=== PATIENT | female | born 1955 | race Caucasian/White ===

== ENCOUNTER → 2016-07-16 | Outpatient (CLI) | payer OTHER ==
[~2016-07-16] MED LIST: ACET50TA PO; ADV250INH INH; ALBU17IN INH; ALLO10TA PO; AMBI10TA PO; AMBI5TAB PO; ATEN100T PO; ATEN25TA PO; AUGM500T34 PO; BEN1.4DI TOP; CALC500T51 PO; CALCTAB43 PO; CALCTAB75 PO; CATA0.1T PO; CEPH2CAP PO; CLON1TAB PO; CLON2TAB PO; DOCU10CA PO; DYAZCA OR; ENBR50IN2 SC; FOLI1TAB2 PO; FOLI1TAB86 PO; HCTZ25TA PO; IBUP600T26 PO; IMDU60TA PO; IPRASOL4 NEB; KLON2TAB PO; LAMO10TA PO; LASI20TA PO; LIDO5DIS36 TD; LYRI150C PO; METH2.5T PO; METH2.5TA PO; MORP30TA10 PO; MYCOSTATIN TOP; NEUR100C PO; NEUR300C PO; NEUR600T PO; NICO14DI3 TD; NORCOTAB PO; NYST10CR EXT; OMEP40CA2 PO; OSCA200T PO; OXYC-208 PO; OXYC30TA4 PO; PERC7.5T12 PO; PRED1TABL PO; PRED5TA PO; PRIL40CA PO; RANI15TA PO; RHEU2.5T PO; RISP2TAB30 PO; RISP3TAB18 PO; RISP4TAB33 PO; ROBA750T4 PO; SENO8.6T2 PO; SENO8.6T9 PO; SOMA350T PO; SPIR1CAP IN; SYMB16INH INH; TRAM50TA2 PO; TRAZ100T2 PO; TRAZ100T4 PO; TRAZ150T PO; TRAZ300T2 PO; TUDO1AER2 INH; TYLE325T5 PO; TYLE650T25 PO; VENTAER IN; VITA200015 PO; VITA500046 PO; VITAD1000T OR; VITAD1000T PO; ZANA4CAP PO; ZOLO20CO PO; ZOLO50TA PO; [UNRECOGNIZED DRUG - REMARK]
--- NOTE | 2016-07-19 02:07 | ECWPNPC ---
PATIENT NAME: DA THAO : 1955 GENDER: FEMALE VISIT DATE: 07/16/2016 DISCHARGE DATE: 07/16/16 1459 VISIT LOCKED DATE TIME: PHYSICIAN: LIUDMILA HART RESOURCE: LIUDMILA HART REASON FOR APPOINTMENT 1. ARTHRITIS HISTORY OF PRESENT ILLNESS HISTORY OF PRESENT ILLNESS: PAIN THE PATIENT DESCRIBES THE PAIN... THE PATIENT DESCRIBES THE PAIN... THE PATIENT DESCRIBES THE PAIN... THE PATIENT DESCRIBES THE PAIN... HERE FOR F/U AND MANAGEMENT OF PERSISTENT LOW BACK PAIN.INCREASED TRAMADOL 50MG TO MAX 6 PER DAYAT LAST VISIT.RATING PAIN VAS 3/10. ALSO USING TIZANIDINE 4MG BID PRN PAIN W MDD3.HISTORY OF GENERALIZED JOINT PAIN WITH HX OF RHEUMATOID ARTHRITIS.HAD TO STOP LYRICA 1 MOS AGO DUE TO SWELLING WITH IMPROVEMENT IN SWELLING AFTER STOPPING LYRICA.HAS BEEN ON SOLUMEDROL DOSE PACK PAST 3 WEEKS PER PRIMARY CARE WITH IMPROVEMENT IN PAIN.PAIN IS LOCATED IN ALL JOINTS WITH WORSE AREA OF PAIN LOW BACK.DESCRIBES PAIN CONSTANT SHARP AND STABBING PAIN. FALL RISK SCREENING: SCREENING :NO FALLS IN THE PAST YEAR CURRENT MEDICATIONS TAKING ATENOLOL 25MG TABLET 1 TABLET ORALLY TWICE DAILY TAKING FOLIC ACID 1 MG TABLET 1 TAB(S) P.O. ONCE A DAY TAKING RISPERDAL 2 MG TABLET 1 TAB(S) P.O. ONCE A DAY TAKING OMEPRAZOLE 40 MG CAPSULE DELAYED RELEASE 1 CAPSULE ORALLY ONCE A DAY TAKING RANITIDINE HCL 150 MG CAPSULE 1 CAP(S) P.O. TWICE DAILY NEEDED TAKING TRAZODONE 100 100MG TABLET 3 ORAL DAILY TAKING KLONOPIN 1 MG TABLET ORALLY THREE TIMES DAILY TAKING VITAMIN D-3 2000 UNIT CAPSULE 1 CAPSULE P.O. ONCE A DAY TAKING CALCIUM 600 600 MG TABLET 1 TAB(S) P.O. TWICE A DAY TAKING METHOTREXATE 2.5 MG TABLET 8 TABS P.O. ONCE A WK. TAKING ACETAMINOPHEN 325 MG TABLET 1 TABLET NEEDED ORALLY EVERY 6 HRS TAKING ALBUTEROL SULFATE 1.25 MG/3ML NEBULIZATION SOLUTION 3 ML NEEDED INHALATION EVERY 8 HRS TAKING ALLOPURINOL 100 MG TABLET 1 TABLET ORALLY ONCE A DAY TAKING ENBREL 50 MG/ML SOLUTION PREFILLED SYRINGE 1 ML SUBCUTANEOUS WEEKLY TAKING IBUPROFEN 600 MG TABLET 1 TABLET ORALLY THREE TIMES DAILY NEEDED TAKING LAMICTAL 150 MG TABLET 1 TABLET ORALLY ONCE DAILY TAKING NYSTATIN POWDER DIRECTED TAKING SENNA LAXATIVE 8.6 MG TABLET 1 TABLETS AT BEDTIME NEEDED ORALLY ONCE DAILY NEEDED TAKING TUDORZA PRESSAIR 400 MCG/ACT AEROSOL POWDER BREATH ACTIVATED 1 PUFF INHALATION TWICE A DAY TAKING VENTOLIN HFA 108 (90 BASE) MCG/ACT AEROSOL SOLUTION 2 PUFFS NEEDED INHALATION EVERY 4 HRS TAKING FOSAMAX 70 MG/75ML SOLUTION 75 ML ORALLY WEEKLY TAKING AMBIEN 10 MG TABLET 1 TABLET AT BEDTIME NEEDED ORALLY ONCE A DAY TAKING BREO ELLIPTA 100-25 MCG/INH AEROSOL POWDER BREATH ACTIVATED 1 PUFF INHALATION ONCE A DAY TAKING PREDNISONE 5 MG TABLET 1 TABLET ORALLY ONCE A DAY TAKING ZANAFLEX 4 MG TABLET 1 TABLET NEEDED ORALLY Q12H BID TAKING TRAMADOL HCL 50 MG TABLET 1-2 ORALLY Q4-6H MDD6 TAKING LASIX 40 MG TABLET 1 TABLET ORALLY ONCE A DAY DISCONTINUED LASIX 20 MG TABLET 1 TABLET ORALLY ONCE A DAY MEDICATION LIST REVIEWED AND RECONCILED WITH THE PATIENT PAST MEDICAL HISTORY RA COPD BIPOLAR DISORDER/DEPRESSION/SUICIDAL IDEATION HTN GERD CHRONIC PAIN TOBACCO USE ANXIETY ALLERGIES IVP DYE: ANAPHYLAXIS SHELLFISH: ANAPHYLAXIS LYRICA: SWELLING SOCIAL HISTORY GENERAL: TOBACCO USE ARE YOU A:NONSMOKER LEARNING BARRIERS / SPECIAL NEEDS ORIENTED TO PLAN OF CARE: PATIENT, PAIN MANAGEMENT PATIENT, ORIENTED TO PLAN OF CARE: PATIENT, PAIN MANAGEMENT PATIENT. NEW PATIENT PAIN DIARY TODAY'S VISITNOTES FROM 0-10, WHAT LEVEL IS YOUR PAIN TODAY?0 PAIN CLINIC PFS, CLERGY, PUBLIC HEALTH REFERRALS PFS REFERRAL NEEDED?NO CLERGY REFERRAL NEEDED?NO PUBLIC HEALTH REFERRAL NEEDED?NO WAS THE PROVIDER NOTIFIED OF ANY PERTINENT INFO?NO PFS REFERRAL NEEDED?NO CLERGY REFERRAL NEEDED?NO PUBLIC HEALTH REFERRAL NEEDED?NO WAS THE PROVIDER NOTIFIED OF ANY PERTINENT INFO?NO REVIEW OF SYSTEMS CONSTITUTIONAL: ANY CHANGE IN YOUR MEDICAL CONDITION? NO . CHILLS NO . FEVER NO . INFECTION: DO YOU HAVE NEW INFECTIONS? NO . DO YOU HAVE HISTORY OF MRSA? NO . MUSCULOSKELETAL: ANY NEW PATTERNS OF PAIN OR NUMBNESS? NO . GASTROENTEROLOGY: ANY NEW CHANGE IN BOWEL CONTROL? NO . GENITOURINARY: ANY NEW CHANGE IN BLADDER CONTROL? NO . IS THERE A CHANCE YOU COULD BE ? NO . HEMATOLOGY/LYMPH: DO YOU TAKE ANY BLOOD THINNERS? (FOR EXAMPLE- COUMADIN, PLAVIX, AGGRENOX, PLATEL, PRADAXA, OR XARELTO) NO . WHEN WAS YOUR LAST DOSE? DATE: TIME: . NEUROLOGY: HAVE YOU FALLEN IN THE PAST 6 MONTHS? NO . ANY NEW EXTREMITY NUMBNESS OR WEAKNESS? NO . CARDIOLOGY: DO YOU HAVE A PACEMAKER OR DEFIBRILLATOR? NO . RESPIRATORY: HAVE YOU BEEN SICK IN THE PAST WEEK? YES . FEVER NO . FLU LIKE SYMPTOMS? NO . COUGH NO . INTEGUMENTARY: DO YOU HAVE ANY RASHES OR OPEN SORES? NO . ALLERGIC/IMMUNO: ARE YOU ALLERGIC TO SHELLFISH OR IV DYE? YES . ANY NEW ALLERGIES? NO . PSYCHIATRIC: DO YOU HAVE THOUGHTS OF HURTING YOURSELF OR SOMEONE ELSE? NO . ARE YOU ABUSED, NEGLECTED, OR IN AN UNSAFE ENVIRONMENT? NO . ENDOCRINOLOGY: ARE YOU DIABETIC? NO . OTHER: DO YOU NEED ANY PRESCRIPTIONS? YES . IF YES, PLEASE LIST: ____ZANAFLEX,TRAMADOL . ANY NEW PROBLEMS WITH YOUR MEDICATIONS? NO . WHEN DID YOU LAST EAT? ____ . WHEN DID YOU LAST DRINK? ____ . WHAT DID YOU LAST DRINK? ____ . NAME OF PERSON DRIVING YOU HOME? ____ . DO YOU HAVE ANY OTHER QUESTIONS OR CONCERNS NO . REVIEWED BY: PROVIDER: LIUDMILA WHITESIDE . VITAL SIGNS WT 248.8 LBS, HT 62 IN, BMI 45.50 INDEX, BP 124/56 MM HG, HR 74 /MIN, RR 16 /MIN, TEMP 96.0 F, OXYGEN SAT % 92, NA INITIALS TL 1423, REVIEWED BY: VDPT WEIGHED ON PMC SCALE- TL. EXAMINATION GENERAL EXAMINATION: LUNGS:LUNG SOUNDS ARE CLEAR. HEART:HEART RATE REGULAR. MUSCULOSKELETAL:*, MUSCLE STRENGTH TESTING 3/5PALPATION: POSITIVE FOR PAIN OVER L/S SPINE. POSITIVE FOR PAIN OVER L/S PARSPINALS.. ASSESSMENTS RHEUMATOID ARTHRITIS INVOLVING MULTIPLE SITES, UNSPECIFIED RHEUMATOID FACTOR PRESENCE - M06.9 (PRIMARY) TREATMENT RHEUMATOID ARTHRITIS INVOLVING MULTIPLE SITES, UNSPECIFIED RHEUMATOID FACTOR PRESENCE CONTINUE ZANAFLEX TABLET, 4 MG, 1 TABLET NEEDED, ORALLY, Q12H BID CONTINUE TRAMADOL HCL TABLET, 50 MG, 1-2, ORALLY, Q4-6H MDD6 PROCEDURE CODES FA211 ESTABILISHED PATIENT [facility] FACILITY CHARGE DISPOSITION & COMMUNICATION FOLLOW UP 3 MONTHS ELECTRONICALLY SIGNED BY STEVO KWON ON 07/17/2016 AT 09:14 AM EST DISCLAIMER : THIS IS A VISIT SUMMARY EXTRACTED FROM THE [employer] CHART. IT IS NOT A COPY OF THE [employer] PROGRESS NOTE. MAMI
== END ==
LOC: M PAIN 14:00
PROVIDERS: ATTEND Nurse Practitioner Family
DX: Z09 Encounter for follow-up examination after completed treatment for conditions other than malignant neoplasm (principal); G89.29 Other chronic pain; M06.9 Rheumatoid arthritis, unspecified; J44.9 Chronic obstructive pulmonary disease, unspecified; I10 Essential (primary) hypertension; K21.9 Gastro-esophageal reflux disease without esophagitis; F31.9 Bipolar disorder, unspecified; F41.9 Anxiety disorder, unspecified; Z91.041 Radiographic dye allergy status; Z91.013 Allergy to seafood; Z88.8 Allergy status to other drugs, medicaments and biological substances; Z79.1 Long term (current) use of non-steroidal anti-inflammatories (NSAID); Z79.52 Long term (current) use of systemic steroids; Z79.891 Long term (current) use of opiate analgesic; Z79.899 Other long term (current) drug therapy; Z87.891 Personal history of nicotine dependence; Z91.5 Personal history of self-harm

== ENCOUNTER → 2016-10-22 | Outpatient (CLI) | payer MEDICARE, MEDICAID ==
--- NOTE | 2016-10-24 02:13 | ECWPNPC ---
PATIENT NAME: DA THAO : 1955 GENDER: FEMALE VISIT DATE: 10/22/2016 DISCHARGE DATE: 10/22/16 1522 VISIT LOCKED DATE TIME: PHYSICIAN: LIUDMILA HART RESOURCE: LIUDMILA HART REASON FOR APPOINTMENT 1. ARTHRITIS HISTORY OF PRESENT ILLNESS HISTORY OF PRESENT ILLNESS: HERE FOR F/U OF CHRONIC LOW BACK AMD GENERALIZED JOINT PAIN WITH HISTORY OF RHEUMATOID ARTHRITIS.CURRENTLY USING TRAMADOL 1-2 TAB Q8H PRN PAIN WITH MDD6 AND TIZANIDINE 4MG BID FOR CHRONIC PAIN.FINDS MEDICATION SOMEWHAT HELPFUL AT REDUCING PAIN AND KEEPING HER COMFORTABLE.DENIES SIDE EFFECTS.RATING PAIN VAS 5/10. PAIN THE PATIENT DESCRIBES THE PAIN... FALL RISK SCREENING: SCREENING :NO FALLS IN THE PAST YEAR CURRENT MEDICATIONS TAKING ATENOLOL 25MG TABLET 1 TABLET ORALLY TWICE DAILY TAKING FOLIC ACID 1 MG TABLET 1 TAB(S) P.O. ONCE A DAY TAKING RISPERDAL 2 MG TABLET 1 TAB(S) P.O. ONCE A DAY TAKING OMEPRAZOLE 40 MG CAPSULE DELAYED RELEASE 1 CAPSULE ORALLY ONCE A DAY TAKING RANITIDINE HCL 150 MG CAPSULE 1 CAP(S) P.O. TWICE DAILY NEEDED TAKING TRAZODONE 100 100MG TABLET 3 ORAL DAILY TAKING KLONOPIN 1 MG TABLET ORALLY THREE TIMES DAILY TAKING VITAMIN D-3 2000 UNIT CAPSULE 1 CAPSULE P.O. ONCE A DAY TAKING CALCIUM 600 600 MG TABLET 1 TAB(S) P.O. TWICE A DAY TAKING METHOTREXATE 2.5 MG TABLET 8 TABS P.O. ONCE A WK. TAKING ACETAMINOPHEN 325 MG TABLET 1 TABLET NEEDED ORALLY EVERY 6 HRS TAKING ALBUTEROL SULFATE 1.25 MG/3ML NEBULIZATION SOLUTION 3 ML NEEDED INHALATION EVERY 8 HRS TAKING ALLOPURINOL 100 MG TABLET 1 TABLET ORALLY ONCE A DAY TAKING ENBREL 50 MG/ML SOLUTION PREFILLED SYRINGE 1 ML SUBCUTANEOUS WEEKLY TAKING IBUPROFEN 600 MG TABLET 1 TABLET ORALLY THREE TIMES DAILY NEEDED TAKING LAMICTAL 150 MG TABLET 1 TABLET ORALLY ONCE DAILY TAKING NYSTATIN POWDER DIRECTED TAKING SENNA LAXATIVE 8.6 MG TABLET 1 TABLETS AT BEDTIME NEEDED ORALLY ONCE DAILY NEEDED TAKING TUDORZA PRESSAIR 400 MCG/ACT AEROSOL POWDER BREATH ACTIVATED 1 PUFF INHALATION TWICE A DAY TAKING VENTOLIN HFA 108 (90 BASE) MCG/ACT AEROSOL SOLUTION 2 PUFFS NEEDED INHALATION EVERY 4 HRS TAKING FOSAMAX 70 MG/75ML SOLUTION 75 ML ORALLY WEEKLY TAKING AMBIEN 10 MG TABLET 1 TABLET AT BEDTIME NEEDED ORALLY ONCE A DAY TAKING BREO ELLIPTA 100-25 MCG/INH AEROSOL POWDER BREATH ACTIVATED 1 PUFF INHALATION ONCE A DAY TAKING PREDNISONE 5 MG TABLET 1 TABLET ORALLY ONCE A DAY TAKING LASIX 40 MG TABLET 1 TABLET ORALLY ONCE A DAY TAKING ZANAFLEX 4 MG TABLET 1 TABLET NEEDED ORALLY Q12H BID TAKING TRAMADOL HCL 50 MG TABLET 1-2 ORALLY Q4-6H MDD6 TAKING OXYGEN MEDICATION LIST REVIEWED AND RECONCILED WITH THE PATIENT PAST MEDICAL HISTORY RA COPD BIPOLAR DISORDER/DEPRESSION/SUICIDAL IDEATION HTN GERD CHRONIC PAIN TOBACCO USE ANXIETY SLEEP APNEA ALLERGIES IVP DYE: ANAPHYLAXIS SHELLFISH: ANAPHYLAXIS LYRICA: SWELLING SURGICAL HISTORY 07/1981 APPENDECTOMY CHOLECYSTECTOMY TONSILLECTOMY BTL -2007 FAMILY HISTORY FATHER: , DIAGNOSED WITH HEART DISEASE MOTHER: , DIAGNOSED WITH OTHER 1 BROTHER(S) , 3 SISTER(S) - HEALTHY. 2 SON(S) , 1 DAUGHTER(S) - HEALTHY. SOCIAL HISTORY GENERAL: TOBACCO USE ARE YOU A:CURRENT SMOKER HOW MANY CIGARETTES A DAY DO YOU SMOKE?5 OR LESS PATIENT COUNSELED ON THE DANGERS OF TOBACCO USE AND URGED TO QUIT:10/22/2016 ARE YOU INTERESTED IN QUITTING?NOT READY TO QUIT COUNSELED THE PATIENT ON SMOKING EFFECTS, EDUCATION [id number]/13/2017 CAFFEINE CAFFEINE USE?YES HOW OFTEN AND HOW MUCH? 1-2 CUPS PER DAY LEARNING BARRIERS / SPECIAL NEEDS ORIENTED TO PLAN OF CARE: PATIENT, PAIN MANAGEMENT PATIENT, ORIENTED TO PLAN OF CARE: PATIENT, PAIN MANAGEMENT PATIENT. NEW PATIENT PAIN DIARY TODAY'S VISITNOTES FROM 0-10, WHAT LEVEL IS YOUR PAIN TODAY?0 PAIN CLINIC PFS, CLERGY, PUBLIC HEALTH REFERRALS PFS REFERRAL NEEDED?NO CLERGY REFERRAL NEEDED?NO PUBLIC HEALTH REFERRAL NEEDED?NO WAS THE PROVIDER NOTIFIED OF ANY PERTINENT INFO?YES HAS THE PATIENT BEEN EDUCATED REGARDING HIS/HER PLAN OF CARE?YES HAS THE PATIENT BEEN EDUCATED REGARDING PAIN, THE RISK FOR PAIN, THE IMPORTANCE OF EFFECTIVE PAIN MANAGEMENT, AND THE PAIN ASSESSMENT PROCESS?YES REVIEWED BY: ANA. ADVANCE DIRECTIVES HEALTH CARE PROXY?NO HOSPITALIZATION/MAJOR DIAGNOSTIC PROCEDURE FEVER 10/09/12 UTI 09/29/12 [facility] SUICIDAL IDEATION/DEPRESSION 10/12/12 [facility] SUICIDAL IDEATION 10/17/12 ACUTE CHOLECYSTITIS-[facility] 11/21 [facility]-DEPRESSION/SUICIDAL IDEATION 12/22 REVIEW OF SYSTEMS CONSTITUTIONAL: ANY CHANGE IN YOUR MEDICAL CONDITION? NO . CHILLS NO . FEVER NO . INFECTION: DO YOU HAVE NEW INFECTIONS? NO . DO YOU HAVE HISTORY OF MRSA? NO . MUSCULOSKELETAL: ANY NEW PATTERNS OF PAIN OR NUMBNESS? NO . GASTROENTEROLOGY: ANY NEW CHANGE IN BOWEL CONTROL? NO . GENITOURINARY: ANY NEW CHANGE IN BLADDER CONTROL? NO . IS THERE A CHANCE YOU COULD BE ? NO . HEMATOLOGY/LYMPH: DO YOU TAKE ANY BLOOD THINNERS? (FOR EXAMPLE- COUMADIN, PLAVIX, AGGRENOX, PLATEL, PRADAXA, OR XARELTO) NO . WHEN WAS YOUR LAST DOSE? DATE: TIME: . NEUROLOGY: HAVE YOU FALLEN IN THE PAST 6 MONTHS? YES, PT STATES THAT SHE LOST HER BALANCE AT HOME, WENT TO PULL DOOR OPEN, NO INJURY, NO REPORT TO ED . ANY NEW EXTREMITY NUMBNESS OR WEAKNESS? NO . CARDIOLOGY: DO YOU HAVE A PACEMAKER OR DEFIBRILLATOR? NO . RESPIRATORY: HAVE YOU BEEN SICK IN THE PAST WEEK? NO . FEVER NO . FLU LIKE SYMPTOMS? NO . COUGH NO . INTEGUMENTARY: DO YOU HAVE ANY RASHES OR OPEN SORES? NO . ALLERGIC/IMMUNO: ARE YOU ALLERGIC TO SHELLFISH OR IV DYE? YES . ANY NEW ALLERGIES? NO . PSYCHIATRIC: DO YOU HAVE THOUGHTS OF HURTING YOURSELF OR SOMEONE ELSE? NO . ARE YOU ABUSED, NEGLECTED, OR IN AN UNSAFE ENVIRONMENT? NO . ENDOCRINOLOGY: ARE YOU DIABETIC? NO . OTHER: DO YOU NEED ANY PRESCRIPTIONS? TRAMADOL, ZANAFLEX . IF YES, PLEASE LIST: ____ . ANY NEW PROBLEMS WITH YOUR MEDICATIONS? NO . WHEN DID YOU LAST EAT? ____ . WHEN DID YOU LAST DRINK? ____ . WHAT DID YOU LAST DRINK? ____ . NAME OF PERSON DRIVING YOU HOME? ____ . DO YOU HAVE ANY OTHER QUESTIONS OR CONCERNS NO . REVIEWED BY: PROVIDER: LIUDMILA WHITESIDE . VITAL SIGNS WT 245.4 LBS, HT 62 IN, BMI 44.88 INDEX, BP 125/76 MM HG, HR 71 /MIN, RR 16 /MIN, TEMP 96.4 F, OXYGEN SAT % 93%, SAFE IN ENV? (Y/N) Y, NA INITIALS TL 1455, REVIEWED BY: [id number]. EXAMINATION GENERAL EXAMINATION: LUNGS:LUNG SOUNDS ARE CLEAR. HEART:HEART RATE REGULAR. MUSCULOSKELETAL:*, MUSCLE STRENGTH TESTING 3/5PALPATION: POSITIVE FOR PAIN OVER L/S SPINE. POSITIVE FOR PAIN OVER L/S PARASPINALS.. ASSESSMENTS RHEUMATOID ARTHRITIS INVOLVING MULTIPLE SITES, UNSPECIFIED RHEUMATOID FACTOR PRESENCE - M06.9 (PRIMARY) TREATMENT RHEUMATOID ARTHRITIS INVOLVING MULTIPLE SITES, UNSPECIFIED RHEUMATOID FACTOR PRESENCE REFILL ZANAFLEX TABLET, 4 MG, 1 TABLET NEEDED, ORALLY, Q12H BID, 30 DAY(S), 60, REFILLS 2 REFILL TRAMADOL HCL TABLET, 50 MG, 1-2, ORALLY, Q4-6H MDD6, 30 DAY(S), 180, REFILLS 2 PROCEDURE CODES FA211 ESTABILISHED PATIENT [facility] FACILITY CHARGE DISPOSITION & COMMUNICATION FOLLOW UP 3 MONTHS ELECTRONICALLY SIGNED BY STEVO KWON ON 10/23/2016 AT 03:55 PM EDT DISCLAIMER : THIS IS A VISIT SUMMARY EXTRACTED FROM THE [employer] CHART. IT IS NOT A COPY OF THE [employer] PROGRESS NOTE. MAMI
== END ==
LOC: M PAIN 14:40
PROVIDERS: ATTEND Nurse Practitioner Family
DX: G89.29 Other chronic pain (principal); M06.9 Rheumatoid arthritis, unspecified; J44.9 Chronic obstructive pulmonary disease, unspecified; F31.9 Bipolar disorder, unspecified; I10 Essential (primary) hypertension; K21.9 Gastro-esophageal reflux disease without esophagitis; F17.210 Nicotine dependence, cigarettes, uncomplicated; F41.9 Anxiety disorder, unspecified; G47.30 Sleep apnea, unspecified; Z79.51 Long term (current) use of inhaled steroids; Z79.52 Long term (current) use of systemic steroids; Z79.899 Other long term (current) drug therapy; Z99.81 Dependence on supplemental oxygen; Z91.013 Allergy to seafood; Z88.8 Allergy status to other drugs, medicaments and biological substances

== ENCOUNTER → 2016-12-22 | Outpatient (CLI) | payer MEDICARE, OTHER, MEDICAID ==
[~2016-12-22] MED LIST changes: -CALCTAB43 PO; +CALCTAB74 PO; -FOLI1TAB2 PO; +FOLI1TAB4 PO; +IBUP-1022 PO; -IBUP600T26 PO; -LIDO5DIS36 TD; +LIDO5DIS41 TD; -RISP2TAB30 PO; +RISP2TAB32 PO; -RISP3TAB18 PO; +RISP3TAB20 PO; -SENO8.6T2 PO; +SENO8.6T5 PO; +TRAZ-136 PO; -TRAZ100T4 PO
--- NOTE | 2016-12-28 10:15 | SLEEPCENT ---
DATE OF STUDY: 12/22/2016 ORDERING PROVIDER: Pepper Perry NP Nocturnal polysomnography was performed due to concern for the obstructive sleep apnea syndrome in this patient with a history of excessive somnolence and nonrestorative sleep. Testing was started on room air. 8 hours and 1 minute of data were reviewed. There were 465 minutes of sleep identified. Sleep latency was normal at 8.5 minutes. Rapid eye movement (REM) sleep was delayed at 317 minutes. Sleep architecture showed poor progression and REM delay. There was only one REM period appreciated. Overall sleep efficiency was good at 97%. The patient's electrocardiogram (EKG) showed a sinus rhythm with an average heart rate of 70 beats per minute. Electroencephalogram (EEG) showed fairly normal waveforms for awake and sleep. There were 35 respiratory events identified of 10 seconds in duration or greater for an apnea-hypopnea index of 5.1. The events were near exclusive to the supine posture. The patient spent the entire night in the supine position. Arousals from respiratory events occurred 0.8 times per hour. Oxygen desaturation seen early in the study prompted the addition of supplemental oxygen after 2 liters of oxygen was administered. Saturations normalized. Snoring was noted throughout the study. There was little limb activity, and remaining measures of sleep physiology were normal. IMPRESSION: 1. Mild positional obstructive sleep apnea syndrome (G47.33). 2. Snoring. 3. Hypoventilatory oxygen desaturations. RECOMMENDATION: Supplemental oxygen at 2 liters per minute was sufficient to maintain the patient's oxygen saturation. Sleep position retraining for avoidance of supine posture is recommended given the obstructive events seen. If symptoms persist, the patient may benefit from a return to the sleep disorder center for pressure therapy.
== END ==
LOC: M SLEEP 20:00
PROVIDERS: ATTEND Nurse Practitioner Adult Health
DX: G47.33 Obstructive sleep apnea (adult) (pediatric) (principal); R06.83 Snoring

== ENCOUNTER → 2017-02-06 | Outpatient (CLI) | payer MEDICARE, MEDICAID ==
--- NOTE | 2017-02-06 23:48 | ECWPNPC ---
PATIENT NAME: DA THAO : 1955 GENDER: FEMALE VISIT DATE: 02/06/2017 DISCHARGE DATE: 02/06/17 1129 VISIT LOCKED DATE TIME: PHYSICIAN: LIUDMILA HART RESOURCE: LIUDMILA HART REASON FOR APPOINTMENT 1. ARTHRITIS HISTORY OF PRESENT ILLNESS HISTORY OF PRESENT ILLNESS: HERE FOR 3 MONTH F/U OF CHRONIC LOW BACK AND GENERALIZED JOINT PAIN WITH HISTORY OF RHEUMATOID ARTHRITIS.CURRENTLY USING TRAMADOL 1-2 TAB Q8H PRN PAIN WITH MDD6 AND TIZANIDINE 4MG BID FOR CHRONIC PAIN.FINDS MEDICATION SOMEWHAT HELPFUL AT REDUCING PAIN AND KEEPING HER COMFORTABLE.DENIES SIDE EFFECTS.RATING PAIN VAS 6/10.PAIN IS WORSE IN NECK AND LOW BACK.PAIN IS AGGREVATED BY INCREASED ACTIVITY AND RELIEVED SOMEWHAT WITH REST AND HEAT. PAIN THE PATIENT DESCRIBES THE PAIN... THE PATIENT DESCRIBES THE PAIN... FALL RISK SCREENING: SCREENING :NO FALLS IN THE PAST YEAR CURRENT MEDICATIONS TAKING ATENOLOL 25MG TABLET 1 TABLET ORALLY TWICE DAILY TAKING FOLIC ACID 1 MG TABLET 1 TAB(S) P.O. ONCE A DAY TAKING RISPERDAL 2 MG TABLET 1 TAB(S) P.O. ONCE A DAY TAKING OMEPRAZOLE 40 MG CAPSULE DELAYED RELEASE 1 CAPSULE ORALLY ONCE A DAY TAKING RANITIDINE HCL 150 MG CAPSULE 1 CAP(S) P.O. TWICE DAILY NEEDED TAKING TRAZODONE 100 100MG TABLET 3 ORAL DAILY TAKING KLONOPIN 1 MG TABLET ORALLY THREE TIMES DAILY TAKING VITAMIN D-3 2000 UNIT CAPSULE 1 CAPSULE P.O. ONCE A DAY TAKING CALCIUM 600 600 MG TABLET 1 TAB(S) P.O. TWICE A DAY TAKING METHOTREXATE 2.5 MG TABLET 8 TABS P.O. ONCE A WK. TAKING ACETAMINOPHEN 325 MG TABLET 1 TABLET NEEDED ORALLY EVERY 6 HRS TAKING ALBUTEROL SULFATE 1.25 MG/3ML NEBULIZATION SOLUTION 3 ML NEEDED INHALATION EVERY 8 HRS TAKING ALLOPURINOL 100 MG TABLET 1 TABLET ORALLY ONCE A DAY TAKING ENBREL 50 MG/ML SOLUTION PREFILLED SYRINGE 1 ML SUBCUTANEOUS WEEKLY TAKING IBUPROFEN 600 MG TABLET 1 TABLET ORALLY THREE TIMES DAILY NEEDED TAKING LAMICTAL 200 MG TABLET 1 TABLET ORALLY ONCE DAILY TAKING NYSTATIN POWDER DIRECTED TAKING SENNA LAXATIVE 8.6 MG TABLET 1 TABLETS AT BEDTIME NEEDED ORALLY ONCE DAILY NEEDED TAKING TUDORZA PRESSAIR 400 MCG/ACT AEROSOL POWDER BREATH ACTIVATED 1 PUFF INHALATION TWICE A DAY TAKING VENTOLIN HFA 108 (90 BASE) MCG/ACT AEROSOL SOLUTION 2 PUFFS NEEDED INHALATION EVERY 4 HRS TAKING FOSAMAX 70 MG/75ML SOLUTION 75 ML ORALLY WEEKLY TAKING AMBIEN 10 MG TABLET 1 TABLET AT BEDTIME NEEDED ORALLY ONCE A DAY TAKING BREO ELLIPTA 100-25 MCG/INH AEROSOL POWDER BREATH ACTIVATED 1 PUFF INHALATION ONCE A DAY TAKING PREDNISONE 5 MG TABLET 1 TABLET ORALLY ONCE A DAY TAKING LASIX 40 MG TABLET 1 TABLET ORALLY ONCE A DAY TAKING OXYGEN TAKING TRAMADOL HCL 50 MG TABLET 1-2 ORALLY Q4-6H MDD6 TAKING ZANAFLEX 4 MG TABLET 1 TABLET NEEDED ORALLY Q12H BID MEDICATION LIST REVIEWED AND RECONCILED WITH THE PATIENT PAST MEDICAL HISTORY RA COPD BIPOLAR DISORDER/DEPRESSION/SUICIDAL IDEATION HTN GERD CHRONIC PAIN TOBACCO USE ANXIETY SLEEP APNEA ALLERGIES IVP DYE: ANAPHYLAXIS SHELLFISH: ANAPHYLAXIS LYRICA: SWELLING REVIEW OF SYSTEMS REVIEWED BY: PROVIDER: LIUDMILA WHITESIDE . CONSTITUTIONAL: ANY CHANGE IN YOUR MEDICAL CONDITION? NO . CHILLS NO . FEVER NO . INFECTION: DO YOU HAVE NEW INFECTIONS? NO . DO YOU HAVE HISTORY OF MRSA? NO . MUSCULOSKELETAL: ANY NEW PATTERNS OF PAIN OR NUMBNESS? NO . GASTROENTEROLOGY: ANY NEW CHANGE IN BOWEL CONTROL? NO . GENITOURINARY: ANY NEW CHANGE IN BLADDER CONTROL? NO . IS THERE A CHANCE YOU COULD BE ? NO . HEMATOLOGY/LYMPH: DO YOU TAKE ANY BLOOD THINNERS? (FOR EXAMPLE- COUMADIN, PLAVIX, AGGRENOX, PLATEL, PRADAXA, OR XARELTO) NO . WHEN WAS YOUR LAST DOSE? DATE: TIME: . NEUROLOGY: HAVE YOU FALLEN IN THE PAST 6 MONTHS? YES . ANY NEW EXTREMITY NUMBNESS OR WEAKNESS? NO . CARDIOLOGY: DO YOU HAVE A PACEMAKER OR DEFIBRILLATOR? NO . RESPIRATORY: HAVE YOU BEEN SICK IN THE PAST WEEK? NO . FEVER NO . FLU LIKE SYMPTOMS? NO . COUGH NO . INTEGUMENTARY: DO YOU HAVE ANY RASHES OR OPEN SORES? NO . ALLERGIC/IMMUNO: ARE YOU ALLERGIC TO SHELLFISH OR IV DYE? YES, SHELLFISH . ANY NEW ALLERGIES? NO . PSYCHIATRIC: DO YOU HAVE THOUGHTS OF HURTING YOURSELF OR SOMEONE ELSE? NO . ARE YOU ABUSED, NEGLECTED, OR IN AN UNSAFE ENVIRONMENT? NO . ENDOCRINOLOGY: ARE YOU DIABETIC? NO . OTHER: DO YOU NEED ANY PRESCRIPTIONS? NO . IF YES, PLEASE LIST: ____ . ANY NEW PROBLEMS WITH YOUR MEDICATIONS? NO . WHEN DID YOU LAST EAT? ____ . WHEN DID YOU LAST DRINK? ____ . WHAT DID YOU LAST DRINK? ____ . NAME OF PERSON DRIVING YOU HOME? ____ . DO YOU HAVE ANY OTHER QUESTIONS OR CONCERNS NO . VITAL SIGNS WT 238.8 LBS, HT 62 IN, BMI 43.67 INDEX, BP 135/62 MM HG, HR 85 /MIN, RR 16 /MIN, TEMP 97.5 F, OXYGEN SAT % 92%, NA INITIALS CM 1110. EXAMINATION GENERAL EXAMINATION: LUNGS:LUNG SOUNDS ARE CLEAR. HEART:HEART RATE REGULAR. MUSCULOSKELETAL:*, MUSCLE STRENGTH TESTING 3/5PALPATION: POSITIVE FOR PAIN OVER L/S SPINE. POSITIVE FOR PAIN OVER L/S PARASPINALS.. ASSESSMENTS RHEUMATOID ARTHRITIS INVOLVING MULTIPLE SITES, UNSPECIFIED RHEUMATOID FACTOR PRESENCE - M06.9 (PRIMARY) TREATMENT RHEUMATOID ARTHRITIS INVOLVING MULTIPLE SITES, UNSPECIFIED RHEUMATOID FACTOR PRESENCE CONTINUE ZANAFLEX TABLET, 4 MG, 1 TABLET NEEDED, ORALLY, Q12H BID CONTINUE TRAMADOL HCL TABLET, 50 MG, 1-2, ORALLY, Q4-6H MDD6 NOTES: FALLS CARE PLAN: 1. RECOMMEND REMOVING ALL THROW RUGS. 2. RECOMMEND NIGHT LIGHTS 3. RECOMMEND WEARING RUBBER SOLED SHOES AND TO NOT GO BAREFOOT. 4.. ADVISED TO CHANGE POSITION SLOWLY FROM SUPINE TO STANDING TO AVOID DIZZINESS. 5. ADVISED TO USE ASSISTIVE DEVICE SUCH CANE OR WALKER 6. USE [employer] SERVICES OR KEEP PORTABLE PHONE READILY AVAILABLE, # 226 TOBACCO USE SCREENING/INTERVENTION: PATIENT CURRENTLY USED TOBACCO. WAS OFFERED SMOKING CESSATION FOR GUIDANCE IN QUITTING THROUGH THE [facility] QUITS PROGRAM AND THE [facility] CESSATION PROGRAM. , #128 - SCREENING BMI AND F/U PLAN IN : BMI ABOVE NORMAL TODAY. DISCUSSED WITH PATIENT NUTRITIONAL FOOD CHOICES TO ASSIST WITH WEIGHT LOSS. RECCOMMENDED REDUCING SALT, SUGAR, SODA INTAKE. RECOMMEND INCREASE ACTIVITY TO INCLUDE WALKING ON A REGULAR BASIS. PROFESSIONAL NUTRITIONAL NUTRITIONAL GUIDANCE WAS OFFERED AND WAS DECLINED. , PATIENT WAS ADVISED TO START A WALKING PROGRAM TO STRENGTHEN LUMBAR PARASPINAL MUSCLES AND IMPROVE MOBILITY. THEY WERE ADVISED THAT THIS WILL IMPROVE WEIGHT LOSS AND ALSO DEPRESSION/FIBROMYALGIA SYMPTOMS. ADVISED TO WALK 10 MINUTES EVERY OTHER DAY ON A FLAT SURFACE. EMPHASIZED THE IMPORTANCE OF DOING THIS CONSISTANTLY AND NOT SPORATICALLY TO AVOID INJURY. STRONG ADVISED NOT TO DO MORE THAN 10 MINUTES EVERY OTHER DSY FOR THE FIRST 4 WEEKS. PROCEDURE CODES FA211 ESTABILISHED PATIENT [facility] FACILITY CHARGE G8783 BP SCR PRFRM RCMDD DEFIND SCR INTVL G8730 PAIN ASSESS POS TOOL F/U PLAN DOC 3016F PT SCRND [place] USE 1124F ACP DISCUSS-NO DSCNMKR DOCD 0518F FALL PLAN OF CARE DOCD G8427 DOC MEDS VERIFIED W/PT OR RE G8417 BMI >=30 CALCUATE W/FOLLOWUP 3288F FALL RISK ASSESSMENT DOCD 4004F PT TOBACCO SCREEN RCVD TLK DISPOSITION & COMMUNICATION FOLLOW UP 3 MONTHS ELECTRONICALLY SIGNED BY STEVO KWON ON 02/06/2017 AT 03:57 PM EDT DISCLAIMER : THIS IS A VISIT SUMMARY EXTRACTED FROM THE [employer] CHART. IT IS NOT A COPY OF THE [facility] [employer] PROGRESS NOTE. MAMI
== END ==
LOC: M PAIN 10:45
PROVIDERS: ATTEND Nurse Practitioner Family
DX: G89.29 Other chronic pain (principal); M06.9 Rheumatoid arthritis, unspecified; J44.9 Chronic obstructive pulmonary disease, unspecified; F31.9 Bipolar disorder, unspecified; I10 Essential (primary) hypertension; K21.9 Gastro-esophageal reflux disease without esophagitis; F17.200 Nicotine dependence, unspecified, uncomplicated; G47.30 Sleep apnea, unspecified; Z91.041 Radiographic dye allergy status; Z91.013 Allergy to seafood; Z88.8 Allergy status to other drugs, medicaments and biological substances; Z79.51 Long term (current) use of inhaled steroids; Z79.52 Long term (current) use of systemic steroids; Z79.891 Long term (current) use of opiate analgesic; Z79.899 Other long term (current) drug therapy

== ENCOUNTER → 2017-02-19 | Outpatient (CLI) | payer MEDICARE, MEDICAID ==
--- NOTE | 2017-02-25 21:44 | SLEEPCENT ---
DATE OF PROCEDURE: 02/19/2017 ORDERED BY: Pepper Perry Nocturnal polysomnography was performed for titration of pressure therapy in this patient with obstructive sleep apnea syndrome, apnea-hypopnea index of 5.1. For testing, the patient was fit with a ResMed Mirage FX full face mask of medium size. 4 cm of water pressure were applied to the circuit and the lights were extinguished. 6 hours and 41 minutes of data were reviewed. There were 374 minutes of sleep identified. Sleep latency was prolonged at 19 minutes. Rapid eye movement (REM) latency was prolonged at 119 minutes. Sleep architecture improved over the course of the study with 2 REM periods appreciated. Overall sleep efficiency was 94.8%. The electrocardiogram showed a sinus rhythm with an average heart rate of 60 beats per minute. EEG showed reasonably normal waveforms for awake and sleep. Hypoventilatory oxygen desaturations prompted the addition of supplemental oxygen to the continuous positive airway pressure (CPAP) circuit. Best sleep was seen on a CPAP pressure of 6. With the addition of 2 liters of oxygen, saturations remained 90% plus. There was minimal limb activity, minimal snoring was noted and remaining measures of sleep physiology were normal. IMPRESSION: Obstructive sleep apnea syndrome (G47.33). RECOMMENDATION: Nightly use of pressure therapy 6 cm of water with 2 liters of oxygen bled through the CPAP circuit. Copy To: Dr. Sun
== END ==
LOC: M SLEEP 22:13
PROVIDERS: ATTEND Nurse Practitioner Adult Health
DX: G47.33 Obstructive sleep apnea (adult) (pediatric) (principal)

== ENCOUNTER → 2017-05-01 | Outpatient (CLI) | payer MEDICARE, MEDICAID ==
[2017-05-01 12:47] LABS: BASO # 0.1 10^3/uL (0.0-0.2); BASO % 0.7 % (0.0-1.0); EOS # 0.3 10^3/uL (0.0-0.50); EOS % 2.5 % (0.0-3.0); IMMATURE GRANULOCYTE % 0.7 % (0-0); LYMPH # 2.2 10^3/uL (1.5-4.5); MEAN CORPUSCULAR HEMOGLOBIN 32.1 pg (27.0-33.0); MEAN CORPUSCULAR HGB CONC 33.6 g/dl (32.0-36.5); MEAN CORPUSCULAR VOLUME 95.7 fl (80.0-96.0); MONO # 0.9 10^3/uL (0.0-0.8); MONO % 6.8 % (0.0-5.0); NEUTROPHILS # 9.4 10^3/uL (1.8-7.7); NEUTROPHILS % 72.3 % (36.0-66.0); PLATELET COUNT, AUTOMATED 195 10^3/uL (150-450); RED CELL DISTRIBUTION WIDTH 13.5 % (11.5-14.5); WHITE BLOOD COUNT 13.1 10^3/uL (4.0-10.0)
[2017-05-01 13:16] LABS: ALBUMIN 3.1 GM/DL (3.2-5.2); ALKALINE PHOSPHATASE 75 U/L (45-117); ALT/SGPT 22 U/L (12-78); ANION GAP 6 MEQ/L (8-16); AST/SGOT 19 U/L (7-37); BILIRUBIN,TOTAL 0.4 MG/DL (0.2-1.0); BLOOD UREA NITROGEN 10 MG/DL (7-18); CALCIUM LEVEL 8.1 MG/DL (8.8-10.2); CARBON DIOXIDE LEVEL 40 MEQ/L (21-32); CHLORIDE LEVEL 99 MEQ/L (98-107); CHOLESTEROL LEVEL 155 MG/DL (<200); CREATININE FOR GFR 0.93 MG/DL (0.55-1.02); FREE T4 1.75 NG/DL (0.76-1.46); GLOMERULAR FILTRATION RATE > 60.0 (>45); GLUCOSE, FASTING 113 MG/DL (80-110); SODIUM LEVEL 145 MEQ/L (136-145); TOTAL PROTEIN 6.2 GM/DL (6.4-8.2); TRIGLYCERIDES LEVEL 141 MG/DL (<150)
== END ==
LOC: M LAB 11:49
PROVIDERS: ATTEND Physician Assistant
DX: Z00.00 Encounter for general adult medical examination without abnormal findings (principal); E66.9 Obesity, unspecified; Z79.899 Other long term (current) drug therapy

== ENCOUNTER → 2017-06-11 | Outpatient (CLI) | payer MEDICARE, MEDICAID | LOC: M PAIN 14:45 | DX: G89.29 Other chronic pain (principal); M06.9 Rheumatoid arthritis, unspecified; M54.5 Low back pain; I10 Essential (primary) hypertension; J44.9 Chronic obstructive pulmonary disease, unspecified; K21.9 Gastro-esophageal reflux disease without esophagitis; F31.9 Bipolar disorder, unspecified; F41.9 Anxiety disorder, unspecified; G47.30 Sleep apnea, unspecified; F17.210 Nicotine dependence, cigarettes, uncomplicated; Z79.51 Long term (current) use of inhaled steroids; Z79.52 Long term (current) use of systemic steroids; Z79.891 Long term (current) use of opiate analgesic; Z79.899 Other long term (current) drug therapy; Z88.8 Allergy status to other drugs, medicaments and biological substances; Z91.041 Radiographic dye allergy status; Z91.013 Allergy to seafood; Z86.59 Personal history of other mental and behavioral disorders | CPT/HCPCS: G0463 ==

== ENCOUNTER → 2017-08-04 | Outpatient (CLI) | payer MEDICARE, MEDICAID ==
[2017-08-04 19:54] LABS: THYROID PEROXIDASE ANTIBODY < 28.0 U/ML (<60.0)
[2017-08-04 19:55] LABS: THYROGLOBULIN ANTIBODY 16.1 U/ML (<60.0)
[2017-08-04 19:57] LABS: ALBUMIN 3.2 GM/DL (3.2-5.2); ALBUMIN/GLOBULIN RATIO 1.03 (1.00-1.93); ALKALINE PHOSPHATASE 72 U/L (45-117); ALT/SGPT 22 U/L (12-78); ANION GAP 6 MEQ/L (8-16); AST/SGOT 30 U/L (7-37); BILIRUBIN,TOTAL 0.5 MG/DL (0.2-1.0); BLOOD UREA NITROGEN 10 MG/DL (7-18); CALCIUM LEVEL 8.4 MG/DL (8.8-10.2); CARBON DIOXIDE LEVEL 36 MEQ/L (21-32); CHLORIDE LEVEL 100 MEQ/L (98-107); CREATININE FOR GFR 0.95 MG/DL (0.55-1.30); GLOMERULAR FILTRATION RATE > 60.0 (>45); GLUCOSE, FASTING 96 MG/DL (70-100); POTASSIUM SERUM 3.2 MEQ/L (3.5-5.1); SODIUM LEVEL 142 MEQ/L (136-145); THYROID STIMULATING HORMONE 0.662 uIU/ML (0.358-3.740); TOTAL PROTEIN 6.3 GM/DL (6.4-8.2)
[2017-08-04 20:42] LABS: ESTIMATED AVERAGE GLUCOSE 108 MG/DL (60-110); HEMOGLOBIN A1c 5.4 %
== END ==
LOC: M WUC 16:08
DX: R73.01 Impaired fasting glucose (principal); E55.9 Vitamin D deficiency, unspecified; R94.6 Abnormal results of thyroid function studies
CPT/HCPCS: 84443

== ENCOUNTER → 2017-11-25 | Outpatient (CLI) | payer MEDICARE, MEDICAID | LOC: M PAIN 14:30 | DX: M06.9 Rheumatoid arthritis, unspecified (principal); M54.5 Low back pain; G89.29 Other chronic pain; J44.9 Chronic obstructive pulmonary disease, unspecified; F31.9 Bipolar disorder, unspecified; R45.851 Suicidal ideations; I10 Essential (primary) hypertension; K21.9 Gastro-esophageal reflux disease without esophagitis; F41.9 Anxiety disorder, unspecified; G47.30 Sleep apnea, unspecified; F17.210 Nicotine dependence, cigarettes, uncomplicated; Z79.51 Long term (current) use of inhaled steroids; Z79.899 Other long term (current) drug therapy; Z88.8 Allergy status to other drugs, medicaments and biological substances; Z91.041 Radiographic dye allergy status; Z91.013 Allergy to seafood | CPT/HCPCS: G0463 ==

== ENCOUNTER → 2017-12-03 | Outpatient (CLI) | payer MEDICARE ==
[2017-12-03 15:09] LABS: HEMATOCRIT 40.8 % (36.0-47.0); HEMOGLOBIN 13.5 g/dl (12.0-15.5); MEAN CORPUSCULAR HEMOGLOBIN 33.2 pg (27.0-33.0); MEAN CORPUSCULAR HGB CONC 33.1 g/dl (32.0-36.5); MEAN CORPUSCULAR VOLUME 100.2 fl (80.0-96.0); PLATELET COUNT, AUTOMATED 195 10^3/uL (150-450); RED BLOOD COUNT 4.07 10^6/uL (4.00-5.40); RED CELL DISTRIBUTION WIDTH 14.9 % (11.5-14.5); WHITE BLOOD COUNT 14.2 10^3/uL (4.0-10.0)
[2017-12-03 15:18] LABS: TOTAL 25(OH) VITAMIN D 73.8 NG/ML (30.0-100.0)
[2017-12-03 15:20] LABS: ALBUMIN 3.1 GM/DL (3.2-5.2); ALBUMIN/GLOBULIN RATIO 0.94 (1.00-1.93); ALKALINE PHOSPHATASE 83 U/L (45-117); ALT/SGPT 19 U/L (12-78); ANION GAP 6 MEQ/L (8-16); APPEARANCE, URINE CLOUDY (CLEAR); AST/SGOT 17 U/L (7-37); BACTERIA, URINE AUTO 2+ (NEGATIVE); BILIRUBIN, URINE AUTO NEGATIVE (NEGATIVE); BILIRUBIN,TOTAL 0.6 MG/DL (0.2-1.0); BLOOD UREA NITROGEN 12 MG/DL (7-18); BLOOD, URINE BLOOD NEGATIVE (NEGATIVE); CALCIUM LEVEL 7.8 MG/DL (8.8-10.2); CARBON DIOXIDE LEVEL 42 MEQ/L (21-32); CHLORIDE LEVEL 95 MEQ/L (98-107); CHOLESTEROL LEVEL 188 MG/DL (<200); CHOLESTEROL RISK RATIO 5.529 (<5); COLOR, URINE AMBER (YELLOW); CREATININE FOR GFR 1.21 MG/DL (0.55-1.30); FREE T4 1.77 NG/DL (0.76-1.46); GLOMERULAR FILTRATION RATE 48.2 (>45); GLUCOSE, FASTING 116 MG/DL (70-100); GLUCOSE, URINE (UA) AUTO NEGATIVE (NEGATIVE); HDL CHOLESTEROL 34 MG/DL (>40); KETONE, URINE AUTO NEGATIVE (NEGATIVE); LEUKOCYTE ESTERASE, URINE AUTO 3+ (NEGATIVE); MUCUS, URINE SMALL (NEGATIVE); NITRITE, URINE AUTO NEGATIVE (NEGATIVE); NON-HDL-C 154 MG/DL; PROTEIN, URINE AUTO 1+ mg/dL (NEGATIVE); RBC, URINE AUTO 5 /HPF (0-3); SODIUM LEVEL 143 MEQ/L (136-145); SPECIFIC GRAVITY URINE AUTO 1.015 (1.002-1.035); SQUAMOUS EPITHELIAL CELL UR AU 7 /HPF (0-6); TOTAL PROTEIN 6.4 GM/DL (6.4-8.2); TRIGLYCERIDES LEVEL 175 MG/DL (<150); WBC, URINE AUTO TNTC /HPF (0-3)
[2017-12-03 15:34] LABS: MALB URINE SIEMENS 57.3 MG/L; MAU/CREAT RATIO 28.6 MCG/MG (0.0-30.0)
== END ==
LOC: M WUC 10:17
DX: I10 Essential (primary) hypertension (principal); E55.9 Vitamin D deficiency, unspecified; M06.9 Rheumatoid arthritis, unspecified; R94.6 Abnormal results of thyroid function studies; R32 Unspecified urinary incontinence
CPT/HCPCS: 84443

== ENCOUNTER → 2017-12-29 | Outpatient (CLI) | payer MEDICARE ==
[2017-12-29 17:24] LABS: ALBUMIN 3.2 GM/DL (3.2-5.2); ALBUMIN/GLOBULIN RATIO 1.07 (1.00-1.93); ALKALINE PHOSPHATASE 81 U/L (45-117); ALT/SGPT 24 U/L (12-78); ANION GAP 8 MEQ/L (8-16); AST/SGOT 16 U/L (7-37); BILIRUBIN,TOTAL 0.5 MG/DL (0.2-1.0); BLOOD UREA NITROGEN 7 MG/DL (7-18); CALCIUM LEVEL 8.9 MG/DL (8.8-10.2); CARBON DIOXIDE LEVEL 34 MEQ/L (21-32); CHLORIDE LEVEL 100 MEQ/L (98-107); CREATININE FOR GFR 0.97 MG/DL (0.55-1.30); GLOMERULAR FILTRATION RATE > 60.0 (>45); GLUCOSE, FASTING 199 MG/DL (70-100); SODIUM LEVEL 142 MEQ/L (136-145); TOTAL PROTEIN 6.2 GM/DL (6.4-8.2)
[2017-12-29 17:25] LABS: ESTIMATED AVERAGE GLUCOSE 100 MG/DL (60-110); HEMOGLOBIN A1c 5.1 %
[2017-12-29 18:09] LABS: APPEARANCE, URINE HAZY (CLEAR); BACTERIA, URINE AUTO 1+ (NEGATIVE); BILIRUBIN, URINE AUTO NEGATIVE (NEGATIVE); BLOOD, URINE BLOOD NEGATIVE (NEGATIVE); COLOR, URINE YELLOW (YELLOW); GLUCOSE, URINE (UA) AUTO NEGATIVE (NEGATIVE); KETONE, URINE AUTO NEGATIVE (NEGATIVE); LEUKOCYTE ESTERASE, URINE AUTO NEGATIVE (NEGATIVE); MUCUS, URINE SMALL (NEGATIVE); NITRITE, URINE AUTO NEGATIVE (NEGATIVE); PROTEIN, URINE AUTO NEGATIVE (NEGATIVE); RBC, URINE AUTO 1 /HPF (0-3); SPECIFIC GRAVITY URINE AUTO 1.011 (1.002-1.035); SQUAMOUS EPITHELIAL CELL UR AU 5 /HPF (0-6); WBC, URINE AUTO 2 /HPF (0-3)
== END ==
LOC: M WUC 13:51
DX: N30.00 Acute cystitis without hematuria (principal); R73.01 Impaired fasting glucose
CPT/HCPCS: 80053

== ENCOUNTER 2018-02-06 18:20 | Emergency (ER) | payer MEDICARE ==
[2018-02-06] MEDS: METOCLOPRAMIDE INJ 10MG/2ML VIAL (J2765) IV (19:00)
[2018-02-06] MEDS: NS 1,000 ML IV (19:00)
[2018-02-06 19:44] LABS: BASO # 0.1 10^3/uL (0.0-0.2); BASO % 0.3 % (0.0-1.0); EOS # 0.1 10^3/uL (0.0-0.50); EOS % 0.8 % (0.0-3.0); HEMATOCRIT 39.7 % (36.0-47.0); HEMOGLOBIN 13.2 g/dl (12.0-15.5); LYMPH # 2.4 10^3/uL (1.5-4.5); LYMPH % 13.2 % (24.0-44.0); MEAN CORPUSCULAR HEMOGLOBIN 33.1 pg (27.0-33.0); MEAN CORPUSCULAR HGB CONC 33.2 g/dl (32.0-36.5); MEAN CORPUSCULAR VOLUME 99.5 fl (80.0-96.0); MONO # 1.1 10^3/uL (0.0-0.8); MONO % 6.1 % (0.0-5.0); NEUTROPHILS # 14.3 10^3/uL (1.8-7.7); NEUTROPHILS % 78.6 % (36.0-66.0); PLATELET COUNT, AUTOMATED 189 10^3/uL (150-450); RED BLOOD COUNT 3.99 10^6/uL (4.00-5.40); RED CELL DISTRIBUTION WIDTH 15.5 % (11.5-14.5); WHITE BLOOD COUNT 18.2 10^3/uL (4.0-10.0)
[2018-02-06 20:01] LABS: INR 1.08; PROTHROMBIN TIME 14.1 SECONDS (12.1-14.4)
[2018-02-06 20:02] LABS: PARTIAL THROMBOPLASTIN TIME 23.6 SECONDS (25.4-37.6)
[2018-02-06 20:11] LABS: ALBUMIN 3.2 GM/DL (3.2-5.2); ALKALINE PHOSPHATASE 82 U/L (45-117); ALT/SGPT 18 U/L (12-78); ANION GAP 11 MEQ/L (8-16); AST/SGOT 18 U/L (7-37); BILIRUBIN,DIRECT 0.4 MG/DL (0.0-0.2); BILIRUBIN,TOTAL 0.7 MG/DL (0.2-1.0); BLOOD UREA NITROGEN 12 MG/DL (7-18); CALCIUM LEVEL 8.5 MG/DL (8.8-10.2); CARBON DIOXIDE LEVEL 30 MEQ/L (21-32); CHLORIDE LEVEL 102 MEQ/L (98-107); CREATININE FOR GFR 0.78 MG/DL (0.55-1.30); GLOMERULAR FILTRATION RATE > 60.0 (>45); GLUCOSE, FASTING 117 MG/DL (70-100); LIPASE 136 U/L (73-393); POTASSIUM SERUM 3.4 MEQ/L (3.5-5.1); SODIUM LEVEL 143 MEQ/L (136-145); TOTAL PROTEIN 6.1 GM/DL (6.4-8.2)
[2018-02-06] MEDS: ONDANSETRON 4MG/2ML VIAL (J2405) IV (21:45)
[2018-02-06] MEDS: GI COCKTAIL 50ML BTL(HYOSCYAMINE/MAALOX/LIDOCAINE VISCOUS)(1:3:1) PO (22:30)
== END 2018-02-07 00:05 | disposition home or self-care (01) ==
LOC: M ED 02-07 00:05
DX: K52.9 Noninfective gastroenteritis and colitis, unspecified (principal); K21.9 Gastro-esophageal reflux disease without esophagitis; I10 Essential (primary) hypertension; J44.9 Chronic obstructive pulmonary disease, unspecified; F31.9 Bipolar disorder, unspecified; Z91.041 Radiographic dye allergy status; Z91.013 Allergy to seafood; Z88.8 Allergy status to other drugs, medicaments and biological substances; Z79.899 Other long term (current) drug therapy; Z79.52 Long term (current) use of systemic steroids

== ENCOUNTER 2018-02-07 18:05 | Inpatient (IN) | payer MEDICARE ==
[2018-02-07] MEDS: NS 1,000 ML IV ×2 (00:15→18:34)
[2018-02-07 18:38] LABS: BASO # 0.1 10^3/uL (0.0-0.2); BASO % 0.4 % (0.0-1.0); EOS # 0.1 10^3/uL (0.0-0.50); EOS % 0.7 % (0.0-3.0); HEMATOCRIT 40.6 % (36.0-47.0); HEMOGLOBIN 13.5 g/dl (12.0-15.5); LYMPH # 1.8 10^3/uL (1.5-4.5); LYMPH % 9.1 % (24.0-44.0); MEAN CORPUSCULAR HEMOGLOBIN 33.7 pg (27.0-33.0); MEAN CORPUSCULAR HGB CONC 33.3 g/dl (32.0-36.5); MEAN CORPUSCULAR VOLUME 101.2 fl (80.0-96.0); MONO # 1.1 10^3/uL (0.0-0.8); MONO % 5.4 % (0.0-5.0); NEUTROPHILS # 16.9 10^3/uL (1.8-7.7); NEUTROPHILS % 83.4 % (36.0-66.0); PLATELET COUNT, AUTOMATED 201 10^3/uL (150-450); RED BLOOD COUNT 4.01 10^6/uL (4.00-5.40); RED CELL DISTRIBUTION WIDTH 15.2 % (11.5-14.5); WHITE BLOOD COUNT 20.3 10^3/uL (4.0-10.0)
[2018-02-07 18:48] LABS: INR 1.06; PROTHROMBIN TIME 13.9 SECONDS (12.1-14.4)
[2018-02-07] MEDS: PANTOPRAZOLE 40MG INJ (PROTONIX) (C9113) IV (18:57)
[2018-02-07] MEDS: METOCLOPRAMIDE INJ 10MG/2ML VIAL (J2765) IV (18:57)
[2018-02-07 19:26] LABS: ALBUMIN 3.2 GM/DL (3.2-5.2); ALBUMIN/GLOBULIN RATIO 1.03 (1.00-1.93); ALKALINE PHOSPHATASE 79 U/L (45-117); ALT/SGPT 23 U/L (12-78); ANION GAP 12 MEQ/L (8-16); AST/SGOT 28 U/L (7-37); BILIRUBIN,DIRECT 0.5 MG/DL (0.0-0.2); BLOOD UREA NITROGEN 16 MG/DL (7-18); CALCIUM LEVEL 8.1 MG/DL (8.8-10.2); CARBON DIOXIDE LEVEL 26 MEQ/L (21-32); CHLORIDE LEVEL 100 MEQ/L (98-107); CREATININE FOR GFR 0.99 MG/DL (0.55-1.30); GLOMERULAR FILTRATION RATE > 60.0 (>45); GLUCOSE, FASTING 114 MG/DL (70-100); LIPASE 69 U/L (73-393); POTASSIUM SERUM 3.5 MEQ/L (3.5-5.1); SODIUM LEVEL 138 MEQ/L (136-145); TOTAL PROTEIN 6.3 GM/DL (6.4-8.2)
[2018-02-07] MEDS: GASTROGRAFIN SOLUTION 30ML PO ×2 (20:50→21:19)
[2018-02-08 01:54] LABS: KETONE, URINE AUTO RFX NEGATIVE (NEGATIVE); LEUKOCYTE ESTERASE UR AUTO RFX NEGATIVE (NEGATIVE); NITRITE, URINE AUTO RFX NEGATIVE (NEGATIVE); RBC, URINE AUTO RFX 0 /HPF (0-3); SPECIFIC GRAVITY UR AUTO RFX 1.011 (1.002-1.035); SQUAM EPITHELIAL CELL UR AURFX 0 /HPF (0-6); WBC, URINE AUTO RFX 0 /HPF (0-3)
[2018-02-08] MEDS: metroNIDAZOLE 500 MG in APPROPRIATE DILUENT 1 EA IV (03:30)
[2018-02-08] MEDS: VANCOMYCIN ORAL SOL 250MG/5ML ORAL SYRINGE PO ×3 (03:45→18:08)
[2018-02-08] MEDS: NS 1,000 ML IV ×3 (04:50→21:01)
[2018-02-08] MEDS ORDERED: NICOTINE 21MG/24HR 1 EA TRANSDERMAL TD (05:00)
[2018-02-08] MEDS: CIPROFLOXACIN 400 MG in APPROPRIATE DILUENT 1 EA IV (05:05)
[2018-02-08] MEDS: traZODone 100 MG TAB PO ×2 (05:06→20:45)
[2018-02-08] MEDS: zolPIDEM TARTRATE 5 MG TAB PO ×2 (05:07→20:44)
[2018-02-08 06:13] LABS: MAGNESIUM LEVEL 1.6 MG/DL (1.8-2.4)
[2018-02-08 06:21] LABS: THYROID STIMULATING HORMONE 0.431 uIU/ML (0.358-3.740)
[2018-02-08] MEDS: TIOTROPIUM INHALER/CAPSULE (SPIRIVA) INH (08:00)
[2018-02-08] MEDS: ONDANSETRON 4 MG TAB (S0181) PO (08:09)
[2018-02-08] MEDS: NYSTATIN 100,000 UNITS/GM TOPICAL PWD 15 GM TOP ×2 (09:00→20:46)
[2018-02-08] MEDS: ATENOLOL 25 MG TAB PO (09:00)
[2018-02-08] MEDS: MAG SULF 1GM/100ML (MAG RUN) 1 GM in APPROPRIATE DILUENT 1 EA IV (09:22)
[2018-02-08] MEDS: clonazePAM 1 MG TAB PO ×3 (09:23→20:44)
[2018-02-08] MEDS: ENOXAPARIN 40 MG/0.4 ML SYRINGE (J1650) SC (09:23)
[2018-02-08] MEDS: predniSONE 5 MG TAB PO (09:23)
[2018-02-08] MEDS: OMEPRAZOLE 20 MG CAP PO (09:23)
[2018-02-08] MEDS: lamoTRIgine 100MG TAB PO (10:15)
[2018-02-08] MEDS: LIDOCAINE 5% (LIDODERM) PATCH TD (10:15)
[2018-02-08] MEDS: lamoTRIgine 25 MG TAB PO (10:15)
[2018-02-08] MEDS: FOLIC ACID 1 MG TAB PO (10:16)
[2018-02-08] MEDS: risperiDONE 2 MG TAB PO ×2 (10:16→20:44)
[2018-02-08] MEDS: ALLOPURINOL 100 MG TAB PO (10:16)
[2018-02-08] MEDS: traMADol 50 MG TAB PO ×3 (10:30→22:45)
[2018-02-08] MEDS: IBUPROFEN 600 MG TAB PO (13:52)
[2018-02-08] MEDS: tiZANidine 4 MG TAB PO ×2 (14:46→20:45)
[2018-02-08] MEDS: FAMOTIDINE 20 MG TAB PO (14:46)
[2018-02-08] MEDS: DICLOFENAC EPOLAMINE 1.3 % PATCH TOP ×2 (14:47→20:46)
[2018-02-08] MEDS: **NOTE PATIENT COMMENT** MISC XX (21:00)
[2018-02-09] MEDS: ONDANSETRON 4 MG TAB (S0181) PO ×4 (00:22→20:23)
[2018-02-09] MEDS: VANCOMYCIN ORAL SOL 250MG/5ML ORAL SYRINGE PO ×4 (00:22→17:33)
[2018-02-09] MEDS: FAMOTIDINE 20 MG TAB PO ×2 (06:28→16:12)
[2018-02-09] MEDS: IBUPROFEN 600 MG TAB PO (07:46)
[2018-02-09] MEDS: traMADol 50 MG TAB PO ×2 (07:46→20:45)
[2018-02-09] MEDS: TIOTROPIUM INHALER/CAPSULE (SPIRIVA) INH (08:00)
[2018-02-09] MEDS: OMEPRAZOLE 20 MG CAP PO (08:13)
[2018-02-09 08:18] LABS: ANION GAP 8 MEQ/L (8-16); BLOOD UREA NITROGEN 7 MG/DL (7-18); CARBON DIOXIDE LEVEL 27 MEQ/L (21-32); CHLORIDE LEVEL 112 MEQ/L (98-107); CREATININE FOR GFR 0.63 MG/DL (0.55-1.30); GLOMERULAR FILTRATION RATE > 60.0 (>45); GLUCOSE, FASTING 84 MG/DL (70-100); SODIUM LEVEL 147 MEQ/L (136-145)
[2018-02-09 08:23] LABS: BASO # 0.1 10^3/uL (0.0-0.2); BASO % 0.3 % (0.0-1.0); EOS # 0.4 10^3/uL (0.0-0.50); HEMATOCRIT 33.6 % (36.0-47.0); IMMATURE GRANULOCYTE % 0.9 % (0-3.0); LYMPH # 2.3 10^3/uL (1.5-4.5); LYMPH % 12.3 % (24.0-44.0); MEAN CORPUSCULAR HEMOGLOBIN 34.3 pg (27.0-33.0); MEAN CORPUSCULAR HGB CONC 33.6 g/dl (32.0-36.5); MEAN CORPUSCULAR VOLUME 102.1 fl (80.0-96.0); MONO # 1.2 10^3/uL (0.0-0.8); MONO % 6.6 % (0.0-5.0); NEUTROPHILS # 14.6 10^3/uL (1.8-7.7); NEUTROPHILS % 77.9 % (36.0-66.0); PLATELET COUNT, AUTOMATED 181 10^3/uL (150-450); RED BLOOD COUNT 3.29 10^6/uL (4.00-5.40); RED CELL DISTRIBUTION WIDTH 15.3 % (11.5-14.5); WHITE BLOOD COUNT 18.7 10^3/uL (4.0-10.0)
[2018-02-09 08:25] LABS: HEMOGLOBIN 11.3 g/dl (12.0-15.5)
[2018-02-09] MEDS: NYSTATIN 100,000 UNITS/GM TOPICAL PWD 15 GM TOP ×2 (09:00→20:22)
[2018-02-09] MEDS: LIDOCAINE 5% (LIDODERM) PATCH TD (09:00)
[2018-02-09] MEDS: DICLOFENAC EPOLAMINE 1.3 % PATCH TOP ×2 (09:00→21:00)
[2018-02-09] MEDS: ENOXAPARIN 40 MG/0.4 ML SYRINGE (J1650) SC (09:17)
[2018-02-09] MEDS: lamoTRIgine 100MG TAB PO (09:18)
[2018-02-09] MEDS: risperiDONE 2 MG TAB PO ×2 (09:18→20:22)
[2018-02-09] MEDS: POTASSIUM CHLORIDE 10 MEQ SR TABLET PO ×2 (09:18→10:29)
[2018-02-09] MEDS: clonazePAM 1 MG TAB PO ×3 (09:19→20:22)
[2018-02-09] MEDS: ATENOLOL 25 MG TAB PO (09:19)
[2018-02-09] MEDS: predniSONE 5 MG TAB PO (09:19)
[2018-02-09] MEDS: lamoTRIgine 25 MG TAB PO (09:20)
[2018-02-09 09:44] LABS: FOLATE 9.1 NG/ML (>5.4)
[2018-02-09] MEDS: ALLOPURINOL 100 MG TAB PO (10:28)
[2018-02-09] MEDS: FOLIC ACID 1 MG TAB PO (10:29)
[2018-02-09] MEDS: CALCIUM CARBONATE 500 MG CHEW U/D PO (18:40)
[2018-02-09] MEDS: zolPIDEM TARTRATE 5 MG TAB PO (20:22)
[2018-02-09] MEDS: traZODone 100 MG TAB PO (20:23)
[2018-02-09] MEDS: **NOTE PATIENT COMMENT** MISC XX (21:00)
[2018-02-10] MEDS: VANCOMYCIN ORAL SOL 250MG/5ML ORAL SYRINGE PO ×4 (00:18→18:02)
[2018-02-10] MEDS: ONDANSETRON 4 MG TAB (S0181) PO ×3 (06:20→18:02)
[2018-02-10 07:11] LABS: HEMATOCRIT 33.3 % (36.0-47.0); HEMOGLOBIN 10.8 g/dl (12.0-15.5); MEAN CORPUSCULAR HEMOGLOBIN 33.3 pg (27.0-33.0); MEAN CORPUSCULAR HGB CONC 32.4 g/dl (32.0-36.5); MEAN CORPUSCULAR VOLUME 102.8 fl (80.0-96.0); PLATELET COUNT, AUTOMATED 173 10^3/uL (150-450); RED BLOOD COUNT 3.24 10^6/uL (4.00-5.40); RED CELL DISTRIBUTION WIDTH 15.2 % (11.5-14.5); WHITE BLOOD COUNT 14.3 10^3/uL (4.0-10.0)
[2018-02-10 07:57] LABS: ANION GAP 5 MEQ/L (8-16); BLOOD UREA NITROGEN 5 MG/DL (7-18); CALCIUM LEVEL 8.5 MG/DL (8.8-10.2); CARBON DIOXIDE LEVEL 29 MEQ/L (21-32); CHLORIDE LEVEL 114 MEQ/L (98-107); GLOMERULAR FILTRATION RATE > 60.0 (>45); GLUCOSE, FASTING 87 MG/DL (70-100); MAGNESIUM LEVEL 1.8 MG/DL (1.8-2.4); POTASSIUM SERUM 3.7 MEQ/L (3.5-5.1); SODIUM LEVEL 148 MEQ/L (136-145)
[2018-02-10] MEDS: CALCIUM CARBONATE 500 MG CHEW U/D PO ×2 (08:47→14:19)
[2018-02-10] MEDS: predniSONE 5 MG TAB PO (08:48)
[2018-02-10] MEDS: lamoTRIgine 25 MG TAB PO (08:48)
[2018-02-10] MEDS: lamoTRIgine 100MG TAB PO (08:48)
[2018-02-10] MEDS: ALLOPURINOL 100 MG TAB PO (08:48)
[2018-02-10] MEDS: FOLIC ACID 1 MG TAB PO (08:49)
[2018-02-10] MEDS: OMEPRAZOLE 20 MG CAP PO (08:49)
[2018-02-10] MEDS: clonazePAM 1 MG TAB PO ×2 (08:49→16:24)
[2018-02-10] MEDS: ATENOLOL 25 MG TAB PO (08:50)
[2018-02-10] MEDS: ENOXAPARIN 40 MG/0.4 ML SYRINGE (J1650) SC (08:51)
[2018-02-10] MEDS: DICLOFENAC EPOLAMINE 1.3 % PATCH TOP (08:51)
[2018-02-10] MEDS: LIDOCAINE 5% (LIDODERM) PATCH TD (08:51)
[2018-02-10] MEDS: NYSTATIN 100,000 UNITS/GM TOPICAL PWD 15 GM TOP (08:52)
[2018-02-10] MEDS: risperiDONE 2 MG TAB PO (09:23)
[2018-02-10] MEDS: D5W 1,000 ML IV (09:23)
[2018-02-10] MEDS: FAMOTIDINE 20 MG TAB PO (12:35)
[2018-02-10] MEDS: traMADol 50 MG TAB PO ×2 (13:09→19:43)
[2018-02-10 14:48] LABS: HEMATOCRIT 35.2 % (36.0-47.0); HEMOGLOBIN 11.7 g/dl (12.0-15.5); MEAN CORPUSCULAR HEMOGLOBIN 33.6 pg (27.0-33.0); MEAN CORPUSCULAR HGB CONC 33.2 g/dl (32.0-36.5); MEAN CORPUSCULAR VOLUME 101.1 fl (80.0-96.0); PLATELET COUNT, AUTOMATED 178 10^3/uL (150-450); RED BLOOD COUNT 3.48 10^6/uL (4.00-5.40); RED CELL DISTRIBUTION WIDTH 15.3 % (11.5-14.5); WHITE BLOOD COUNT 12.2 10^3/uL (4.0-10.0)
[2018-02-10 15:34] LABS: ANION GAP 6 MEQ/L (8-16); BLOOD UREA NITROGEN 5 MG/DL (7-18); CALCIUM LEVEL 8.4 MG/DL (8.8-10.2); CARBON DIOXIDE LEVEL 26 MEQ/L (21-32); CHLORIDE LEVEL 112 MEQ/L (98-107); CREATININE FOR GFR 0.72 MG/DL (0.55-1.30); GLOMERULAR FILTRATION RATE > 60.0 (>45); GLUCOSE, FASTING 117 MG/DL (70-100); POTASSIUM SERUM 3.6 MEQ/L (3.5-5.1); SODIUM LEVEL 144 MEQ/L (136-145)
== END 2018-02-10 20:20 | disposition home or self-care (01) | DRG 372 ==
LOC: M ED INP 02-08 04:56 → M ED 18:05 → M PED 02-08 07:50
DX: A04.72 Enterocolitis due to Clostridium difficile, not specified as recurrent (principal); E87.0 Hyperosmolality and hypernatremia; J44.9 Chronic obstructive pulmonary disease, unspecified; M06.9 Rheumatoid arthritis, unspecified; I10 Essential (primary) hypertension; F31.9 Bipolar disorder, unspecified; E66.01 Morbid (severe) obesity due to excess calories; D53.9 Nutritional anemia, unspecified; A04.0 Enteropathogenic Escherichia coli infection; G89.29 Other chronic pain; F41.9 Anxiety disorder, unspecified; F17.210 Nicotine dependence, cigarettes, uncomplicated; K21.9 Gastro-esophageal reflux disease without esophagitis; G47.00 Insomnia, unspecified; M10.9 Gout, unspecified; Z91.041 Radiographic dye allergy status; Z68.37 Body mass index [BMI] 37.0-37.9, adult; Z88.0 Allergy status to penicillin; Z88.8 Allergy status to other drugs, medicaments and biological substances; Z79.52 Long term (current) use of systemic steroids; Z91.013 Allergy to seafood; Z79.899 Other long term (current) drug therapy

== ENCOUNTER 2018-02-18 15:11 | Inpatient (IN) | payer MEDICARE, MEDICAID ==
[2018-02-18 16:34] LABS: BASO % 0.2 % (0.0-1.0); EOS # 0.2 10^3/uL (0.0-0.50); EOS % 1.5 % (0.0-3.0); HEMATOCRIT 35.2 % (36.0-47.0); HEMOGLOBIN 11.6 g/dl (12.0-15.5); IMMATURE GRANULOCYTE % 0.8 % (0-3.0); LYMPH # 1.5 10^3/uL (1.5-4.5); LYMPH % 12.1 % (24.0-44.0); MEAN CORPUSCULAR VOLUME 103.2 fl (80.0-96.0); MONO # 0.6 10^3/uL (0.0-0.8); MONO % 5.1 % (0.0-5.0); NEUTROPHILS % 80.3 % (36.0-66.0); PLATELET COUNT, AUTOMATED 195 10^3/uL (150-450); RED BLOOD COUNT 3.41 10^6/uL (4.00-5.40); RED CELL DISTRIBUTION WIDTH 15.6 % (11.5-14.5); WHITE BLOOD COUNT 12.4 10^3/uL (4.0-10.0)
[2018-02-18 17:10] LABS: ALBUMIN 2.5 GM/DL (3.2-5.2); ALBUMIN/GLOBULIN RATIO 0.86 (1.00-1.93); ALKALINE PHOSPHATASE 72 U/L (45-117); ALT/SGPT 20 U/L (12-78); ANION GAP 6 MEQ/L (8-16); AST/SGOT 14 U/L (7-37); BILIRUBIN,DIRECT 0.2 MG/DL (0.0-0.2); BILIRUBIN,TOTAL 0.3 MG/DL (0.2-1.0); BLOOD UREA NITROGEN 10 MG/DL (7-18); CALCIUM LEVEL 7.9 MG/DL (8.8-10.2); CARBON DIOXIDE LEVEL 34 MEQ/L (21-32); CHLORIDE LEVEL 102 MEQ/L (98-107); CREATININE FOR GFR 1.09 MG/DL (0.55-1.30); GLOMERULAR FILTRATION RATE 54.3 (>45); GLUCOSE, FASTING 108 MG/DL (70-100); SODIUM LEVEL 142 MEQ/L (136-145); TOTAL PROTEIN 5.4 GM/DL (6.4-8.2)
[2018-02-18 17:12] LABS: LACTIC ACID SEPSIS PROTOCOL 1.7 MMOL/L (0.4-2.0)
[2018-02-18] MEDS: NS 1,000 ML IV ×2 (17:23→18:24)
[2018-02-18] MEDS: VANCOMYCIN ORAL SOL 250MG/5ML ORAL SYRINGE PO (23:30)
[2018-02-18] MEDS ORDERED: ALBUTEROL 90 MCG/ACT 8GM HFA INHALER INH (23:45)
[2018-02-18] MEDS ORDERED: ONDANSETRON 4MG/2ML VIAL (J2405) IV (23:45)
[2018-02-19] MEDS: NYSTATIN 100,000 UNITS/GM TOPICAL PWD 15 GM TOP ×3 (00:22→21:41)
[2018-02-19] MEDS: NS 1,000 ML IV ×2 (02:00→08:12)
[2018-02-19] MEDS: zolPIDEM TARTRATE 5 MG TAB PO ×2 (02:00→21:41)
[2018-02-19] MEDS: CALCIUM/VITAMIN D 500 MG TAB PO ×3 (02:01→21:41)
[2018-02-19] MEDS: clonazePAM 1 MG TAB PO ×4 (02:01→21:41)
[2018-02-19] MEDS: CALCIUM CARBONATE 500 MG CHEW U/D PO (02:38)
[2018-02-19] MEDS: risperiDONE 2 MG TAB PO ×3 (03:11→21:41)
[2018-02-19] MEDS: VANCOMYCIN ORAL SOL 250MG/5ML ORAL SYRINGE PO ×3 (05:52→17:14)
[2018-02-19 05:56] LABS: HEMATOCRIT 33.4 % (36.0-47.0); HEMOGLOBIN 10.9 g/dl (12.0-15.5); MEAN CORPUSCULAR HEMOGLOBIN 33.6 pg (27.0-33.0); MEAN CORPUSCULAR HGB CONC 32.6 g/dl (32.0-36.5); MEAN CORPUSCULAR VOLUME 103.1 fl (80.0-96.0); PLATELET COUNT, AUTOMATED 123 10^3/uL (150-450); RED BLOOD COUNT 3.24 10^6/uL (4.00-5.40); RED CELL DISTRIBUTION WIDTH 15.7 % (11.5-14.5); WHITE BLOOD COUNT 16.2 10^3/uL (4.0-10.0)
[2018-02-19 06:14] LABS: ANION GAP 6 MEQ/L (8-16); BLOOD UREA NITROGEN 10 MG/DL (7-18); CALCIUM LEVEL 6.6 MG/DL (8.8-10.2); CARBON DIOXIDE LEVEL 29 MEQ/L (21-32); CHLORIDE LEVEL 105 MEQ/L (98-107); CREATININE FOR GFR 0.77 MG/DL (0.55-1.30); GLOMERULAR FILTRATION RATE > 60.0 (>45); GLUCOSE, FASTING 87 MG/DL (70-100); POTASSIUM SERUM 3.6 MEQ/L (3.5-5.1); SODIUM LEVEL 140 MEQ/L (136-145)
[2018-02-19] MEDS: LIDOCAINE 5% (LIDODERM) PATCH TD (08:12)
[2018-02-19] MEDS: ENOXAPARIN 40 MG/0.4 ML SYRINGE (J1650) SC (08:12)
[2018-02-19] MEDS: FOLIC ACID 1 MG TAB PO (08:13)
[2018-02-19] MEDS: OMEPRAZOLE 20 MG CAP PO (08:13)
[2018-02-19] MEDS: lamoTRIgine 25 MG TAB PO (08:14)
[2018-02-19] MEDS: predniSONE 5 MG TAB PO (08:14)
[2018-02-19] MEDS: ALLOPURINOL 100 MG TAB PO (08:14)
[2018-02-19] MEDS: METHOTREXATE 2.5 MG TAB (J8610 PER 2.5MG) PO (08:14)
[2018-02-19] MEDS: lamoTRIgine 100MG TAB PO (08:14)
[2018-02-19] MEDS: tiZANidine 4 MG TAB PO (10:49)
[2018-02-19 12:42] LABS: PTH INTACT 143.5 PG/ML (18.5-88.0)
[2018-02-19 15:24] LABS: KETONE, URINE AUTO RFX NEGATIVE (NEGATIVE); LEUKOCYTE ESTERASE UR AUTO RFX NEGATIVE (NEGATIVE); NITRITE, URINE AUTO RFX NEGATIVE (NEGATIVE); RBC, URINE AUTO RFX 1 /HPF (0-3); SPECIFIC GRAVITY UR AUTO RFX 1.015 (1.002-1.035); SQUAM EPITHELIAL CELL UR AURFX 2 /HPF (0-6); WBC, URINE AUTO RFX 1 /HPF (0-3)
[2018-02-19] MEDS: **NOTE PATIENT COMMENT** MISC XX (21:00)
[2018-02-20] MEDS: ACETAMINOPHEN TAB 650MG DOSE (2X325MG) PO ×2 (00:16→15:53)
[2018-02-20 06:12] LABS: HEMATOCRIT 32.7 % (36.0-47.0); HEMOGLOBIN 10.6 g/dl (12.0-15.5); MEAN CORPUSCULAR HEMOGLOBIN 33.4 pg (27.0-33.0); MEAN CORPUSCULAR HGB CONC 32.4 g/dl (32.0-36.5); MEAN CORPUSCULAR VOLUME 103.2 fl (80.0-96.0); PLATELET COUNT, AUTOMATED 147 10^3/uL (150-450); RED BLOOD COUNT 3.17 10^6/uL (4.00-5.40); RED CELL DISTRIBUTION WIDTH 15.8 % (11.5-14.5); WHITE BLOOD COUNT 11.6 10^3/uL (4.0-10.0)
[2018-02-20 06:36] LABS: ANION GAP 7 MEQ/L (8-16); BLOOD UREA NITROGEN 7 MG/DL (7-18); CALCIUM LEVEL 6.9 MG/DL (8.8-10.2); CARBON DIOXIDE LEVEL 30 MEQ/L (21-32); CHLORIDE LEVEL 107 MEQ/L (98-107); CREATININE FOR GFR 0.85 MG/DL (0.55-1.30); GLOMERULAR FILTRATION RATE > 60.0 (>45); GLUCOSE, FASTING 116 MG/DL (70-100); POTASSIUM SERUM 3.4 MEQ/L (3.5-5.1); SODIUM LEVEL 144 MEQ/L (136-145)
[2018-02-20] MEDS ORDERED: ETANERCEPT 50 MG PO (09:00)
[2018-02-20] MEDS: lamoTRIgine 25 MG TAB PO (09:15)
[2018-02-20] MEDS: CALCIUM/VITAMIN D 500 MG TAB PO ×2 (09:15→21:53)
[2018-02-20] MEDS: ALLOPURINOL 100 MG TAB PO (09:15)
[2018-02-20] MEDS: FOLIC ACID 1 MG TAB PO (09:15)
[2018-02-20] MEDS: risperiDONE 2 MG TAB PO ×2 (09:15→21:53)
[2018-02-20] MEDS: predniSONE 5 MG TAB PO (09:15)
[2018-02-20] MEDS: lamoTRIgine 100MG TAB PO (09:15)
[2018-02-20] MEDS: ENOXAPARIN 40 MG/0.4 ML SYRINGE (J1650) SC (09:16)
[2018-02-20] MEDS: clonazePAM 1 MG TAB PO ×3 (09:16→21:53)
[2018-02-20] MEDS: POTASSIUM CHLORIDE 10 MEQ SR TABLET PO (09:16)
[2018-02-20] MEDS: OMEPRAZOLE 20 MG CAP PO (09:16)
[2018-02-20] MEDS: LIDOCAINE 5% (LIDODERM) PATCH TD (09:17)
[2018-02-20] MEDS: NYSTATIN 100,000 UNITS/GM TOPICAL PWD 15 GM TOP ×2 (09:17→21:53)
[2018-02-20] MEDS: IBUPROFEN 600 MG TAB PO ×2 (09:25→21:53)
[2018-02-20] MEDS ORDERED: PILL CRUSHER/CUTTER 1 EACH XX (12:30)
[2018-02-20] MEDS: **NOTE PATIENT COMMENT** MISC XX (21:00)
[2018-02-20] MEDS: zolPIDEM TARTRATE 5 MG TAB PO (21:53)
[2018-02-21] MEDS: ACETAMINOPHEN TAB 650MG DOSE (2X325MG) PO (00:12)
[2018-02-21 06:15] LABS: HEMATOCRIT 32.4 % (36.0-47.0); HEMOGLOBIN 10.7 g/dl (12.0-15.5); MEAN CORPUSCULAR HEMOGLOBIN 33.2 pg (27.0-33.0); MEAN CORPUSCULAR VOLUME 100.6 fl (80.0-96.0); PLATELET COUNT, AUTOMATED 157 10^3/uL (150-450); RED BLOOD COUNT 3.22 10^6/uL (4.00-5.40); RED CELL DISTRIBUTION WIDTH 15.6 % (11.5-14.5); WHITE BLOOD COUNT 10.8 10^3/uL (4.0-10.0)
[2018-02-21] MEDS: OMEPRAZOLE 20 MG CAP PO (08:02)
[2018-02-21] MEDS: NYSTATIN 100,000 UNITS/GM TOPICAL PWD 15 GM TOP (08:02)
[2018-02-21] MEDS: lamoTRIgine 100MG TAB PO (08:02)
[2018-02-21] MEDS: CALCIUM/VITAMIN D 500 MG TAB PO (08:02)
[2018-02-21] MEDS: predniSONE 5 MG TAB PO (08:03)
[2018-02-21] MEDS: ALLOPURINOL 100 MG TAB PO (08:03)
[2018-02-21] MEDS: clonazePAM 1 MG TAB PO (08:03)
[2018-02-21] MEDS: ENOXAPARIN 40 MG/0.4 ML SYRINGE (J1650) SC (08:03)
[2018-02-21] MEDS: FOLIC ACID 1 MG TAB PO (08:03)
[2018-02-21] MEDS: risperiDONE 2 MG TAB PO (08:05)
[2018-02-21] MEDS: LIDOCAINE 5% (LIDODERM) PATCH TD (08:06)
[2018-02-21] MEDS: lamoTRIgine 25 MG TAB PO (08:06)
[2018-02-21 08:24] LABS: ANION GAP 6 MEQ/L (8-16); CARBON DIOXIDE LEVEL 28 MEQ/L (21-32); CHLORIDE LEVEL 112 MEQ/L (98-107); CREATININE FOR GFR 0.71 MG/DL (0.55-1.30); GLOMERULAR FILTRATION RATE > 60.0 (>45); GLUCOSE, FASTING 112 MG/DL (70-100); POTASSIUM SERUM 3.8 MEQ/L (3.5-5.1); SODIUM LEVEL 146 MEQ/L (136-145)
[2018-02-21 08:30] LABS: BLOOD UREA NITROGEN 13 MG/DL (7-18)
[2018-02-23 09:09] LABS: TOTAL 25(OH) VITAMIN D 57.3 NG/ML (30.0-100.0)
== END 2018-02-21 13:14 | disposition home or self-care (01) | DRG 315 ==
LOC: M MSPAV 02-19 01:12 → M ED 15:11 → M ED INP 22:20
DX: I95.9 Hypotension, unspecified (principal); A04.72 Enterocolitis due to Clostridium difficile, not specified as recurrent; J44.9 Chronic obstructive pulmonary disease, unspecified; M06.9 Rheumatoid arthritis, unspecified; I10 Essential (primary) hypertension; F31.9 Bipolar disorder, unspecified; E66.01 Morbid (severe) obesity due to excess calories; G89.29 Other chronic pain; F41.9 Anxiety disorder, unspecified; K21.9 Gastro-esophageal reflux disease without esophagitis; R11.2 Nausea with vomiting, unspecified; E86.0 Dehydration; M10.9 Gout, unspecified; Z91.041 Radiographic dye allergy status; Z91.013 Allergy to seafood; Z88.0 Allergy status to penicillin; Z88.8 Allergy status to other drugs, medicaments and biological substances; G47.00 Insomnia, unspecified; Z79.52 Long term (current) use of systemic steroids; Z79.899 Other long term (current) drug therapy; Z68.38 Body mass index [BMI] 38.0-38.9, adult

== ENCOUNTER → 2018-02-18 | Outpatient (CLI) | payer MEDICARE, MEDICAID | LOC: M PAIN 14:00 | DX: M06.9 Rheumatoid arthritis, unspecified (principal); J44.9 Chronic obstructive pulmonary disease, unspecified; F31.9 Bipolar disorder, unspecified; I10 Essential (primary) hypertension; K21.9 Gastro-esophageal reflux disease without esophagitis; F41.9 Anxiety disorder, unspecified; G47.30 Sleep apnea, unspecified; F17.210 Nicotine dependence, cigarettes, uncomplicated; Z79.51 Long term (current) use of inhaled steroids; Z79.891 Long term (current) use of opiate analgesic; Z79.899 Other long term (current) drug therapy; Z88.8 Allergy status to other drugs, medicaments and biological substances; Z91.013 Allergy to seafood; Z91.041 Radiographic dye allergy status; Z91.5 Personal history of self-harm ==

== ENCOUNTER → 2018-03-18 | Outpatient (CLI) | payer MEDICARE, MEDICAID | LOC: M PAIN 14:45 | DX: M06.9 Rheumatoid arthritis, unspecified (principal); J44.9 Chronic obstructive pulmonary disease, unspecified; I10 Essential (primary) hypertension; K21.9 Gastro-esophageal reflux disease without esophagitis; F41.9 Anxiety disorder, unspecified; G47.30 Sleep apnea, unspecified; F17.210 Nicotine dependence, cigarettes, uncomplicated; F31.9 Bipolar disorder, unspecified; Z79.51 Long term (current) use of inhaled steroids; Z79.891 Long term (current) use of opiate analgesic; Z79.899 Other long term (current) drug therapy; Z88.8 Allergy status to other drugs, medicaments and biological substances; Z91.041 Radiographic dye allergy status; Z91.013 Allergy to seafood; Z91.5 Personal history of self-harm | CPT/HCPCS: G0463 ==

== ENCOUNTER 2018-04-26 19:12 | Emergency (ER) | payer MEDICARE, MEDICAID ==
[2018-04-26] MEDS: diazePAM 2 MG TAB PO (20:30)
== END 2018-04-26 20:31 | disposition home or self-care (01) ==
LOC: M ED 19:12
DX: S39.002A Unspecified injury of muscle, fascia and tendon of lower back, initial encounter (principal); X50.9XXA Other and unspecified overexertion or strenuous movements or postures, initial encounter; Y92.89 Other specified places as the place of occurrence of the external cause; I10 Essential (primary) hypertension; J44.9 Chronic obstructive pulmonary disease, unspecified; K21.9 Gastro-esophageal reflux disease without esophagitis; Z79.899 Other long term (current) drug therapy; Z88.8 Allergy status to other drugs, medicaments and biological substances; Z91.013 Allergy to seafood; Z91.041 Radiographic dye allergy status; F17.210 Nicotine dependence, cigarettes, uncomplicated
CPT/HCPCS: 99283

== ENCOUNTER 2018-05-20 16:21 | Inpatient (IN) | payer MEDICARE ==
[~2018-05-20] VITALS: Ht 160 cm; Wt 93.4 kg
[~2018-05-20 16:21] MED LIST changes: +ALEN70TA57 PO; +BREO1INH INH; +CAPS0.022 TOP; -CLON1TAB PO; +CLON1TAB8 PO; +FOLI1TAB11 PO; -FOLI1TAB4 PO; +IPRA0.00 NEB; -IPRASOL4 NEB; +LAMO200T54 PO; +LAMO25TA57 PO; -LASI20TA PO; +LASI20TA3 PO; +LASI40TA9 PO; +METH2.5T48 PO; -METH2.5TA PO; +NYST1POW9 TOP; -TRAZ-136 PO; +TRAZ-163 PO; +TRAZ10TA PO; +VALI2TAB PO; +VANC125C2 PO; +VENTAER INH; +ZOFR4TAB14 PO
[2018-05-20] MEDS ORDERED: NS 500 ML IV ONE ×2 (16:45→18:00)
[2018-05-20] MEDS ORDERED: ACETAMINOPHEN TAB 650MG DOSE (2X325MG) PO ONE (16:45)
[2018-05-20 17:34] LABS: HEMATOCRIT 41.1 % (36.0-47.0); HEMOGLOBIN 13.7 g/dl (12.0-15.5); MEAN CORPUSCULAR HEMOGLOBIN 31.9 pg (27.0-33.0); MEAN CORPUSCULAR HGB CONC 33.3 g/dl (32.0-36.5); MEAN CORPUSCULAR VOLUME 95.8 fl (80.0-96.0); PLATELET COUNT, AUTOMATED 194 10^3/uL (150-450); RED BLOOD COUNT 4.29 10^6/uL (4.00-5.40)
[2018-05-20 17:43] LABS: INR 1.03; PROTHROMBIN TIME 13.6 SECONDS (12.1-14.4)
[2018-05-20 17:44] LABS: PARTIAL THROMBOPLASTIN TIME 27.8 SECONDS (25.4-37.6)
--- NOTE | 2018-05-20 17:47 | REP ---
Partial lumbar spine series: Two views. History: Injury in a fall. Comparison study: February 10, 2014. Findings: A transsacral neurostimulator device is noted in place on the left. Vascular calcification is observed. There is degenerative spondylosis change in the lumbar spine. There is a compression deformity at L1 which is new when compared to the CT images from February 18, 2018 and a more remote prior lumbar spine series. There is some wedging at L5 and at T11 which are unchanged from February 18, 2018. No bony destructive lesion is seen. Impression: Recent wedge compression fracture L1. Old wedging L5 and T11. Electronically Signed by Victor M Hdez MD 05/20/2018 05:58 P
--- NOTE | 2018-05-20 17:48 | REP ---
Left knee series: Three views. History: Injury in a fall. Findings: Three views of the left knee are presented. There is some diffuse osteopenia. No fracture or subluxation is seen. Impression: No fracture noted. Limited three view knee series. Electronically Signed by Victor M Hdez MD 05/20/2018 05:58 P
--- NOTE | 2018-05-20 17:48 | REP ---
Portable chest x-ray: Single view. History: Cough. Comparison study: February 18, 2018. Findings: The thoracic aorta somewhat tortuous and calcific as before. Heart is not enlarged. The lungs are well inflated and clear. Pleural angles are sharp. There are old healed rib fractures on the right unchanged. There are clips in right upper quadrant of the abdomen. Impression: No active disease. Electronically Signed by Victor M Hdez MD 05/20/2018 05:40 P
--- NOTE | 2018-05-20 17:48 | REP ---
Left hip: Two views. History: Injury in a fall. Findings: Two views of the left hip demonstrate a left femoral neck fracture with impaction and varus deformity. The left hemipelvis appears intact. Impression: Acute fracture left femoral neck with impaction and varus deformity. Electronically Signed by Victor M Hdez MD 05/20/2018 05:58 P
[2018-05-20 18:00] LABS: ALBUMIN 3.2 GM/DL (3.2-5.2); ALT/SGPT 23 U/L (12-78); BILIRUBIN,TOTAL 0.5 MG/DL (0.2-1.0); BLOOD UREA NITROGEN 11 MG/DL (7-18); CALCIUM LEVEL 8.4 MG/DL (8.8-10.2); CARBON DIOXIDE LEVEL 28 MEQ/L (21-32); CHLORIDE LEVEL 106 MEQ/L (98-107); CK-MB VALUE MASS < 1.0 NG/ML (<3.6); CPK CREATINE PHOSPHOKINASE 76 U/L (26-192); CREATININE FOR GFR 0.97 MG/DL (0.55-1.30); GLOMERULAR FILTRATION RATE > 60.0 (>45); GLUCOSE, FASTING 118 MG/DL (70-100); MB/CK RELATIVE INDEX 1.32 (< OR =4); POTASSIUM SERUM 3.5 MEQ/L (3.5-5.1); SODIUM LEVEL 140 MEQ/L (136-145); THYROID STIMULATING HORMONE 0.325 uIU/ML (0.358-3.740); TOTAL PROTEIN 5.9 GM/DL (6.4-8.2); TROPONIN I < 0.02 NG/ML (< 0.10)
--- NOTE | 2018-05-20 18:45 | REPVR ---
EXAM: CT Head Without Contrast EXAM DATE/TIME: 05/20/2018 6:32 PM CLINICAL HISTORY: 63 years old, female; Signs and symptoms; Altered mental status/memory loss; Age related cognitive decline; Additional info: AMS TECHNIQUE: Axial computed tomography images of the head/brain without contrast. All CT scans at this facility use at least one of these dose optimization techniques: automated exposure control; mA and/or kV adjustment per patient size (includes targeted exams where dose is matched to clinical indication); or iterative reconstruction. COMPARISON: CT Head without contrast 01/03/2015 4:07 PM FINDINGS: Brain: There is mild parenchymal volume loss slightly more pronounced in the temporal lobes, findings which can be associated with Alzheimer's disease. White matter changes are demonstrated in the subcortical, centrum semiovale and periventricular white matter consistent with small vessel white matter angiopathic gliosis. Ventricles: Normal. No ventriculomegaly. Bones/joints: Normal. No acute fracture. Sinuses: Normal as visualized. No acute sinusitis. Mastoid air cells: Normal as visualized. No mastoid effusion. Soft tissues: Normal. IMPRESSION: There is mild parenchymal volume loss slightly more pronounced in the temporal lobes, findings which can be associated with Alzheimer's disease. Clinical correlation needed. White matter changes are demonstrated in the subcortical, centrum semiovale and periventricular white matter consistent with small vessel white matter angiopathic gliosis. Electronically signed by: Willi Mast On 05/20/2018 18:45:00 PM
--- NOTE | 2018-05-20 18:46 | REP ---
PELVIS: AP view of the pelvis is performed. Fracture of the left femoral neck is again seen with overriding fracture fragments. There is possible cortical irregularity and subtle fracture of the lateral aspect of the right femoral neck. Recommend dedicated right hip x-rays or CT to further evaluate. Electronically Signed by Rigo Hobbs MD 05/20/2018 07:59 P
[2018-05-20] MEDS ORDERED: ZYLO300T6 PO (19:30)
[2018-05-20] MEDS ORDERED: BREO1INH3 INH (19:30)
[2018-05-20] MEDS ORDERED: NS 1,000 ML IV ONE (19:30)
[2018-05-20] MEDS ORDERED: ZOLP10TA2 PO (19:30)
[2018-05-20] MEDS ORDERED: ACETAMINOPHEN TAB 650MG DOSE (2X325MG) PO PRN (20:00)
--- NOTE | 2018-05-20 20:30 | HPEPDOC ---
[facility] Medical History & Physical Date of Admission May 20, 2018 Other Provider DICTATING: WINDY FRAZIER MD. Attending Physician: ANUPAM ALMANZA MD History and Physical CHIEF COMPLAINT: Fall 1 day HISTORY OF PRESENT ILLNESS: Patient is a 61-year-old female. She has history of COPD, not O2 dependent severe rheumatoid arthritis on chronic prednisone and weekly methotrexate as well as the onset and folic acid. Her history is also significant for prior C. difficile colitis, hypertension, bipolar disorders, chronic prednisone use, chronic back pain, morbid obesity, degenerative disc disease, anxiety, GERD, insomnia, and gout. Patient lives at home with her daughter. According to her, she was in her usual state of health until sometime today when she tried getting up and off from her bed, she however, missed her steps and fell abutting her left hip to the ground. She denies any loss of consciousness prior to fall and after fall. She denies any headaches, dizziness, blurry vision, chest pain, palpitations, shortness of breath, cough, fever or chills. She denies any change in bowel or urinary habits. She reports no Normal body movements. Patient is however unclear how much of her blood pressure managed medications she had taken today. Her daughter was not in the room at the time I interviewed the patient already gave history that patient overdosed on her BP medications, hence her marginal to low systolic BP. She received treatment as bolus in the emergency room, blood pressure stabilizing between 90s to 100. Imaging done revealed left hip fracture and patient is being planned for surgery by Ortho, hence hospitalization evaluation admission and with possible risk assessment for corrective surgery. PAST MEDICAL HISTORY: Per HPI PAST SURGICAL HISTORY: 1. section. 2. Tonsillectomy. 3. Cholecystectomy. SOCIAL HISTORY: Patient lives at home with her daughter and her dog. She denies any use of alcohol, smoking nor recreational drugs. FAMILY HISTORY: Mother diagnosed with MS, ALLERGIES: Please see below. REVIEW OF SYSTEMS: 12 point review of systems negative other than that described in the body of HPI. HOME MEDICATIONS: Please see below. PHYSICAL EXAMINATION: VITAL SIGNS: Temperature 97, pulse 72, respiratory rate 18, blood pressure 97/54, pulse oximetry 100% on room air. GENERAL APPEARANCE: Elderly obese woman, lying calmly in bed, not in any appa rent distress. She is not pale, anicteric and afebrile HEENT: Atraumatic. Neck: Supple. LUNGS: Clear to auscultation bilaterally. CARDIOVASCULAR: S1 and 2 heard, no murmurs, rubs or gallops. ABDOMEN: Obese, soft, not tender, not distended. Bowel sounds normoactive. MUSCULOSKELETAL: Reduced range of motion of left LE 2/2 pain from fracture of left hip EXTREMITIES: No pedal edema, 2+ bilateral pedal pulses noted. NEUROLOGICAL: Awake, alert, oriented 3. PSYCHIATRIC: Normal affect LABORATORY DATA: See below. IMAGING: CT head w/o contrast: There is mild parenchymal volume loss slightly more pronounced in the temporal lobes, findings which can be associated with Alzheimer's disease. Clinical correlation needed. White matter changes are demonstrated in the subcortical, centrum semiovale and periventricular white matter consistent with small vessel white matter angiopathic gliosis. AP left hip: Fracture of the left femoral neck is again seen with overriding fracture fragments. There is possible cortical irregularity and subtle fracture of the lateral aspect of the right femoral neck. Recommend dedicated right hip x-rays or CT to further evaluate. CXR: No active disease Xray left hip 2 views Acute fracture left femoral neck with impaction and varus deformity. Left knee XR: No fracture noted. Limited three view knee series. Lumbar: Recent wedge compression fracture L1. Old wedging L5 and T11. MICROBIOLOGY: Please see below. ASSESSMENT: 63-year-old female with above-mentioned comorbid morbid history comes in status post mechanical fall with resultant left hip fracture confirmed on imaging. DIAGNOSIS: 1. Left hip fracture status post mechanical fall. 2. Mild hypotension. 3. Leukocytosis. SECONDARY DIAGNOSES: 1. Hypertension. 2. COPD, stable. 3. History of rheumatoid arthritis. 4. Chronic pain. 5. Anxiety disorder. . PLAN: 1. We will admit patient to PCU under care of Dr Almanza 2. Reevaluate patient's blood pressure post IV fluids, unclear reason for marginal systolic blood pressure other than possible medication overdose. Of note, patient reports that have blood pressure is usually on the low side and is not new to her. We will order echocardiogram to determine patient's ejection fraction. Please follow echo report tomorrow. 3. Orthopedic consult placed. 4. Leukocytosis: With review of patient's medical record. I do appreciate the fact that her WBC had been chronically elevated. This could be leukemoid reaction secondary to the use of prednisone. At interview, I do not appreciate any signs or symptomatology of infection. We will repeat CBC with differential tomorrow. I will order blood cultures to be taking no antibiotics necessary at this time. Please follow blood cultures and CBC tomorrow. 5. Hypertension: Hold all BP medications for now. 6. COPD, stable. 7. Chronic pain. We will ensure adequate pain control. 8. We will resume outpatient medications As Reconciled. 9. GI Prophylaxis, by Mouth Pantoprazole. 10. DVT Prophylaxis, TEDs and Sequentials. 11. Please Ensure Patient's Blood Pressure Is Optimal and Review Patient's Echocardiogram Report As Well As CBC Tomorrow Prior to Surgery. Patient Is Moderate Risk Going for Moderate Risk Procedure. Vital Signs Vital Signs Date Time Temp Pulse Resp B/P (MAP) Pulse Ox O2 Delivery O2 Flow Rate FiO2 05/20/18 19:27 96.8 71 16 105/50 (68) 99 Room Air 05/20/18 16:27 2.0 Laboratory Data Labs 24H Laboratory Tests 2 05/20/18 17:25: Nucleated Red Blood Cells % (auto) 0.0, Anion Gap 6L, Glomerular Filtration Rate > 60.0, Blood Urea Nitrogen 11, Creatinine 0.97, Sodium Level 140, Potassium Level 3.5, Chloride Level 106, Carbon Dioxide Level 28, Calcium Level 8.4L, Aspartate Amino Transf (AST/SGOT) 22, Alanine Aminotransferase (ALT/SGPT) 23, Total Creatine Kinase 76, Alkaline Phosphatase 139H, Total Bilirubin 0.5, Total Protein 5.9L, Albumin 3.2, Creatine Kinase MB < 1.0, Creatine Kinase MB Relative Index 1.32, Troponin I < 0.02, Albumin/Globulin Ratio 1.19, Thyroid Stimulating Hormone (TSH) 0.325L 05/20/18 17:26: Prothrombin Time 13.6, Prothromb Time International Ratio 1.03, Activated Partial Thromboplast Time 27.8 05/20/18 18:53: Urine Color GREY, Urine Appearance HAZY, Urine pH 5.0, Urine Specific [place] 1.023, Urine Protein 1+H, Urine Glucose (UA) NEGATIVE, Urine Ketones NEGATIVE, Urine Blood NEGATIVE, Urine Nitrite NEGATIVE, Urine Bilirubin NEGATIVE, Urine Urobilinogen 4.0H, Urine Leukocyte Esterase NEGATIVE, Urine WBC (Auto) 2, Urine RBC (Auto) 1, Urine Hyaline Casts (Auto) 35, Urine Bacteria (Auto) 1+H, Urine Squamous Epithelial Cells 7, Urine Mucus (Auto) SMALL, Urine Sperm (Auto) CBC/BMP Laboratory Tests 05/20/18 17:25 Red Blood Count 4.29, Mean Corpuscular Volume 95.8, Mean Corpuscular Hemoglobin 31.9, Mean Corpuscular Hemoglobin Concent 33.3, Red Cell Distribution Width 13.6, Calcium Level 8.4 L, Aspartate Amino Transf (AST/SGOT) 22, Alanine Aminotransferase (ALT/SGPT) 23, Total Creatine Kinase 76, Alkaline Phosphatase 139 H, Total Bilirubin 0.5, Total Protein 5.9 L, Albumin 3.2 Home Medications Scheduled (Tudorza Pressair) 400 Mcg/Act Aer, 1 DOSE INH BID (Lamotrigine ER) 200 Mg Tab, 200 MG PO DAILY TAKES WITH 25MG TAB TO TOTAL 225MG Alendronate Sodium (Alendronate Sodium) 70 Mg Tab, 70 MG PO QWEEK FRIDAY Allopurinol (Zyloprim) 300 Mg Tab, 300 MG PO DAILY Calcium/Vitamin D (Calcium 600+D 600-400 mg-Unit) 1 Tab Tab, 1 TAB PO BID Capsaicin (Capsaicin) 0.025 % Cre, 1 APLCT TOP BID Clonazepam (Clonazepam) 1 Mg Tab, 1 MG PO TID Etanercept (Enbrel) 50 Mg/Ml Inj, 50 MG SC QWEEK FRIDAY Fluticasone/Vilanterol (Breo Ellipta 200-25 Mcg/INH) 1 Inh Inh, 1 PUFF INH DAILY Folic Acid (Folic Acid) 1 Mg Tab, 1 MG PO DAILY Furosemide (Lasix) 40 Mg Tab, 40 MG PO DAILY Lamotrigine (Lamotrigine ER) 25 Mg Tab, 25 MG PO DAILY TAKES WITH 200MG TAB TO TOTAL 225MG Lidocaine (Lidoderm) 5 % Dis, 2 PATCH TD DAILY APPLY TO RIGHT CHEST AND RIB AREA OF PAIN APPLY FOR 12 HOURS AND REMOVE FOR 12 HOURS BEFORE APPLYING NEW ONE TO SITE Methotrexate (Methotrexate) 2.5 Mg Tab, 20 MG PO QWEEK THURSDAYS Nystatin (Nystatin Powder) 100,000 Unit/Gm Pow, 1 DOSE TOP BID APPLY TO LOWER ABDOMEN AND GROIN Omeprazole (Omeprazole) 40 Mg Cap, 40 MG PO DAILY Prednisone (Prednisone) 5 Mg Tab, 5 MG PO DAILY Trazodone HCl (Trazodone HCl) 100 Mg Tab, 200 MG PO QHS Zolpidem Tartrate (Zolpidem Tartrate) 10 Mg Tab, 10 MG PO QHS Scheduled PRN Acetaminophen (Tylenol) 325 Mg Tab, 650 MG PO Q6H PRN for PAIN / FEVER Albuterol Sulfate (Ventolin Hfa) 108 Mcg/Act Aer, 2 PUFF INH Q4H PRN for SHORTNESS OF BREATH Ibuprofen (Ibuprofen) 600 Mg Tab, 600 MG PO Q6H PRN for PAIN Ranitidine Hcl (Zantac) 150 Mg Tab, 1 TAB PO BID PRN for HEARTBURN/INDIGESTION Tizanidine Hydrochloride (Zanaflex) 4 Mg Cap, 4 MG PO Q6H PRN for MUSCLE SPASMS Allergies Coded Allergies: Contrast Media (Verified Allergy, Severe, 1VP DYE - ANAPHYLAXIS, TONGUE SWELLS, 04/26/18) Shellfish Allergy (Verified Allergy, Severe, ANAPHYLAXIS, TONGUE SWELLS, 04/26/18) Pregabalin (Verified Allergy, Intermediate, rash/swelling, 05/20/18) WINDY FRAZIER MD May 20, 2018 19:35
--- NOTE | 2018-05-20 20:50 | HPE ---
DATE OF ADMISSION: 05/20/2018 CHIEF COMPLAINT: Left hip pain status post fall. HISTORY OF PRESENT ILLNESS The patient took her entire daily dose of medication at one time this morning and after that suffered a fall. She was brought in promptly to the emergency department complaining of vague left lower extremity pain. Ultimately x-rays were obtained and she was diagnosed with a left femoral neck fracture and I was consulted for evaluation and did come see the patient promptly. On my examination she is complaining of pain really isolated to her left hip and her lower back.She is an ambulator at home but states that she never walks more than about 25 feet. She has no other active complaints. No bowel or bladder symptoms, no saddle anesthesia. No new neurovascular symptoms. PAST MEDICAL HISTORY: Significant for multiple medical comorbidities: 1. Chronic obstructive pulmonary disease. 2. Severe rheumatoid arthritis. 3. History of C-difficile colitis. 4. History of recent admission for hypotension, 5. Bipolar. 6. Obesity. 6. Anxiety. 7. Acid reflux. 8. Insomnia. 9. Gout. PAST SURGICAL HISTORY: 1. C-sections. 2. Tonsillectomy. 3. Cholecystectomy. SOCIAL HISTORY: Positive for tobacco use. No illicit drug or alcohol use. She currently lives in town with her daughter who is at this moment out of the area. ALLERGIES: IV CONTRAST. PREGABALIN, SHELLFISH allergy and possible PENICILLIN and AUGMENTIN allergy. REVIEW OF SYSTEMS: She denies recent fevers, chills, nausea, vomiting, diarrhea, constipation, chest pain or shortness of breath. LABORATORY FINDINGS Her white blood cell count is significantly elevated at 21.0, hemoglobin 13.7, hematocrit 41.1, platelets 194. Complete results available in EMR. VITAL SIGNS: Her maximum temperature is 96.8, pulse is 71, respiratory rate is 16, blood pressure is systolic of 97/50, diastolic of 54. EXAMINATION GEN: AAOx3, NAD HEENT: NC/AT, EOMI CV: RRR ABD: Soft NT ND LLE: Held in slightly shortened external rotated position, + Log roll/Heel Tap, skin intact. TTP in 2+ DP Pulse EHL/FHL/TA/TP intact SILT with nl reflexes L2- S1, negative babinski, no clonus. Knee/Foot/Ankle NTTP skin intact grossly atraumatic RLE: Negative Log roll/Heel Tap, rotates hip comfortably, skin intact. 2+ DP Pulse EHL/FHL/TA/TP intact SILT with nl reflexes L2-S1, negative babinski, no clonus. Knee/Foot/Ankle NTTP skin intact grossly atraumatic BUE: Moving shoulder elbow hand freely without pain, grossly atraumatic CSpine: Moving freely without pain, grossly atraumatic IMAGING STUDIES: X-rays of the pelvis and the left hip show displaced femoral neck fracture in significant varus. CT Abdomen and Pelvis shows abnormality in the right femoral neck not present on previous ct which has the appearance of nondisplaced partial superior lateral fracture. Also noted acute L1 compression fracture with minimal canal involvement. Radiology report is pending. X-rays of the left knee: No acute fracture. ASSESSMENT: Left complete femoral neck fracture, right partial femoral neck fracture, L1 compression fracture. PLAN: Hospitalist has provisionally evaluated the patient and I did discuss the case with him. He recommends monitoring her overnight given her hypotension and recent polypharmacy as above. I did discuss with the patient the surgical options; the risks and benefits of operative and nonoperative management and she is electing to go forward with left hip hemiarthroplasty. She denies any significant antecedent hip pain. No need in my view for surgical fixation of the right femoral neck fracture but will continue to monitor and discuss with oncoming orthopedic team. Lumbar compression fracture with no noted neurologic deficit. Will continue to monitor, likely repeat Xrays once ambulatory. We will plan for left hip surgery tomorrow. MAMI
[2018-05-20] MEDS: MORPHINE 4 MG/ML 1ML VIAL/SYRINGE (J2270) IV PRN (22:21)
[2018-05-21] MEDS ORDERED: MORPHINE 4 MG/ML 1ML VIAL/SYRINGE (J2270) IV ONE (02:00)
--- NOTE | 2018-05-21 02:58 | ECGEPIP ---
Stationary ECG Study [facility] - ED Test Date: 2018-05-20 Pat Name: DA THAO Department: Room: - Gender: F [employer] Eng[employer]ver: ct : 1955 Requested By: STONE Joel Order Number: [id number] Reading MD: Henrry Song Measurements Intervals [place] Rate: 68 P: 50 [place]: 167 QRS: 29 QRSD: 86 T: 44 QT: 397 QTc: 423 Interpretive Statements SINUS RHYTHM NSTTW ABNORMALITIES SIMILAR TO 02/18/18 Electronically Signed On 05-21-2018 2:57:48 EST by Henrry Song
[2018-05-21] MEDS: MORPHINE 4 MG/ML 1ML VIAL/SYRINGE (J2270) IV PRN ×3 (03:32→15:10)
[2018-05-21] MEDS ORDERED: CLINDAMYCIN 600 MG in APPROPRIATE DILUENT 1 EA IV ONE (06:15)
[2018-05-21 07:06] LABS: BASO # 0.1 10^3/uL (0.0-0.2); BASO % 0.5 % (0.0-1.0); EOS # 0.3 10^3/uL (0.0-0.50); EOS % 1.7 % (0.0-3.0); HEMATOCRIT 38.5 % (36.0-47.0); HEMOGLOBIN 13.1 g/dl (12.0-15.5); LYMPH # 1.9 10^3/uL (1.5-4.5); LYMPH % 10.8 % (24.0-44.0); MEAN CORPUSCULAR HEMOGLOBIN 32.3 pg (27.0-33.0); MEAN CORPUSCULAR VOLUME 94.8 fl (80.0-96.0); MONO # 0.9 10^3/uL (0.0-0.8); MONO % 5.1 % (0.0-5.0); NEUTROPHILS # 14.1 10^3/uL (1.8-7.7); PLATELET COUNT, AUTOMATED 165 10^3/uL (150-450); RED BLOOD COUNT 4.06 10^6/uL (4.00-5.40); WHITE BLOOD COUNT 17.3 10^3/uL (4.0-10.0)
[2018-05-21 07:16] LABS: BLOOD UREA NITROGEN 9 MG/DL (7-18); CALCIUM LEVEL 7.9 MG/DL (8.8-10.2); CARBON DIOXIDE LEVEL 23 MEQ/L (21-32); CHLORIDE LEVEL 110 MEQ/L (98-107); CREATININE FOR GFR 0.78 MG/DL (0.55-1.30); GLOMERULAR FILTRATION RATE > 60.0 (>45); GLUCOSE, FASTING 106 MG/DL (70-100); POTASSIUM SERUM 3.1 MEQ/L (3.5-5.1); SODIUM LEVEL 142 MEQ/L (136-145)
--- NOTE | 2018-05-21 08:19 | REP ---
CT abdomen and pelvis without contrast: History: Evaluate L1 fracture and question right hip fracture. Known left hip fracture. CT findings: There is discoid atelectasis in the right lower lobe. Lung bases are otherwise clear. There is a granulomatous calcification in the spleen. The spleen is enlarged and elongate in configuration measuring up to 15.5 cm in greatest diameter. Inferiorly there are coarse benign calcifications in the spleen. No hepatic mass lesion is observed. There are clips in the gallbladder fossa post cholecystectomy. No pancreatic abnormality is observed. No adrenal lesion is seen. The kidneys appear morphologically intact. No hydronephrosis seen. A normal appendix is noted retrocecal. Small and large intestinal bowel loops are unremarkable in the abdomen and pelvis except for the presence of left colonic diverticulosis without CT evidence of diverticulitis. Prominent vascular calcifications noted. A Whitten catheter is seen in the urinary bladder. There is a cystic lesion in the right ovary which measures 5.0 x 4.2 x 3.4 cm. I cannot exclude a cystic neoplasm. A femoral neck fracture is seen on the left with some impaction and varus deformity. There is cortical irregularity along the superior cortex of the greater trochanter of the right hip and I cannot exclude a chip fracture here. No other right hip fracture is appreciated. No pelvic fracture is appreciated. No sacral fracture is seen. There are old wedge compression fracture deformities at L5, T11, and T10 with secondary osteophyte formation. There is an acute or subacute compression fracture deformity at L1. There is approximately 30% loss of vertebral body height. There is retropulsion of the posterosuperior cortex of the L1 vertebral body producing central canal stenosis. AP dimension of the central canal at this level is 9 mm. There is approximately 4 mm of retropulsion. There is collapse of the inferior and the superior endplate. There is only barely discernible adjacent edema. The fracture is new when compared with CT study from February 18, 2018. The changes at the L5, T11, and T10 are chronic compared to that prior study. Impression: 1. Recent compression fracture deformity at the L1 vertebral body with 4 mm of retropulsion and central canal stenosis, new from February 18, 2018 prior study. 2. Acute femoral neck fracture on the left. 3. Possible chip fracture greater trochanter on the right. 4. Transsacral nerve stimulator noted on the left. 5. 5 cm cystic lesion right ovary may be neoplastic. 6. Left colonic diverticulosis. 7. Splenomegaly. 8. Old wedge compression fractures at the T11, T10, and L5. Electronically Signed by Victor M Hdez MD 05/21/2018 09:30 A
[2018-05-21] MEDS: PANTOPRAZOLE 40MG TAB (PROTONIX) PO SCH (09:00)
[2018-05-21] MEDS ORDERED: POTASSIUM CHLORIDE 10 MEQ SR TABLET PO ONE ×2 (09:15→11:30)
--- NOTE | 2018-05-21 13:21 | IPNPDOC ---
Text Note Date of Service The patient was seen on 05/21/18. NOTE Subjective: States pain is well controlled. Notes that she was walking when her slipper fell off she fell to the ground. Denies any syncopal episode. No chest pain or palpitations prior to this episode. This typically able to walk about 25 feet at baseline given her chronic lower extremity pain. Objective: Vitals: (see below) General: No acute distress, laying comfortably in bed. HEENT: Moist mucous membranes. Neck: No JVD or lymphadenopathy Cardiac: RRR, No murmurs Pulm: Clear to auscultation b/l. No wheezing, rhonchi Abd: NT/ND + BS Ext: Trace edema BLE. No cyanosis. Pain with movement of left hip. Distal pulses intact. Whitten in place. Labs (see below) Images: CT Abd/pelvis 05/20/18 Impression: 1. Recent compression fracture deformity at the L1 vertebral body with 4 mm of retropulsion and central canal stenosis, new from February 18, 2018 prior study. 2. Acute femoral neck fracture on the left. 3. Possible chip fracture greater trochanter on the right. 4. Transsacral nerve stimulator noted on the left. 5. 5 cm cystic lesion right ovary may be neoplastic. 6. Left colonic diverticulosis. 7. Splenomegaly. 8. Old wedge compression fractures at the T11, T10, and L5. Assessment/Plan 1. Acute femoral neck fracture. Management per orthopedics. Pain control per orthopedics 2. Compression fracture deformity of L1 with retropulsion. We'll obtain MRI of the lumbar spine. Appreciate orthopedics input. Notes that she has left lower extremity radiculopathy down to the knee, however denies any acute bladder or bowel changes. 3. Episode of hypotension on presentation. Status post normal saline, and improved. Given the patient's on chronic prednisone, and may go to the OR patient has been started on hydrocortisone for now., 4. History of rheumatoid arthritis on methotrexate at home as well as chronic prednisone. We'll hold this for now. 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 5. Chronic pain 6. Hypokalemia replaced 7. Ovarian cyst - discussed with patient, as she will likely need further workup once her acute fracture has been adjusted, and she is more stable, as this may represent malignancy. Patient is agreeable. 8. History of C. difficile 9. History of morbid obesity, getting care 10. History of anxiety continue home meds DVT prophy: Per orthopedics Overall prognosis guarded. RCRI score 0, however given her comorbidities , patient is intermediate risk for an intermediate risk procedure. Patient is awar e, and would like to be full code for now. Addendum: Spoke with Dr. Jane regarding echo. EF 75-80%, Mild LVH, Grade 1 diastolic dysfunction, PAWP 50. Pt is hemodynamically stable. BP stable. Pt is medically optimized for orthopedic intervention of hip fx. VS,Fishbone, I+O VS, Fishbone, I+O Laboratory Tests 05/20/18 17:25 Red Blood Count 4.29, Mean Corpuscular Volume 95.8, Mean Corpuscular Hemoglobin 31.9, Mean Corpuscular Hemoglobin Concent 33.3, Red Cell Distribution Width 13.6, Calcium Level 8.4 L, Aspartate Amino Transf (AST/SGOT) 22, Alanine Aminotransferase (ALT/SGPT) 23, Total Creatine Kinase 76, Alkaline Phosphatase 139 H, Total Bilirubin 0.5, Total Protein 5.9 L, Albumin 3.2 05/21/18 06:48 Red Blood Count 4.06, Mean Corpuscular Volume 94.8, Mean Corpuscular Hemoglobin 32.3, Mean Corpuscular Hemoglobin Concent 34.0, Red Cell Distribution Width 13.6, Calcium Level 7.9 L, Neutrophils (%) (Auto) 81.0 H, Lymphocytes (%) (Auto) 10.8 L, Monocytes (%) (Auto) 5.1 H, Eosinophils (%) (Auto) 1.7, Basophils (%) (Auto) 0.5, Neutrophils # (Auto) 14.1 H, Lymphocytes # (Auto) 1.9, Monocytes # (Auto) 0.9 H, Eosinophils # (Auto) 0.3, Basophils # (Auto) 0.1 Vital Signs Date Time Temp Pulse Resp B/P (MAP) Pulse Ox O2 Delivery O2 Flow Rate FiO2 05/21/18 11:00 98.2 100 16 122/60 (80) 98 05/21/18 04:06 Nasal Cannula 2.0 I&O- Last 24 Hours up to 6 AM 05/21/18 06:00 Intake Total 500 ml Balance 500 ml ANUPAM ALMANZA MD May 21, 2018 13:21
[2018-05-21] MEDS ORDERED: ceFAZolin 1GM INJ (J0690 PER 500MG) As Ordered ONE (16:16)
[2018-05-21] MEDS ORDERED: ceFAZolin 2 GM/D5W 50 ML IV BAG (J0690 PER 500MG) As Ordered ONE ×2 (16:21→18:40)
--- NOTE | 2018-05-21 16:24 | ECHO ---
DATE OF PROCEDURE: 05/21/2018 REFERRING PHYSICIAN: Dr. Maurice Beth INDICATION: Hypotension. HEIGHT: 160 cm WEIGHT: 90 kg 2D MEASUREMENTS: Aortic annulus: 2.1 cm Aortic root: 3.3 cm Left atrium: 2.9 cm Ventricular septum: 1.22 cm Posterior wall: 1.30 cm Left ventricle diastole: 4.0 cm Inferior vena cava: 2.2 cm DOPPLER MEASUREMENTS: Aortic valve velocity: 134 cm/s LVOT velocity: 121 cm/s LVOT VTI: 20.1 cm Mitral E velocity: 62.2 cm/s Mitral A velocity: 85.9 cm/s Mild tricuspid regurgitation. Estimated right ventricle systolic pressure: 50-55 mmHg assuming a right atrial pressure of 5-10 mmHg. Pulmonary artery systolic pressure: 44 mmHg. MITRAL ANNULAR TISSUE DOPPLER: E prime septal: 5.1 cm/s E prime lateral: 7.4 cm/s DESCRIPTION: Rhythm was sinus tachycardia. Image quality was fair. No pericardial effusion. This was a 2D, M-mode, color flow Doppler and pulse wave Doppler examination and included mitral annular tissue Doppler. CONCLUSIONS: 1. Hyperdynamic left ventricular (LV) systolic function. Left ventricular ejection fraction (LVEF) 75-80% by visual estimate. Mild concentric left ventricle hypertrophy. No regional wall motion abnormalities of the left ventricle. Grade 1 LV diastolic dysfunction (impaired relaxation filling pattern). Normal left atrial size. 2. Hyperdynamic right ventricle systolic function. Right ventricle appeared normal in size. Suggestive of moderate elevation of estimated right ventricle systolic pressure (50-55mmHg). Moderate elevation of pulmonary artery systolic pressure. 3. Very mild mitral annular calcification. No mitral regurgitation. 4. Mildly dilated inferior vena cava. 5. Otherwise normal appearing echocardiogram Doppler findings.
[2018-05-21] MEDS ORDERED: HYDROmorphone HCL 2 MG/ML 1ML VIAL (J1170) As Ordered ONE (17:37)
[2018-05-21] MEDS ORDERED: ONDANSETRON 4MG/2ML VIAL (J2405) As Ordered ONE ×2 (17:37→20:59)
[2018-05-21] MEDS ORDERED: MIDAZOLAM INJ 2 MG/2 ML VIAL (J2250) As Ordered ONE (17:37)
[2018-05-21] MEDS ORDERED: fentaNYL 100 MCG/2 ML INJECTION (J3010) As Ordered ONE (17:37)
[2018-05-21] MEDS ORDERED: LIDOCAINE 2% INJ 100 MG/5 ML SDV (FOR ANES.) As Ordered ONE (17:37)
[2018-05-21] MEDS ORDERED: PROPOFOL 200 MG/20 ML VIAL As Ordered ONE (17:37)
[2018-05-21] MEDS ORDERED: ROCURONIUM BROMIDE 50 MG/5 ML VIAL As Ordered ONE ×2 (17:37→18:59)
[2018-05-21] MEDS ORDERED: PHENYLephrine HCL 500 MCG/5 ML (100MCG/ML) SYRINGE (J2370) As Ordered ONE (17:38)
[2018-05-21] MEDS ORDERED: dexameTHASONE 4 MG/ML 1ML VIAL (J1100) As Ordered ONE (17:39)
[2018-05-21] MEDS ORDERED: SUGAMMADEX SODIUM 500 MG/5 ML VIAL (BRIDION) As Ordered ONE (18:25)
--- NOTE | 2018-05-21 19:31 | REP ---
C-ARM VIEWS RIGHT HIP: Multiple C-ARM views of the right hip are performed during placement of three metallic screws in the proximal right femur. 1 minute and 20 seconds of fluoroscopy time was utilized. Electronically Signed by Rigo Hobbs MD 05/21/2018 08:28 P
--- NOTE | 2018-05-21 22:42 | RO ---
DATE OF PROCEDURE: 05/21/2018 PREOPERATIVE DIAGNOSES: 1. Minimally displaced right femoral neck fracture. 2. Displaced left femoral neck fracture. POSTOPERATIVE DIAGNOSIS: 1. Minimally displaced right femoral neck fracture. 2. Displaced left femoral neck fracture. PROCEDURE: 1. Closed reduction and percutaneous pinning of a minimally displaced right femoral neck fracture. 2. Left hip cemented hemiarthroplasty. SURGEON: Dr. Gregory Chung TAX MANAGER PUBLIC: Dr. Willi Kim ANESTHESIA: General. IV FLUIDS: Lactated Ringer's. ESTIMATED BLOOD LOSS: 150 mL. IMPLANTS: Synthes 6.5 mm cannulated screws times three and DePuy [place] size 6 cemented femur, +5 neck length and a size 45 monopolar head with antibiotic cement. CLOSURE: [place] and Monocryl with Dermabond. INDICATIONS: Patient is a 63-year-old female who sustained a mechanical fall on 05/20/2018 and was found to have a displaced left femoral neck fracture. Preoperative workup also revealed a minimally displaced valgus impacted femoral neck fracture on the right side. She had pain in both sides. Imaging also revealed an L1 burst fracture. I discussed the case with two of my partners, and they agreed that it would be best to perform a closed reduction and pinning of the minimally displaced side and then proceed immediately with a hemiarthroplasty. She was admitted to the medical service and optimized. The burst fracture was also discussed with the spine surgeon who felt that no surgery was indicated at that time. DESCRIPTION OF PROCEDURE: The patient was identified in preoperative holding area, both hips were initial by myself. She was brought to the operating room and general anesthesia was induced on her hospital bed. She was then placed supine on a fracture table. She received appropriate IV antibiotics within 1 hour of incision. The right leg was secured to the traction boot, and the left leg was secured to the central beam of the fracture table in a scissored position. No reduction per se was performed. The large C-arm was used to obtain AP, lateral and oblique views. The hip was gently rotated to restore the normal contour of the lesser trochanter and again this fracture was a very slightly valgus impacted femoral neck fracture. The right hip was then prepped and draped in the normal sterile fashion. Prior to incision, a time-out was performed per hospital protocol. Threaded guidewire was placed percutaneously against the proximal lateral femoral cortex and advanced up the femoral neck into the femoral head under large C-arm. The inferior guidewire was placed first and made sure that this was not extending distal to the lesser trochanter at the lateral cortex to help decrease the chance of a subtrochanteric femur fracture. Position was excellent on AP and lateral views. I then placed two additional guidewires both superior, one was anterior and one was posterior along the femoral neck. There was excellent spread on the AP and excellent spread on the lateral. Depth gauge was then used to determine the appropriate length for screws. I then placed 6.5 partially threaded cannulated Synthes screw, length 90 mm inferiorly, and then it was partially placed on power. The screw was final tightened by hand with excellent fixation. Similar steps for the two proximal screws. These were both 85 mm in length. They both had fantastic bite. The guidewire was removed, AP, lateral and oblique x-rays taken showing well positioned cannulated screws with excellent spread. The incision was then irrigated, closed with #2-0 Vicryl and anish. Sterile dressing was applied. General anesthesia was maintained. She was then switched a standard operating room (OR) table and placed into the right side down lateral decubitus position. She was placed into the right side down lateral decubitus position with an axillary roll on a beanbag and all bony prominences were well padded. The hip was pre-scrubbed with chlorhexidine. The left hip was then prepped and draped in a normal sterile fashion with Chloraprep. Given that this was an arthroplasty, and she was already beyond an hour from the initial dose of antibiotics, I felt it was most appropriate to re-dose her with 1 gram of cefazolin IV I felt decreased the risk of infection. A second time-out was performed for the hemiarthroplasty on the left side. The patient had significant adipose tissue, which added significant time to the case. This required at the very least a skilled physician; luckily a second attending physician was available as a director of first impressions. This was necessary for both the pinning and the arthroplasty. A curvilinear incision was made with a #10 blade for a standard posterior approach. Bleeding points controlled with electrocautery, with monopolar cautery distally and proximally I used bipolar cautery as she did have some implantable stimulator. The dissection was carried down to the fascia at the greater trochanter. That was carefully opened with the curved Marshall scissors. The leg was gently internally rotated, the gluteus garcía muscle fibers were split in line by blunt traction electrocautery to control any bleeding points. The bursa was then exposed. This was released off the posterior proximal femur with cautery. Deep retractors were required. I was able to identify the piriformis tendon that was released off of the posterior femur with electrocautery, tagged with #1 Vicryl for later repair. There was buttonholing of the capsule from the fracture. I then performed a T-capsulotomy with cautery, tagged the limb of the capsules with a #1 Vicryl suture. Two threaded Steinmann pins were then placed at a 30 degree angle to each other through the femoral head. Those were used to lever the femoral head fracture fragment out of the joint. This was sized to a 45 on the back table, and it was ultimately sent for pathology. The cutting template was then used, and I marked out the proposed femoral neck cut. Then, using a saw and retractors used to protect the soft tissues made a fresh femoral neck cut with the oscillating saw one fingerbreadth proximal to the lesser trochanter. A box chisel was then used and the canal finder. The proximal femur was then reamed by hand up to a size 6. The femur was sequentially broached up to a size 6, maintaining about 10-15 degrees of anteversion. A size 6 with a +0 neck length and a 45 head were found to create excellent stability. I should mention I trialed a size 45 head and that was found to give good stability. Trial implants were then removed, all tissues were irrigated with pulse lavage, and then a cement restrictor was placed distally. I then used pulse lavage with a brush to remove any remaining metaphyseal bone and to prepare for cement. Cement was then mixed on the back table under vacuum seal. Proximal femur was filled with cement, pressurized and a size 6 [place] cemented stem with centralizer was then placed by hand into the proximal femur. I was able to maintain about 10-15 degrees of anteversion as the stem was fully seated. Excess cement was removed with curettes. The cement was allowed to harden for 15 minutes. I confirmed with a fresh blade that it was fully set. Ray-Anthony was removed from the acetabulum. All excess cement was removed and all aspects of the incision and wound were then extensively irrigated with pulse lavage. I then re-trialed a size 45 head with both 0 and +5 neck length and the +5 neck length with a 45 head was found to give fantastic stability, hip was still stable at 80 degrees of internal rotation. It was stable in the position of sleep, the rectus was not under any significant tension, and there was minimal shuck. The hip trials were then removed, the hip was re-irrigated and a size 45 monopolar head with a +5 neck length were then malleted onto the Maher taper. I confirmed by hand that the fit was secure. The hip was reduced. Final trialing again confirmed fantastic stability. The limbs of the T-capsulotomy were then tied together and [id number] #1 Vicryl suture to further close the capsulotomy. A drill bit was used to make a drill hole in the greater trochanter. Hewson suture passer used to shuttle those capsular sutures through that drill hole. The piriformis sutures were brought up through the abductors. The hip was then abducted, and the sutures were tied together by hand. There was a nice posterior capsular repair considering that there had been buttonholing of the capsule inferiorly. The incision was then re-irrigated and then the tensor fascia was closed with a running #1 Vicryl suture proximally and [id number] Vicryl sutures distally. Tight closure was obtained. I re-irrigated with pulse lavage. Fat approximation suture layer with #1 Vicryl sutures, then #2-0 Vicryl and a running #3-0 Monocryl with Dermabond on the skin. All counts were correct times two. Grossly, the patient had fairly symmetric leg lengths and palpable dorsalis pedis (DP) pulses bilaterally. Abduction pillow was placed. She was carefully placed into the supine position. The patient was carefully log rolled onto her hospital bed and sent to the post-anesthesia care unit (PACU) in stable condition. DISPOSITION: Patient will have 72 hours of subcu heparin for deep vein thrombosis (DVT) prophylaxis to minimize the risk of epidural hematoma and then she will start Xarelto. She will be log roll transfers. She will need a [place] brace whenever she gets out of bed. She will remain under the care of the hospitalist service. This patient's obesity/body habitus, combined with the rare situation of bilateral femoral neck fractures both requiring surgical intervention added significant complexity and time to the total duration of the procedure, especially the hemiarthroplasty. MAMI
[2018-05-21] MEDS ORDERED: LABETALOL HCL 100 MG/20 ML VIAL IV SCH (22:45)
[2018-05-21] MEDS ORDERED: fentaNYL 100 MCG/2 ML INJECTION (J3010) IV PRN (22:45)
[2018-05-21] MEDS ORDERED: LR 1,000 ML IV SCH (22:45)
[2018-05-21] MEDS ORDERED: ONDANSETRON 4MG/2ML VIAL (J2405) IV PRN (22:45)
[2018-05-21] MEDS: MORPHINE 10 MG/ML 1ML VIAL (J2270) IV PRN ×4 (22:45→23:17)
[2018-05-21] MEDS ORDERED: MORPHINE 10 MG/ML 1ML VIAL (J2270) As Ordered ONE (22:47)
[2018-05-21 23:50] VITALS: BP 133/64
[2018-05-22 00:20] VITALS: BP 114/92
[2018-05-22 00:50] VITALS: BP 122/67
[2018-05-22] MEDS ORDERED: LR 1,000 ML IV SCH (01:00)
[2018-05-22] MEDS: HYDROCORTISONE 100 MG/2 ML VIAL (J1720) IV SCH ×5 (01:02→23:02)
[2018-05-22] MEDS ORDERED: FLEET ENEMA PR PRN (01:30)
[2018-05-22] MEDS ORDERED: ACETAMINOPHEN TAB 650MG DOSE (2X325MG) PO PRN (01:30)
[2018-05-22] MEDS ORDERED: ONDANSETRON 4MG/2ML VIAL (J2405) IV PRN (01:30)
[2018-05-22 04:00] VITALS: BP 126/81
[2018-05-22 06:58] LABS: HEMATOCRIT 30.4 % (36.0-47.0); HEMOGLOBIN 10.2 g/dl (12.0-15.5); MEAN CORPUSCULAR HGB CONC 33.6 g/dl (32.0-36.5); MEAN CORPUSCULAR VOLUME 95.3 fl (80.0-96.0); PLATELET COUNT, AUTOMATED 148 10^3/uL (150-450); RED BLOOD COUNT 3.19 10^6/uL (4.00-5.40); WHITE BLOOD COUNT 19.5 10^3/uL (4.0-10.0)
[2018-05-22 07:18] LABS: BLOOD UREA NITROGEN 9 MG/DL (7-18); CALCIUM LEVEL 7.4 MG/DL (8.8-10.2); CARBON DIOXIDE LEVEL 24 MEQ/L (21-32); CHLORIDE LEVEL 110 MEQ/L (98-107); CREATININE FOR GFR 0.79 MG/DL (0.55-1.30); GLOMERULAR FILTRATION RATE > 60.0 (>45); GLUCOSE, FASTING 163 MG/DL (70-100); POTASSIUM SERUM 3.5 MEQ/L (3.5-5.1); SODIUM LEVEL 144 MEQ/L (136-145)
[2018-05-22] MEDS ORDERED: HYDR-3713 PO (08:05)
[2018-05-22] MEDS ORDERED: [UNRECOGNIZED DRUG - CODE] IJ (08:05)
--- NOTE | 2018-05-22 08:12 | REP ---
Right hip: Single portable AP view. History: Postop. Findings: AP view obtained portably of the right hip shows three metallic pins in good position across a femoral neck. Electronically Signed by Victor M Hdez MD 05/22/2018 10:14 A
--- NOTE | 2018-05-22 08:12 | REP ---
Left hip portable view. History: Postop. Findings: A single AP portably obtained radiograph of the left hip demonstrates a left femoral head replacement in good position. Postoperative changes are seen in the adjacent soft tissues. Electronically Signed by Victor M Hdez MD 05/22/2018 10:15 A
[2018-05-22] MEDS: PANTOPRAZOLE 40MG TAB (PROTONIX) PO SCH (09:22)
[2018-05-22] MEDS: VITAMIN D 1,000 INTERNATIONAL UNITS TABLET PO SCH (09:22)
[2018-05-22] MEDS: MIRALAX *UNIT DOSE* 17GM PACKET PO SCH (09:22)
[2018-05-22] MEDS: MOM 30ML SUSPENSION UDC PO SCH (09:22)
[2018-05-22] MEDS: SENOKOT S TAB PO SCH ×2 (09:22→20:43)
[2018-05-22] MEDS: NORCO, ANEXSIA 5/325MG TABLET (HYDROcodone/ACETAMINOPHEN) PO PRN ×2 (09:23→14:39)
[2018-05-22] MEDS: HEPARIN SOD (PORCINE) 5000 UNITS/ML VIAL SQ SCH ×3 (09:29→23:03)
--- NOTE | 2018-05-22 09:31 | REP ---
AP PELVIS: Single view. HISTORY: Postop. Comparison study May 20, 2018. FINDINGS: There are three metallic pins in the right femoral neck. The left femoral head has been replaced. Hip joints are normally aligned. A trans-sacral nerve stimulator lead is again seen. There are air-filled loops of normal caliber small bowel scattered in the abdomen. Vascular calcification is noted. Electronically Signed by Victor M Hdez MD 05/22/2018 10:22 A
--- NOTE | 2018-05-22 09:32 | REP ---
LUMBAR SPINE, FOUR VIEWS: HISTORY: Postoperative. There are old fractures of the T11 and L5 vertebral bodies with minimal height loss. There is a more recent L1 compression fracture with mild height loss. There is no subluxation. The intervertebral discs are normal in height. There is narrowing of the right L4-5 and L5-S1 facet joints. A transsacral neurostimulator is present on the left. IMPRESSION: Degenerative changes as described above. Electronically Signed by Denys Taylor MD 05/22/2018 09:37 A
--- NOTE | 2018-05-22 11:29 | REP ---
CT abdomen and pelvis without IV or oral contrast: History: Lower quadrant pain. Comparison CT study May 20, 2018. CT findings: Digital preliminary salad chef radiograph demonstrates pins in the right hip and a left femoral head replacement. There is a transsacral neurostimulator lead visible. Bowel gas pattern is normal. The lung bases are essentially clear on axial images. There is a small left adrenal adenoma measuring 1.6 cm and containing macroscopic fat. Clips are noted in the gallbladder fossa. No focal hepatic lesion is seen. There are granulomatous calcifications again noted in the spleen. No pancreatic lesion is seen. There is no evidence of free intraperitoneal air. There is left colonic diverticulosis again noted without CT evidence of diverticulitis. A Whitten catheter is seen in the urinary bladder. There is a cystic area in the right ovary again noted measuring 4.2 x 3.9 cm. No abdominal wall defect is seen. A normal appendix is observed posterior to the cecum. A small peripheral cyst is seen in the lower pole of the right kidney. There is some postoperative air anterior to the left hip replacement. Impression: No acute intra-abdominal abnormality. Status post left femoral head replacement and right proximal femur pinning. Electronically Signed by Victor M Hdez MD 05/22/2018 12:11 P
[2018-05-22 11:30] VITALS: BP 106/54
[2018-05-22 14:00] VITALS: BP 133/58
--- NOTE | 2018-05-22 14:31 | IPNPDOC ---
Text Note Date of Service The patient was seen on 05/22/18. NOTE Subjective: Patient complaining of lower quadrant pain today. Also back pain in the lower region. Has radiculopathy. No numbness. Objective: Vitals: (see below) General: No acute distress, laying comfortably in bed. HEENT: Moist mucous membranes. Neck: No JVD or lymphadenopathy Cardiac: RRR, No murmurs Pulm: Clear to auscultation b/l. No wheezing, rhonchi Abd: NT/ND + BS Ext: Trace edema BLE. No cyanosis. Pain with movement of left hip. Distal pulses intact. Whitten in place. Labs (see below) Images: CT Abd/pelvis 05/20/18 Impression: 1. Recent compression fracture deformity at the L1 vertebral body with 4 mm of retropulsion and central canal stenosis, new from February 18, 2018 prior study. 2. Acute femoral neck fracture on the left. 3. Possible chip fracture greater trochanter on the right. 4. Transsacral nerve stimulator noted on the left. 5. 5 cm cystic lesion right ovary may be neoplastic. 6. Left colonic diverticulosis. 7. Splenomegaly. 8. Old wedge compression fractures at the T11, T10, and L5. Assessment/Plan 1. Acute femoral neck fracture/chip fracture on the right. Status post 1. Closed reduction and percutaneous pinning of a minimally displaced right femoral neck fracture. 2. Left hip cemented hemiarthroplasty. Management per orthopedics. Pain control per orthopedics 2. Compression fracture deformity of L1 with retropulsion. We'll to obtain MRI of the lumbar spine as patient has a mechanical device. Appreciate orthopedics input. Notes that she has lower extremity radiculopathy down to the knee, however denies any acute bladder or bowel changes. Have discussed case with Dr. Chung 3. Episode of hypotension on presentation. Status post normal saline, and improved. Given the patient's on chronic prednisone, and started on hydrocortisone temporarily. 4. History of rheumatoid arthritis on methotrexate at home as well as chronic prednisone. We'll hold this for now. 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 5. Chronic pain 6. Hypokalemia replaced 7. Ovarian cyst - discussed with patient, as she will likely need further workup once her acute fracture has been adjusted, and she is more stable, as this may represent malignancy. Patient is agreeable. 8. History of C. difficile 9. History of morbid obesity, getting care 10. History of anxiety continue home meds DVT prophy: Per orthopedics Overall prognosis guarded. Patient is aware, and would like to be full code for now. VS,Fishbone, I+O VS, Fishbone, I+O Laboratory Tests 05/22/18 06:47 Red Blood Count 3.19 L, Mean Corpuscular Volume 95.3, Mean Corpuscular Hemoglobin 32.0, Mean Corpuscular Hemoglobin Concent 33.6, Red Cell Distribution Width 13.8, Calcium Level 7.4 L Vital Signs Date Time Temp Pulse Resp B/P (MAP) Pulse Ox O2 Delivery O2 Flow Rate FiO2 05/22/18 11:30 98.2 95 16 106/54 (71) 99 Nasal Cannula 2.0 I&O- Last 24 Hours up to 6 AM0 05/22/18 05:59 Intake Total 3200 ml Output Total 575 ml Balance 2625 ml ANUPAM ALMANZA MD May 22, 2018 14:31
[2018-05-22] MEDS: MORPHINE 4 MG/ML 1ML VIAL/SYRINGE (J2270) IV PRN (16:32)
[2018-05-22] MEDS ORDERED: MORPHINE 4 MG/ML 1ML VIAL/SYRINGE (J2270) IV PRN (18:00)
[2018-05-22] MEDS: PERCOCET 5MG/325MG TAB PO PRN (18:16)
[2018-05-22 22:00] VITALS: BP 136/51
[2018-05-22] MEDS: zolPIDEM TARTRATE 10MG TAB PO SCH (23:47)
[2018-05-22] MEDS: traZODone 100 MG TAB PO SCH (23:47)
[2018-05-23] MEDS: HYDROCORTISONE 100 MG/2 ML VIAL (J1720) IV SCH ×2 (04:58→16:56)
[2018-05-23 06:00] VITALS: BP 111/64
[2018-05-23 06:49] LABS: HEMATOCRIT 25.9 % (36.0-47.0); HEMOGLOBIN 8.5 g/dl (12.0-15.5); MEAN CORPUSCULAR HEMOGLOBIN 31.8 pg (27.0-33.0); MEAN CORPUSCULAR HGB CONC 32.8 g/dl (32.0-36.5); PLATELET COUNT, AUTOMATED 143 10^3/uL (150-450); RED BLOOD COUNT 2.67 10^6/uL (4.00-5.40); WHITE BLOOD COUNT 16.7 10^3/uL (4.0-10.0)
[2018-05-23 06:51] LABS: BLOOD UREA NITROGEN 12 MG/DL (7-18); CALCIUM LEVEL 7.7 MG/DL (8.8-10.2); CARBON DIOXIDE LEVEL 26 MEQ/L (21-32); CHLORIDE LEVEL 110 MEQ/L (98-107); CREATININE FOR GFR 0.62 MG/DL (0.55-1.30); GLOMERULAR FILTRATION RATE > 60.0 (>45); GLUCOSE, FASTING 121 MG/DL (70-100); POTASSIUM SERUM 3.7 MEQ/L (3.5-5.1); SODIUM LEVEL 143 MEQ/L (136-145)
[2018-05-23] MEDS: MOM 30ML SUSPENSION UDC PO SCH (09:14)
[2018-05-23] MEDS: SENOKOT S TAB PO SCH ×2 (09:14→20:20)
[2018-05-23] MEDS: VITAMIN D 1,000 INTERNATIONAL UNITS TABLET PO SCH (09:14)
[2018-05-23] MEDS: PANTOPRAZOLE 40MG TAB (PROTONIX) PO SCH (09:14)
[2018-05-23] MEDS: MIRALAX *UNIT DOSE* 17GM PACKET PO SCH (09:14)
[2018-05-23] MEDS: PERCOCET 5MG/325MG TAB PO PRN ×4 (09:15→23:35)
[2018-05-23] MEDS: HEPARIN SOD (PORCINE) 5000 UNITS/ML VIAL SQ SCH ×3 (09:15→23:36)
[2018-05-23] MEDS: clonazePAM 1 MG TAB PO SCH ×3 (10:25→20:20)
[2018-05-23 14:00] VITALS: BP 112/60
--- NOTE | 2018-05-23 15:51 | IPNPDOC ---
Text Note Date of Service The patient was seen on 05/23/18. NOTE Subjective: Patient states her back and hip pain has improved since yesterday. She has occasional radiculopathy down both legs. No numbness. No alarming signs. No focal weakness. Objective: Vitals: (see below) General: No acute distress, laying comfortably in bed. HEENT: Moist mucous membranes. Neck: No JVD or lymphadenopathy Cardiac: RRR, No murmurs Pulm: Clear to auscultation b/l. No wheezing, rhonchi Abd: NT/ND + BS Ext: Trace edema BLE. No cyanosis. Distal pulses intact. Strength intact. Whitten in place. Labs (see below) Images: CT Abd/pelvis 05/20/18 Impression: 1. Recent compression fracture deformity at the L1 vertebral body with 4 mm of retropulsion and central canal stenosis, new from February 18, 2018 prior study. 2. Acute femoral neck fracture on the left. 3. Possible chip fracture greater trochanter on the right. 4. Transsacral nerve stimulator noted on the left. 5. 5 cm cystic lesion right ovary may be neoplastic. 6. Left colonic diverticulosis. 7. Splenomegaly. 8. Old wedge compression fractures at the T11, T10, and L5. Assessment/Plan 1. Acute femoral neck fracture/chip fracture on the right. Status post 1. Closed reduction and percutaneous pinning of a minimally displaced right femoral neck fracture. 2. Left hip cemented hemiarthroplasty. Management per orthopedics. Pain control per orthopedics 2. Compression fracture deformity of L1 with retropulsion. We'll to obtain MRI of the lumbar spine as patient has a mechanical device. Appreciate orthopedics input. Notes that she has lower extremity radiculopathy down to the knee, however denies any acute bladder or bowel changes. Have discussed case with Dr. Chung, with no recommendations for further studies at this point. 3. Episode of hypotension on presentation. Status post normal saline, and improved. Given the patient's on chronic prednisone, on hydrocortisone taper now. 4. History of rheumatoid arthritis on methotrexate at home as well as chronic prednisone. We'll hold this for now. Will need close outpatient follow-up with her senior cognos developer. 5. Chronic pain 6. Hypokalemia replaced 7. Ovarian cyst - discussed with patient, as she will likely need further workup once her acute fracture has been adjusted, and she is more stable, as this may represent malignancy. Patient is agreeable. 8. History of C. difficile 9. History of morbid obesity, getting care 10. History of anxiety continue home meds DVT prophy: Per orthopedics Overall prognosis guarded. Patient is aware, and would like to be full code for now. VS,Fishbone, I+O VS, Fishbone, I+O Laboratory Tests 05/23/18 05:38 Red Blood Count 2.67 L, Mean Corpuscular Volume 97.0 H, Mean Corpuscular Hemoglobin 31.8, Mean Corpuscular Hemoglobin Concent 32.8, Red Cell Distribution Width 14.1, Calcium Level 7.7 L Vital Signs Date Time Temp Pulse Resp B/P (MAP) Pulse Ox O2 Delivery O2 Flow Rate FiO2 05/23/18 15:10 20 05/23/18 14:12 97 Room Air 05/23/18 14:00 97.5 96 112/60 (77) 05/23/18 09:20 2.0 I&O- Last 24 Hours up to 6 AM 05/23/18 05:59 Intake Total 480 ml Output Total 250 ml Balance 230 ml ANUPAM ALMANZA MD May 23, 2018 15:51
[2018-05-23] MEDS ORDERED: SODIUM CHLORIDE NASAL 0.65% SPRAY BTL (OCEAN) PRN (17:45)
[2018-05-23] MEDS: zolPIDEM TARTRATE 10MG TAB PO SCH (20:20)
[2018-05-23] MEDS: NORCO, ANEXSIA 5/325MG TABLET (HYDROcodone/ACETAMINOPHEN) PO PRN (20:20)
[2018-05-23] MEDS: traZODone 100 MG TAB PO SCH (20:20)
[2018-05-23 22:00] VITALS: BP 118/64
[2018-05-24] MEDS: NORCO, ANEXSIA 5/325MG TABLET (HYDROcodone/ACETAMINOPHEN) PO PRN (01:23)
[2018-05-24] MEDS: HYDROCORTISONE 100 MG/2 ML VIAL (J1720) IV SCH (04:31)
[2018-05-24] MEDS: PERCOCET 5MG/325MG TAB PO PRN (04:33)
[2018-05-24 05:51] LABS: HEMOGLOBIN 8.7 g/dl (12.0-15.5); MEAN CORPUSCULAR HEMOGLOBIN 32.1 pg (27.0-33.0); MEAN CORPUSCULAR HGB CONC 33.5 g/dl (32.0-36.5); MEAN CORPUSCULAR VOLUME 95.9 fl (80.0-96.0); PLATELET COUNT, AUTOMATED 103 10^3/uL (150-450); RED BLOOD COUNT 2.71 10^6/uL (4.00-5.40); WHITE BLOOD COUNT 12.9 10^3/uL (4.0-10.0)
[2018-05-24 06:00] VITALS: BP 113/57
[2018-05-24 06:15] LABS: BLOOD UREA NITROGEN 14 MG/DL (7-18); CALCIUM LEVEL 7.8 MG/DL (8.8-10.2); CARBON DIOXIDE LEVEL 28 MEQ/L (21-32); CHLORIDE LEVEL 110 MEQ/L (98-107); CREATININE FOR GFR 0.66 MG/DL (0.55-1.30); GLOMERULAR FILTRATION RATE > 60.0 (>45); GLUCOSE, FASTING 103 MG/DL (70-100); POTASSIUM SERUM 3.8 MEQ/L (3.5-5.1); SODIUM LEVEL 145 MEQ/L (136-145)
[2018-05-24] MEDS ORDERED: traMADol 50 MG TAB PO PRN (06:30)
[2018-05-24] MEDS: ACETAMINOPHEN 500 MG TAB PO SCH ×3 (06:48→22:20)
[2018-05-24] MEDS: MIRALAX *UNIT DOSE* 17GM PACKET PO SCH (08:11)
[2018-05-24] MEDS: HEPARIN SOD (PORCINE) 5000 UNITS/ML VIAL SQ SCH ×3 (08:11→23:42)
[2018-05-24] MEDS: SENOKOT S TAB PO SCH ×2 (08:11→20:06)
[2018-05-24] MEDS: clonazePAM 1 MG TAB PO SCH ×3 (08:11→20:06)
[2018-05-24] MEDS: MOM 30ML SUSPENSION UDC PO SCH (08:11)
[2018-05-24] MEDS: PANTOPRAZOLE 40MG TAB (PROTONIX) PO SCH (08:11)
[2018-05-24] MEDS: VITAMIN D 1,000 INTERNATIONAL UNITS TABLET PO SCH (08:11)
[2018-05-24] MEDS: traMADol 50 MG TAB PO PRN ×2 (08:15→20:07)
--- NOTE | 2018-05-24 09:05 | IPN ---
DATE: 05/24/2018 CHIEF COMPLAINT: Postoperative day #3 bilateral hip fractures. HISTORY OF PRESENT ILLNESS: This 63-year-old female presented with bilateral hip fractures. She had them fixed by chief surgeon, Dr. Gregory Chung. She had hip screws on the right side and a left hip hemiarthroplasty cemented on the left side. I saw her followup this morning. She is doing well. She is alert and oriented to person, place and time. She is quite pleasant this morning. She had reasonable sleep with some sleep aid medications. On physical exam, the dressings are dry and free of complication. There is no strikethrough. The thighs and area around the incision are soft and free of hematoma. Distally, she is neurovascularly intact. She has normal sensation to the superficial and deep peroneal nerves as well as saphenous and tibial. Good pedal pulses. She is able to wiggle her toes, dorsiflex and plantarflex her feet. ASSESSMENT AND PLAN: This 63-year-old female with bilateral hip fractures we have encouraged to mobilize. We will get physical therapy (PT) to see them while in hospital to mobilize and weightbearing as tolerated on both sides. Ensure deep venous thrombosis (DVT) prophylaxis and at today's visit she did not have the sequential compressive devices (SCDs) in place so we will ensure that these get put on and I have communicated that to our nurse information manager, Seble. We also have loosened the hip abduction brace.
--- NOTE | 2018-05-24 11:37 | IPNPDOC ---
Text Note Date of Service The patient was seen on 05/24/18. NOTE Subjective: Pain controlled. No active complaints. Objective: Vitals: (see below) General: No acute distress, laying comfortably in bed. HEENT: Moist mucous membranes. Neck: No JVD or lymphadenopathy Cardiac: RRR, No murmurs Pulm: Clear to auscultation b/l. No wheezing, rhonchi Abd: NT/ND + BS Ext: Trace edema BLE. No cyanosis. Distal pulses intact. Strength intact. Whitten in place. Labs (see below) Images: CT Abd/pelvis 05/20/18 Impression: 1. Recent compression fracture deformity at the L1 vertebral body with 4 mm of retropulsion and central canal stenosis, new from February 18, 2018 prior study. 2. Acute femoral neck fracture on the left. 3. Possible chip fracture greater trochanter on the right. 4. Transsacral nerve stimulator noted on the left. 5. 5 cm cystic lesion right ovary may be neoplastic. 6. Left colonic diverticulosis. 7. Splenomegaly. 8. Old wedge compression fractures at the T11, T10, and L5. Assessment/Plan 1. Acute femoral neck fracture/chip fracture on the right. Status post 1. Closed reduction and percutaneous pinning of a minimally displaced right femoral neck fracture. 2. Left hip cemented hemiarthroplasty. Management per orthopedics. Pain control per orthopedics 2. Compression fracture deformity of L1 with retropulsion. We'll to obtain MRI of the lumbar spine as patient has a mechanical device. Appreciate orthopedics input. Notes that she has lower extremity radiculopathy down to the knee, however denies any acute bladder or bowel changes. Have discussed case with Dr. Chung, with no recommendations for further studies at this point. 3. Episode of hypotension on presentation. Status post normal saline, and improved. Given the patient's on chronic prednisone, on hydrocortisone taper now. 4. History of rheumatoid arthritis on methotrexate at home as well as chronic prednisone. We'll hold this for now. Will need close outpatient follow-up with her product examiner. 5. Chronic pain 6. Hypokalemia replaced 7. Ovarian cyst - discussed with patient, as she will likely need further workup once her acute fracture has been adjusted, and she is more stable, as this may represent malignancy. Patient is agreeable. 8. History of C. difficile 9. History of morbid obesity, getting care 10. History of anxiety continue home meds DVT prophy: Per orthopedics Overall prognosis guarded. Patient is aware, and would like to be full code for now. VS,Fishbone, I+O VS, Fishbone, I+O Laboratory Tests 05/24/18 05:22 Red Blood Count 2.71 L, Mean Corpuscular Volume 95.9, Mean Corpuscular Hemoglobin 32.1, Mean Corpuscular Hemoglobin Concent 33.5, Red Cell Distribution Width 14.4, Calcium Level 7.8 L Vital Signs Date Time Temp Pulse Resp B/P (MAP) Pulse Ox O2 Delivery O2 Flow Rate FiO2 05/24/18 09:06 18 05/24/18 06:00 97.8 74 113/57 (75) 97 Room Air 05/23/18 20:15 2.0 I&O- Last 24 Hours up to 6 AM 05/24/18 05:59 Intake Total 1200 ml Output Total 1500 ml Balance -300 ml ANUPAM ALMANZA MD May 24, 2018 11:37
[2018-05-24] MEDS ORDERED: FAMOTIDINE 20 MG TAB PO PRN (11:45)
[2018-05-24] MEDS: OMEPRAZOLE 20 MG CAP PO SCH (12:00)
[2018-05-24] MEDS: predniSONE 5 MG TAB PO SCH (12:00)
[2018-05-24] MEDS: FOLIC ACID 1 MG TAB PO SCH (12:00)
[2018-05-24] MEDS: tiZANidine 4 MG TAB PO PRN ×2 (12:00→20:07)
[2018-05-24] MEDS: LIDOCAINE 5% (LIDODERM) PATCH TD SCH (12:01)
[2018-05-24 14:00] VITALS: BP 113/64
[2018-05-24] MEDS: zolPIDEM TARTRATE 10MG TAB PO SCH (20:05)
[2018-05-24] MEDS: traZODone 100 MG TAB PO SCH (20:05)
[2018-05-24] MEDS: **NOTE PATIENT COMMENT** MISC XX SCH (20:10)
[2018-05-24] MEDS: NYSTATIN 100,000 UNITS/GM TOPICAL PWD 15 GM TOP SCH (20:12)
[2018-05-24 22:00] VITALS: BP 102/50
[2018-05-25] MEDS: traMADol 50 MG TAB PO PRN ×3 (05:43→20:11)
[2018-05-25] MEDS: ACETAMINOPHEN 500 MG TAB PO SCH ×3 (05:43→21:51)
[2018-05-25 06:00] VITALS: BP 94/66
[2018-05-25 06:20] LABS: HEMATOCRIT 25.3 % (36.0-47.0); HEMOGLOBIN 8.3 g/dl (12.0-15.5); MEAN CORPUSCULAR HEMOGLOBIN 31.9 pg (27.0-33.0); MEAN CORPUSCULAR HGB CONC 32.8 g/dl (32.0-36.5); MEAN CORPUSCULAR VOLUME 97.3 fl (80.0-96.0); PLATELET COUNT, AUTOMATED 150 10^3/uL (150-450); WHITE BLOOD COUNT 11.9 10^3/uL (4.0-10.0)
[2018-05-25 06:39] LABS: BLOOD UREA NITROGEN 13 MG/DL (7-18); CALCIUM LEVEL 7.8 MG/DL (8.8-10.2); CARBON DIOXIDE LEVEL 30 MEQ/L (21-32); CHLORIDE LEVEL 108 MEQ/L (98-107); CREATININE FOR GFR 0.58 MG/DL (0.55-1.30); GLOMERULAR FILTRATION RATE > 60.0 (>45); GLUCOSE, FASTING 93 MG/DL (70-100); POTASSIUM SERUM 3.6 MEQ/L (3.5-5.1); SODIUM LEVEL 145 MEQ/L (136-145)
[2018-05-25] MEDS: MIRALAX *UNIT DOSE* 17GM PACKET PO SCH (08:20)
[2018-05-25] MEDS: clonazePAM 1 MG TAB PO SCH ×3 (08:20→20:10)
[2018-05-25] MEDS: PANTOPRAZOLE 40MG TAB (PROTONIX) PO SCH (08:21)
[2018-05-25] MEDS: FOLIC ACID 1 MG TAB PO SCH (08:21)
[2018-05-25] MEDS: SENOKOT S TAB PO SCH ×2 (08:21→20:10)
[2018-05-25] MEDS: MOM 30ML SUSPENSION UDC PO SCH (08:21)
[2018-05-25] MEDS: tiZANidine 4 MG TAB PO PRN ×3 (08:21→21:51)
[2018-05-25] MEDS: OMEPRAZOLE 20 MG CAP PO SCH (08:21)
[2018-05-25] MEDS: predniSONE 5 MG TAB PO SCH (08:21)
[2018-05-25] MEDS: VITAMIN D 1,000 INTERNATIONAL UNITS TABLET PO SCH (08:21)
[2018-05-25] MEDS: NYSTATIN 100,000 UNITS/GM TOPICAL PWD 15 GM TOP SCH ×2 (08:22→21:51)
[2018-05-25] MEDS: LIDOCAINE 5% (LIDODERM) PATCH TD SCH (08:23)
--- NOTE | 2018-05-25 12:21 | IPNPDOC ---
Text Note Date of Service The patient was seen on 05/25/18. NOTE Subjective No active complaints. No acute changes overnight. No urinary issues. Strength intact. Objective: Vitals: (see below) General: No acute distress, laying comfortably in bed. HEENT: Moist mucous membranes. Neck: No JVD or lymphadenopathy Cardiac: RRR, No murmurs Pulm: Clear to auscultation b/l. No wheezing, rhonchi Abd: NT/ND + BS Ext: Trace edema BLE. No cyanosis. Distal pulses intact. Strength 5/5 BLE. Labs (see below) Images: CT Abd/pelvis 05/20/18 Impression: 1. Recent compression fracture deformity at the L1 vertebral body with 4 mm of retropulsion and central canal stenosis, new from February 18, 2018 prior study. 2. Acute femoral neck fracture on the left. 3. Possible chip fracture greater trochanter on the right. 4. Transsacral nerve stimulator noted on the left. 5. 5 cm cystic lesion right ovary may be neoplastic. 6. Left colonic diverticulosis. 7. Splenomegaly. 8. Old wedge compression fractures at the T11, T10, and L5. Assessment/Plan 1. Acute femoral neck fracture/chip fracture on the right. Status post 1. Closed reduction and percutaneous pinning of a minimally displaced right femoral neck fracture. 2. Left hip cemented hemiarthroplasty. Management per orthopedics. Pain control per orthopedics 2. Compression fracture deformity of L1 with retropulsion. We'll to obtain MRI of the lumbar spine as patient has a mechanical device. Appreciate orthopedics input. Notes that she has lower extremity radiculopathy down to the knee, however denies any acute bladder or bowel changes. Have discussed case with Dr. Chung, with no recommendations for further studies at this point. Discussed again today with ortho - no recommendations for further imaging. Strength 5/5 BLE. 3. Episode of hypotension on presentation. Status post normal saline, and improved. Given the patient's on chronic prednisone, on hydrocortisone taper now. 4. History of rheumatoid arthritis on methotrexate at home as well as chronic prednisone. We'll hold this for now. Will need close outpatient follow-up with her career services manager. 5. Chronic pain 6. Hypokalemia replaced 7. Ovarian cyst - discussed with patient, as she will likely need further workup once her acute fracture has been adjusted, and she is more stable, as this may represent malignancy. Patient is agreeable. 8. History of C. difficile 9. History of morbid obesity, getting care 10. History of anxiety continue home meds DVT prophy: Per orthopedics Overall prognosis guarded. Patient is aware, and would like to be full code for now. Pending PT and ortho eval. VS,Fishbone, I+O VS, Fishbone, I+O Laboratory Tests 05/25/18 05:40 Red Blood Count 2.60 L, Mean Corpuscular Volume 97.3 H, Mean Corpuscular Hemoglobin 31.9, Mean Corpuscular Hemoglobin Concent 32.8, Red Cell Distribution Width 14.0, Calcium Level 7.8 L Vital Signs Date Time Temp Pulse Resp B/P (MAP) Pulse Ox O2 Delivery O2 Flow Rate FiO2 05/25/18 12:12 18 Room Air 05/25/18 06:00 96.0 73 94/66 (75) 94 05/23/18 20:15 2.0 I&O- Last 24 Hours up to 6 AM 05/25/18 06:00 Intake Total 1800 ml Output Total 950 ml Balance 850 ml ANUPAM ALMANZA MD May 25, 2018 12:20
[2018-05-25] MEDS ORDERED: CelecoXIB (CeleBREX) 100 MG CAP PO ONE (13:30)
[2018-05-25 14:00] VITALS: BP 95/50
[2018-05-25] MEDS ORDERED: RIVAROXABAN 10 MG TAB (XARELTO) PO SCH (18:00)
[2018-05-25] MEDS: zolPIDEM TARTRATE 10MG TAB PO SCH (20:10)
[2018-05-25] MEDS: traZODone 100 MG TAB PO SCH (20:10)
--- NOTE | 2018-05-25 20:31 | CR ---
DATE OF CONSULTATION: 05/25/2018 I saw the patient today. She is a patient of [facility] on the hospital service. She had recent surgery with Dr. Chung for bilateral hip fractures. She also has a known L1 compression fracture and significant medical comorbidities. There is a question with respect to the patient's ongoing back discomfort. I saw the patient today. She reported back discomfort. She denied numbness and tingling today. On examination, she was alert and seemed to be very comfortable. She was able to wiggle her toes, moves her ankles and bend her knees. Her lower extremities were sensate with no sensory deficit. Again, the patient was denying numbness and tingling when I saw her. I had a discussion with the patient's nursing. She has not been incontinent of urine or stool. I did review her abdominal CT scan and her plain films pre and post hip surgery. It does appear that she has a compression fracture with burst components of the L1 level with moderate but not severe canal compromise. The postoperative CT and plain films appear be similar to preop. IMPRESSION: She has a compression fracture, senile, at L1 with burst components including some retropulsion and moderate but not severe canal compromise. RECOMMENDATIONS: Include continued use of the brace. In my opinion, this patient's progress and rehabilitation is going to be quite protracted because of her multiple injuries. If the patient develops progressive neurologic deficit, additional considerations would be a myelogram CT scan. However, she does not at this time seem to have progressive neurologic deficit..
[2018-05-25] MEDS: **NOTE PATIENT COMMENT** MISC XX SCH (21:00)
[2018-05-25 22:00] VITALS: BP 121/63
[2018-05-26] MEDS: traMADol 50 MG TAB PO PRN ×2 (05:19→13:40)
[2018-05-26] MEDS: ACETAMINOPHEN 500 MG TAB PO SCH ×2 (05:19→13:40)
[2018-05-26 06:00] VITALS: BP 132/63
[2018-05-26 06:36] LABS: HEMATOCRIT 27.1 % (36.0-47.0); HEMOGLOBIN 8.9 g/dl (12.0-15.5); MEAN CORPUSCULAR HEMOGLOBIN 32.1 pg (27.0-33.0); MEAN CORPUSCULAR HGB CONC 32.8 g/dl (32.0-36.5); MEAN CORPUSCULAR VOLUME 97.8 fl (80.0-96.0); PLATELET COUNT, AUTOMATED 148 10^3/uL (150-450); RED BLOOD COUNT 2.77 10^6/uL (4.00-5.40); WHITE BLOOD COUNT 11.7 10^3/uL (4.0-10.0)
[2018-05-26 07:07] LABS: BLOOD UREA NITROGEN 16 MG/DL (7-18); CALCIUM LEVEL 7.7 MG/DL (8.8-10.2); CARBON DIOXIDE LEVEL 31 MEQ/L (21-32); CHLORIDE LEVEL 108 MEQ/L (98-107); CREATININE FOR GFR 0.56 MG/DL (0.55-1.30); GLOMERULAR FILTRATION RATE > 60.0 (>45); GLUCOSE, FASTING 85 MG/DL (70-100); POTASSIUM SERUM 3.5 MEQ/L (3.5-5.1); SODIUM LEVEL 145 MEQ/L (136-145)
[2018-05-26] MEDS ORDERED: POTASSIUM CHLORIDE 10 MEQ SR TABLET PO ONE (08:00)
[2018-05-26] MEDS ORDERED: XARE10TA PO (08:39)
[2018-05-26] MEDS: PANTOPRAZOLE 40MG TAB (PROTONIX) PO SCH (08:43)
[2018-05-26] MEDS: OMEPRAZOLE 20 MG CAP PO SCH (08:43)
[2018-05-26] MEDS: predniSONE 5 MG TAB PO SCH (08:43)
[2018-05-26] MEDS: FOLIC ACID 1 MG TAB PO SCH (08:43)
[2018-05-26] MEDS: tiZANidine 4 MG TAB PO PRN ×2 (08:43→15:01)
[2018-05-26] MEDS: clonazePAM 1 MG TAB PO SCH ×2 (08:43→15:01)
[2018-05-26] MEDS: VITAMIN D 1,000 INTERNATIONAL UNITS TABLET PO SCH (08:43)
[2018-05-26] MEDS: SENOKOT S TAB PO SCH (08:45)
[2018-05-26] MEDS: NYSTATIN 100,000 UNITS/GM TOPICAL PWD 15 GM TOP SCH (08:45)
[2018-05-26] MEDS: MOM 30ML SUSPENSION UDC PO SCH (08:45)
[2018-05-26] MEDS: MIRALAX *UNIT DOSE* 17GM PACKET PO SCH (08:45)
[2018-05-26] MEDS: LIDOCAINE 5% (LIDODERM) PATCH TD SCH (08:45)
--- NOTE | 2018-05-26 20:08 | DSES ---
DATE OF ADMISSION: 05/20/2018 DATE OF DISCHARGE: 05/26/2018 PRIMARY CARE PROVIDER: Dr. Melvin ORTHOPEDIC SURGEON: Dr. Ray Cabrera and Dr. Andrew Zhong FINAL DIAGNOSES: 1. Recent L1 compression fracture of vertebral body with 4 mm retroprotrusion and central canal stenosis, new from 02/18/2018. 2. Acute femoral neck fracture of the left. 3. Right intertrochanteric fracture of great trochanter. 4. History of transsacral nerve stimulator. 5. A 5 cm cystic lesion, right ovary. 6. Left colonic diverticulosis. 7. Old wedge compression fracture of T11, T10, L5. 8. Rheumatoid arthritis, severe. 9. Chronic obstructive pulmonary disease. 10. History of Clostridium difficile. 11. Hypertension. 12. Bipolar disorder. 13. Chronic back pain. 14. Morbid obesity. 15. Degenerative disc disease. 16. Anxiety. 17. Gastroesophageal reflux disease. 18. Insomnia. 19. Gout. HISTORY OF PRESENT ILLNESS: This is a 63-year-old female patient with history of chronic obstructive pulmonary disease (COPD), not on oxygen, severe rheumatoid arthritis, on chronic steroid, prednisone, weekly methotrexate with folic acid, history of Clostridium (C) difficile, hypertension, bipolar, chronic back pain, morbid obesity, degenerative disc disease, anxiety, gastroesophageal reflux disease (GERD), insomnia, gout. Lives at home with daughter. Patient was in her usual state of health until on the day of admission patient tried to get up from her bed, missed her step, and fell, abutting her left hip on the ground. Denies any loss of consciousness prior to the fall or after the fall. Patient denies any headache, dizziness, blurry vision, chest pain, palpitations, shortness of breath, coughing, fevers, or chills. Denies any change in bowel or urinary habits. Patient does have a history of accidental overdose on blood pressure medication. Upon presentation, patient had marginally low systolic blood pressure. Was given fluids. Imaging shows left hip fracture. Orthopedics was on consult. HOSPITAL COURSE: Patient was admitted to the hospital. Orthopedics was on consult. Patient status post closed reduction and percutaneous pinning of the minimally displaced right femoral neck fracture, and left hip cemented hemiarthroplasty was also done. Orthopedics has recommended back bracing for patient's L1 compression fracture. Pain medication was prescribed. Physical therapy was done. Deep vein thrombosis (DVT) prophylaxis was provided as per orthopedic recommendation. Patient currently comfortable with improving pain in the hips. Acute rehabilitation evaluation screening was ordered, and patient is ready to be transferred to acute rehabilitation for further care by acute rehabilitation providers. VITAL SIGNS: Temperature 96.6, pulse 76, respirations 17, blood pressure 123/68, pulse oximetry 100% on room air. LABORATORY DATA: WBC 17.7, hemoglobin and hematocrit 8.9/27.1, platelets 148. Chemistry: Sodium 145, potassium 3.5, chloride 108, bicarbonate 31, BUN 16, creatinine 0.58. PHYSICAL EXAMINATION: GENERAL: Patient alert, comfortable in no acute distress. HEENT: Normocephalic, atraumatic. PULMONARY: Bilaterally clear. CARDIAC: Regular, S1, S2. ABDOMEN: Soft, nontender. EXTREMITIES: Trace edema, bilateral lower extremities. DISCHARGE MEDICATIONS: - hydrocodone/acetaminophen 5/325 one tablet by mouth every 4 hours as needed - Xarelto 10 mg by mouth daily - acetaminophen 650 mg by mouth every 6 hours as needed - Ventolin inhalers every 4 hours as needed - allopurinol 300 mg by mouth daily - calcium with vitamin D one tablet by mouth twice a day - capsaicin topical ;0.025% twice a day - clonazepam 1 mg by mouth three times a day - etanercept 50 mg subcutaneous weekly - Breo inhaler daily - folic acid 1 mg by mouth daily - Lasix 40 mg by mouth daily - lamotrigine 225 mg by mouth daily - lidocaine patch 5% daily - methotrexate 20 mg by mouth weekly - nystatin powder topical twice a day - omeprazole 40 mg by mouth daily - prednisone 5 mg by mouth daily - ranitidine 150 mg by mouth twice a day as needed - tizanidine 4 mg by mouth every 6 hours as needed - trazodone 200 mg by mouth at bedtime - Tudorza inhaler twice a day - Ambien 10 mg by mouth at bedtime DISCHARGE INSTRUCTIONS: Followup with primary care provider 7 days after discharge. Further workup for evaluating lesion as per primary care provider. Followup with orthopedics. Weightbearing status, activity status as per orthopedics. Further recommendations and management as per acute rehabilitation providers.
== END 2018-05-26 15:24 | DRG 469 ==
LOC: EDBD 16:21 → M ED 16:21 → M ED INP 19:46 → M PCU 05-21 23:44 → M MS5PR 05-22 11:05
PROVIDERS: ADMIT Hospitalist; ATTEND Hospitalist
PROC: 0QS634Z Reposition Right Upper Femur with Internal Fixation Device, Percutaneous Approach (ICD-10-PCS; 2018-05-21)
PROC: 0SRS0J9 Replacement of Left Hip Joint, Femoral Surface with Synthetic Substitute, Cemented, Open Approach (ICD-10-PCS; principal; 2018-05-21 16:00)
DX: S72.002A Fracture of unspecified part of neck of left femur, initial encounter for closed fracture (principal); S72.111A Displaced fracture of greater trochanter of right femur, initial encounter for closed fracture; M84.48XA Pathological fracture, other site, initial encounter for fracture; J44.9 Chronic obstructive pulmonary disease, unspecified; M06.9 Rheumatoid arthritis, unspecified; I10 Essential (primary) hypertension; F31.9 Bipolar disorder, unspecified; M54.9 Dorsalgia, unspecified; I95.9 Hypotension, unspecified; E66.01 Morbid (severe) obesity due to excess calories; K57.90 Diverticulosis of intestine, part unspecified, without perforation or abscess without bleeding; E87.6 Hypokalemia; G89.29 Other chronic pain; F41.9 Anxiety disorder, unspecified; K21.9 Gastro-esophageal reflux disease without esophagitis; G47.00 Insomnia, unspecified; M10.9 Gout, unspecified; W18.09XA Striking against other object with subsequent fall, initial encounter; Y92.003 Bedroom of unspecified non-institutional (private) residence as the place of occurrence of the external cause; Z90.49 Acquired absence of other specified parts of digestive tract; Z79.52 Long term (current) use of systemic steroids; Z91.041 Radiographic dye allergy status; Z91.030 Bee allergy status; Z88.8 Allergy status to other drugs, medicaments and biological substances

== ENCOUNTER 2018-05-26 15:15 | Inpatient (IN) | payer MEDICARE ==
[~2018-05-26] VITALS: Ht 157.5 cm; Wt 92.7 kg
[~2018-05-26 15:15] MED LIST changes: +BREO1INH3 INH; +HYDR-3713 PO; +XARE10TA PO; +ZOLP10TA2 PO; +ZYLO300T6 PO; +[UNRECOGNIZED DRUG - CODE] IJ
[2018-05-26 15:35] VITALS: BP 123/68
[2018-05-26] MEDS ORDERED: BISACODYL 10 MG SUPP PR PRN (16:15)
[2018-05-26] MEDS ORDERED: MOM 30ML SUSPENSION UDC PO PRN (16:15)
[2018-05-26] MEDS ORDERED: ONDANSETRON 4 MG TAB (S0181) PO PRN (16:15)
[2018-05-26] MEDS ORDERED: FAMOTIDINE 20 MG TAB PO PRN (16:30)
[2018-05-26] MEDS ORDERED: ALBUTEROL 90 MCG/ACT 8GM HFA INHALER INH PRN (16:30)
[2018-05-26] MEDS: RIVAROXABAN 10 MG TAB (XARELTO) PO SCH (17:21)
[2018-05-26] MEDS: NORCO, ANEXSIA 5/325MG TABLET (HYDROcodone/ACETAMINOPHEN) PO PRN ×2 (17:21→21:52)
[2018-05-26 20:00] VITALS: BP 134/62
[2018-05-26] MEDS: FERROUS GLUCONATE 324 MG TAB PO SCH (20:42)
[2018-05-26] MEDS: traZODone 100 MG TAB PO SCH (20:42)
[2018-05-26] MEDS: clonazePAM 1 MG TAB PO SCH (20:42)
[2018-05-26] MEDS: ACETAMINOPHEN 500 MG TAB PO SCH (20:44)
[2018-05-26] MEDS: NYSTATIN 100,000 UNITS/GM TOPICAL PWD 15 GM TOP SCH (20:44)
[2018-05-26] MEDS: DOCUSATE SODIUM 100 MG CAP PO SCH (20:45)
[2018-05-26] MEDS ORDERED: SENNA 8.6 MG TAB (SENOKOT) PO SCH (21:00)
[2018-05-26] MEDS: **NOTE PATIENT COMMENT** MISC XX SCH (21:00)
[2018-05-26] MEDS: FLUTICASONE HFA 220 MCG 12 GM INHALER (FLOVENT) INH SCH (21:00)
[2018-05-26] MEDS: zolPIDEM TARTRATE 10MG TAB PO PRN (21:51)
[2018-05-27] MEDS: tiZANidine 4 MG TAB PO PRN ×2 (03:19→12:44)
[2018-05-27] MEDS: NORCO, ANEXSIA 5/325MG TABLET (HYDROcodone/ACETAMINOPHEN) PO PRN ×2 (03:52→10:24)
[2018-05-27 06:00] VITALS: BP 118/58
[2018-05-27 06:36] LABS: BASO # 0.1 10^3/uL (0.0-0.2); BASO % 0.5 % (0.0-1.0); EOS # 0.4 10^3/uL (0.0-0.50); EOS % 2.9 % (0.0-3.0); HEMATOCRIT 26.1 % (36.0-47.0); HEMOGLOBIN 8.5 g/dl (12.0-15.5); LYMPH # 3.7 10^3/uL (1.5-4.5); LYMPH % 30.2 % (24.0-44.0); MEAN CORPUSCULAR HEMOGLOBIN 31.4 pg (27.0-33.0); MEAN CORPUSCULAR HGB CONC 32.6 g/dl (32.0-36.5); MEAN CORPUSCULAR VOLUME 96.3 fl (80.0-96.0); MONO # 0.6 10^3/uL (0.0-0.8); MONO % 4.7 % (0.0-5.0); NEUTROPHILS # 7.3 10^3/uL (1.8-7.7); NEUTROPHILS % 60.1 % (36.0-66.0); PLATELET COUNT, AUTOMATED 155 10^3/uL (150-450); RED BLOOD COUNT 2.71 10^6/uL (4.00-5.40); WHITE BLOOD COUNT 12.2 10^3/uL (4.0-10.0)
[2018-05-27 07:04] LABS: ALBUMIN 1.9 GM/DL (3.2-5.2); ALT/SGPT 11 U/L (12-78); BILIRUBIN,TOTAL 0.4 MG/DL (0.2-1.0); BLOOD UREA NITROGEN 12 MG/DL (7-18); CALCIUM LEVEL 7.2 MG/DL (8.8-10.2); CARBON DIOXIDE LEVEL 28 MEQ/L (21-32); CHLORIDE LEVEL 108 MEQ/L (98-107); CREATININE FOR GFR 0.61 MG/DL (0.55-1.30); GLOMERULAR FILTRATION RATE > 60.0 (>45); GLUCOSE, FASTING 96 MG/DL (70-100); POTASSIUM SERUM 4.1 MEQ/L (3.5-5.1); SODIUM LEVEL 143 MEQ/L (136-145); TOTAL PROTEIN 4.2 GM/DL (6.4-8.2)
[2018-05-27] MEDS: lamoTRIgine 25 MG TAB PO SCH (08:35)
[2018-05-27] MEDS: clonazePAM 1 MG TAB PO SCH ×3 (08:35→21:30)
[2018-05-27] MEDS: FERROUS GLUCONATE 324 MG TAB PO SCH ×2 (08:35→21:30)
[2018-05-27] MEDS: lamoTRIgine 100MG TAB PO SCH (08:35)
[2018-05-27] MEDS: FOLIC ACID 1 MG TAB PO SCH (08:35)
[2018-05-27] MEDS: ALLOPURINOL 300 MG TAB PO SCH (08:35)
[2018-05-27] MEDS: ACETAMINOPHEN 500 MG TAB PO SCH ×3 (08:35→21:31)
[2018-05-27] MEDS: predniSONE 5 MG TAB PO SCH (08:35)
[2018-05-27] MEDS: LIDOCAINE 5% (LIDODERM) PATCH TD SCH (08:36)
[2018-05-27] MEDS: METHOTREXATE 2.5 MG TAB (J8610 PER 2.5MG) PO SCH (08:36)
[2018-05-27] MEDS: NYSTATIN 100,000 UNITS/GM TOPICAL PWD 15 GM TOP SCH ×2 (08:36→21:33)
[2018-05-27] MEDS: DOCUSATE SODIUM 100 MG CAP PO SCH (08:36)
[2018-05-27] MEDS ORDERED: PANTOPRAZOLE 40MG TAB (PROTONIX) PO SCH (09:00)
[2018-05-27] MEDS: FLUTICASONE HFA 220 MCG 12 GM INHALER (FLOVENT) INH SCH ×2 (09:00→20:53)
[2018-05-27] MEDS ORDERED: oxyCODONE 5MG TAB PO PRN (12:45)
--- NOTE | 2018-05-27 13:37 | HPEPDOC ---
Core Stripper Note DATE OF ADMISSION: May 26, 2018 at 15:35 SOURCE OF ADMISSION INFORMATION: patient and [facility] records CHIEF COMPLAINT:bilateral hip fracture HISTORY OF PRESENT ILLNESS: 63F pmh bipolar, obesity, COPD, who fell at home and presented to [facility] ED on 05-20-18 complaining of left leg pain and inability to walk. Trauma imaging series was ordered with Lumbar spine X-ray showing, Recent wedge compression fracture L1. Old wedging L5 and T11. CT abdomen pelvis revealed, Recent compression fracture deformity at the L1 vertebral body with 4 mm of retropulsion and central canal stenosis, new from February 18, 2018 prior study Acute femoral neck fracture on the left Possible chip fracture greater trochanter on the rightTranssacral nerve stimulator noted on the left5 cm cystic lesion right ovary may be neoplastic Left colonic diverticulosis Old wedge compression fractures at the T11, T10, and L5. CTH showed volume loss possibly consistent with Alzheimers and White matter changes are demonstrated in the subcortical, centrum semiovale and periventricular white matter consistent with small vessel white matter angiopathic gliosis. She was evaluated by orthopedics and agreed to a left hip audrey-arthroplasty with right femoral pinning which was performed on after an ECHO which showed grade 1 diastolic dysfunction with preserved LVEF. Her pre and post-op diagnosis was Minimally displaced right femoral neck fractureDisplaced left femoral neck fracture which was performed without complication with post-op X-rays showing, left femoral head replacement in good position. Postoperative changes are seen in the adjacent soft tissues and the right hip shows three metallic pins in good position across a femoral neck. She complained on back pain and was evaluated by orthopedics for a new compression fracture at L1 with retropulsion and provided with a TLSO brace. She was placed on prophylactic Xarelto for DVT prevention, had leukocytosis that gradually improved, was evaluated by therapy and deemed to have significant gait and ADL impairments and was considered medically appropriate for discharge to ARU on 05-26-18. REVIEW OF SYSTEMS: The following is a completed review of systems and has been reviewed. Review of systems otherwise unremarkable. PAIN: Patient self reports bilateral hip pain and low back pain EYES: no recent vision loss EARS, NOSE, & THROAT: no dysphagia, rhinorrhea, or tinnitus CARDIOVASCULAR: denies chest pain, palpitations PULMONARY: Negative. Denies shortness of breath GASTROINTESTINAL: +loose stools GENITOURINARY: denies dysuria MUSCULOSKELETAL: bilateral hip fracture and lumbar compression fracture NEUROLOGICAL: no tremor, no paresthesias HEMATOLOGICAL:bilateral UE ecchymosis SKIN: bilateral hip incisions PSYCHIATRIC: Unremarkable All other review of systems found to be negative. PAST MEDICAL HISTORY: bipolar, obesity, COPD, RA, C diff PAST SURGICAL HISTORY: Cholecystectomy, ALLERGIES: Please see below. MEDICATIONS: Please see below. 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 GENERAL: Pleasant and cooperative. No acute distress HEENT: PERRL. Extraocular movements intact. Clear conjunctiva CARDIOVASCULAR: Regular rate and rhythm. No murmurs, rubs, or gallops LUNGS: Clear to auscultation bilaterally. No wheezes. No rhonchi ABDOMEN: Soft, nontender, nondistended. Positive bowel sounds. Normal active bow el sounds NEUROLOGICAL: Alert and oriented times three. Cranial nerves II through XII grossly intact. Sensation grossly intact including 1st web space of bilateral feet Babinski negative bilat EXTREMITIES: 5-\5 strength bilateral upper extremities. 5\5 strength bilateral ankle DF, EHL, plantar flexion, exam limited due to hip pain SKIN: bilat UE ecchymosis, bilat hip incisions c/d/i no induration IMAGING: Imaging documentation personally reviewed by record FUNCTIONAL STATUS: Premorbid: Independent with all activities of daily life as well as mobility household distances On Admission: Contact Guard to standby assist for functional transfers, Contact guard for ambulation with RW x5 feet, Max assist with lower body dressing. GOALS: Modified Independent with ambulation with RW, stairs, upper and lower body dressing, grooming, showering. Medical optimization, family training, asses for DME needs. ASSESSMENT:63-year-old F with past medical history of COPD, RA, obesity who presents status post PLAN: 1. Rehab: PT/OT, assess for DME 2. Ortho: bilat hip fractures s/p left hip audrey-arthroplasty and right hip pinning on 05-21-18, WBAT and hip precautions, ortho consulted -L1 compression fracture with retropulsion in the setting of canal stenosis- TLSO when out of bed, monitor for cord compression signs 3. Neuro: stable 4. Cardio: grade 1 diastolic CHF, will monitor- medicine consulted 5. Resp: COPD: continue breathing treatments, and incentive spirometry 6. Psych: pmh Bipolar, continue Lamictal 7. RHeum: pmh RA, continue weekly methotrexate and daily prednisone 8. Pain: Timber and Tylenol 9. DVT ppx: Xarelto 10. GI ppx: Protonix 11. : monitor PVRs and admission UA/Ucx 10. Dispo: TBD POST ADMISSION PHYSICIAN EVALUATION: Medical and functional status: Description of medical status, medical assessment: As above. Rehabilitation diagnosis and current and prior cold morbid medical conditions as above. Risk of complications and plans to mitigate them as above. Description of functional status current status is as above. Prior status as above. Status compared to preadmission: There are no clinically significant differences between the patient's current status and the information described on the preadmission screening document. Treatment plan anticipated: Treatment plan is as described above. Required disciplines including physical therapy, occupational therapy, others as noted above Intensity of services: 3 hours a day, 7 days a week. Special considerations: There are no specific special or safety considerations that would likely preclude immediate implementation of an intensive rehabilitation program or subsequently influence the plan of care ATTESTATION: Considering all the information above, it is my best judgment that this patient requires intensive rehabilitation therapy as described above and an inpatient hospital environment due to the complexity of nursing, medical, and rehabilitation needs required by the patient. Furthermore, this patient can reasonably be expected to participate in an benefit from an inpatient rehabilitation stay with an interdisciplinary team approach to the delivery of rehabilitation care under the direction and supervision of rehabilitation physician PROGNOSIS: Excellent ESTIMATED LENGTH OF STAY: 12- 14 days. PROJECTED DISCHARGE DESTINATION: Home with family support and any durable medical equipment required to increase functional safety and mobility. TIME SPENT COUNSELING AND COORDINATING INITIAL CARE: Greater than 70 minutes. Vital Signs Vital Sign - Last 24 Hours 05/26/18 05/26/18 05/26/18 05/26/18 15:35 16:11 17:21 20:00 Temp 96.6 98.9 Pulse 76 89 Resp 17 17 17 17 B/P (MAP) 123/68 (86) 134/62 (86) Pulse Ox 100 96 O2 Delivery Room Air Room Air 05/26/18 05/27/18 05/27/18 05/27/18 21:52 03:52 06:00 10:24 Temp 98.9 Pulse 73 Resp 18 18 17 16 B/P (MAP) 118/58 (78) Pulse Ox 96 O2 Delivery Room Air 05/27/18 10:54 Resp 18 Laboratory Data CBC/BMP Laboratory Tests 05/27/18 06:18 Red Blood Count 2.71 L, Mean Corpuscular Volume 96.3 H, Mean Corpuscular Hemoglobin 31.4, Mean Corpuscular Hemoglobin Concent 32.6, Red Cell Distribution Width 14.5, Neutrophils (%) (Auto) 60.1, Lymphocytes (%) (Auto) 30.2, Monocytes (%) (Auto) 4.7, Eosinophils (%) (Auto) 2.9, Basophils (%) (Auto) 0.5, Neutrophils # (Auto) 7.3, Lymphocytes # (Auto) 3.7, Monocytes # (Auto) 0.6, Eosinophils # (Auto) 0.4, Basophils # (Auto) 0.1, Calcium Level 7.2 L, Aspartate Amino Transf (AST/SGOT) 11, Alanine Aminotransferase (ALT/SGPT) 11 L, Alkaline Phosphatase 92, Total Bilirubin 0.4, Total Protein 4.2 L, Albumin 1.9 L Labs 24H Laboratory Tests 2 05/27/18 06:18: Immature Granulocyte % (Auto) 1.6, White Blood Count 12.2H, Red Blood Count 2.71L, Hemoglobin 8.5L, Hematocrit 26.1L, Mean Corpuscular Volume 96.3H, Mean Corpuscular Hemoglobin 31.4, Mean Corpuscular Hemoglobin Concent 32.6, Red Cell Distribution Width 14.5, Platelet Count 155, Neutrophils (%) (Auto) 60.1, Lymphocytes (%) (Auto) 30.2, Monocytes (%) (Auto) 4.7, Eosinophils (%) (Auto) 2.9, Basophils (%) (Auto) 0.5, Neutrophils # (Auto) 7.3, Lymphocytes # (Auto) 3.7, Monocytes # (Auto) 0.6, Eosinophils # (Auto) 0.4, Basophils # (Auto) 0.1, Nucleated Red Blood Cells % (auto) 0.0, Anion Gap 7L, Glomerular Filtration Rate > 60.0, Blood Urea Nitrogen 12, Creatinine 0.61, Sodium Level 143, Potassium Level 4.1, Chloride Level 108H, Carbon Dioxide Level 28, Calcium Level 7.2L, Aspartate Amino Transf (AST/SGOT) 11, Alanine Aminotransferase (ALT/SGPT) 11L, Alkaline Phosphatase 92, Total Bilirubin 0.4, Total Protein 4.2L, Albumin 1.9L, Albumin/Globulin Ratio 0.83L Microbiology Microbiology 05/27/18 Clostridium difficile (PCR), Received Pending Home Medications Scheduled (Tudorza Pressair) 400 Mcg/Act Aer, 1 DOSE INH BID, (Reported) (Lamotrigine ER) 200 Mg Tab, 200 MG PO DAILY, (Reported) TAKES WITH 25MG TAB TO TOTAL 225MG Allopurinol (Zyloprim) 300 Mg Tab, 300 MG PO DAILY, (Reported) Calcium/Vitamin D (Calcium 600+D 600-400 mg-Unit) 1 Tab Tab, 1 TAB PO BID, (Reported) Capsaicin (Capsaicin) 0.025 % Cre, 1 APLCT TOP BID Clonazepam (Clonazepam) 1 Mg Tab, 1 MG PO TID, (Reported) Etanercept (Enbrel) 50 Mg/Ml Inj, 50 MG SC QWEEK, (Reported) FRIDAY Fluticasone/Vilanterol (Breo Ellipta 200-25 Mcg/INH) 1 Inh Inh, 1 PUFF INH DAILY, (Reported) Folic Acid (Folic Acid) 1 Mg Tab, 1 MG PO DAILY, (Reported) Furosemide (Lasix) 40 Mg Tab, 40 MG PO DAILY, (Reported) Lamotrigine (Lamotrigine ER) 25 Mg Tab, 25 MG PO DAILY, (Reported) TAKES WITH 200MG TAB TO TOTAL 225MG Lidocaine (Lidoderm) 5 % Dis, 2 PATCH TD DAILY, (Reported) APPLY TO RIGHT CHEST AND RIB AREA OF PAIN APPLY FOR 12 HOURS AND REMOVE FOR 12 HOURS BEFORE APPLYING NEW ONE TO SITE Methotrexate (Methotrexate) 2.5 Mg Tab, 20 MG PO QWEEK, (Reported) THURSDAYS Nystatin (Nystatin Powder) 100,000 Unit/Gm Pow, 1 DOSE TOP BID, (Reported) APPLY TO LOWER ABDOMEN AND GROIN Omeprazole (Omeprazole) 40 Mg Cap, 40 MG PO DAILY, (Reported) Prednisone (Prednisone) 5 Mg Tab, 5 MG PO DAILY, (Reported) Rivaroxaban (Xarelto) 10 Mg Tab, 10 MG PO DAILY Trazodone HCl (Trazodone HCl) 100 Mg Tab, 200 MG PO QHS, (Reported) Zolpidem Tartrate (Zolpidem Tartrate) 10 Mg Tab, 10 MG PO QHS, (Reported) Scheduled PRN Acetaminophen (Tylenol) 325 Mg Tab, 650 MG PO Q6H PRN for PAIN / FEVER, (Rep orted) Acetaminophen/Hydrocodone (Hydrocodone/Acetaminophen 5-325 mg) 1 Tab Tab, 1-2 TAB PO Q4H PRN for PAIN Albuterol Sulfate (Ventolin Hfa) 108 Mcg/Act Aer, 2 PUFF INH Q4H PRN for SHORTNESS OF BREATH, (Reported) Ranitidine Hcl (Zantac) 150 Mg Tab, 1 TAB PO BID PRN for HEARTBURN/INDIGESTION, (Reported) Tizanidine Hydrochloride (Zanaflex) 4 Mg Cap, 4 MG PO Q6H PRN for MUSCLE SPASMS, (Reported) Allergies Coded Allergies: Contrast Media (Verified Allergy, Severe, 1VP DYE - ANAPHYLAXIS, TONGUE SWELLS, 04/26/18) Shellfish Allergy (Verified Allergy, Severe, ANAPHYLAXIS, TONGUE SWELLS, 04/26/18) Pregabalin (Verified Allergy, Intermediate, rash/swelling, 05/20/18) MONTRELL PAN MD May 27, 2018 13:37
--- NOTE | 2018-05-27 13:51 | IPNPDOC ---
Date Seen The patient was seen on 05/27/18. Progress Note HPI: The pt was admitted to [facility] 05/20/18-05/26/18. Patient was in her usual state of health until on the day of admission patient tried to get up from her bed, missed her step, and fell, abutting her left hip on the ground. Denies any loss of consciousness prior to the fall or after the fall. Patient does have a history of accidental overdose on blood pressure medication. Upon presentation, patient had marginally low systolic blood pressure, she was given fluids. Imaging showed left hip fracture. Orthopedics was consulted. As per Orthopedic surgery, S/P closed reduction and percutaneous pinning of the minimally displaced right femoral neck fracture, and left hip cemented hemiarthroplasty. Orthopedics has recommended back bracing for patient's L1 compression fracture. Pt transferred to the care of ARU, Dr Lynch, 05/26/18. The pt states she has had loose stools today and yesterday. Denies any fevers, chills, weakness, fatigue, Headache, Chest Pain, Shortness of breath, cough, palpitations, abdominal pain, N/V or changes in bladder habits. PMHx: COPD, not O2 dependent severe rheumatoid arthritis on chronic prednisone and weekly methotrexate. C. difficile colitis, hypertension, bipolar disorder, chronic back pain, morbid obesity, BMI 36.5 degenerative disc disease, anxiety, GERD, insomnia, gout. PSHX: section. Tonsillectomy. Cholecystectomy. PE: GEN: 63yoF, appears stated age. No acute distress, eating lunch. Alert and jennifer ented x 3. Affect is flat. HEENT: Normocephalic, atraumatic. Sclera are nonicteric. Conjunctiva without injection. No facial asymmetry. Moist mucous membranes. CHEST: Regular rate and rhythm, +S1, +S2 LUNGS: Clear to auscultation bilaterally. No wheezes, rales, or rhonchi. Breathing appears symmetric and easy. ABD: Round, soft, non-tender, non-distended. +Bowel sounds throughout. No rebound or guarding. EXT: Pulses 2+ bilaterally dorsalis pedis and radial. No lower extremity edema appreciated. SKIN: Tappen, dry, warm. No rashes. NEURO: No focal deficits appreciated. A&P: The pt was admitted to [facility] 05/20/18-05/26/18. Patient was in her usual state of health until on the day of admission patient tried to get up from her bed, missed her step, and fell, abutting her left hip on the ground. Denies any loss of consciousness prior to the fall or after the fall. Patient does have a history of accidental overdose on blood pressure medication. Upon presentation, patient had marginally low systolic blood pressure, she was given fluids. Imaging showed left hip fracture. Orthopedics was consulted. As per Orthopedic surgery, S/P closed reduction and percutaneous pinning of the minimally displaced right femoral neck fracture, and left hip cemented hemiarthroplasty. Orthopedics has recommended back bracing for patient's L1 compression fracture. Pt transferred to the care of ARU, Dr Lynch, 05/26/18. 1. S/P Rt femoral neck fracture/S/P Closed reduction and percutaneous pinning of a minimally displaced right femoral neck fracture. Management per orthopedics. DVT prophylaxis. Xarelto as per Orthopedics. Pain control as per ARU. Bowel care as per ARU. PT/OT/ST as per ARUDr Lynch. Disposition as per ARU. 2. L1 compression fracture with retropulsion in the setting of canal stenosis. Appreciate orthopedics input. TLSO when out of bed, monitor for cord compression signs. Notes that she has lower extremity radiculopathy down to the knee, however denies any acute bladder or bowel changes. Mgmt as per orthopedics/ ARU. 3. Episode of hypotension on presentation. Status post normal saline, and resolved. S/P hydrocortisone taper. BP 118/58. 4. History of rheumatoid arthritis on methotrexate at home as well as chronic prednisone. Chronic pain. Prednisone 5 mg po daily. Methotrexate restarted this AM. Tizanidine as needed. 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 5. Hypokalemia. S/P supplement. CMP in AM. Monitor. 6. Ovarian cyst. Has been relayed to the pt she will likely need further workup following d/c, as this may represent malignancy. Patient is agreeable. 7. Diarrhea/C Diff. positive. History of C. difficile 01/27. Afebrile. WBC 12.2 Pt is ating and drinking. [id number] po Q6 D1. Bacid 2 tab po BID. PPI D/Cd. HOLD Senna/Colace Monitor. 8. History of morbid obesity BMI 36.5. Complicates care. 9. Bipolar disorder/Anxiety/Insomnia. Pt remains on Lamictal/Klonopin/Trazodone/Ambien. 10. COPD. Flovent Albuterol as needed. 11. Acute blood loss anemia. Hgb stable. Continue Fe supplement. Monitor need for transfusion. 12. Gout. Allopurinol. 13. GERD. Pepcid. VS, I&O, 24H, Fishbone Vital Signs/I&O Vital Signs Date Time Temp Pulse Resp B/P (MAP) Pulse Ox O2 Delivery O2 Flow Rate FiO2 05/27/18 10:54 18 05/27/18 06:00 98.9 73 118/58 (78) 96 Room Air I&O- Last 24 Hours up to 6 AM 05/27/18 06:00 Intake Total 420 ml Output Total 0 ml Balance 420 ml Laboratory Data 24H LABS Laboratory Tests 2 05/27/18 06:18: Immature Granulocyte % (Auto) 1.6, White Blood Count 12.2H, Red Blood Count 2.71L, Hemoglobin 8.5L, Hematocrit 26.1L, Mean Corpuscular Volume 96.3H, Mean Corpuscular Hemoglobin 31.4, Mean Corpuscular Hemoglobin Concent 32.6, Red Cell Distribution Width 14.5, Platelet Count 155, Neutrophils (%) (Auto) 60.1, Lympho cytes (%) (Auto) 30.2, Monocytes (%) (Auto) 4.7, Eosinophils (%) (Auto) 2.9, Basophils (%) (Auto) 0.5, Neutrophils # (Auto) 7.3, Lymphocytes # (Auto) 3.7, Monocytes # (Auto) 0.6, Eosinophils # (Auto) 0.4, Basophils # (Auto) 0.1, Nucleated Red Blood Cells % (auto) 0.0, Anion Gap 7L, Glomerular Filtration Rate > 60.0, Blood Urea Nitrogen 12, Creatinine 0.61, Sodium Level 143, Potassium Level 4.1, Chloride Level 108H, Carbon Dioxide Level 28, Calcium Level 7.2L, Aspartate Amino Transf (AST/SGOT) 11, Alanine Aminotransferase (ALT/SGPT) 11L, Alkaline Phosphatase 92, Total Bilirubin 0.4, Total Protein 4.2L, Albumin 1.9L, Albumin/Globulin Ratio 0.83L CBC/BMP Laboratory Tests 05/27/18 06:18 Red Blood Count 2.71 L, Mean Corpuscular Volume 96.3 H, Mean Corpuscular Hemoglobin 31.4, Mean Corpuscular Hemoglobin Concent 32.6, Red Cell Distribution Width 14.5, Neutrophils (%) (Auto) 60.1, Lymphocytes (%) (Auto) 30.2, Monocytes (%) (Auto) 4.7, Eosinophils (%) (Auto) 2.9, Basophils (%) (Auto) 0.5, Neutrophils # (Auto) 7.3, Lymphocytes # (Auto) 3.7, Monocytes # (Auto) 0.6, Eosinophils # (Auto) 0.4, Basophils # (Auto) 0.1, Calcium Level 7.2 L, Aspartate Amino Transf (AST/SGOT) 11, Alanine Aminotransferase (ALT/SGPT) 11 L, Alkaline Phosphatase 92, Total Bilirubin 0.4, Total Protein 4.2 L, Albumin 1.9 L Microbiology Microbiology 05/27/18 Clostridium difficile (PCR) - Final, Complete Yen Davila May 27, 2018 13:51
[2018-05-27 14:00] VITALS: BP 118/78
[2018-05-27] MEDS: VANCOMYCIN ORAL SOL 250MG/5ML ORAL SYRINGE PO SCH ×2 (15:01→18:04)
[2018-05-27] MEDS: LACTOBACILLUS ACIDOPHILUS CAP (BACID) PO SCH ×2 (15:05→21:29)
[2018-05-27] MEDS: RIVAROXABAN 10 MG TAB (XARELTO) PO SCH (18:04)
[2018-05-27] MEDS: oxyCODONE 5MG TAB PO PRN ×2 (18:05→21:32)
--- NOTE | 2018-05-27 18:05 | IPNPDOC ---
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 diff, no fever or chills, antibiotics started. REVIEW OF SYSTEMS: The following is a completed review of systems and has been reviewed. Review of systems otherwise unremarkable. PAIN: Patient self reports bilateral hip pain and low back pain EYES: no recent vision loss EARS, NOSE, & THROAT: no dysphagia, rhinorrhea, or tinnitus CARDIOVASCULAR: denies chest pain, palpitations PULMONARY: Negative. Denies shortness of breath GASTROINTESTINAL: +loose stools GENITOURINARY: denies dysuria MUSCULOSKELETAL: bilateral hip fracture and lumbar compression fracture NEUROLOGICAL: no tremor, no paresthesias HEMATOLOGICAL:bilateral UE ecchymosis SKIN: bilateral hip incisions PSYCHIATRIC: Unremarkable All other review of systems found to be negative. PHYSICAL EXAMINATION: VITAL SIGNS: Please see below. GENERAL: Pleasant and cooperative. No acute distress HEENT: PERRL. Extraocular movements intact. Clear conjunctiva CARDIOVASCULAR: Regular rate and rhythm. No murmurs, rubs, or gallops LUNGS: Clear to auscultation bilaterally. No wheezes. No rhonchi ABDOMEN: Soft, mildly tender to palpation throughout all quadrants, hyperactive bowel sounds NEUROLOGICAL: Alert and oriented times three. Cranial nerves II through XII grossly intact. Sensation grossly intact including 1st web space of bilateral feet Babinski negative bilat EXTREMITIES: 5-\5 strength bilateral upper extremities. 5\5 strength bilateral ankle DF, EHL, plantar flexion, exam limited due to hip pain SKIN: bilat UE ecchymosis, bilat hip incisions c/d/i no induration ASSESSMENT:63-year-old F with past medical history of COPD, RA, obesity who presents status post bilateral hip fracture. PLAN: 1. Rehab: PT/OT, assess for DME, CG for transfers and able to ambulate with RW contact guard 2. Ortho: bilat hip fractures s/p left hip audrey-arthroplasty and right hip pinning on 05-21-18, WBAT and hip precautions, ortho consulted -L1 compression fracture with retropulsion in the setting of canal stenosis- TLSO when out of bed, monitor for cord compression signs 3. Neuro: stable 4. Cardio: grade 1 diastolic CHF, will monitor- medicine consulted, recs appreciated 5. Resp: COPD: continue breathing treatments, and incentive spirometry 6. Psych: pmh Bipolar, continue Lamictal 7. RHeum: pmh RA, continue weekly methotrexate and daily prednisone 8. Pain: [place] and Tylenol 9. DVT ppx: Xarelto 10. GI ppx:will discontinue protonix as chronic home use of PPIs and H2 blockers can increase susceptibility to C. diff 11. ID: loose stools on admission with recent hx of C. diff, stool on admission positive for C. diff, recentl treated with Vancomycin 2017, will try po Vancomycin again, but this time a prolonged course, Bacid and contact precautions 11. : monitor PVRs, admission UA/Ucx still pending 10. Dispo: TBD Allergies Coded Allergies: Contrast Media (Verified Allergy, Severe, 1VP DYE - ANAPHYLAXIS, TONGUE SWELLS, 04/26/18) Shellfish Allergy (Verified Allergy, Severe, ANAPHYLAXIS, TONGUE SWELLS, 04/26/18) Pregabalin (Verified Allergy, Intermediate, rash/swelling, 05/20/18) Vital Signs Vital Signs Date Time Temp Pulse Resp B/P (MAP) Pulse Ox O2 Delivery O2 Flow Rate FiO2 05/27/18 14:00 98.6 95 18 118/78 (91) 100 Room Air Laboratory Data CBC/BMP Laboratory Tests 05/27/18 06:18 Red Blood Count 2.71 L, Mean Corpuscular Volume 96.3 H, Mean Corpuscular Hemoglobin 31.4, Mean Corpuscular Hemoglobin Concent 32.6, Red Cell Distribution Width 14.5, Neutrophils (%) (Auto) 60.1, Lymphocytes (%) (Auto) 30.2, Monocytes (%) (Auto) 4.7, Eosinophils (%) (Auto) 2.9, Basophils (%) (Auto) 0.5, Neutrophils # (Auto) 7.3, Lymphocytes # (Auto) 3.7, Monocytes # (Auto) 0.6, Eosinophils # (Auto) 0.4, Basophils # (Auto) 0.1, Calcium Level 7.2 L, Aspartate Amino Transf (AST/SGOT) 11, Alanine Aminotransferase (ALT/SGPT) 11 L, Alkaline Phosphatase 92, Total Bilirubin 0.4, Total Protein 4.2 L, Albumin 1.9 L Labs 24H Laboratory Tests 2 05/27/18 06:18: Immature Granulocyte % (Auto) 1.6, White Blood Count 12.2H, Red Blood Count 2.71L, Hemoglobin 8.5L, Hematocrit 26.1L, Mean Corpuscular Volume 96.3H, Mean Corpuscular Hemoglobin 31.4, Mean Corpuscular Hemoglobin Concent 32.6, Red Cell Distribution Width 14.5, Platelet Count 155, Neutrophils (%) (Auto) 60.1, Lymphocytes (%) (Auto) 30.2, Monocytes (%) (Auto) 4.7, Eosinophils (%) (Auto) 2.9, Basophils (%) (Auto) 0.5, Neutrophils # (Auto) 7.3, Lymphocytes # (Auto) 3.7, Monocytes # (Auto) 0.6, Eosinophils # (Auto) 0.4, Basophils # (Auto) 0.1, Nucleated Red Blood Cells % (auto) 0.0, Anion Gap 7L, Glomerular Filtration Rate > 60.0, Blood Urea Nitrogen 12, Creatinine 0.61, Sodium Level 143, Potassium Level 4.1, Chloride Level 108H, Carbon Dioxide Level 28, Calcium Level 7.2L, Aspartate Amino Transf (AST/SGOT) 11, Alanine Aminotransferase (ALT/SGPT) 11L, Alkaline Phosphatase 92, Total Bilirubin 0.4, Total Protein 4.2L, Albumin 1.9L, Albumin/Globulin Ratio 0.83L Microbiology Microbiology 05/27/18 Clostridium difficile (PCR) - Final, Complete Current Medications Current Medications Current Medications Acetaminophen (Tylenol Tab) 1,000 mg TID PO Last administered on 05/27/18at 15:03; Start 05/26/18 at 21:00 Acetaminophen/ Hydrocodone Bitart ([place], Anexsia 5/325) 1 tab Q4HP PRN PO MILD/MODERATE PAIN (PS 1-7) Last administered on 05/27/18at 10:24; Start 05/26/18 at 16:30; Stop 05/27/18 at 12:42; Status DC Albuterol Sulfate (Proventil, Ventolin Hfa) 2 puff Q6HP PRN INH SHORTNESS OF BREATH; Start 05/26/18 at 16:30 Allopurinol (Zyloprim) 300 mg DAILY PO Last administered on 05/27/18at 08:35; Start 05/27/18 at 09:00 Bisacodyl (Dulcolax Suppository) 10 mg DAILYPRN PRN [place] CONSTIPATION; Start 05/26/18 at 16:15 Clonazepam (KlonoPIN) 1 mg TID PO Last administered on 05/27/18at 15:02; Start 05/26/18 at 21:00 Docusate Sodium (Colace) 100 mg BID PO ; Start 05/26/18 at 21:00; Stop 05/27/18 at 14:44; Status DC Famotidine (Pepcid) 20 mg BIDP PRN PO ABDOMINAL PAIN; Start 05/26/18 at 16:30 Ferrous Gluconate (Fergon) 324 mg BID PO Last administered on 05/27/18 08:35; Start 05/26/18 at 21:00 Fluticasone Propionate (Flovent Hfa 220mcg) 2 puff BID INH ; Start 05/26/18 at 21:00 Folic Acid (Folic Acid) 1 mg DAILY PO Last administered on 05/27/18at 08:35; Start 05/27/18 at 09:00 Lactobacillus Acidophilus (Bacid) 2 ea BID PO Last administered on 05/27/18at 15:05; Start 05/27/18 at 09:00 Lamotrigine (LaMICtal) 25 mg DAILY PO Last administered on 05/27/18 08:35; Start 05/27/18 at 09:00 Lamotrigine (LaMICtal) 200 mg DAILY PO Last administered on 05/27/18 08:35; Start 05/27/18 at 09:00 Lidocaine (Lidoderm Patch) 2 patch DAILY TD Last administered on 05/27/18 08:36; Start 05/27/18 at 09:00 Magnesium Hydroxide (Milk Of Magnesia) 30 ml DAILYPRN PRN PO CONSTIPATION; Start 05/26/18 at 16:15 Methotrexate (Folex) 20 mg We@09 PO Last administered on 05/27/18 08:36; Start 05/27/18 at 09:00 Non-Formulary Medication ( See Comment Field Below ) REMOVE LIDODERM PATCH DAILY@21 XX Last administered on 05/26/18at 21:00; Start 05/26/18 at 21:00 Nystatin (Mycostatin Powder, Nystop) apply to groin abdomi... BID TOP Last administered on 1/16/19at 08:36; Start 05/26/18 at 21:00 Ondansetron HCl (Zofran) 4 mg Q6HP PRN PO NAUSEA; Start 05/26/18 at 16:15 Oxycodone HCl (Roxicodone, Oxyir) 5 mg Q4HP PRN PO PAIN 4-7; Start 05/27/18 at 12:45 Oxycodone HCl (Roxicodone, Oxyir) 10 mg Q4HP PRN PO SEVERE PAIN (PS 8-10); Start 05/27/18 at 12:45 Pantoprazole Sodium (Protonix) 40 mg DAILY PO Last administered on 05/27/18at 08:35; Start 05/27/18 at 09:00; Stop 05/27/18 at 13:52; Status DC Prednisone (Deltasone) 5 mg DAILY PO Last administered on 05/27/18at 08:35; Start 05/27/18 at 09:00 Rivaroxaban (Xarelto) 10 mg DAILY@1800 PO Last administered on 05/26/18at 17:21; Start 05/26/18 at 18:00 Senna (Senokot) 1 tab QHS PO ; Start 05/26/18 at 21:00; Stop 05/27/18 at 14:44; Status DC Tizanidine HCl (Zanaflex) 4 mg Q6HP PRN PO SPASMS Last administered on 05/27/18at 12:44; Start 05/26/18 at 16:30 Trazodone HCl (Desyrel) 200 mg QPM PO Last administered on 05/26/18at 20:42; Start 05/26/18 at 21:00 Vancomycin HCl (First-Vancomycin 50(Firvanq)- 250mg/5ml) 125 mg BID PO ; Start 06/10/18 at 09:00; Stop 06/16/18 at 08:59 Vancomycin HCl (First-Vancomycin 50(Firvanq)- 250mg/5ml) 125 mg DAILY PO ; Start 06/16/18 at 09:00; Stop 06/22/18 at 08:59 Vancomycin HCl (First-Vancomycin 50(Firvanq)- 250mg/5ml) 125 mg Q2D PO ; Start 06/23/18 at 09:00; Stop 07/21/18 at 08:59 Vancomycin HCl (First-Vancomycin 50(Firvanq)- 250mg/5ml) 125 mg Q6H PO Last administered on 05/27/18at 15:01; Start 05/27/18 at 12:00; Stop 06/10/18 at 08:59 Zolpidem Tartrate (Ambien) 10 mg QHSP PRN PO INSOMNIA Last administered on 05/26/18at 21:51; Start 05/26/18 at 16:30 MONTRELL PAN MD May 27, 2018 18:05
[2018-05-27 20:10] VITALS: BP 112/82
[2018-05-27] MEDS: traZODone 100 MG TAB PO SCH (21:30)
[2018-05-27] MEDS: **NOTE PATIENT COMMENT** MISC XX SCH (21:33)
[2018-05-27] MEDS: zolPIDEM TARTRATE 10MG TAB PO PRN (21:41)
[2018-05-28] MEDS: VANCOMYCIN ORAL SOL 250MG/5ML ORAL SYRINGE PO SCH ×4 (00:50→17:48)
[2018-05-28 06:00] VITALS: BP 140/82
[2018-05-28] MEDS: oxyCODONE 5MG TAB PO PRN ×3 (06:53→20:41)
[2018-05-28] MEDS: tiZANidine 4 MG TAB PO PRN ×3 (06:53→20:39)
[2018-05-28 07:12] LABS: HEMATOCRIT 27.9 % (36.0-47.0); HEMOGLOBIN 9.1 g/dl (12.0-15.5); MEAN CORPUSCULAR HEMOGLOBIN 31.9 pg (27.0-33.0); MEAN CORPUSCULAR HGB CONC 32.6 g/dl (32.0-36.5); MEAN CORPUSCULAR VOLUME 97.9 fl (80.0-96.0); PLATELET COUNT, AUTOMATED 178 10^3/uL (150-450); RED BLOOD COUNT 2.85 10^6/uL (4.00-5.40); WHITE BLOOD COUNT 11.8 10^3/uL (4.0-10.0)
[2018-05-28 07:42] LABS: ALBUMIN 2.1 GM/DL (3.2-5.2); ALT/SGPT 11 U/L (12-78); BILIRUBIN,TOTAL 0.6 MG/DL (0.2-1.0); BLOOD UREA NITROGEN 10 MG/DL (7-18); CALCIUM LEVEL 7.7 MG/DL (8.8-10.2); CARBON DIOXIDE LEVEL 28 MEQ/L (21-32); CHLORIDE LEVEL 110 MEQ/L (98-107); GLOMERULAR FILTRATION RATE > 60.0 (>45); GLUCOSE, FASTING 91 MG/DL (70-100); POTASSIUM SERUM 3.7 MEQ/L (3.5-5.1); SODIUM LEVEL 147 MEQ/L (136-145); TOTAL PROTEIN 4.5 GM/DL (6.4-8.2)
[2018-05-28] MEDS: FLUTICASONE HFA 220 MCG 12 GM INHALER (FLOVENT) INH SCH ×2 (08:18→21:00)
[2018-05-28] MEDS: predniSONE 5 MG TAB PO SCH (08:22)
[2018-05-28] MEDS: clonazePAM 1 MG TAB PO SCH ×3 (08:22→20:39)
[2018-05-28] MEDS: lamoTRIgine 25 MG TAB PO SCH (08:22)
[2018-05-28] MEDS: FERROUS GLUCONATE 324 MG TAB PO SCH ×2 (08:22→20:39)
[2018-05-28] MEDS: ALLOPURINOL 300 MG TAB PO SCH (08:22)
[2018-05-28] MEDS: lamoTRIgine 100MG TAB PO SCH (08:22)
[2018-05-28] MEDS: FOLIC ACID 1 MG TAB PO SCH (08:22)
[2018-05-28] MEDS: LACTOBACILLUS ACIDOPHILUS CAP (BACID) PO SCH ×2 (08:23→20:39)
[2018-05-28] MEDS: ACETAMINOPHEN 500 MG TAB PO SCH ×3 (08:23→20:39)
[2018-05-28] MEDS: LIDOCAINE 5% (LIDODERM) PATCH TD SCH (08:23)
[2018-05-28] MEDS: NYSTATIN 100,000 UNITS/GM TOPICAL PWD 15 GM TOP SCH ×2 (08:25→20:41)
--- NOTE | 2018-05-28 10:57 | IPNPDOC ---
Date Seen The patient was seen on 05/28/18. Progress Note HPI: The pt was admitted to [facility] 05/20/18-05/26/18. Patient was in her usual state of health until on the day of admission patient tried to get up from her bed, missed her step, and fell, abutting her left hip on the ground. Denies any loss of consciousness prior to the fall or after the fall. Patient does have a history of accidental overdose on blood pressure medication. Upon presentation, patient had marginally low systolic blood pressure, she was given fluids. Imaging showed left hip fracture. Orthopedics was consulted. As per Orthopedic surgery, S/P closed reduction and percutaneous pinning of the minimally displaced right femoral neck fracture, and left hip cemented hemiarthroplasty. Orthopedics has recommended back bracing for patient's L1 compression fracture. Pt transferred to the care of ARU, Dr Lynch, 05/26/18. Pt was found to be C diff positive yesterday with loose stools. 4 BM yesterday, none so far today. Denies any fevers, chills, weakness, fatigue, Headache, Chest Pain, Shortness of breath, cough, palpitations, abdominal pain, N/V or changes in bladder habits. PMHx: COPD, not O2 dependent severe rheumatoid arthritis on chronic prednisone and weekly methotrexate. C. difficile colitis, hypertension, bipolar disorder, chronic back pain, morbid obesity, BMI 36.5 degenerative disc disease, anxiety, GERD, insomnia, gout. PSHX: section. Tonsillectomy. Cholecystectomy. PE: GEN: 63yoF, appears stated age. No acute distress, eating lunch. Alert and oriented x 3. Affect is flat. HEENT: Normocephalic, atraumatic. Sclera are nonicteric. Conjunctiva without injection. No facial asymmetry. Moist mucous membranes. CHEST: Regular rate and rhythm, +S1, +S2 LUNGS: Clear to auscultation bilaterally. No wheezes, rales, or rhonchi. Breathing appears symmetric and easy. ABD: Round, soft, non-tender, non-distended. +Bowel sounds throughout. No rebound or guarding. EXT: Pulses 2+ bilaterally dorsalis pedis and radial. No lower extremity edema appreciated. SKIN: [place], dry, warm. No rashes. NEURO: No focal deficits appreciated. A&P: The pt was admitted to [facility] 05/20/18-05/26/18. Patient was in her usual state of health until on the day of admission patient tried to get up from her bed, missed her step, and fell, abutting her left hip on the ground. Denies any loss of consciousness prior to the fall or after the fall. Patient does have a history of accidental overdose on blood pressure medication. Upon presentation, patient had marginally low systolic blood pressure, she was given fluids. Imaging showed left hip fracture. Orthopedics was consulted. As per Orthopedic surgery, S/P closed reduction and percutaneous pinning of the minimally displaced right femoral neck fracture, and left hip cemented hemiarthroplasty. Orthopedics has recommended back bracing for patient's L1 compression fracture. Pt transferred to the care of ARUDr Lynch, 05/26/18. 1. S/P Rt femoral neck fracture/S/P Closed reduction and percutaneous pinning of a minimally displaced right femoral neck fracture. Management per orthopedics. DVT prophylaxis. Xarelto as per Orthopedics. Pain control as per ARU. Bowel care as per ARU. PT/OT/ST as per ARUDr Lynch. Disposition as per ARU. 2. L1 compression fracture with retropulsion in the setting of canal stenosis. Appreciate orthopedics input. TLSO when out of bed, monitor for cord compression signs. Notes that she has lower extremity radiculopathy down to the knee, however denies any acute bladder or bowel changes. Mgmt as per orthopedics/ ARU. 3. Episode of hypotension on presentation. Status post normal saline, and resolved. S/P hydrocortisone taper. BP 112-140 4. History of rheumatoid arthritis on methotrexate at home as well as chronic prednisone. Chronic pain. Prednisone 5 mg po daily. Methotrexate weekly on Fri. Tizanidine as needed. Will need close outpatient follow-up with her [facility]. 5. Hypokalemia. S/P supplement. CMP in AM. Monitor. 6. Ovarian cyst. Has been relayed to the pt she will likely need further workup following d/c, as this may represent malignancy. Patient is agreeable. 7. Diarrhea/C Diff. positive. History of C. difficile 01/27. Afebrile. WBC 11.8 Pt is eating and drinking. [id number] po Q6 D2. Bacid 2 tab po BID. PPI D/Cd. HOLD Senna/Colace Monitor. 8. History of morbid obesity BMI 36.5. Complicates care. 9. Bipolar disorder/Anxiety/Insomnia. Pt remains on Lamictal/Klonopin/Trazodone/Ambien. 10. COPD. Flovent Albuterol as needed. 11. Acute blood loss anemia. Hgb stable. Continue Fe supplement. Monitor need for transfusion. 12. Gout. Allopurinol. 13. GERD. Pepcid. VS, I&O, 24H, Fishbone Vital Signs/I&O Vital Signs Date Time Temp Pulse Resp B/P (MAP) Pulse Ox O2 Delivery O2 Flow Rate FiO2 05/28/18 07:23 17 05/28/18 06:00 98.6 83 140/82 (101) 98 Room Air I&O- Last 24 Hours up to 6 AM 05/28/18 06:00 Intake Total 840 ml Balance 840 ml Laboratory Data 24H LABS Laboratory Tests 2 05/28/18 06:54: Nucleated Red Blood Cells % (auto) 0.0, Anion Gap 9, Glomerular Filtration Rate > 60.0, Blood Urea Nitrogen 10, Creatinine 0.70, Sodium Level 147H, Potassium Level 3.7, Chloride Level 110H, Carbon Dioxide Level 28, Calcium Level 7.7L, Aspartate Amino Transf (AST/SGOT) 10, Alanine Aminotransferase (ALT/SGPT) 11L, Alkaline Phosphatase 97, Total Bilirubin 0.6, Total Protein 4.5L, Albumin 2.1L, Albumin/Globulin Ratio 0.88L CBC/BMP Laboratory Tests 05/28/18 06:54 Red Blood Count 2.85 L, Mean Corpuscular Volume 97.9 H, Mean Corpuscular Hemoglobin 31.9, Mean Corpuscular Hemoglobin Concent 32.6, Red Cell Distribution Width 15.2 H, Calcium Level 7.7 L, Aspartate Amino Transf (AST/SGOT) 10, Alanine Aminotransferase (ALT/SGPT) 11 L, Alkaline Phosphatase 97, Total Bilirubin 0.6, Total Protein 4.5 L, Albumin 2.1 L Microbiology Microbiology 05/27/18 Clostridium difficile (PCR) - Final, Complete Yen Davila May 28, 2018 10:57
[2018-05-28 14:00] VITALS: BP 126/78
[2018-05-28] MEDS: RIVAROXABAN 10 MG TAB (XARELTO) PO SCH (17:47)
[2018-05-28 19:58] VITALS: BP 118/56
[2018-05-28] MEDS: zolPIDEM TARTRATE 10MG TAB PO PRN (20:39)
[2018-05-28] MEDS: traZODone 100 MG TAB PO SCH (20:40)
[2018-05-28] MEDS: **NOTE PATIENT COMMENT** MISC XX SCH (20:41)
--- NOTE | 2018-05-28 20:41 | IPNPDOC ---
PM&R Progress Note DATE OF SERVICE: May 28, 2018 [employer] Progress Note Subjective: Patient reports no loose stools today, but feels tired overall with abdominal cramping. She was encouraged to drink more fluids. REVIEW OF SYSTEMS: The following is a completed review of systems and has been reviewed. Review of systems otherwise unremarkable. PAIN: Patient self reports bilateral hip pain and low back pain EYES: no recent vision loss EARS, NOSE, & THROAT: no dysphagia, rhinorrhea, or tinnitus CARDIOVASCULAR: denies chest pain, palpitations PULMONARY: Negative. Denies shortness of breath GASTROINTESTINAL: +loose stools GENITOURINARY: denies dysuria MUSCULOSKELETAL: bilateral hip fracture and lumbar compression fracture NEUROLOGICAL: no tremor, no paresthesias HEMATOLOGICAL:bilateral UE ecchymosis SKIN: bilateral hip incisions PSYCHIATRIC: Unremarkable All other review of systems found to be negative. PHYSICAL EXAMINATION: VITAL SIGNS: Please see below. GENERAL: Pleasant and cooperative. No acute distress HEENT: PERRL. Extraocular movements intact. Clear conjunctiva CARDIOVASCULAR: Regular rate and rhythm. No murmurs, rubs, or gallops LUNGS: Clear to auscultation bilaterally. No wheezes. No rhonchi ABDOMEN: Soft, mildly tender to palpation throughout all quadrants, hyperactive bowel sounds NEUROLOGICAL: Alert and oriented times three. Cranial nerves II through XII grossly intact. Sensation grossly intact including 1st web space of bilateral feet Babinski negative bilat EXTREMITIES: 5-\5 strength bilateral upper extremities. 5\5 strength bilateral ankle DF, EHL, plantar flexion, exam limited due to hip pain SKIN: bilat UE ecchymosis, bilat hip incisions c/d/i no induration ASSESSMENT:63-year-old F with past medical history of COPD, RA, obesity who presents status post bilateral hip fracture. PLAN: 1. Rehab: PT/OT, assess for DME, CG for transfers and able to ambulate further with RW contact guard 2. Ortho: bilat hip fractures s/p left hip audrey-arthroplasty and right hip pinning on 05-21-18, WBAT and hip precautions, ortho consulted -L1 compression fracture with retropulsion in the setting of canal stenosis- TLSO when out of bed, monitor for cord compression signs 3. Neuro: stable 4. Cardio: grade 1 diastolic CHF, will monitor- medicine consulted, recs appreciated 5. Resp: COPD: continue breathing treatments, and incentive spirometry 6. Psych: pmh Bipolar, continue Lamictal 7. RHeum: pmh RA, continue weekly methotrexate and daily prednisone 8. Pain: [place] and Tylenol 9. DVT ppx: Xarelto 10. GI ppx:will discontinue protonix and famotidine as chronic home use of PPIs and H2 blockers can increase susceptibility to C. diff 11. ID: loose stools on admission with recent hx of C. diff, stool on admission positive for C. diff, recently treated with Vancomycin January 2018, will try po Vancomycin again, but this time a prolonged course, Bacid and contact precautions 11. : monitor PVRs, admission UA/Ucx still pending 12. Hypernatremia, patient encouraged to drink more fluids 10. Dispo: TBD Allergies Coded Allergies: Contrast Media (Verified Allergy, Severe, 1VP DYE - ANAPHYLAXIS, TONGUE SWELLS, 04/26/18) Shellfish Allergy (Verified Allergy, Severe, ANAPHYLAXIS, TONGUE SWELLS, 04/26/18) Pregabalin (Verified Allergy, Intermediate, rash/swelling, 05/20/18) Vital Signs Vital Signs Date Time Temp Pulse Resp B/P (MAP) Pulse Ox O2 Delivery O2 Flow Rate FiO2 05/28/18 19:58 97.6 76 18 118/56 (76) 97 Room Air Laboratory Data CBC/BMP Laboratory Tests 05/28/18 06:54 Red Blood Count 2.85 L, Mean Corpuscular Volume 97.9 H, Mean Corpuscular Hemoglobin 31.9, Mean Corpuscular Hemoglobin Concent 32.6, Red Cell Distribution Width 15.2 H, Calcium Level 7.7 L, Aspartate Amino Transf (AST/SGOT) 10, Alanine Aminotransferase (ALT/SGPT) 11 L, Alkaline Phosphatase 97, Total Bilirubin 0.6, Total Protein 4.5 L, Albumin 2.1 L Labs 24H Laboratory Tests 2 05/28/18 06:54: Nucleated Red Blood Cells % (auto) 0.0, Anion Gap 9, Glomerular Filtration Rate > 60.0, Blood Urea Nitrogen 10, Creatinine 0.70, Sodium Level 147H, Potassium Level 3.7, Chloride Level 110H, Carbon Dioxide Level 28, Calcium Level 7.7L, Aspartate Amino Transf (AST/SGOT) 10, Alanine Aminotransferase (ALT/SGPT) 11L, Alkaline Phosphatase 97, Total Bilirubin 0.6, Total Protein 4.5L, Albumin 2.1L, Albumin/Globulin Ratio 0.88L Microbiology Microbiology 05/27/18 Clostridium difficile (PCR) - Final, Complete Current Medications Current Medications Current Medications Acetaminophen (Tylenol Tab) 1,000 mg TID PO Last administered on 05/28/18at 15:58; Start 05/26/18 at 21:00 Acetaminophen/ Hydrocodone Bitart ([place], Anexsia 5/325) 1 tab Q4HP PRN PO [place] LD/MODERATE PAIN (PS 1-7) Last administered on 05/27/18at 10:24; Start 05/26/18 at 16:30; Stop 05/27/18 at 12:42; Status DC Albuterol Sulfate (Proventil, Ventolin Hfa) 2 puff Q6HP PRN INH SHORTNESS OF BREATH; Start 05/26/18 at 16:30 Allopurinol (Zyloprim) 300 mg DAILY PO Last administered on 05/28/18at 08:22; Start 05/27/18 at 09:00 Bisacodyl (Dulcolax Suppository) 10 mg DAILYPRN PRN [place] CONSTIPATION; Start 05/26/18 at 16:15 Clonazepam (KlonoPIN) 1 mg TID PO Last administered on 05/28/18at 15:58; Start 05/26/18 at 21:00 Docusate Sodium (Colace) 100 mg BID PO ; Start 05/26/18 at 21:00; Stop 05/27/18 at 14:44; Status DC Famotidine (Pepcid) 20 mg BIDP PRN PO ABDOMINAL PAIN; Start 05/26/18 at 16:30 Ferrous Gluconate (Fergon) 324 mg BID PO Last administered on 05/28/18at 08:22; Start 05/26/18 at 21:00 Fluticasone Propionate (Flovent Hfa 220mcg) 2 puff BID INH ; Start 05/26/18 at 21:00 Folic Acid (Folic Acid) 1 mg DAILY PO Last administered on 05/28/18at 08:22; Start 05/27/18 at 09:00 Lactobacillus Acidophilus (Bacid) 2 ea BID PO Last administered on 05/28/18at 08:23; Start 05/27/18 at 09:00 Lamotrigine (LaMICtal) 25 mg DAILY PO Last administered on 05/28/18 08:22; Start 05/27/18 at 09:00 Lamotrigine (LaMICtal) 200 mg DAILY PO Last administered on 05/28/18 08:22; Start 05/27/18 at 09:00 Lidocaine (Lidoderm Patch) 2 patch DAILY TD Last administered on 05/28/18at 08:23; Start 05/27/18 at 09:00 Magnesium Hydroxide (Milk Of Magnesia) 30 ml DAILYPRN PRN PO CONSTIPATION; Start 05/26/18 at 16:15 Methotrexate (Folex) 20 mg We@09 PO Last administered on 05/27/18at 08:36; Start 05/27/18 at 09:00 Non-Formulary Medication ( See Comment Field Below ) REMOVE LIDODERM PATCH DAILY@21 XX Last administered on 05/27/18at 21:33; Start 05/26/18 at 21:00 Nystatin (Mycostatin Powder, Nystop) apply to groin abdomi... BID TOP Last administered on 05/28/18at 08:25; Start 05/26/18 at 21:00 Ondansetron HCl (Zofran) 4 mg Q6HP PRN PO NAUSEA; Start 05/26/18 at 16:15 Oxycodone HCl (Roxicodone, Oxyir) 5 mg Q4HP PRN PO PAIN 4-7; Start 05/27/18 at 12:45 Oxycodone HCl (Roxicodone, Oxyir) 10 mg Q4HP PRN PO SEVERE PAIN (PS 8-10) Last administered on 05/28/18at 10:58; Start 05/27/18 at 12:45 Pantoprazole Sodium (Protonix) 40 mg DAILY PO Last administered on 05/27/18at 08:35; Start 05/27/18 at 09:00; Stop 05/27/18 at 13:52; Status DC Prednisone (Deltasone) 5 mg DAILY PO Last administered on 05/28/18at 08:22; Start 05/27/18 at 09:00 Rivaroxaban (Xarelto) 10 mg DAILY@1800 PO Last administered on 05/28/18at 17:47; Start 05/26/18 at 18:00 Senna (Senokot) 1 tab QHS PO ; Start 05/26/18 at 21:00; Stop 05/27/18 at 14:44; Status DC Tizanidine HCl (Zanaflex) 4 mg Q6HP PRN PO SPASMS Last administered on 05/28/18at 13:33; Start 05/26/18 at 16:30 Trazodone HCl (Desyrel) 200 mg QPM PO Last administered on 05/27/18at 21:30; Start 05/26/18 at 21:00 Vancomycin HCl (First-Vancomycin 50(Firvanq)- 250mg/5ml) 125 mg BID PO ; Start 06/10/18 at 09:00; Stop 06/16/18 at 08:59 Vancomycin HCl (First-Vancomycin 50(Firvanq)- 250mg/5ml) 125 mg DAILY PO ; Start 06/16/18 at 09:00; Stop 06/22/18 at 08:59 Vancomycin HCl (First-Vancomycin 50(Firvanq)- 250mg/5ml) 125 mg Q2D PO ; Start 06/23/18 at 09:00; Stop 07/21/18 at 08:59 Vancomycin HCl (First-Vancomycin 50(Firvanq)- 250mg/5ml) 125 mg Q6H PO Last administered on 05/28/18at 17:48; Start 05/27/18 at 12:00; Stop 06/10/18 at 08:59 Zolpidem Tartrate (Ambien) 10 mg QHSP PRN PO INSOMNIA Last administered on 05/27/18at 21:41; Start 05/26/18 at 16:30 MONTRELL PAN MD May 28, 2018 20:41
[2018-05-29] MEDS: VANCOMYCIN ORAL SOL 250MG/5ML ORAL SYRINGE PO SCH ×5 (00:23→23:56)
[2018-05-29 06:13] VITALS: BP 111/58
[2018-05-29 07:21] LABS: BASO # 0.1 10^3/uL (0.0-0.2); BASO % 0.6 % (0.0-1.0); EOS # 0.3 10^3/uL (0.0-0.50); EOS % 3.3 % (0.0-3.0); HEMATOCRIT 26.8 % (36.0-47.0); HEMOGLOBIN 8.8 g/dl (12.0-15.5); LYMPH # 3.5 10^3/uL (1.5-4.5); LYMPH % 39.7 % (24.0-44.0); MEAN CORPUSCULAR HEMOGLOBIN 32.4 pg (27.0-33.0); MEAN CORPUSCULAR HGB CONC 32.8 g/dl (32.0-36.5); MEAN CORPUSCULAR VOLUME 98.5 fl (80.0-96.0); MONO # 0.3 10^3/uL (0.0-0.8); MONO % 3.8 % (0.0-5.0); NEUTROPHILS # 4.6 10^3/uL (1.8-7.7); NEUTROPHILS % 51.1 % (36.0-66.0); PLATELET COUNT, AUTOMATED 166 10^3/uL (150-450); RED BLOOD COUNT 2.72 10^6/uL (4.00-5.40); WHITE BLOOD COUNT 8.9 10^3/uL (4.0-10.0)
[2018-05-29 07:38] LABS: BLOOD UREA NITROGEN 12 MG/DL (7-18); CALCIUM LEVEL 7.4 MG/DL (8.8-10.2); CARBON DIOXIDE LEVEL 26 MEQ/L (21-32); CHLORIDE LEVEL 108 MEQ/L (98-107); CREATININE FOR GFR 0.67 MG/DL (0.55-1.30); GLOMERULAR FILTRATION RATE > 60.0 (>45); GLUCOSE, FASTING 94 MG/DL (70-100); POTASSIUM SERUM 3.6 MEQ/L (3.5-5.1); SODIUM LEVEL 144 MEQ/L (136-145)
[2018-05-29] MEDS: FLUTICASONE HFA 220 MCG 12 GM INHALER (FLOVENT) INH SCH ×2 (07:58→21:00)
[2018-05-29] MEDS: lamoTRIgine 25 MG TAB PO SCH (08:10)
[2018-05-29] MEDS: LIDOCAINE 5% (LIDODERM) PATCH TD SCH (08:10)
[2018-05-29] MEDS: tiZANidine 4 MG TAB PO PRN ×3 (08:10→23:57)
[2018-05-29] MEDS: LACTOBACILLUS ACIDOPHILUS CAP (BACID) PO SCH ×2 (08:10→22:29)
[2018-05-29] MEDS: FERROUS GLUCONATE 324 MG TAB PO SCH ×2 (08:10→22:29)
[2018-05-29] MEDS: lamoTRIgine 100MG TAB PO SCH (08:11)
[2018-05-29] MEDS: FOLIC ACID 1 MG TAB PO SCH (08:11)
[2018-05-29] MEDS: oxyCODONE 5MG TAB PO PRN ×3 (08:11→23:57)
[2018-05-29] MEDS: ACETAMINOPHEN 500 MG TAB PO SCH ×3 (08:12→22:29)
[2018-05-29] MEDS: ALLOPURINOL 300 MG TAB PO SCH (08:12)
[2018-05-29] MEDS: predniSONE 5 MG TAB PO SCH (08:12)
[2018-05-29] MEDS: clonazePAM 1 MG TAB PO SCH ×3 (08:12→22:29)
[2018-05-29] MEDS: NYSTATIN 100,000 UNITS/GM TOPICAL PWD 15 GM TOP SCH ×2 (09:00→21:00)
--- NOTE | 2018-05-29 11:26 | IPNPDOC ---
Date Seen The patient was seen on 05/29/18. Progress Note HPI: The pt was admitted to [facility] 05/20/18-05/26/18. Patient was in her usual state of health until on the day of admission patient tried to get up from her bed, missed her step, and fell, abutting her left hip on the ground. Denies any loss of consciousness prior to the fall or after the fall. Patient does have a history of accidental overdose on blood pressure medication. Upon presentation, patient had marginally low systolic blood pressure, she was given fluids. Imaging showed left hip fracture. Orthopedics was consulted. As per Orthopedic surgery, S/P closed reduction and percutaneous pinning of the minimally displaced right femoral neck fracture, and left hip cemented hemiarthroplasty. Orthopedics has recommended back bracing for patient's L1 compression fracture. Pt transferred to the care of ARU, Dr Lynch, 05/26/18. Pt was found to be C diff positive 05/27/18 with loose stools. Pt states loose stools have improved, none so far today. Denies any fevers, chills, weakness, fatigue, Headache, Chest Pain, Shortness of breath, cough, palpitations, abdominal pain, N/V or changes in bladder habits. PMHx: COPD, not O2 dependent severe rheumatoid arthritis on chronic prednisone and weekly methotrexate. C. difficile colitis, hypertension, bipolar disorder, chronic back pain, morbid obesity, BMI 36.5 degenerative disc disease, anxiety, GERD, insomnia, gout. PSHX: section. Tonsillectomy. Cholecystectomy. PE: GEN: 63yoF, appears stated age. No acute distress, eating lunch. Alert and oriented x 3. Affect is flat. HEENT: Normocephalic, atraumatic. Sclera are nonicteric. Conjunctiva without injection. No facial asymmetry. Moist mucous membranes. CHEST: Regular rate and rhythm, +S1, +S2 LUNGS: Clear to auscultation bilaterally. No wheezes, rales, or rhonchi. Breathing appears symmetric and easy. ABD: Round, soft, non-tender, non-distended. +Bowel sounds throughout. No rebound or guarding. EXT: Pulses 2+ bilaterally dorsalis pedis and radial. No lower extremity edema appreciated. SKIN: [place], dry, warm. No rashes. NEURO: No focal deficits appreciated. A&P: The pt was admitted to [facility] 05/20/18-05/26/18. Patient was in her usual state of health until on the day of admission patient tried to get up from her bed, missed her step, and fell, abutting her left hip on the ground. Denies any loss of consciousness prior to the fall or after the fall. Patient does have a history of accidental overdose on blood pressure medication. Upon presentation, patient had marginally low systolic blood pressure, she was given fluids. Imaging showed left hip fracture. Orthopedics was consulted. As per Orthopedic surgery, S/P closed reduction and percutaneous pinning of the minimally displaced right femoral neck fracture, and left hip cemented hemiarthroplasty. Orthopedics has recommended back bracing for patient's L1 compression fracture. Pt transferred to the care of ARU, Dr Lynch, 05/26/18. 1. S/P Rt femoral neck fracture/S/P Closed reduction and percutaneous pinning of a minimally displaced right femoral neck fracture. Management per orthopedics. DVT prophylaxis. Xarelto as per Orthopedics. Pain control as per ARU. Bowel care as per ARU. PT/OT/ST as per ARUDr Lynch. Disposition as per ARU. 2. L1 compression fracture with retropulsion in the setting of canal stenosis. Appreciate orthopedics input. TLSO when out of bed, monitor for cord compression signs. Notes that she has lower extremity radiculopathy down to the knee, however denies any acute bladder or bowel changes. Mgmt as per orthopedics/ ARU. 3. Episode of hypotension on presentation. Status post normal saline, and resolved. S/P hydrocortisone taper. BP 111-140. 4. History of rheumatoid arthritis on methotrexate at home as well as chronic prednisone. Chronic pain. Prednisone 5 mg po daily. Methotrexate weekly on Fri. Tizanidine as needed. 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 5. Hypokalemia. S/P supplement. Monitor. 6. Ovarian cyst. Has been relayed to the pt she will likely need further workup following d/c, as this may represent malignancy. Patient is agreeable. 7. Diarrhea/C Diff. positive. History of C. difficile 01/27. Afebrile. WBC 8.9 Pt is eating and drinking. [id number] po Q6 D3. Plan is for prolonged course of Vanco. Bacid 2 tab po BID. PPI D/Cd. HOLD Senna/Colace Monitor. 8. History of morbid obesity BMI 36.5. Complicates care. 9. Bipolar disorder/Anxiety/Insomnia. Pt remains on Lamictal/Klonopin/Trazodone/Ambien. 10. COPD. Flovent Albuterol as needed. 11. Acute blood loss anemia. Hgb 8.8. Continue Fe supplement. Monitor need for transfusion. 12. Gout. Allopurinol. 13. GERD. Pepcid. VS, I&O, 24H, Fishbone Vital Signs/I&O Vital Signs Date Time Temp Pulse Resp B/P (MAP) Pulse Ox O2 Delivery O2 Flow Rate FiO2 05/29/18 08:41 16 Room Air 05/29/18 06:13 97.4 69 111/58 (75) 97 I&O- Last 24 Hours up to 6 AM 05/29/18 06:00 Intake Total 840 ml Balance 840 ml Laboratory Data 24H LABS Laboratory Tests 2 05/29/18 06:44: Immature Granulocyte % (Auto) 1.5, White Blood Count 8.9, Red Blood Count 2.72L, Hemoglobin 8.8L, Hematocrit 26.8L, Mean Corpuscular Volume 98.5H, Mean Irish uscular Hemoglobin 32.4, Mean Corpuscular Hemoglobin Concent 32.8, Red Cell Distribution Width 15.9H, Platelet Count 166, Neutrophils (%) (Auto) 51.1, Lymphocytes (%) (Auto) 39.7, Monocytes (%) (Auto) 3.8, Eosinophils (%) (Auto) 3.3H, Basophils (%) (Auto) 0.6, Neutrophils # (Auto) 4.6, Lymphocytes # (Auto) 3.5, Monocytes # (Auto) 0.3, Eosinophils # (Auto) 0.3, Basophils # (Auto) 0.1, Nucleated Red Blood Cells % (auto) 0.0, Anion Gap 10, Glomerular Filtration Rate > 60.0, Blood Urea Nitrogen 12, Creatinine 0.67, Sodium Level 144, Potassium Level 3.6, Chloride Level 108H, Carbon Dioxide Level 26, Calcium Level 7.4L CBC/BMP Laboratory Tests 05/29/18 06:44 Red Blood Count 2.72 L, Mean Corpuscular Volume 98.5 H, Mean Corpuscular Hemoglobin 32.4, Mean Corpuscular Hemoglobin Concent 32.8, Red Cell Distribution Width 15.9 H, Neutrophils (%) (Auto) 51.1, Lymphocytes (%) (Auto) 39.7, Monocytes (%) (Auto) 3.8, Eosinophils (%) (Auto) 3.3 H, Basophils (%) (Auto) 0.6, Neutrophils # (Auto) 4.6, Lymphocytes # (Auto) 3.5, Monocytes # (Auto) 0.3, Eosinophils # (Auto) 0.3, Basophils # (Auto) 0.1, Calcium Level 7.4 L Microbiology Microbiology 05/27/18 Clostridium difficile (PCR) - Final, Complete Yen Davila May 29, 2018 11:26
[2018-05-29 14:00] VITALS: BP 118/66
--- NOTE | 2018-05-29 16:36 | REP ---
BILATERAL LOWER EXTREMITY DUPLEX VEINS: HISTORY: Bilateral hip fracture. RIGHT LOWER EXTREMITY There are no filling defects in the deep venous system. The deep venous system is patent. IMPRESSION: There is no deep venous thrombosis. LEFT LOWER EXTREMITY: There are no filling defects in the deep venous system. The deep venous system is patent. IMPRESSION: There is no deep venous thrombosis. Electronically Signed by Denys Taylor MD 05/29/2018 04:37 P
[2018-05-29] MEDS: RIVAROXABAN 10 MG TAB (XARELTO) PO SCH (16:52)
[2018-05-29 20:00] VITALS: BP 120/68
[2018-05-29] MEDS: **NOTE PATIENT COMMENT** MISC XX SCH (21:00)
[2018-05-29] MEDS: traZODone 100 MG TAB PO SCH (22:29)
[2018-05-29] MEDS: MORPHINE 15 MG SA TAB PO SCH (22:30)
[2018-05-30] MEDS: zolPIDEM TARTRATE 10MG TAB PO PRN ×2 (00:46→21:59)
[2018-05-30 06:00] VITALS: BP 159/83
[2018-05-30] MEDS: VANCOMYCIN ORAL SOL 250MG/5ML ORAL SYRINGE PO SCH ×3 (06:26→17:24)
[2018-05-30] MEDS: oxyCODONE 5MG TAB PO PRN ×3 (06:28→17:24)
[2018-05-30] MEDS: tiZANidine 4 MG TAB PO PRN ×2 (06:30→14:15)
[2018-05-30 07:30] LABS: HEMATOCRIT 26.1 % (36.0-47.0); HEMOGLOBIN 8.4 g/dl (12.0-15.5); MEAN CORPUSCULAR HEMOGLOBIN 31.8 pg (27.0-33.0); MEAN CORPUSCULAR HGB CONC 32.2 g/dl (32.0-36.5); MEAN CORPUSCULAR VOLUME 98.9 fl (80.0-96.0); PLATELET COUNT, AUTOMATED 157 10^3/uL (150-450); RED BLOOD COUNT 2.64 10^6/uL (4.00-5.40); WHITE BLOOD COUNT 9.3 10^3/uL (4.0-10.0)
[2018-05-30 07:53] LABS: BLOOD UREA NITROGEN 11 MG/DL (7-18); CALCIUM LEVEL 7.7 MG/DL (8.8-10.2); CARBON DIOXIDE LEVEL 28 MEQ/L (21-32); CHLORIDE LEVEL 110 MEQ/L (98-107); CREATININE FOR GFR 0.63 MG/DL (0.55-1.30); GLOMERULAR FILTRATION RATE > 60.0 (>45); GLUCOSE, FASTING 112 MG/DL (70-100); MAGNESIUM LEVEL 1.6 MG/DL (1.8-2.4); POTASSIUM SERUM 3.7 MEQ/L (3.5-5.1); SODIUM LEVEL 143 MEQ/L (136-145)
[2018-05-30] MEDS: LACTOBACILLUS ACIDOPHILUS CAP (BACID) PO SCH ×2 (07:53→21:50)
[2018-05-30] MEDS: ALLOPURINOL 300 MG TAB PO SCH (07:53)
[2018-05-30] MEDS: ACETAMINOPHEN 500 MG TAB PO SCH ×3 (07:53→21:49)
[2018-05-30] MEDS: FOLIC ACID 1 MG TAB PO SCH (07:54)
[2018-05-30] MEDS: predniSONE 5 MG TAB PO SCH (07:54)
[2018-05-30] MEDS: lamoTRIgine 100MG TAB PO SCH (07:54)
[2018-05-30] MEDS: clonazePAM 1 MG TAB PO SCH ×3 (07:54→21:50)
[2018-05-30] MEDS: MORPHINE 15 MG SA TAB PO SCH ×2 (07:54→21:51)
[2018-05-30] MEDS: FERROUS GLUCONATE 324 MG TAB PO SCH ×2 (07:54→21:49)
[2018-05-30] MEDS: lamoTRIgine 25 MG TAB PO SCH (07:54)
[2018-05-30] MEDS: NYSTATIN 100,000 UNITS/GM TOPICAL PWD 15 GM TOP SCH ×2 (07:55→21:00)
[2018-05-30] MEDS: LIDOCAINE 5% (LIDODERM) PATCH TD SCH (07:55)
[2018-05-30 14:00] VITALS: BP 132/78
[2018-05-30] MEDS ORDERED: MAG SULF 1GM/100ML (MAG RUN) 1 GM in APPROPRIATE DILUENT 1 EA IV ONE (14:45)
[2018-05-30] MEDS ORDERED: POTASSIUM CHLORIDE 10 MEQ SR TABLET PO ONE (14:45)
[2018-05-30] MEDS: MAGNESIUM OXIDE 400 MG TAB (MAG-OX) PO SCH ×2 (15:32→21:50)
--- NOTE | 2018-05-30 15:43 | IPNPDOC ---
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 Dopplers were ordered to rule out DVTs. REVIEW OF SYSTEMS: The following is a completed review of systems and has been reviewed. Review of systems otherwise unremarkable. PAIN: Patient self reports bilateral hip pain and low back pain EYES: no recent vision loss EARS, NOSE, & THROAT: no dysphagia, rhinorrhea, or tinnitus CARDIOVASCULAR: denies chest pain, palpitations PULMONARY: Negative. Denies shortness of breath GASTROINTESTINAL: loose stools-improving GENITOURINARY: denies dysuria MUSCULOSKELETAL: bilateral hip fracture and lumbar compression fracture NEUROLOGICAL: no tremor, no paresthesias HEMATOLOGICAL:bilateral UE ecchymosis SKIN: bilateral hip incisions PSYCHIATRIC: Unremarkable All other review of systems found to be negative. PHYSICAL EXAMINATION: VITAL SIGNS: Please see below. GENERAL: Pleasant and cooperative. No acute distress HEENT: PERRL. Extraocular movements intact. Clear conjunctiva CARDIOVASCULAR: Regular rate and rhythm. No murmurs, rubs, or gallops LUNGS: Clear to auscultation bilaterally. No wheezes. No rhonchi ABDOMEN: Soft, nontender to palpation throughout all quadrants, normoactive bowel sounds NEUROLOGICAL: Alert and oriented times three. Cranial nerves II through XII grossly intact. Sensation grossly intact including 1st web space of bilateral feet Babinski negative bilat EXTREMITIES: 5-\5 strength bilateral upper extremities. 5\5 strength bilateral ankle DF, EHL, plantar flexion, exam limited due to hip pain SKIN: bilat UE ecchymosis, bilat hip incisions c/d/i no induration ASSESSMENT:63-year-old F with past medical history of COPD, RA, obesity who presents status post bilateral hip fracture. PLAN: 1. Rehab: PT/OT, assess for DME, CG for transfers and able to ambulate further and negotiate stairs 2. Ortho: bilat hip fractures s/p left hip audrey-arthroplasty and right hip pinning on 05-21-18, WBAT and hip precautions, ortho consulted -L1 compression fracture with retropulsion in the setting of canal stenosis- TLSO when out of bed, monitor for cord compression signs 3. Neuro: stable 4. Cardio: grade 1 diastolic CHF, will monitor- medicine consulted, recs appreciated 5. Resp: COPD: continue breathing treatments, and incentive spirometry 6. Psych: pmh Bipolar, continue Lamictal 7. RHeum: pmh RA, continue weekly methotrexate and daily prednisone 8. Pain: WIll add long acting morphine to decrease breakthrough pain and continue Oxycodone and Tylenol 9. DVT ppx: Xarelto 10. GI ppx:will discontinue protonix and famotidine as chronic home use of PPIs and H2 blockers can increase susceptibility to C. diff 11. ID: loose stools on admission with recent hx of C. diff, stool on admission positive for C. diff, recently treated with Vancomycin January 2018, will try po Vancomycin again, but this time a prolonged course, Bacid and contact precautions- loose stools resolving 11. : monitor PVRs, admission UA/Ucx still pending 12. Hypernatremia, patient encouraged to drink more fluids 10. Dispo: TBD Allergies Coded Allergies: Contrast Media (Verified Allergy, Severe, 1VP DYE - ANAPHYLAXIS, TONGUE SWELLS, 04/26/18) Shellfish Allergy (Verified Allergy, Severe, ANAPHYLAXIS, TONGUE SWELLS, 04/26/18) Pregabalin (Verified Allergy, Intermediate, rash/swelling, 05/20/18) Vital Signs Vital Signs Date Time Temp Pulse Resp B/P (MAP) Pulse Ox O2 Delivery O2 Flow Rate FiO2 05/30/18 12:18 17 05/30/18 06:00 99.0 75 159/83 (108) 98 Room Air Laboratory Data CBC/BMP Laboratory Tests 05/30/18 07:06 Red Blood Count 2.64 L, Mean Corpuscular Volume 98.9 H, Mean Corpuscular Hemoglobin 31.8, Mean Corpuscular Hemoglobin Concent 32.2, Red Cell Distribution Width 15.8 H, Calcium Level 7.7 L Labs 24H Laboratory Tests 2 05/29/18 15:43: Urine Color YELLOW, Urine Appearance CLOUDYH, Urine pH 6.0, Urine Specific [place] 1.019, Urine Protein NEGATIVE, Urine Glucose (UA) NEGATIVE, Urine Ketones NEGATIVE, Urine Blood NEGATIVE, Urine Nitrite NEGATIVE, Urine Bilirubin NEGATIVE, Urine Urobilinogen 0.2, Urine Leukocyte Esterase 3+H, Urine WBC (Auto) 25H, Urine RBC (Auto) 2, Urine Hyaline Casts (Auto) 0, Urine Bacteria (Auto) NEGATIVE, Urine Squamous Epithelial Cells 21, Urine Mucus (Auto) SMALL, Urine Sperm (Auto) 05/30/18 07:06: Nucleated Red Blood Cells % (auto) 0.0, Anion Gap 5L, Glomerular Filtration Rate > 60.0, Blood Urea Nitrogen 11, Creatinine 0.63, Sodium Level 143, Potassium Level 3.7, Chloride Level 110H, Carbon Dioxide Level 28, Calcium Level 7.7L, Magnesium Level 1.6L Microbiology Microbiology 05/27/18 Clostridium difficile (PCR) - Final, Complete 05/29/18 Urine Culture - Final, Complete Current Medications Current Medications Current Medications Acetaminophen (Tylenol Tab) 1,000 mg TID PO Last administered on 05/30/18at 15:32; Start 05/26/18 at 21:00 Acetaminophen/ Hydrocodone Bitart ([place], [place] 5/325) 1 tab Q4HP PRN PO MILD/MODERATE PAIN (PS 1-7) Last administered on 05/27/18at 10:24; Start 05/26/18 at 16:30; Stop 05/27/18 at 12:42; Status DC Albuterol Sulfate (Proventil, Ventolin Hfa) 2 puff Q6HP PRN INH SHORTNESS OF BREATH; Start 05/26/18 at 16:30 Allopurinol (Zyloprim) 300 mg DAILY PO Last administered on 05/30/18at 07:53; Start 05/27/18 at 09:00 Bisacodyl (Dulcolax Suppository) 10 mg DAILYPRN PRN [place] CONSTIPATION; Start 05/26/18 at 16:15 Clonazepam (KlonoPIN) 1 mg TID PO Last administered on 05/30/18at 15:33; Start 05/26/18 at 21:00 Docusate Sodium (Colace) 100 mg BID PO ; Start 05/26/18 at 21:00; Stop 05/27/18 at 14:44; Status DC Famotidine (Pepcid) 20 mg BIDP PRN PO ABDOMINAL PAIN; Start 05/26/18 at 16:30; Stop 05/28/18 at 20:34; Status DC Ferrous Gluconate (Fergon) 324 mg BID PO Last administered on 05/30/18at 07:54; Start 05/26/18 at 21:00 Fluticasone Propionate (Flovent Hfa 220mcg) 2 puff BID INH ; Start 05/26/18 at 21:00 Folic Acid (Folic Acid) 1 mg DAILY PO Last administered on 05/30/18 07:54; Start 05/27/18 at 09:00 Lactobacillus Acidophilus (Bacid) 2 ea BID PO Last administered on 05/30/18 07:53; Start 05/27/18 at 09:00 Lamotrigine (LaMICtal) 25 mg DAILY PO Last administered on 05/30/18 07:54; Start 05/27/18 at 09:00 Lamotrigine (LaMICtal) 200 mg DAILY PO Last administered on 05/30/18 07:54; Start 05/27/18 at 09:00 Lidocaine (Lidoderm Patch) 2 patch DAILY TD Last administered on 05/30/18 07:55; Start 05/27/18 at 09:00 Magnesium Hydroxide (Milk Of Magnesia) 30 ml DAILYPRN PRN PO CONSTIPATION; Start 05/26/18 at 16:15 Magnesium Oxide (Mag-Ox) 400 mg BID PO Last administered on 05/30/18at 15:32; Start 05/30/18 at 09:00; Stop 06/02/18 at 08:59 Methotrexate (Folex) 20 mg We@09 PO Last administered on 05/27/18at 08:36; Start 05/27/18 at 09:00 Morphine Sulfate (Ms Contin) 15 mg BID PO Last administered on 05/30/18 07:54; Start 05/29/18 at 21:00 Non-Formulary Medication ( See Comment Field Below ) REMOVE LIDODERM PATCH DAILY@21 XX Last administered on 05/29/18at 21:00; Start 05/26/18 at 21:00 Nystatin (Mycostatin Powder, Nystop) apply to groin abdomi... BID TOP Last administered on 05/30/18 07:55; Start 05/26/18 at 21:00 Ondansetron HCl (Zofran) 4 mg Q6HP PRN PO NAUSEA; Start 05/26/18 at 16:15 Oxycodone HCl (Roxicodone, Oxyir) 5 mg Q4HP PRN PO PAIN 4-7; Start 05/27/18 at 12:45; Stop 05/29/18 at 17:31; Status DC Oxycodone HCl (Roxicodone, Oxyir) 10 mg Q4HP PRN PO SEVERE PAIN (PS 8-10) Last administered on 05/30/18at 11:48; Start 05/27/18 at 12:45 Pantoprazole Sodium (Protonix) 40 mg DAILY PO Last administered on 05/27/18at 08:35; Start 05/27/18 at 09:00; Stop 05/27/18 at 13:52; Status DC Prednisone (Deltasone) 5 mg DAILY PO Last administered on 05/30/18at 07:54; Start 05/27/18 at 09:00 Rivaroxaban (Xarelto) 10 mg DAILY@1800 PO Last administered on 05/29/18at 16:52; Start 05/26/18 at 18:00 Senna (Senokot) 1 tab QHS PO ; Start 05/26/18 at 21:00; Stop 05/27/18 at 14:44; Status DC Tizanidine HCl (Zanaflex) 4 mg Q6HP PRN PO SPASMS Last administered on 05/30/18at 14:15; Start 05/26/18 at 16:30 Trazodone HCl (Desyrel) 200 mg QPM PO Last administered on 05/29/18at 22:29; S tart 05/26/18 at 21:00 Vancomycin HCl (First-Vancomycin 50(Firvanq)- 250mg/5ml) 125 mg BID PO ; Start 06/10/18 at 09:00; Stop 06/16/18 at 08:59 Vancomycin HCl (First-Vancomycin 50(Firvanq)- 250mg/5ml) 125 mg DAILY PO ; Start 06/16/18 at 09:00; Stop 06/22/18 at 08:59 Vancomycin HCl (First-Vancomycin 50(Firvanq)- 250mg/5ml) 125 mg Q2D PO ; Start 06/23/18 at 09:00; Stop 07/21/18 at 08:59 Vancomycin HCl (First-Vancomycin 50(Firvanq)- 250mg/5ml) 125 mg Q6H PO Last administered on 05/30/18at 11:49; Start 05/27/18 at 12:00; Stop 06/10/18 at 08:59 Zolpidem Tartrate (Ambien) 10 mg QHSP PRN PO INSOMNIA Last administered on 05/30/18at 00:46; Start 05/26/18 at 16:30 MONTRELL PAN MD May 30, 2018 15:43
[2018-05-30] MEDS: RIVAROXABAN 10 MG TAB (XARELTO) PO SCH (17:24)
[2018-05-30 20:00] VITALS: BP 106/58
[2018-05-30] MEDS: FLUTICASONE HFA 220 MCG 12 GM INHALER (FLOVENT) INH SCH (20:11)
--- NOTE | 2018-05-30 20:27 | IPN ---
DATE: 05/30/2018 The patient is seen and examined. No acute events overnight. Denies any diarrhea. Denies any chest pain, pressure or discomfort . Denies any fevers or chills. VITAL SIGNS: Temperature 98.7, pulse 80, respirations 18, blood pressure 132/78, pulse oximetry 98% on room air. LABORATORY DATA: WBC 9.3, hemoglobin and hematocrit 8.4/26.1, platelets 157. Chemistry: Sodium 142, potassium 3.7, chloride 110, bicarbonate 28, BUN 11, creatinine 0.61. PHYSICAL EXAMINATION: GENERAL: The patient is alert, comfortable, in no acute distress. HEENT: Normocephalic, atraumatic. PULMONARY: Bilaterally clear. CARDIAC: Regular S1, S2. ABDOMEN: Soft, nontender. Positive bowel sounds. EXTREMITIES: No clubbing, cyanosis or edema. ASSESSMENT AND PLAN: This is a 63-year-old female patient with underlying medical history of chronic obstructive pulmonary disease (COPD), not on oxygen, severe rheumatoid arthritis on chronic steroids, prednisone weekly and methotrexate with folic acid, history of Clostridium (C.) difficile, hypertension, bipolar, chronic back pain, morbid obesity, degenerative disc disease, anxiety, gastroesophageal reflux disease (GERD), insomnia, gout, who lives at home with daughter. The patient was in her usual state of health until the day of admission, which was 05/20/2018 when the patient tried to get up from her bed, missed her step, fell on her left hip. Denies any loss of consciousness. The patient does have a history of accidental overdose on blood pressure medications. On presentation, the patient has low systolic blood pressure and was given fluids. Imaging showed left hip fracture. Orthopedic group was consulted. Status post closed reduction and percutaneous pinning. The patient was also found to have left hip fracture and right hip fracture as well. Status post closed reduction and percutaneous pinning of minimally displaced right femoral neck fracture and left hip cement hemiarthroplasty. The patient was also found to have an L1 compression fracture of the back. Orthopedics recommended back bracing. The patient was transferred to acute rehabilitation on 05/26/2018. 1. Status post right hip femoral neck fracture and also left hip fracture. Status post closed reduction and percutaneous pinning of the minimally displaced right hip fracture and cement hemiarthroplasty of the left hip. Management as per orthopedics. The patient is on deep vein thrombosis (DVT) prophylaxis, Xarelto, as per orthopedics. Pain regimen as per acute rehabilitation provider. Bowel care as per acute rehabilitation provider. Physical therapy (PT) and occupational therapy (OT). 2. L1 compression fracture with retropulsion in the setting of canal stenosis. Orthopedics was on consultation. Recommend bracing. Monitor for spinal cord compression signs. The patient has lower extremity radiculopathy down to the knee; however, denies any acute bladder or bowel changes. Management as per acute rehabilitation provider and orthopedics. 3. Episode of hypotension on presentation, resolved. Hydrocortisone is tapered off. 4. History of rheumatoid arthritis. On methotrexate and prednisone at home. Continue prednisone. Continue methotrexate. Outpatient followup with rheumatology. 5. Hypokalemia. We will monitor and supplement. 6. Ovarian cyst. Will be followed as an outpatient. May represent malignancy. 7. Diarrhea. Clostridium (C.) difficile positive. Vancomycin as ordered. Probiotics. 8. Obesity complicating care. 9. Bipolar disorder, anxiety and insomnia. Continue current medications. 10. Chronic obstructive pulmonary disease (COPD). Continue current medications. 11. Acute blood loss anemia. Iron supplementation. We will monitor. 12. Gout. Continue current medications. 13. Gastroesophageal reflux disease (GERD). Continue current medications. 14. Deep vein thrombosis (DVT) prophylaxis. The patient is on Xarelto as per orthopedics.
[2018-05-30] MEDS: **NOTE PATIENT COMMENT** MISC XX SCH (21:00)
[2018-05-30] MEDS: traZODone 100 MG TAB PO SCH (21:50)
[2018-05-31] MEDS: tiZANidine 4 MG TAB PO PRN ×4 (00:39→22:12)
[2018-05-31] MEDS: oxyCODONE 5MG TAB PO PRN ×5 (00:39→19:37)
[2018-05-31] MEDS: VANCOMYCIN ORAL SOL 250MG/5ML ORAL SYRINGE PO SCH ×5 (00:39→22:58)
[2018-05-31 06:00] VITALS: BP 102/50
[2018-05-31] MEDS: FLUTICASONE HFA 220 MCG 12 GM INHALER (FLOVENT) INH SCH ×2 (07:24→20:06)
[2018-05-31] MEDS: ALLOPURINOL 300 MG TAB PO SCH (08:09)
[2018-05-31] MEDS: FERROUS GLUCONATE 324 MG TAB PO SCH ×2 (08:10→22:02)
[2018-05-31] MEDS: clonazePAM 1 MG TAB PO SCH ×3 (08:10→22:02)
[2018-05-31] MEDS: FOLIC ACID 1 MG TAB PO SCH (08:10)
[2018-05-31] MEDS: LACTOBACILLUS ACIDOPHILUS CAP (BACID) PO SCH ×2 (08:10→22:02)
[2018-05-31] MEDS: lamoTRIgine 100MG TAB PO SCH (08:10)
[2018-05-31] MEDS: ACETAMINOPHEN 500 MG TAB PO SCH ×3 (08:10→22:04)
[2018-05-31] MEDS: lamoTRIgine 25 MG TAB PO SCH (08:10)
[2018-05-31] MEDS: MORPHINE 15 MG SA TAB PO SCH ×2 (08:10→22:03)
[2018-05-31] MEDS: MAGNESIUM OXIDE 400 MG TAB (MAG-OX) PO SCH ×2 (08:11→22:03)
[2018-05-31] MEDS: LIDOCAINE 5% (LIDODERM) PATCH TD SCH (08:11)
[2018-05-31] MEDS: NYSTATIN 100,000 UNITS/GM TOPICAL PWD 15 GM TOP SCH ×2 (08:11→22:04)
[2018-05-31] MEDS: predniSONE 5 MG TAB PO SCH (08:13)
[2018-05-31 14:00] VITALS: BP 118/58
--- NOTE | 2018-05-31 14:01 | IPNPDOC ---
Text Note Date of Service The patient was seen on 05/31/18. NOTE The patient is seen and examined. No acute events overnight. Denies any diarrhea. Denies any chest pain, pressure or discomfort . Denies any fevers or chills. PHYSICAL EXAMINATION: GENERAL: The patient is alert, comfortable, in no acute distress. HEENT: Normocephalic, atraumatic. PULMONARY: Bilaterally clear. CARDIAC: Regular S1, S2. ABDOMEN: Soft, nontender. Positive bowel sounds. EXTREMITIES: No clubbing, cyanosis or edema. ASSESSMENT AND PLAN: This is a 63-year-old female patient with underlying medical history of chronic obstructive pulmonary disease (COPD), not on oxygen, severe rheumatoid arthritis on chronic steroids, prednisone weekly and methotrexate with folic acid, history of Clostridium (C.) difficile, hypertension, bipolar, chronic back pain, morbid obesity, degenerative disc disease, anxiety, gastroesophageal reflux disease (GERD), insomnia, gout, who lives at home with daughter. The patient was in her usual state of health until the day of admission, which was 05/20/2018 when the patient tried to get up from her bed, missed her step, fell on her left hip. Denies any loss of consciousness. The patient does have a history of accidental overdose on blood pressure medications. On presentation, the patient has low systolic blood pressure and was given fluids. Orthopedic group was consulted. The patient was also found to have left hip fracture and right hip fracture as well. Status post closed reduction and percutaneous pinning of minimally displaced right femoral neck fracture and left hip cement hemiarthroplasty. The patient was also found to have an L1 compression fracture of the back. Orthopedics recommended back bracing. The patient was transferred to acute rehabilitation on 05/26/2018. 1. Status post right hip femoral neck fracture and also left hip fracture. Status post closed reduction and percutaneous pinning of the minimally displaced right hip fracture and cement hemiarthroplasty of the left hip. Management as per orthopedics. The patient is on deep vein thrombosis (DVT) prophylaxis, Xarelto, as per orthopedics. Pain regimen as per acute rehabilitation provider. Bowel care as per acute rehabilitation provider. Physical therapy (PT) and occupational therapy (OT). 2. L1 compression fracture with retropulsion in the setting of canal stenosis. Orthopedics was on consultation. Recommend bracing. Monitor for spinal cord compression signs. The patient has lower extremity radiculopathy down to the knee; however, denies any acute bladder or bowel changes. Management as per acute rehabilitation provider and orthopedics. 3. Episode of hypotension on presentation, resolved. 4. History of rheumatoid arthritis. On methotrexate and prednisone at home. Continue prednisone. Continue methotrexate. Outpatient followup with rheumatology. 5. Hypokalemia. We will monitor and supplement. 6. Ovarian cyst. Will be followed as an outpatient. May represent malignancy. 7. Diarrhea. Clostridium (C.) difficile positive. Vancomycin as ordered. Probiotics. 8. Obesity complicating care. 9. Bipolar disorder, anxiety and insomnia. Continue current medications. 10. Chronic obstructive pulmonary disease (COPD). Continue current medications. 11. Acute blood loss anemia. Iron supplementation. We will monitor. 12. Gout. Continue current medications. 13. Gastroesophageal reflux disease (GERD). Continue current medications. 14. Deep vein thrombosis (DVT) prophylaxis. The patient is on Xarelto as per orthopedics. VS,Fishbone, I+O VS, Fishbone, I+O Vital Signs Date Time Temp Pulse Resp B/P (MAP) Pulse Ox O2 Delivery O2 Flow Rate FiO2 05/31/18 10:40 17 05/31/18 06:00 96.9 69 102/50 (67) 95 Room Air I&O- Last 24 Hours up to 6 AM 05/31/18 06:00 Intake Total 720 ml Balance 720 ml MIKKI JIMENES MD May 31, 2018 14:01
[2018-05-31] MEDS: RIVAROXABAN 10 MG TAB (XARELTO) PO SCH (18:09)
[2018-05-31 20:00] VITALS: BP 99/53
[2018-05-31] MEDS: **NOTE PATIENT COMMENT** MISC XX SCH (21:00)
[2018-05-31] MEDS: traZODone 100 MG TAB PO SCH (22:02)
[2018-05-31] MEDS: zolPIDEM TARTRATE 10MG TAB PO PRN (22:05)
[2018-06-01] MEDS: oxyCODONE 5MG TAB PO PRN ×3 (02:01→18:25)
[2018-06-01] MEDS: VANCOMYCIN ORAL SOL 250MG/5ML ORAL SYRINGE PO SCH ×3 (05:38→17:25)
[2018-06-01 06:00] VITALS: BP 117/72
[2018-06-01 06:07] LABS: HEMATOCRIT 27.7 % (36.0-47.0); HEMOGLOBIN 8.8 g/dl (12.0-15.5); MEAN CORPUSCULAR HEMOGLOBIN 32.4 pg (27.0-33.0); MEAN CORPUSCULAR HGB CONC 31.8 g/dl (32.0-36.5); MEAN CORPUSCULAR VOLUME 101.8 fl (80.0-96.0); PLATELET COUNT, AUTOMATED 190 10^3/uL (150-450); RED BLOOD COUNT 2.72 10^6/uL (4.00-5.40); WHITE BLOOD COUNT 12.3 10^3/uL (4.0-10.0)
[2018-06-01 06:37] LABS: BLOOD UREA NITROGEN 13 MG/DL (7-18); CALCIUM LEVEL 7.9 MG/DL (8.8-10.2); CARBON DIOXIDE LEVEL 23 MEQ/L (21-32); CHLORIDE LEVEL 110 MEQ/L (98-107); GLOMERULAR FILTRATION RATE > 60.0 (>45); GLUCOSE, FASTING 80 MG/DL (70-100); MAGNESIUM LEVEL 1.9 MG/DL (1.8-2.4); POTASSIUM SERUM 5.1 MEQ/L (3.5-5.1); SODIUM LEVEL 140 MEQ/L (136-145)
[2018-06-01] MEDS: FLUTICASONE HFA 220 MCG 12 GM INHALER (FLOVENT) INH SCH ×2 (08:02→20:28)
[2018-06-01] MEDS: NYSTATIN 100,000 UNITS/GM TOPICAL PWD 15 GM TOP SCH ×2 (09:08→20:42)
[2018-06-01] MEDS: clonazePAM 1 MG TAB PO SCH ×3 (09:09→20:39)
[2018-06-01] MEDS: FOLIC ACID 1 MG TAB PO SCH (09:09)
[2018-06-01] MEDS: LACTOBACILLUS ACIDOPHILUS CAP (BACID) PO SCH ×2 (09:09→20:40)
[2018-06-01] MEDS: LIDOCAINE 5% (LIDODERM) PATCH TD SCH (09:09)
[2018-06-01] MEDS: lamoTRIgine 25 MG TAB PO SCH (09:09)
[2018-06-01] MEDS: MAGNESIUM OXIDE 400 MG TAB (MAG-OX) PO SCH ×2 (09:10→20:39)
[2018-06-01] MEDS: lamoTRIgine 100MG TAB PO SCH (09:10)
[2018-06-01] MEDS: FERROUS GLUCONATE 324 MG TAB PO SCH ×2 (09:10→20:39)
[2018-06-01] MEDS: ACETAMINOPHEN 500 MG TAB PO SCH ×3 (09:10→20:42)
[2018-06-01] MEDS: ALLOPURINOL 300 MG TAB PO SCH (09:10)
[2018-06-01] MEDS: predniSONE 5 MG TAB PO SCH (09:10)
[2018-06-01] MEDS: MORPHINE 15 MG SA TAB PO SCH (09:13)
[2018-06-01] MEDS: tiZANidine 4 MG TAB PO PRN ×2 (09:34→20:39)
--- NOTE | 2018-06-01 10:56 | IPNPDOC ---
Date Seen The patient was seen on 06/01/18. Progress Note HPI: The pt was admitted to [facility] 05/20/18-05/26/18. Patient was in her usual state of health until on the day of admission patient tried to get up from her bed, missed her step, and fell, abutting her left hip on the ground. Denies any loss of consciousness prior to the fall or after the fall. Patient does have a history of accidental overdose on blood pressure medication. Upon presentation, patient had marginally low systolic blood pressure, she was given fluids. Imaging showed left hip fracture. Orthopedics was consulted. As per Orthopedic surgery, S/P closed reduction and percutaneous pinning of the minimally displaced right femoral neck fracture, and left hip cemented hemiarthroplasty. Orthopedics has recommended back bracing for patient's L1 compression fracture. Pt transferred to the care of ARU, Dr Lynch, 05/26/18. Pt was found to be C diff positive 05/27/18 with loose stools. Pt denies diarrhea/abdominal pain. The pt was noted to have some LE edema, Lasix po x 3 doses ordered. Denies any fevers, chills, weakness, fatigue, Headache, Chest Pain, Shortness of breath, cough, palpitations, abdominal pain, N/V or changes in bladder habits. PMHx: COPD, not O2 dependent severe rheumatoid arthritis on chronic prednisone and weekly methotrexate. C. difficile colitis, hypertension, bipolar disorder, chronic back pain, morbid obesity, BMI 36.5 degenerative disc disease, anxiety, GERD, insomnia, gout. PSHX: section. Tonsillectomy. Cholecystectomy. PE: GEN: 63yoF, appears stated age. No acute distress. Alert and oriented x 3. Affect is flat. HEENT: Normocephalic, atraumatic. Sclera are nonicteric. Conjunctiva without injection. No facial asymmetry. Moist mucous membranes. CHEST: Regular rate and rhythm, +S1, +S2 LUNGS: Clear to auscultation bilaterally. No wheezes, rales, or rhonchi. Breathing appears symmetric and easy. ABD: Round, soft, non-tender, non-distended. +Bowel sounds throughout. No rebound or guarding. EXT: tr-1mm lower extremity edema appreciated. SKIN: [place], dry, warm. No rashes. NEURO: No focal deficits appreciated. A&P: The pt was admitted to [facility] 05/20/18-05/26/18. Patient was in her usual state of health until on the day of admission patient tried to get up from her bed, missed her step, and fell, abutting her left hip on the ground. Denies any loss of consciousness prior to the fall or after the fall. Patient does have a history of accidental overdose on blood pressure medication. Upon presentation, patient had marginally low systolic blood pressure, she was given fluids. Imaging showed left hip fracture. Orthopedics was consulted. As per Orthopedic surgery, S/P closed reduction and percutaneous pinning of the minimally displaced right femoral neck fracture, and left hip cemented hemiarthroplasty. Orthopedics has recommended back bracing for patient's L1 compression fracture. Pt transferred to the care of ARU, Dr Lynch, 05/26/18. 1. S/P Rt femoral neck fracture/S/P Closed reduction and percutaneous pinning of a minimally displaced right femoral neck fracture. Management per orthopedics. DVT prophylaxis. Xarelto as per Orthopedics. Pain control as per ARU. Bowel care as per ARU. PT/OT/ST as per ARU, Dr Lynch. Disposition as per ARU. 2. L1 compression fracture with retropulsion in the setting of canal stenosis. Appreciate orthopedics input. TLSO when out of bed, monitor for cord compression signs. Notes that she has lower extremity radiculopathy down to the knee, however denies any acute bladder or bowel changes. Mgmt as per orthopedics/ ARU. 3. Episode of hypotension on presentation. Status post normal saline, and resolved. S/P hydrocortisone taper. Continues with prednisone 5 mg daily. SBP this AM 87, recheck with manual 110. Pt asymptomatic. 4. History of rheumatoid arthritis on methotrexate at home as well as chronic prednisone. Chronic pain. Prednisone 5 mg po daily. Methotrexate weekly on Fri. Zanaflex d/cd related to fatigue. Will need close outpatient follow-up with her tower [employer] traffic [employer] specialist. 5. Hypokalemia. S/P supplement. Resolved. Monitor. 6. Ovarian cyst. Has been relayed to the pt she will likely need further workup following d/c, as this may represent malignancy. Patient is agreeable. 7. Diarrhea/C Diff. positive. History of C. difficile 01/27. Afebrile. WBC 9.7 Pt is eating and drinking. [id number] po Q6 D6. Plan is for prolonged course of Vanco. Bacid 2 tab po BID. PPI D/Cd. HOLD Senna/Colace Monitor. 8. History of morbid obesity BMI 36.5. Complicates care. 9. Bipolar disorder/Anxiety/Insomnia. Pt remains on Lamictal/Klonopin/Trazodone/Ambien. 10. COPD. Flovent Albuterol as needed. 11. Acute blood loss anemia. Hgb 9.5. Continue Fe supplement. Monitor. 12. Gout. Allopurinol. 13. GERD. Pepcid. 14. LE edema. U/S BLE 05/29 neg for DVT. TTE 05/30 EF 75-80%, Grade I DD. Lasix 20 mg daily ordered x 3 days then hold (Pt states she has taken diuretic in the past but not daily.). Monitor. VS, I&O, 24H, Fishbone Vital Signs/I&O Vital Signs Date Time Temp Pulse Resp B/P (MAP) Pulse Ox O2 Delivery O2 Flow Rate FiO2 06/01/18 09:13 94 18 108/54 06/01/18 06:00 96.2 97 06/01/18 02:35 Room Air I&O- Last 24 Hours up to 6 AM 06/01/18 06:00 Intake Total 840 ml Output Total 300 ml Balance 540 ml Laboratory Data 24H LABS Laboratory Tests 2 06/01/18 05:29: Nucleated Red Blood Cells % (auto) 0.0 06/01/18 05:30: Anion Gap 7L, Glomerular Filtration Rate > 60.0, Blood Urea Nitrogen 13, Creatinine 0.60, Sodium Level 140, Potassium Level 5.1#, Chloride Level 110H, Carbon Dioxide Level 23, Calcium Level 7.9L, Magnesium Level 1.9 CBC/BMP Laboratory Tests 06/01/18 05:29 Red Blood Count 2.72 L, Mean Corpuscular Volume 101.8 H, Mean Corpuscular Hemoglobin 32.4, Mean Corpuscular Hemoglobin Concent 31.8 L, Red Cell Distribution Width 16.3 H 06/01/18 05:30 Calcium Level 7.9 L Microbiology Microbiology 05/27/18 Clostridium difficile (PCR) - Final, Complete 05/29/18 Urine Culture - Final, Complete Yen Davila Jun 01, 2018 10:56
[2018-06-01 14:00] VITALS: BP 137/82
[2018-06-01] MEDS: oxyCODONE 20 MG CR TAB PO SCH ×2 (14:23→20:41)
[2018-06-01] MEDS: RIVAROXABAN 10 MG TAB (XARELTO) PO SCH (17:27)
--- NOTE | 2018-06-01 19:02 | IPNPDOC ---
PM&R Progress Note DATE OF SERVICE: Jun 01, 2018 Call Center Supervisor Progress Note Subjective: Patient reports her loose stool have improved, but that her pain is still difficult to manage in therapy, stating she used to take OxyContin at home and would like to trial this here. REVIEW OF SYSTEMS: The following is a completed review of systems and has been reviewed. Review of systems otherwise unremarkable. PAIN: Patient self reports bilateral hip pain and low back pain EYES: no recent vision loss EARS, NOSE, & THROAT: no dysphagia, rhinorrhea, or tinnitus CARDIOVASCULAR: denies chest pain, palpitations PULMONARY: Negative. Denies shortness of breath GASTROINTESTINAL: loose stools-improving GENITOURINARY: denies dysuria MUSCULOSKELETAL: bilateral hip fracture and lumbar compression fracture NEUROLOGICAL: no tremor, no paresthesias HEMATOLOGICAL:bilateral UE ecchymosis SKIN: bilateral hip incisions PSYCHIATRIC: Unremarkable All other review of systems found to be negative. PHYSICAL EXAMINATION: VITAL SIGNS: Please see below. GENERAL: Pleasant and cooperative. No acute distress HEENT: PERRL. Extraocular movements intact. Clear conjunctiva CARDIOVASCULAR: Regular rate and rhythm. No murmurs, rubs, or gallops LUNGS: Clear to auscultation bilaterally. No wheezes. No rhonchi ABDOMEN: Soft, nontender to palpation throughout all quadrants, normoactive bowel sounds NEUROLOGICAL: Alert and oriented times three. Cranial nerves II through XII grossly intact. Sensation grossly intact including 1st web space of bilateral feet Babinski negative bilat EXTREMITIES: 5-\5 strength bilateral upper extremities. 5\5 strength bilateral ankle DF, EHL, plantar flexion, exam limited due to hip pain SKIN: bilat UE ecchymosis, bilat hip incisions c/d/i no induration ASSESSMENT:63-year-old F with past medical history of COPD, RA, obesity who presents status post bilateral hip fracture. PLAN: 1. Rehab: PT/OT, assess for DME, ambulating further with RW and negotiate stairs 2. Ortho: bilat hip fractures s/p left hip audrey-arthroplasty and right hip pinning on 05-21-18, WBAT and hip precautions, ortho consulted -L1 compression fracture with retropulsion in the setting of canal stenosis- TLSO when out of bed, monitor for cord compression signs 3. Neuro: stable 4. Cardio: grade 1 diastolic CHF, will monitor- medicine consulted, recs appr eciated 5. Resp: COPD: continue breathing treatments, and incentive spirometry 6. Psych: pmh Bipolar, continue Lamictal 7. RHeum: pmh RA, continue weekly methotrexate and daily prednisone 8. Pain: patient reports long-acting morphine not effective and states she took OxyContin 20mg BI D at home with 5mg oxycodone at home for breakthrough pain- will trial, continue Tylenol 9. DVT ppx: Xarelto 10. GI ppx:will discontinue protonix and famotidine as chronic home use of PPIs and H2 blockers can increase susceptibility to C. diff 11. ID: loose stools on admission with recent hx of C. diff, stool on admission positive for C. diff, recently treated with Vancomycin January 2018, will try po Vancomycin again, but this time a prolonged course, Bacid and contact precautions- loose stools resolving 11. : monitor PVRs, admission UA/Ucx negative 12. Hypernatremia, patient encouraged to drink more fluids-improving, continue to monitor electrolytes 10. Dispo: 06/09/18 to home, progressing towards goals Allergies Coded Allergies: Contrast Media (Verified Allergy, Severe, 1VP DYE - ANAPHYLAXIS, TONGUE SWELLS, 04/26/18) Shellfish Allergy (Verified Allergy, Severe, ANAPHYLAXIS, TONGUE SWELLS, 04/26/18) Pregabalin (Verified Allergy, Intermediate, rash/swelling, 05/20/18) Vital Signs Vital Signs Date Time Temp Pulse Resp B/P (MAP) Pulse Ox O2 Delivery O2 Flow Rate FiO2 06/01/18 18:25 20 06/01/18 14:00 98.7 78 137/82 (100) 98 06/01/18 02:35 Room Air Laboratory Data CBC/BMP Laboratory Tests 06/01/18 05:29 Red Blood Count 2.72 L, Mean Corpuscular Volume 101.8 H, Mean Corpuscular Hemoglobin 32.4, Mean Corpuscular Hemoglobin Concent 31.8 L, Red Cell Distribution Width 16.3 H 06/01/18 05:30 Calcium Level 7.9 L Labs 24H Laboratory Tests 2 06/01/18 05:29: Nucleated Red Blood Cells % (auto) 0.0 06/01/18 05:30: Anion Gap 7L, Glomerular Filtration Rate > 60.0, Blood Urea Nitrogen 13, Creatinine 0.60, Sodium Level 140, Potassium Level 5.1#, Chloride Level 110H, Carbon Dioxide Level 23, Calcium Level 7.9L, Magnesium Level 1.9 Microbiology Microbiology 05/27/18 Clostridium difficile (PCR) - Final, Complete 05/29/18 Urine Culture - Final, Complete Current Medications Current Medications Current Medications Acetaminophen (Tylenol Tab) 1,000 mg TID PO Last administered on 06/01/18at 17:27; Start 05/26/18 at 21:00 Acetaminophen/ Hydrocodone Bitart ([place], Anexsia 5/325) 1 tab Q4HP PRN PO MILD/MODERATE PAIN (PS 1-7) Last administered on 05/27/18at 10:24; Start 05/26/18 at 16:30; Stop 05/27/18 at 12:42; Status DC Albuterol Sulfate (Proventil, Ventolin Hfa) 2 puff Q6HP PRN INH SHORTNESS OF BREATH; Start 05/26/18 at 16:30 Allopurinol (Zyloprim) 300 mg DAILY PO Last administered on 06/01/18at 09:10; Start 05/27/18 at 09:00 Bisacodyl (Dulcolax Suppository) 10 mg DAILYPRN PRN ND CONSTIPATION; Start 05/26/18 at 16:15 Clonazepam (KlonoPIN) 1 mg TID PO Last administered on 06/01/18at 17:27; Start 05/26/18 at 21:00 Docusate Sodium (Colace) 100 mg BID PO ; Start 05/26/18 at 21:00; Stop 05/27/18 at 14:44; Status DC Famotidine (Pepcid) 20 mg BIDP PRN PO ABDOMINAL PAIN; Start 05/26/18 at 16:30; Stop 05/28/18 at 20:34; Status DC Ferrous Gluconate (Fergon) 324 mg BID PO Last administered on 06/01/18at 09:10; Start 05/26/18 at 21:00 Fluticasone Propionate (Flovent Hfa 220mcg) 2 puff BID INH ; Start 05/26/18 at 21:00 Folic Acid (Folic Acid) 1 mg DAILY PO Last administered on 06/01/18at 09:09; Start 05/27/18 at 09:00 Lactobacillus Acidophilus (Bacid) 2 ea BID PO Last administered on 06/01/18 09:09; Start 05/27/18 at 09:00 Lamotrigine (LaMICtal) 25 mg DAILY PO Last administered on 06/01/18at 09:09; Start 05/27/18 at 09:00 Lamotrigine (LaMICtal) 200 mg DAILY PO Last administered on 06/01/18 09:10; Start 05/27/18 at 09:00 Lidocaine (Lidoderm Patch) 2 patch DAILY TD Last administered on 06/01/18at 09:09; Start 05/27/18 at 09:00 Magnesium Hydroxide (Milk Of Magnesia) 30 ml DAILYPRN PRN PO CONSTIPATION; Start 05/26/18 at 16:15 Magnesium Oxide (Mag-Ox) 400 mg BID PO Last administered on 06/01/18 09:10; Start 05/30/18 at 09:00; Stop 06/02/18 at 08:59 Methotrexate (Folex) 20 mg We@09 PO Last administered on 05/27/18at 08:36; Start 05/27/18 at 09:00 Morphine Sulfate (Ms Contin) 15 mg BID PO Last administered on 06/01/18 09:13; Start 05/29/18 at 21:00; Stop 06/01/18 at 12:32; Status DC Non-Formulary Medication ( See Comment Field Below ) REMOVE LIDODERM PATCH DAILY@21 XX Last administered on 05/31/18at 21:00; Start 05/26/18 at 21:00 Nystatin (Mycostatin Powder, Nystop) apply to groin abdomi... BID TOP Last admi nistered on 06/01/18at 09:08; Start 05/26/18 at 21:00 Ondansetron HCl (Zofran) 4 mg Q6HP PRN PO NAUSEA; Start 05/26/18 at 16:15 Oxycodone HCl (OxyCONTIN) 20 mg BID PO Last administered on 06/01/18at 14:23; Start 06/01/18 at 13:00 Oxycodone HCl (Roxicodone, Oxyir) 5 mg Q4HP PRN PO PAIN 4-7; Start 05/27/18 at 12:45; Stop 05/29/18 at 17:31; Status DC Oxycodone HCl (Roxicodone, Oxyir) 5 mg Q4HP PRN PO SEVERE PAIN (PS 8-10) Last administered on 06/01/18at 18:25; Start 06/01/18 at 12:30 Oxycodone HCl (Roxicodone, Oxyir) 10 mg Q4HP PRN PO SEVERE PAIN (PS 8-10) Last administered on 06/01/18at 10:54; Start 05/27/18 at 12:45; Stop 06/01/18 at 12:32; Status DC Pantoprazole Sodium (Protonix) 40 mg DAILY PO Last administered on 05/27/18at 08:35; Start 05/27/18 at 09:00; Stop 05/27/18 at 13:52; Status DC Prednisone (Deltasone) 5 mg DAILY PO Last administered on 06/01/18at 09:10; Start 05/27/18 at 09:00 Rivaroxaban (Xarelto) 10 mg DAILY@1800 PO Last administered on 06/01/18at 17:27; Start 05/26/18 at 18:00 Senna (Senokot) 1 tab QHS PO ; Start 05/26/18 at 21:00; Stop 05/27/18 at 14:44; Status DC Tizanidine HCl (Zanaflex) 4 mg Q6HP PRN PO SPASMS Last administered on 06/01/18at 09:34; Start 05/26/18 at 16:30 Trazodone HCl (Desyrel) 200 mg QPM PO Last administered on 05/31/18at 22:02; Start 05/26/18 at 21:00 Vancomycin HCl (First-Vancomycin 50(Firvanq)- 250mg/5ml) 125 mg BID PO ; Start 06/10/18 at 09:00; Stop 06/16/18 at 08:59 Vancomycin HCl (First-Vancomycin 50(Firvanq)- 250mg/5ml) 125 mg DAILY PO ; Start 06/16/18 at 09:00; Stop 06/22/18 at 08:59 Vancomycin HCl (First-Vancomycin 50(Firvanq)- 250mg/5ml) 125 mg Q2D PO ; Start 06/23/18 at 09:00; Stop 07/21/18 at 08:59 Vancomycin HCl (First-Vancomycin 50(Firvanq)- 250mg/5ml) 125 mg Q6H PO Last administered on 06/01/18at 17:25; Start 05/27/18 at 12:00; Stop 06/10/18 at 08:59 Zolpidem Tartrate (Ambien) 10 mg QHSP PRN PO INSOMNIA Last administered on 05/31/18at 22:05; Start 05/26/18 at 16:30 MONTRELL PAN MD Jun 01, 2018 19:02
[2018-06-01 20:30] VITALS: BP 138/65
[2018-06-01] MEDS: zolPIDEM TARTRATE 10MG TAB PO PRN (20:39)
[2018-06-01] MEDS: traZODone 100 MG TAB PO SCH (20:39)
[2018-06-01] MEDS: **NOTE PATIENT COMMENT** MISC XX SCH (20:42)
[2018-06-02] MEDS: VANCOMYCIN ORAL SOL 250MG/5ML ORAL SYRINGE PO SCH ×5 (00:04→23:34)
[2018-06-02] MEDS: oxyCODONE 5MG TAB PO PRN ×4 (00:08→23:34)
[2018-06-02 05:52] VITALS: BP 103/53
[2018-06-02] MEDS: tiZANidine 4 MG TAB PO PRN ×3 (06:17→21:23)
[2018-06-02 06:48] LABS: BASO # 0.1 10^3/uL (0.0-0.2); BASO % 0.5 % (0.0-1.0); EOS # 0.2 10^3/uL (0.0-0.50); EOS % 2.4 % (0.0-3.0); HEMATOCRIT 26.4 % (36.0-47.0); HEMOGLOBIN 8.4 g/dl (12.0-15.5); LYMPH # 3.3 10^3/uL (1.5-4.5); LYMPH % 32.9 % (24.0-44.0); MEAN CORPUSCULAR HEMOGLOBIN 32.6 pg (27.0-33.0); MEAN CORPUSCULAR HGB CONC 31.8 g/dl (32.0-36.5); MEAN CORPUSCULAR VOLUME 102.3 fl (80.0-96.0); MONO # 0.6 10^3/uL (0.0-0.8); MONO % 5.8 % (0.0-5.0); NEUTROPHILS # 5.8 10^3/uL (1.8-7.7); NEUTROPHILS % 57.1 % (36.0-66.0); PLATELET COUNT, AUTOMATED 183 10^3/uL (150-450); RED BLOOD COUNT 2.58 10^6/uL (4.00-5.40); WHITE BLOOD COUNT 10.1 10^3/uL (4.0-10.0)
[2018-06-02 07:13] LABS: BLOOD UREA NITROGEN 11 MG/DL (7-18); CALCIUM LEVEL 7.7 MG/DL (8.8-10.2); CARBON DIOXIDE LEVEL 27 MEQ/L (21-32); CHLORIDE LEVEL 111 MEQ/L (98-107); CREATININE FOR GFR 0.66 MG/DL (0.55-1.30); GLOMERULAR FILTRATION RATE > 60.0 (>45); GLUCOSE, FASTING 93 MG/DL (70-100); POTASSIUM SERUM 4.2 MEQ/L (3.5-5.1); SODIUM LEVEL 144 MEQ/L (136-145)
[2018-06-02] MEDS: FLUTICASONE HFA 220 MCG 12 GM INHALER (FLOVENT) INH SCH ×2 (07:33→21:00)
[2018-06-02] MEDS: lamoTRIgine 25 MG TAB PO SCH (09:24)
[2018-06-02] MEDS: lamoTRIgine 100MG TAB PO SCH (09:24)
[2018-06-02] MEDS: predniSONE 5 MG TAB PO SCH (09:24)
[2018-06-02] MEDS: ACETAMINOPHEN 500 MG TAB PO SCH ×3 (09:24→21:23)
[2018-06-02] MEDS: ALLOPURINOL 300 MG TAB PO SCH (09:25)
[2018-06-02] MEDS: oxyCODONE 20 MG CR TAB PO SCH ×2 (09:25→21:22)
[2018-06-02] MEDS: LACTOBACILLUS ACIDOPHILUS CAP (BACID) PO SCH ×2 (09:25→21:23)
[2018-06-02] MEDS: FOLIC ACID 1 MG TAB PO SCH (09:25)
[2018-06-02] MEDS: FERROUS GLUCONATE 324 MG TAB PO SCH ×2 (09:25→21:23)
[2018-06-02] MEDS: LIDOCAINE 5% (LIDODERM) PATCH TD SCH (09:25)
[2018-06-02] MEDS: clonazePAM 1 MG TAB PO SCH ×3 (09:26→21:23)
[2018-06-02] MEDS: NYSTATIN 100,000 UNITS/GM TOPICAL PWD 15 GM TOP SCH ×2 (09:26→21:26)
[2018-06-02] MEDS: RIVAROXABAN 10 MG TAB (XARELTO) PO SCH (17:23)
--- NOTE | 2018-06-02 18:56 | IPNPDOC ---
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 REVIEW OF SYSTEMS: The following is a completed review of systems and has been reviewed. Review of systems otherwise unremarkable. PAIN: Patient self reports bilateral hip pain and low back pain EYES: no recent vision loss EARS, NOSE, & THROAT: no dysphagia, rhinorrhea, or tinnitus CARDIOVASCULAR: denies chest pain, palpitations PULMONARY: Negative. Denies shortness of breath GASTROINTESTINAL: loose stools-improving GENITOURINARY: denies dysuria MUSCULOSKELETAL: bilateral hip fracture and lumbar compression fracture NEUROLOGICAL: no tremor, no paresthesias HEMATOLOGICAL:bilateral UE ecchymosis SKIN: bilateral hip incisions PSYCHIATRIC: Unremarkable All other review of systems found to be negative. PHYSICAL EXAMINATION: VITAL SIGNS: Please see below. GENERAL: Pleasant and cooperative. No acute distress HEENT: PERRL. Extraocular movements intact. Clear conjunctiva CARDIOVASCULAR: Regular rate and rhythm. No murmurs, rubs, or gallops LUNGS: Clear to auscultation bilaterally. No wheezes. No rhonchi ABDOMEN: Soft, nontender to palpation throughout all quadrants, normoactive bowel sounds NEUROLOGICAL: Alert and oriented times three. Cranial nerves II through XII grossly intact. Sensation grossly intact including 1st web space of bilateral feet Babinski negative bilat EXTREMITIES: 5-\5 strength bilateral upper extremities. 5\5 strength bilateral ankle DF, EHL, plantar flexion, exam limited due to hip pain bilateral LE Edema SKIN: bilat UE ecchymosis, bilat hip incisions c/d/i no induration ASSESSMENT:63-year-old F with past medical history of COPD, RA, obesity who presents status post bilateral hip fracture. PLAN: 1. Rehab: PT/OT, assess for DME, ambulating further with RW and negotiate stairs at Mod-I level 2. Ortho: bilat hip fractures s/p left hip audrey-arthroplasty and right hip pinning on 05-21-18, WBAT and hip precautions, ortho consulted -L1 compression fracture with retropulsion in the setting of canal stenosis- TLS O when out of bed, monitor for cord compression signs 3. Neuro: stable 4. Cardio: grade 1 diastolic CHF, will monitor- medicine consulted, recs appreciated -ordered lasix x 3 days for LE edema 5. Resp: COPD: continue breathing treatments, and incentive spirometry 6. Psych: pmh Bipolar, continue Lamictal 7. RHeum: pmh RA, continue weekly methotrexate and daily prednisone 8. Pain: continue home regimen OxyContin 20mg BI D at home with 10mg oxycodone q6h for breakthrough pain- will trial, continue Tylenol- on Tizanidine 9. DVT ppx: Xarelto 10. GI ppx:will discontinue protonix and famotidine as chronic home use of PPIs and H2 blockers can increase susceptibility to C. diff 11. ID: loose stools on admission with recent hx of C. diff, stool on admission positive for C. diff, recently treated with Vancomycin January 2018, will try po Vancomycin again, but this time a prolonged course, Bacid and contact precautions- loose stools resolving 11. : monitor PVRs, admission UA/Ucx negative 12. Hypernatremia, patient encouraged to drink more fluids-improving, continue to monitor electrolytes-resolved 13. Extremities: will order acewraps and 3 day course of lasix for bilat LE edema 10. Dispo: 06/09/18 to home, progressing towards goals, will train daughter to secure TLSO brace before leaving for work and teach patient to use adaptive equipment for toileting to encourage necessary use of TlSO brace- patient in agreement today to use brace Allergies Coded Allergies: Contrast Media (Verified Allergy, Severe, 1VP DYE - ANAPHYLAXIS, TONGUE SWELLS, 04/26/18) Shellfish Allergy (Verified Allergy, Severe, ANAPHYLAXIS, TONGUE SWELLS, 04/26/18) Pregabalin (Verified Allergy, Intermediate, rash/swelling, 05/20/18) Vital Signs Vital Signs Date Time Temp Pulse Resp B/P (MAP) Pulse Ox O2 Delivery O2 Flow Rate FiO2 06/02/18 14:00 98.0 68 16 93 Room Air 06/02/18 05:52 103/53 (70) Laboratory Data CBC/BMP Laboratory Tests 06/02/18 06:05 Red Blood Count 2.58 L, Mean Corpuscular Volume 102.3 H, Mean Corpuscular Hemoglobin 32.6, Mean Corpuscular Hemoglobin Concent 31.8 L, Red Cell Distribution Width 17.0 H, Neutrophils (%) (Auto) 57.1, Lymphocytes (%) (Auto) 32.9, Monocytes (%) (Auto) 5.8 H, Eosinophils (%) (Auto) 2.4, Basophils (%) (Auto) 0.5, Neutrophils # (Auto) 5.8, Lymphocytes # (Auto) 3.3, Monocytes # (Auto) 0.6, Eosinophils # (Auto) 0.2, Basophils # (Auto) 0.1, Calcium Level 7.7 L Labs 24H Laboratory Tests 2 06/02/18 06:05: Immature Granulocyte % (Auto) 1.3, White Blood Count 10.1H, Red Blood Count 2.58L, Hemoglobin 8.4L, Hematocrit 26.4L, Mean Corpuscular Volume 102.3H, Mean Corpuscular Hemoglobin 32.6, Mean Corpuscular Hemoglobin Concent 31.8L, Red Cell Distribution Width 17.0H, Platelet Count 183, Neutrophils (%) (Auto) 57.1, Lymphocytes (%) (Auto) 32.9, Monocytes (%) (Auto) 5.8H, Eosinophils (%) (Auto) 2.4, Basophils (%) (Auto) 0.5, Neutrophils # (Auto) 5.8, Lymphocytes # (Auto) 3 .3, Monocytes # (Auto) 0.6, Eosinophils # (Auto) 0.2, Basophils # (Auto) 0.1, Nucleated Red Blood Cells % (auto) 0.2H, Anion Gap 6L, Glomerular Filtration Rate > 60.0, Blood Urea Nitrogen 11, Creatinine 0.66, Sodium Level 144, Potassium Level 4.2, Chloride Level 111H, Carbon Dioxide Level 27, Calcium Level 7.7L Microbiology Microbiology 05/27/18 Clostridium difficile (PCR) - Final, Complete 05/29/18 Urine Culture - Final, Complete Current Medications Current Medications Current Medications Acetaminophen (Tylenol Tab) 1,000 mg TID PO Last administered on 06/02/18at 15:51; Start 05/26/18 at 21:00 Acetaminophen/ Hydrocodone Bitart ([place], Anexsia 5/325) 1 tab Q4HP PRN PO MILD/MODERATE PAIN (PS 1-7) Last administered on 05/27/18at 10:24; Start 05/26/18 at 16:30; Stop 05/27/18 at 12:42; Status DC Albuterol Sulfate (Proventil, Ventolin Hfa) 2 puff Q6HP PRN INH SHORTNESS OF BREATH; Start 05/26/18 at 16:30 Allopurinol (Zyloprim) 300 mg DAILY PO Last administered on 06/02/18at 09:25; Start 05/27/18 at 09:00 Bisacodyl (Dulcolax Suppository) 10 mg DAILYPRN PRN [place] CONSTIPATION; Start 05/26/18 at 16:15 Calcium/Vitamin D (Oscal D) 1,000 mg BID PO ; Start 06/02/18 at 21:00 Clonazepam (KlonoPIN) 1 mg TID PO Last administered on 06/02/18at 15:50; Start 05/26/18 at 21:00 Cyanocobalamin (Vitamin B12) 1,000 mcg DAILY PO ; Start 06/03/18 at 09:00 Docusate Sodium (Colace) 100 mg BID PO ; Start 05/26/18 at 21:00; Stop 05/27/18 at 14:44; Status DC Famotidine (Pepcid) 20 mg BIDP PRN PO ABDOMINAL PAIN; Start 05/26/18 at 16:30; Stop 05/28/18 at 20:34; Status DC Ferrous Gluconate (Fergon) 324 mg BID PO Last administered on 06/02/18at 09:25; Start 05/26/18 at 21:00 Fluticasone Propionate (Flovent Hfa 220mcg) 2 puff BID INH ; Start 05/26/18 at 21:00 Folic Acid (Folic Acid) 1 mg DAILY PO Last administered on 06/02/18at 09:25; Start 05/27/18 at 09:00 Folic Acid (Folic Acid) 1 mg DAILY PO ; Start 06/03/18 at 09:00; Stop 06/03/18 at 09:00; Status DC Lactobacillus Acidophilus (Bacid) 2 ea BID PO Last administered on 06/02/18at 09:25; Start 05/27/18 at 09:00 Lamotrigine (LaMICtal) 25 mg DAILY PO Last administered on 06/02/18at 09:24; Start 05/27/18 at 09:00 Lamotrigine (LaMICtal) 200 mg DAILY PO Last administered on 06/02/18 09:24; Start 05/27/18 at 09:00 Lidocaine (Lidoderm Patch) 2 patch DAILY TD Last administered on 06/02/18 09:25; Start 05/27/18 at 09:00 Magnesium Hydroxide (Milk Of Magnesia) 30 ml DAILYPRN PRN PO CONSTIPATION; Start 05/26/18 at 16:15 Magnesium Oxide (Mag-Ox) 400 mg BID PO Last administered on 06/01/18 20:39; Start 05/30/18 at 09:00; Stop 06/02/18 at 08:59; Status DC Methotrexate (Folex) 20 mg We@09 PO Last administered on 05/27/18 08:36; St art 05/27/18 at 09:00 Morphine Sulfate (Ms Contin) 15 mg BID PO Last administered on 06/01/18at 09:13; Start 05/29/18 at 21:00; Stop 06/01/18 at 12:32; Status DC Non-Formulary Medication ( See Comment Field Below ) REMOVE LIDODERM PATCH DAILY@21 XX Last administered on 06/01/18at 20:42; Start 05/26/18 at 21:00 Nystatin (Mycostatin Powder, Nystop) apply to groin abdomi... BID TOP Last administered on 06/02/18 09:26; Start 05/26/18 at 21:00 Ondansetron HCl (Zofran) 4 mg Q6HP PRN PO NAUSEA; Start 05/26/18 at 16:15 Oxycodone HCl (OxyCONTIN) 20 mg BID PO Last administered on 06/02/18at 09:25; Start 06/01/18 at 13:00 Oxycodone HCl (Roxicodone, Oxyir) 5 mg Q4HP PRN PO PAIN 4-7; Start 05/27/18 at 12:45; Stop 05/29/18 at 17:31; Status DC Oxycodone HCl (Roxicodone, Oxyir) 5 mg Q4HP PRN PO SEVERE PAIN (PS 8-10) Last administered on 06/02/18 12:50; Start 06/01/18 at 12:30 Oxycodone HCl (Roxicodone, Oxyir) 10 mg Q4HP PRN PO SEVERE PAIN (PS 8-10) Last administered on 06/01/18at 10:54; Start 05/27/18 at 12:45; Stop 06/01/18 at 12:32; Status DC Pantoprazole Sodium (Protonix) 40 mg DAILY PO Last administered on 05/27/18at 08:35; Start 05/27/18 at 09:00; Stop 05/27/18 at 13:52; Status DC Prednisone (Deltasone) 5 mg DAILY PO Last administered on 06/02/18at 09:24; Start 05/27/18 at 09:00 Rivaroxaban (Xarelto) 10 mg DAILY@1800 PO Last administered on 06/02/18at 17:23; Start 05/26/18 at 18:00 Senna (Senokot) 1 tab QHS PO ; Start 05/26/18 at 21:00; Stop 05/27/18 at 14:44; Status DC Tizanidine HCl (Zanaflex) 4 mg Q6HP PRN PO SPASMS Last administered on 06/02/18at 12:50; Start 05/26/18 at 16:30 Trazodone HCl (Desyrel) 200 mg QPM PO Last administered on 06/01/18at 20:39; Start 05/26/18 at 21:00 Vancomycin HCl (First-Vancomycin 50(Firvanq)- 250mg/5ml) 125 mg BID PO ; Start 06/10/18 at 09:00; Stop 06/16/18 at 08:59 Vancomycin HCl (First-Vancomycin 50(Firvanq)- 250mg/5ml) 125 mg DAILY PO ; Start 06/16/18 at 09:00; Stop 06/22/18 at 08:59 Vancomycin HCl (First-Vancomycin 50(Firvanq)- 250mg/5ml) 125 mg Q2D PO ; Start 06/23/18 at 09:00; Stop 07/21/18 at 08:59 Vancomycin HCl (First-Vancomycin 50(Firvanq)- 250mg/5ml) 125 mg Q6H PO Last administered on 06/02/18at 17:23; Start 05/27/18 at 12:00; Stop 06/10/18 at 08:59 Zolpidem Tartrate (Ambien) 10 mg QHSP PRN PO INSOMNIA Last administered on 06/01/18at 20:39; Start 05/26/18 at 16:30 MONTRELL PAN MD Jun 02, 2018 18:56
[2018-06-02 20:00] VITALS: BP 120/56
[2018-06-02] MEDS: zolPIDEM TARTRATE 10MG TAB PO PRN (21:22)
[2018-06-02] MEDS: traZODone 100 MG TAB PO SCH (21:23)
[2018-06-02] MEDS: **NOTE PATIENT COMMENT** MISC XX SCH (21:23)
[2018-06-02] MEDS: CALCIUM/VITAMIN D 500 MG TAB PO SCH (21:23)
[2018-06-03] MEDS: oxyCODONE 5MG TAB PO PRN ×3 (05:56→21:27)
[2018-06-03] MEDS: VANCOMYCIN ORAL SOL 250MG/5ML ORAL SYRINGE PO SCH ×3 (05:56→17:29)
[2018-06-03] MEDS: tiZANidine 4 MG TAB PO PRN (05:56)
[2018-06-03 06:00] VITALS: BP 129/59
[2018-06-03] MEDS: FLUTICASONE HFA 220 MCG 12 GM INHALER (FLOVENT) INH SCH ×2 (06:19→21:00)
[2018-06-03 06:42] LABS: BASO # 0.1 10^3/uL (0.0-0.2); BASO % 0.7 % (0.0-1.0); EOS # 0.3 10^3/uL (0.0-0.50); EOS % 2.7 % (0.0-3.0); HEMATOCRIT 30.7 % (36.0-47.0); HEMOGLOBIN 9.5 g/dl (12.0-15.5); LYMPH # 3.7 10^3/uL (1.5-4.5); LYMPH % 37.6 % (24.0-44.0); MEAN CORPUSCULAR HEMOGLOBIN 32.1 pg (27.0-33.0); MEAN CORPUSCULAR HGB CONC 30.9 g/dl (32.0-36.5); MEAN CORPUSCULAR VOLUME 103.7 fl (80.0-96.0); MONO # 0.6 10^3/uL (0.0-0.8); MONO % 6.2 % (0.0-5.0); NEUTROPHILS % 51.6 % (36.0-66.0); PLATELET COUNT, AUTOMATED 208 10^3/uL (150-450); RED BLOOD COUNT 2.96 10^6/uL (4.00-5.40); WHITE BLOOD COUNT 9.7 10^3/uL (4.0-10.0)
[2018-06-03 06:49] LABS: BLOOD UREA NITROGEN 13 MG/DL (7-18); CALCIUM LEVEL 8.5 MG/DL (8.8-10.2); CARBON DIOXIDE LEVEL 27 MEQ/L (21-32); CHLORIDE LEVEL 109 MEQ/L (98-107); CREATININE FOR GFR 0.89 MG/DL (0.55-1.30); GLOMERULAR FILTRATION RATE > 60.0 (>45); GLUCOSE, FASTING 94 MG/DL (70-100); POTASSIUM SERUM 4.3 MEQ/L (3.5-5.1); SODIUM LEVEL 142 MEQ/L (136-145)
[2018-06-03] MEDS: LIDOCAINE 5% (LIDODERM) PATCH TD SCH (08:42)
[2018-06-03] MEDS: METHOTREXATE 2.5 MG TAB (J8610 PER 2.5MG) PO SCH (08:43)
[2018-06-03] MEDS: LACTOBACILLUS ACIDOPHILUS CAP (BACID) PO SCH ×2 (08:44→21:27)
[2018-06-03] MEDS: lamoTRIgine 100MG TAB PO SCH (08:45)
[2018-06-03] MEDS: CYANOCOBALAMIN 500 MCG TAB PO SCH (08:45)
[2018-06-03] MEDS: CALCIUM/VITAMIN D 500 MG TAB PO SCH ×2 (08:45→21:26)
[2018-06-03] MEDS: ALLOPURINOL 300 MG TAB PO SCH (08:45)
[2018-06-03] MEDS: clonazePAM 1 MG TAB PO SCH ×3 (08:45→21:26)
[2018-06-03] MEDS: FERROUS GLUCONATE 324 MG TAB PO SCH ×2 (08:46→21:26)
[2018-06-03] MEDS: lamoTRIgine 25 MG TAB PO SCH (08:46)
[2018-06-03] MEDS: predniSONE 5 MG TAB PO SCH (08:46)
[2018-06-03] MEDS: FUROSEMIDE 20 MG TAB PO SCH (08:46)
[2018-06-03] MEDS: FOLIC ACID 1 MG TAB PO SCH (08:46)
[2018-06-03] MEDS: ACETAMINOPHEN 500 MG TAB PO SCH ×3 (08:47→21:27)
[2018-06-03] MEDS: NYSTATIN 100,000 UNITS/GM TOPICAL PWD 15 GM TOP SCH ×2 (09:00→21:00)
[2018-06-03] MEDS: oxyCODONE 20 MG CR TAB PO SCH (09:00)
[2018-06-03] MEDS ORDERED: FOLIC ACID 1 MG TAB PO SCH (09:00)
[2018-06-03 09:05] VITALS: BP 87/57
[2018-06-03 11:00] VITALS: BP 112/64
[2018-06-03 15:45] VITALS: BP 140/76
[2018-06-03] MEDS: RIVAROXABAN 10 MG TAB (XARELTO) PO SCH (17:29)
[2018-06-03] MEDS ORDERED: PERCOCET 5MG/325MG TAB PO ONE (17:30)
[2018-06-03] MEDS ORDERED: oxyCODONE 5MG TAB PO ONE (17:30)
--- NOTE | 2018-06-03 19:36 | IPNPDOC ---
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 REVIEW OF SYSTEMS: The following is a completed review of systems and has been reviewed. Review of systems otherwise unremarkable. PAIN: Patient self reports bilateral hip pain and low back pain EYES: no recent vision loss EARS, NOSE, & THROAT: no dysphagia, rhinorrhea, or tinnitus CARDIOVASCULAR: denies chest pain, palpitations PULMONARY: Negative. Denies shortness of breath GASTROINTESTINAL: loose stools-improving GENITOURINARY: denies dysuria MUSCULOSKELETAL: bilateral hip fracture and lumbar compression fracture NEUROLOGICAL: no tremor, no paresthesias HEMATOLOGICAL:bilateral UE ecchymosis SKIN: bilateral hip incisions PSYCHIATRIC: Unremarkable All other review of systems found to be negative. PHYSICAL EXAMINATION: VITAL SIGNS: Please see below. GENERAL: Pleasant and cooperative. No acute distress HEENT: PERRL. Extraocular movements intact. Clear conjunctiva CARDIOVASCULAR: Regular rate and rhythm. No murmurs, rubs, or gallops LUNGS: Clear to auscultation bilaterally. No wheezes. No rhonchi ABDOMEN: Soft, nontender to palpation throughout all quadrants, normoactive bowel sounds NEUROLOGICAL: Alert and oriented times three. Cranial nerves II through XII grossly intact. Sensation grossly intact including 1st web space of bilateral feet Babinski negative bilat EXTREMITIES: 5-\5 strength bilateral upper extremities. 5\5 strength bilateral ankle DF, EHL, plantar flexion, exam limited due to hip pain bilateral LE Edema SKIN: bilat UE ecchymosis, bilat hip incisions c/d/i no induration ASSESSMENT:63-year-old F with past medical history of COPD, RA, obesity who presents status post bilateral hip fracture. PLAN: 1. Rehab: PT/OT, assess for DME, ambulating further with RW and negotiate stairs at Mod-I leve-goal to train daughter in donning of TLSO and train patient with use of adaptive equipment for toileting 2. Ortho: bilat hip fractures s/p left hip audrey-arthroplasty and right hip pinning on 05-21-18, WBAT and hip precautions, ortho consulted -L1 compression fracture with retropulsion in the setting of canal stenosis- TLSO when out of bed, monitor for cord compression signs-stable 3. Neuro: stable 4. Cardio: grade 1 diastolic CHF, will monitor- medicine consulted, recs appreciated -ordered lasix x 3 days for LE edema 5. Resp: COPD: continue breathing treatments, and incentive spirometry 6. Psych: pmh Bipolar, continue Lamictal 7. RHeum: pmh RA, continue weekly methotrexate and daily prednisone 8. Pain: Increase home regimen OxyContin to 25mg BI D at home with 10mg oxycodone q6h for breakthrough pain- will trial, continue Tylenol- discontuing Tizanidine for low BPs-will need outpatient pain management f/u 9. DVT ppx: Xarelto 10. GI ppx:will discontinue protonix and famotidine as chronic home use of PPIs and H2 blockers can increase susceptibility to C. diff 11. ID: loose stools on admission with recent hx of C. diff, stool on admission positive for C. diff, recently treated with Vancomycin January 2018, will try po Vancomycin again, but this time a prolonged course, Bacid and contact precautions- loose stools resolving 11. : monitor PVRs, admission UA/Ucx negative 12. Hypernatremia, patient encouraged to drink more fluids-improving, continue to monitor electrolytes-resolved 13. Extremities: continue acewraps and lasix for bilat LE edema-improving 10. Dispo: 06/09/18 to home, progressing towards goals, will train daughter to secure TLSO brace before leaving for work and teach patient to use adaptive equipment for toileting to encourage necessary use of TlSO brace- patient in agreement to use brace at home with assistance until cleared by ortho Allergies Coded Allergies: Contrast Media (Verified Allergy, Severe, 1VP DYE - ANAPHYLAXIS, TONGUE SWELLS, 04/26/18) Shellfish Allergy (Verified Allergy, Severe, ANAPHYLAXIS, TONGUE SWELLS, 04/26/18) Pregabalin (Verified Allergy, Intermediate, rash/swelling, 05/20/18) Vital Signs Vital Signs Date Time Temp Pulse Resp B/P (MAP) Pulse Ox O2 Delivery O2 Flow Rate FiO2 06/03/18 18:25 18 06/03/18 17:32 130/78 06/03/18 15:45 97.7 96 95 Room Air Laboratory Data CBC/BMP Laboratory Tests 06/03/18 05:50 Red Blood Count 2.96 L, Mean Corpuscular Volume 103.7 H, Mean Corpuscular Hemoglobin 32.1, Mean Corpuscular Hemoglobin Concent 30.9 L, Red Cell Distribution Width 17.1 H, Neutrophils (%) (Auto) 51.6, Lymphocytes (%) (Auto) 37.6, Monocytes (%) (Auto) 6.2 H, Eosinophils (%) (Auto) 2.7, Basophils (%) (Auto) 0.7, Neutrophils # (Auto) 5.0, Lymphocytes # (Auto) 3.7, Monocytes # (Auto) 0.6, Eosinophils # (Auto) 0.3, Basophils # (Auto) 0.1, Calcium Level 8.5 L Labs 24H Laboratory Tests 2 06/03/18 05:50: Immature Granulocyte % (Auto) 1.2, White Blood Count 9.7, Red Blood Count 2.96L, Hemoglobin 9.5L, Hematocrit 30.7L, Mean Corpuscular Volume 103.7H, Mean Corpuscular Hemoglobin 32.1, Mean Corpuscular Hemoglobin Concent 30.9L, Red Cell Distribution Width 17.1H, Platelet Count 208, Neutrophils (%) (Auto) 51.6, Lymphocytes (%) (Auto) 37.6, Monocytes (%) (Auto) 6.2H, Eosinophils (%) (Auto) 2.7, Basophils (%) (Auto) 0.7, Neutrophils # (Auto) 5.0, Lymphocytes # (Auto) 3.7, Monocytes # (Auto) 0.6, Eosinophils # (Auto) 0.3, Basophils # (Auto) 0.1, Nucleated Red Blood Cells % (auto) 0.0, Anion Gap 6L, Glomerular Filtration Rate > 60.0, Blood Urea Nitrogen 13, Creatinine 0.89, Sodium Level 142, Potassium Level 4.3, Chloride Level 109H, Carbon Dioxide Level 27, Calcium Level 8.5L Microbiology Microbiology 05/27/18 Clostridium difficile (PCR) - Final, Complete 05/29/18 Urine Culture - Final, Complete Current Medications Current Medications Current Medications Acetaminophen (Tylenol Tab) 1,000 mg TID PO Last administered on 06/03/18at 15:23; Start 05/26/18 at 21:00 Acetaminophen/ Hydrocodone Bitart ([place], Anexsia 5/325) 1 tab Q4HP PRN PO MILD/MODERATE PAIN (PS 1-7) Last administered on 05/27/18at 10:24; Start 05/26/18 at 16:30; Stop 05/27/18 at 12:42; Status DC Albuterol Sulfate (Proventil, Ventolin Hfa) 2 puff Q6HP PRN INH SHORTNESS OF BREATH; Start 05/26/18 at 16:30 Allopurinol (Zyloprim) 300 mg DAILY PO Last administered on 06/03/18at 08:45; Start 05/27/18 at 09:00 Bisacodyl (Dulcolax Suppository) 10 mg DAILYPRN PRN [place] CONSTIPATION; Start 05/26/18 at 16:15 Calcium/Vitamin D (Oscal D) 1,000 mg BID PO Last administered on 06/03/18at 08:45; Start 06/02/18 at 21:00 Clonazepam (KlonoPIN) 1 mg TID PO Last administered on 06/03/18at 15:22; Start 05/26/18 at 21:00 Cyanocobalamin (Vitamin B12) 1,000 mcg DAILY PO Last administered on 06/03/18at 08:45; Start 06/03/18 at 09:00 Docusate Sodium (Colace) 100 mg BID PO ; Start 05/26/18 at 21:00; Stop 05/27/18 at 14:44; Status DC Famotidine (Pepcid) 20 mg BIDP PRN PO ABDOMINAL PAIN; Start 05/26/18 at 16:30; Stop 05/28/18 at 20:34; Status DC Ferrous Gluconate (Fergon) 324 mg BID PO Last administered on 06/03/18at 08:46; Start 05/26/18 at 21:00 Fluticasone Propionate (Flovent Hfa 220mcg) 2 puff BID INH ; Start 05/26/18 at 21:00 Folic Acid (Folic Acid) 1 mg DAILY PO Last administered on 06/03/18at 08:46; Start 05/27/18 at 09:00 Folic Acid (Folic Acid) 1 mg DAILY PO ; Start 06/03/18 at 09:00; Stop 06/03/18 at 09:00; Status DC Furosemide (Lasix) 20 mg DAILY PO Last administered on 06/03/18 08:46; Start 06/03/18 at 09:00 Lactobacillus Acidophilus (Bacid) 2 ea BID PO Last administered on 06/03/18 08:44; Start 05/27/18 at 09:00 Lamotrigine (LaMICtal) 25 mg DAILY PO Last administered on 06/03/18 08:46; Start 05/27/18 at 09:00 Lamotrigine (LaMICtal) 200 mg DAILY PO Last administered on 06/03/18 08:45; Start 05/27/18 at 09:00 Lidocaine (Lidoderm Patch) 2 patch DAILY TD Last administered on 06/03/18 08:42; Start 05/27/18 at 09:00 Magnesium Hydroxide (Milk Of Magnesia) 30 ml DAILYPRN PRN PO CONSTIPATION; Start 05/26/18 at 16:15 Magnesium Oxide (Mag-Ox) 400 mg BID PO Last administered on 06/01/18 20:39; Start 05/30/18 at 09:00; Stop 06/02/18 at 08:59; Status DC Methotrexate (Folex) 20 mg We@09 PO Last administered on 06/03/18 08:43; Start 05/27/18 at 09:00 Morphine Sulfate (Ms Contin) 15 mg BID PO Last administered on 06/01/18 09:13; Start 05/29/18 at 21:00; Stop 06/01/18 at 12:32; Status DC Non-Formulary Medication ( See Comment Field Below ) REMOVE LIDODERM PATCH DAILY@21 XX Last administered on 06/02/18at 21:23; Start 05/26/18 at 21:00 Nystatin (Mycostatin Powder, Nystop) apply to groin abdomi... BID TOP Last administered on 06/02/18at 21:26; Start 05/26/18 at 21:00 Ondansetron HCl (Zofran) 4 mg Q6HP PRN PO NAUSEA; Start 05/26/18 at 16:15 Oxycodone HCl (OxyCONTIN) 10 mg BID PO ; Start 06/03/18 at 21:00 Oxycodone HCl (OxyCONTIN) 15 mg BID PO ; Start 06/03/18 at 21:00 Oxycodone HCl (OxyCONTIN) 20 mg BID PO Last administered on 06/02/18at 21:22; Start 06/01/18 at 13:00; Stop 06/03/18 at 17:03; Status DC Oxycodone HCl (OxyCONTIN) 25 mg BID PO ; Start 06/03/18 at 21:00; Stop 06/03/18 at 21:00; Status DC Oxycodone HCl (Roxicodone, Oxyir) 5 mg Q4HP PRN PO PAIN 4-7; Start 05/27/18 at 12:45; Stop 05/29/18 at 17:31; Status DC Oxycodone HCl (Roxicodone, Oxyir) 5 mg Q4HP PRN PO SEVERE PAIN (PS 8-10) Last administered on 06/02/18at 12:50; Start 06/01/18 at 12:30; Stop 06/02/18 at 18:58; Status DC Oxycodone HCl (Roxicodone, Oxyir) 10 mg Q4HP PRN PO SEVERE PAIN (PS 8-10) Last administered on 06/01/18at 10:54; Start 05/27/18 at 12:45; Stop 06/01/18 at 12:32; Status DC Oxycodone HCl (Roxicodone, Oxyir) 10 mg Q6HP PRN PO SEVERE PAIN (PS 8-10) Last administered on 06/03/18at 11:55; Start 06/02/18 at 19:00 Pantoprazole Sodium (Protonix) 40 mg DAILY PO Last administered on 05/27/18at 08:35; Start 05/27/18 at 09:00; Stop 05/27/18 at 13:52; Status DC Prednisone (Deltasone) 5 mg DAILY PO Last administered on 06/03/18at 08:46; Start 05/27/18 at 09:00 Rivaroxaban (Xarelto) 10 mg DAILY@1800 PO Last administered on 06/03/18at 17:29; Start 05/26/18 at 18:00 Senna (Senokot) 1 tab QHS PO ; Start 05/26/18 at 21:00; Stop 05/27/18 at 14:44; Status DC Tizanidine HCl (Zanaflex) 4 mg Q6HP PRN PO SPASMS Last administered on 06/03/18at 05:56; Start 05/26/18 at 16:30; Stop 06/03/18 at 11:01; Status DC Trazodone HCl (Desyrel) 200 mg QPM PO Last administered on 06/02/18at 21:23; Start 05/26/18 at 21:00 Vancomycin HCl (First-Vancomycin 50(Firvanq)- 250mg/5ml) 125 mg BID PO ; Start 06/10/18 at 09:00; Stop 06/16/18 at 08:59 Vancomycin HCl (First-Vancomycin 50(Firvanq)- 250mg/5ml) 125 mg DAILY PO ; Sta rt 06/16/18 at 09:00; Stop 06/22/18 at 08:59 Vancomycin HCl (First-Vancomycin 50(Firvanq)- 250mg/5ml) 125 mg Q2D PO ; Start 06/23/18 at 09:00; Stop 07/21/18 at 08:59 Vancomycin HCl (First-Vancomycin 50(Firvanq)- 250mg/5ml) 125 mg Q6H PO Last administered on 06/03/18at 17:29; Start 05/27/18 at 12:00; Stop 06/10/18 at 08:59 Zolpidem Tartrate (Ambien) 10 mg QHSP PRN PO INSOMNIA Last administered on at 21:22; Start 05/26/18 at 16:30 MONTRELL PAN MD Jun 03, 2018 19:36
[2018-06-03 21:00] VITALS: BP 138/78
[2018-06-03] MEDS: **NOTE PATIENT COMMENT** MISC XX SCH (21:00)
[2018-06-03] MEDS ORDERED: oxyCODONE 20 MG CR TAB PO SCH (21:00)
[2018-06-03] MEDS: traZODone 100 MG TAB PO SCH (21:26)
[2018-06-03] MEDS: oxyCODONE 10 MG CR TAB PO SCH (22:34)
[2018-06-03] MEDS: oxyCODONE 15 MG CR TAB PO SCH (22:35)
[2018-06-03] MEDS: zolPIDEM TARTRATE 10MG TAB PO PRN (22:35)
[2018-06-04] MEDS: VANCOMYCIN ORAL SOL 250MG/5ML ORAL SYRINGE PO SCH ×5 (00:20→23:32)
[2018-06-04] MEDS: oxyCODONE 5MG TAB PO PRN ×4 (03:31→23:33)
[2018-06-04 06:00] VITALS: BP 138/80
[2018-06-04 06:47] LABS: HEMATOCRIT 31.3 % (36.0-47.0); HEMOGLOBIN 9.9 g/dl (12.0-15.5); MEAN CORPUSCULAR HEMOGLOBIN 31.7 pg (27.0-33.0); MEAN CORPUSCULAR HGB CONC 31.6 g/dl (32.0-36.5); MEAN CORPUSCULAR VOLUME 100.3 fl (80.0-96.0); PLATELET COUNT, AUTOMATED 218 10^3/uL (150-450); RED BLOOD COUNT 3.12 10^6/uL (4.00-5.40); WHITE BLOOD COUNT 9.5 10^3/uL (4.0-10.0)
[2018-06-04 07:13] LABS: BLOOD UREA NITROGEN 11 MG/DL (7-18); CALCIUM LEVEL 8.7 MG/DL (8.8-10.2); CARBON DIOXIDE LEVEL 28 MEQ/L (21-32); CHLORIDE LEVEL 107 MEQ/L (98-107); CREATININE FOR GFR 0.87 MG/DL (0.55-1.30); GLOMERULAR FILTRATION RATE > 60.0 (>45); GLUCOSE, FASTING 94 MG/DL (70-100); POTASSIUM SERUM 3.9 MEQ/L (3.5-5.1); SODIUM LEVEL 143 MEQ/L (136-145)
[2018-06-04] MEDS: FLUTICASONE HFA 220 MCG 12 GM INHALER (FLOVENT) INH SCH ×2 (07:59→20:59)
[2018-06-04] MEDS: LACTOBACILLUS ACIDOPHILUS CAP (BACID) PO SCH ×2 (09:28→20:17)
[2018-06-04] MEDS: CALCIUM/VITAMIN D 500 MG TAB PO SCH ×2 (09:28→20:17)
[2018-06-04] MEDS: clonazePAM 1 MG TAB PO SCH ×3 (09:28→20:16)
[2018-06-04] MEDS: lamoTRIgine 100MG TAB PO SCH (09:29)
[2018-06-04] MEDS: ACETAMINOPHEN 500 MG TAB PO SCH ×3 (09:29→20:18)
[2018-06-04] MEDS: oxyCODONE 10 MG CR TAB PO SCH ×2 (09:29→20:17)
[2018-06-04] MEDS: lamoTRIgine 25 MG TAB PO SCH (09:29)
[2018-06-04] MEDS: ALLOPURINOL 300 MG TAB PO SCH (09:29)
[2018-06-04] MEDS: CYANOCOBALAMIN 500 MCG TAB PO SCH (09:29)
[2018-06-04] MEDS: FOLIC ACID 1 MG TAB PO SCH (09:29)
[2018-06-04] MEDS: oxyCODONE 15 MG CR TAB PO SCH ×2 (09:29→20:17)
[2018-06-04] MEDS: predniSONE 5 MG TAB PO SCH (09:29)
[2018-06-04] MEDS: FUROSEMIDE 20 MG TAB PO SCH (09:30)
[2018-06-04] MEDS: LIDOCAINE 5% (LIDODERM) PATCH TD SCH (09:30)
[2018-06-04] MEDS: NYSTATIN 100,000 UNITS/GM TOPICAL PWD 15 GM TOP SCH ×2 (09:30→20:18)
[2018-06-04] MEDS: FERROUS GLUCONATE 324 MG TAB PO SCH ×2 (10:34→20:16)
--- NOTE | 2018-06-04 13:42 | IPNPDOC ---
Date Seen The patient was seen on 06/04/18. Progress Note HPI: The pt was admitted to [facility] 05/20/18-05/26/18. Patient was in her usual state of health until on the day of admission patient tried to get up from her bed, missed her step, and fell, abutting her left hip on the ground. Denies any loss of consciousness prior to the fall or after the fall. Patient does have a history of accidental overdose on blood pressure medication. Upon presentation, patient had marginally low systolic blood pressure, she was given fluids. Imaging showed left hip fracture. Orthopedics was consulted. As per Orthopedic surgery, S/P closed reduction and percutaneous pinning of the minimally displaced right femoral neck fracture, and left hip cemented hemiarthroplasty. Orthopedics has recommended back bracing for patient's L1 compression fracture. Pt transferred to the care of ARU, Dr Lynch, 05/26/18. Pt was found to be C diff positive 05/27/18 with loose stools. Pt denies diarrhea/abdominal pain. The pt was noted to have some LE edema, Lasix po x 3 doses ordered. Denies any fevers, chills, weakness, fatigue, Headache, Chest Pain, Shortness of breath, cough, palpitations, abdominal pain, N/V or changes in bladder habits. PMHx: COPD, not O2 dependent severe rheumatoid arthritis on chronic prednisone and weekly methotrexate. C. difficile colitis, hypertension, bipolar disorder, chronic back pain, morbid obesity, BMI 36.5 degenerative disc disease, anxiety, GERD, insomnia, gout. PSHX: section. Tonsillectomy. Cholecystectomy. PE: GEN: 63yoF, appears stated age. No acute distress. Alert and oriented x 3. Affect is flat. HEENT: Normocephalic, atraumatic. Sclera are nonicteric. Conjunctiva without injection. No facial asymmetry. Moist mucous membranes. CHEST: Regular rate and rhythm, +S1, +S2 LUNGS: Clear to auscultation bilaterally. No wheezes, rales, or rhonchi. Breathing appears symmetric and easy. ABD: Round, soft, non-tender, non-distended. +Bowel sounds throughout. No rebound or guarding. EXT: tr lower extremity edema appreciated. TEDS in place. SKIN: [place], dry, warm. No rashes. NEURO: No focal deficits appreciated. A&P: The pt was admitted to [facility] 05/20/18-05/26/18. Patient was in her usual state of health until on the day of admission patient tried to get up from her bed, missed her step, and fell, abutting her left hip on the ground. Denies any loss of consciousness prior to the fall or after the fall. Patient does have a history of accidental overdose on blood pressure medication. Upon presentation, patient had marginally low systolic blood pressure, she was given fluids. Imaging showed left hip fracture. Orthopedics was consulted. As per Orthopedic surgery, S/P closed reduction and percutaneous pinning of the minimally displaced right femoral neck fracture, and left hip cemented hemiarthroplasty. Orthopedics has recommended back bracing for patient's L1 compression fracture. Pt transferred to the care of ARU, Dr Lynch, 05/26/18. 1. S/P Rt femoral neck fracture/S/P Closed reduction and percutaneous pinning of a minimally displaced right femoral neck fracture. Management per orthopedics. DVT prophylaxis. Xarelto as per Orthopedics. Pain control as per ARU. Bowel care as per ARU. PT/OT/ST as per ARU, Dr Lynch. Disposition as per ARU. 2. L1 compression fracture with retropulsion in the setting of canal stenosis. Appreciate orthopedics input. TLSO when out of bed, monitor for cord compression signs. Notes that she has lower extremity radiculopathy down to the knee, however denies any acute bladder or bowel changes. Mgmt as per orthopedics/ ARU. 3. Episode of hypotension on presentation. Status post normal saline, and resolved. S/P hydrocortisone taper. Continues with prednisone 5 mg daily. BP 110-138 since Tizanidine held. 4. History of rheumatoid arthritis on methotrexate at home as well as chronic prednisone. Chronic pain. Prednisone 5 mg po daily. Methotrexate weekly on Fri. Zanaflex d/cd related to fatigue. Will need close outpatient follow-up with her can dragger. 5. Hypokalemia. S/P supplement. Resolved. Monitor. 6. Ovarian cyst. Has been relayed to the pt she will likely need further workup following d/c, as this may represent malignancy. Patient is agreeable. 7. Diarrhea/C Diff. positive. History of C. difficile 01/27. BM x 5 06/03, x 1 thus far today. Afebrile. WBC 9.5 Pt is eating and drinking. [id number] po Q6 D6. Plan is for prolonged course of Vanco. Bacid 2 tab po BID. PPI D/Cd. HOLD Senna/Colace Monitor. 8. History of morbid obesity BMI 36.5. Complicates care. 9. Bipolar disorder/Anxiety/Insomnia. Pt remains on Lamictal/Klonopin/Trazodone/Ambien. 10. COPD. Flovent Albuterol as needed. 11. Acute blood loss anemia. Hgb 9.9. Continue Fe supplement. Monitor. 12. Gout. Allopurinol. 13. GERD. Pepcid. 14. LE edema. U/S BLE 05/29 neg for DVT. TTE 05/30 EF 75-80%, Grade I DD. Lasix 20 mg daily ordered x 3 days 06/03-06/05 then hold (Pt states she has taken diuretic in the past but not daily.). Monitor. VS, I&O, 24H, Fishbone Vital Signs/I&O Vital Signs Date Time Temp Pulse Resp B/P (MAP) Pulse Ox O2 Delivery O2 Flow Rate FiO2 06/04/18 11:04 18 06/04/18 06:00 97.8 92 138/80 (99) 93 Room Air I&O- Last 24 Hours up to 6 AM 06/04/18 06:00 Intake Total 1380 ml Output Total 0 ml Balance 1380 ml Laboratory Data 24H LABS Laboratory Tests 2 06/04/18 06:11: Nucleated Red Blood Cells % (auto) 0.0, Anion Gap 8, Glomerular Filtration Rate > 60.0, Blood Urea Nitrogen 11, Creatinine 0.87, Sodium Level 143, Potassium Level 3.9, Chloride Level 107, Carbon Dioxide Level 28, Calcium Level 8.7L CBC/BMP Laboratory Tests 06/04/18 06:11 Red Blood Count 3.12 L, Mean Corpuscular Volume 100.3 H, Mean Corpuscular Hemoglobin 31.7, Mean Corpuscular Hemoglobin Concent 31.6 L, Red Cell Distribution Width 17.0 H, Calcium Level 8.7 L Microbiology Microbiology 05/27/18 Clostridium difficile (PCR) - Final, Complete 05/29/18 Urine Culture - Final, Complete Yen Davila Jun 04, 2018 13:42
[2018-06-04 14:00] VITALS: BP 140/74
[2018-06-04] MEDS: RIVAROXABAN 10 MG TAB (XARELTO) PO SCH (17:02)
[2018-06-04 20:00] VITALS: BP 136/80
[2018-06-04] MEDS: traZODone 100 MG TAB PO SCH (20:17)
[2018-06-04] MEDS: **NOTE PATIENT COMMENT** MISC XX SCH (20:19)
--- NOTE | 2018-06-04 21:37 | IPNPDOC ---
PM&R Progress Note DATE OF SERVICE: Jun 04, 2018 Operations Superintendent Progress Note Subjective: Patient reports she is still in pain and agreed to spend more time out of bed in the chair. REVIEW OF SYSTEMS: The following is a completed review of systems and has been reviewed. Review of systems otherwise unremarkable. PAIN: Patient self reports bilateral hip pain and low back pain EYES: no recent vision loss EARS, NOSE, & THROAT: no dysphagia, rhinorrhea, or tinnitus CARDIOVASCULAR: denies chest pain, palpitations PULMONARY: Negative. Denies shortness of breath GASTROINTESTINAL: loose stools-improving GENITOURINARY: denies dysuria MUSCULOSKELETAL: bilateral hip fracture and lumbar compression fracture NEUROLOGICAL: no tremor, no paresthesias HEMATOLOGICAL:bilateral UE ecchymosis SKIN: bilateral hip incisions PSYCHIATRIC: Unremarkable All other review of systems found to be negative. PHYSICAL EXAMINATION: VITAL SIGNS: Please see below. GENERAL: Pleasant and cooperative. No acute distress HEENT: PERRL. Extraocular movements intact. Clear conjunctiva CARDIOVASCULAR: Regular rate and rhythm. No murmurs, rubs, or gallops LUNGS: Clear to auscultation bilaterally. No wheezes. No rhonchi ABDOMEN: Soft, nontender to palpation throughout all quadrants, normoactive bowel sounds NEUROLOGICAL: Alert and oriented times three. Cranial nerves II through XII grossly intact. Sensation grossly intact including 1st web space of bilateral feet Babinski negative bilat EXTREMITIES: 5-\5 strength bilateral upper extremities. 5\5 strength bilateral ankle DF, EHL, plantar flexion, exam limited due to hip pain bilateral LE Edema SKIN: bilat UE ecchymosis, bilat hip incisions c/d/i no induration ASSESSMENT:63-year-old F with past medical history of COPD, RA, obesity who presents status post bilateral hip fracture. PLAN: 1. Rehab: PT/OT, assess for DME, ambulating further with RW and negotiate stairs at Mod-I level- daughter trained in donning of TLSO and patient trained with use of adaptive equipment for toileting 2. Ortho: bilat hip fractures s/p left hip audrey-arthroplasty and right hip pinning on 05-21-18, WBAT and hip precautions, ortho consulted -L1 compression fracture with retropulsion in the setting of canal stenosis- TLSO when out of bed, monitor for cord compression signs-stable 3. Neuro: stable 4. Cardio: grade 1 diastolic CHF, will monitor- medicine consulted, recs appreciated -ordered lasix x 3 days for LE edema-improving 5. Resp: COPD: continue breathing treatments, and incentive spirometry 6. Psych: pmh Bipolar, continue Lamictal 7. RHeum: pmh RA, continue weekly methotrexate and daily prednisone 8. Pain: Increase home regimen OxyContin to 30 mg BI D at home with 10mg oxycodone q6h for breakthrough pain- will trial, continue Tylenol- discontinued Tizanidine for low BPs-will need outpatient pain management f/u 9. DVT ppx: Xarelto 10. GI ppx:will discontinue protonix and famotidine as chronic home use of PPIs and H2 blockers can increase susceptibility to C. diff 11. ID: loose stools on admission with recent hx of C. diff, stool on admission positive for C. diff, recently treated with Vancomycin January 2018, will try po Vancomycin again, but this time a prolonged course, Bacid and contact precau tions- loose stools resolving 11. : monitor PVRs, admission UA/Ucx negative, will repeat due to low grade temp 12. Hypernatremia, patient encouraged to drink more fluids-improving, continue to monitor electrolytes-resolved 13. Extremities: continue acewraps and lasix for bilat LE edema-improving 10. Dispo: 06/09/18 to home, progressing towards goals, will train daughter to secure TLSO brace before leaving for work and teach patient to use adaptive equipment for toileting to encourage necessary use of TlSO brace- patient in agreement to use brace at home with assistance until cleared by ortho Allergies Coded Allergies: Contrast Media (Verified Allergy, Severe, 1VP DYE - ANAPHYLAXIS, TONGUE SWELLS, 04/26/18) Shellfish Allergy (Verified Allergy, Severe, ANAPHYLAXIS, TONGUE SWELLS, 04/26/18) Pregabalin (Verified Allergy, Intermediate, rash/swelling, 05/20/18) Vital Signs Vital Signs Date Time Temp Pulse Resp B/P (MAP) Pulse Ox O2 Delivery O2 Flow Rate FiO2 06/04/18 20:17 20 06/04/18 20:00 99.0 96 136/80 (98) 94 Room Air Laboratory Data CBC/BMP Laboratory Tests 06/04/18 06:11 Red Blood Count 3.12 L, Mean Corpuscular Volume 100.3 H, Mean Corpuscular Hemoglobin 31.7, Mean Corpuscular Hemoglobin Concent 31.6 L, Red Cell Distribution Width 17.0 H, Calcium Level 8.7 L Labs 24H Laboratory Tests 2 06/04/18 06:11: Nucleated Red Blood Cells % (auto) 0.0, Anion Gap 8, Glomerular Filtration Rate > 60.0, Blood Urea Nitrogen 11, Creatinine 0.87, Sodium Level 143, Potassium Level 3.9, Chloride Level 107, Carbon Dioxide Level 28, Calcium Level 8.7L Microbiology Microbiology 05/27/18 Clostridium difficile (PCR) - Final, Complete 05/29/18 Urine Culture - Final, Complete Current Medications Current Medications Current Medications Acetaminophen (Tylenol Tab) 1,000 mg TID PO Last administered on 06/04/18 20:18; Start 05/26/18 at 21:00 Acetaminophen/ Hydrocodone Bitart ([place], [place] 5/325) 1 tab Q4HP PRN PO MILD/MODERATE PAIN (PS 1-7) Last administered on 05/27/18at 10:24; Start 05/26/18 at 16:30; Stop 05/27/18 at 12:42; Status DC Albuterol Sulfate (Proventil, Ventolin Hfa) 2 puff Q6HP PRN INH SHORTNESS OF BREATH; Start 05/26/18 at 16:30 Allopurinol (Zyloprim) 300 mg DAILY PO Last administered on 06/04/18 09:29; Start 05/27/18 at 09:00 Bisacodyl (Dulcolax Suppository) 10 mg DAILYPRN PRN IN CONSTIPATION; Start 05/26/18 at 16:15 Calcium/Vitamin D (Oscal D) 1,000 mg BID PO Last administered on 06/04/18 20:17; Start 06/02/18 at 21:00 Clonazepam (KlonoPIN) 1 mg TID PO Last administered on 06/04/18 20:16; Start 05/26/18 at 21:00 Cyanocobalamin (Vitamin B12) 1,000 mcg DAILY PO Last administered on 06/04/18 09:29; Start 06/03/18 at 09:00 Docusate Sodium (Colace) 100 mg BID PO ; Start 05/26/18 at 21:00; Stop 05/27/18 at 14:44; Status DC Famotidine (Pepcid) 20 mg BIDP PRN PO ABDOMINAL PAIN; Start 05/26/18 at 16:30; Stop 05/28/18 at 20:34; Status DC Ferrous Gluconate (Fergon) 324 mg BID PO Last administered on 06/04/18 20:16; Start 05/26/18 at 21:00 Fluticasone Propionate (Flovent Hfa 220mcg) 2 puff BID INH ; Start 05/26/18 at 21:00 Folic Acid (Folic Acid) 1 mg DAILY PO Last administered on 06/04/18 09:29; Start 05/27/18 at 09:00 Folic Acid (Folic Acid) 1 mg DAILY PO ; Start 06/03/18 at 09:00; Stop 06/03/18 at 09:00; Status DC Furosemide (Lasix) 20 mg DAILY PO Last administered on 06/04/18 09:30; Start 06/03/18 at 09:00 Lactobacillus Acidophilus (Bacid) 2 ea BID PO Last administered on 06/04/18 20:17; Start 05/27/18 at 09:00 Lamotrigine (LaMICtal) 25 mg DAILY PO Last administered on 06/04/18 09:29; Start 05/27/18 at 09:00 Lamotrigine (LaMICtal) 200 mg DAILY PO Last administered on 06/04/18 09:29; Start 05/27/18 at 09:00 Lidocaine (Lidoderm Patch) 2 patch DAILY TD Last administered on 06/04/18 09:30; Start 05/27/18 at 09:00 Magnesium Hydroxide (Milk Of Magnesia) 30 ml DAILYPRN PRN PO CONSTIPATION; Start 05/26/18 at 16:15 Magnesium Oxide (Mag-Ox) 400 mg BID PO Last administered on 06/01/18 20:39; Start 05/30/18 at 09:00; Stop 06/02/18 at 08:59; Status DC Methotrexate (Folex) 20 mg We@09 PO Last administered on 06/03/18 08:43; Start 05/27/18 at 09:00 Morphine Sulfate (Ms Contin) 15 mg BID PO Last administered on 06/01/18 09:13; Start 05/29/18 at 21:00; Stop 06/01/18 at 12:32; Status DC Non-Formulary Medication ( See Comment Field Below ) REMOVE LIDODERM PATCH DAILY@21 XX Last administered on 06/04/18at 20:19; Start 05/26/18 at 21:00 Nystatin (Mycostatin Powder, Nystop) apply to groin abdomi... BID TOP Last ad ministered on 06/04/18at 20:18; Start 05/26/18 at 21:00 Omeprazole (PriLOSEC) 20 mg DAILY PO ; Start 06/05/18 at 09:00 Ondansetron HCl (Zofran) 4 mg Q6HP PRN PO NAUSEA; Start 05/26/18 at 16:15 Oxycodone HCl (OxyCONTIN) BID PO ; Start 06/05/18 at 09:00; Status UNV Oxycodone HCl (OxyCONTIN) 10 mg BID PO Last administered on 06/04/18at 20:17; Start 06/03/18 at 21:00; Stop 06/04/18 at 21:33; Status DC Oxycodone HCl (OxyCONTIN) 15 mg BID PO Last administered on 06/04/18at 20:17; Start 06/03/18 at 21:00; Stop 06/04/18 at 21:33; Status DC Oxycodone HCl (OxyCONTIN) 20 mg BID PO Last administered on 06/02/18at 21:22; Start 06/01/18 at 13:00; Stop 06/03/18 at 17:03; Status DC Oxycodone HCl (OxyCONTIN) 25 mg BID PO ; Start 06/03/18 at 21:00; Stop 06/03/18 at 21:00; Status DC Oxycodone HCl (OxyCONTIN) 30 mg BID PO ; Start 06/05/18 at 09:00; Status UNV Oxycodone HCl (Roxicodone, Oxyir) 5 mg Q4HP PRN PO PAIN 4-7; Start 05/27/18 at 12:45; Stop 05/29/18 at 17:31; Status DC Oxycodone HCl (Roxicodone, Oxyir) 5 mg Q4HP PRN PO SEVERE PAIN (PS 8-10) Last administered on 06/02/18at 12:50; Start 06/01/18 at 12:30; Stop 06/02/18 at 18:58; Status DC Oxycodone HCl (Roxicodone, Oxyir) 10 mg Q4HP PRN PO SEVERE PAIN (PS 8-10) Last administered on 06/01/18at 10:54; Start 05/27/18 at 12:45; Stop 06/01/18 at 12:32; Status DC Oxycodone HCl (Roxicodone, Oxyir) 10 mg Q6HP PRN PO SEVERE PAIN (PS 8-10) Last administered on 06/04/18at 17:09; Start 06/02/18 at 19:00 Pantoprazole Sodium (Protonix) 40 mg DAILY PO Last administered on 05/27/18at 08:35; Start 05/27/18 at 09:00; Stop 05/27/18 at 13:52; Status DC Prednisone (Deltasone) 5 mg DAILY PO Last administered on 06/04/18at 09:29; Start 05/27/18 at 09:00 Rivaroxaban (Xarelto) 10 mg DAILY@1800 PO Last administered on 06/04/18at 17:02; Start 05/26/18 at 18:00 Senna (Senokot) 1 tab QHS PO ; Start 05/26/18 at 21:00; Stop 05/27/18 at 14:44; Status DC Tizanidine HCl (Zanaflex) 4 mg Q6HP PRN PO SPASMS Last administered on 06/03/18at 05:56; Start 05/26/18 at 16:30; Stop 06/03/18 at 11:01; Status DC Trazodone HCl (Desyrel) 200 mg QPM PO Last administered on 06/04/18at 20:17; Start 05/26/18 at 21:00 Vancomycin HCl (First-Vancomycin 50(Firvanq)- 250mg/5ml) 125 mg BID PO ; Start 06/10/18 at 09:00; Stop 06/16/18 at 08:59 Vancomycin HCl (First-Vancomycin 50(Firvanq)- 250mg/5ml) 125 mg DAILY PO ; Start 06/16/18 at 09:00; Stop 06/22/18 at 08:59 Vancomycin HCl (First-Vancomycin 50(Firvanq)- 250mg/5ml) 125 mg Q2D PO ; Start 06/23/18 at 09:00; Stop 07/21/18 at 08:59 Vancomycin HCl (First-Vancomycin 50(Firvanq)- 250mg/5ml) 125 mg Q6H PO Last administered on 06/04/18at 17:03; Start 05/27/18 at 12:00; Stop 06/10/18 at 08:59 Zolpidem Tartrate (Ambien) 10 mg QHSP PRN PO INSOMNIA Last administered on 06/03/18at 22:35; Start 05/26/18 at 16:30 MONTRELL PAN MD Jun 04, 2018 21:37
[2018-06-04] MEDS: zolPIDEM TARTRATE 10MG TAB PO PRN (23:33)
[2018-06-04] MEDS: OMEPRAZOLE 20 MG CAP PO SCH (23:34)
[2018-06-05] MEDS: VANCOMYCIN ORAL SOL 250MG/5ML ORAL SYRINGE PO SCH ×3 (05:51→17:06)
[2018-06-05] MEDS: oxyCODONE 5MG TAB PO PRN ×4 (05:52→21:22)
[2018-06-05 05:55] VITALS: BP 128/72
[2018-06-05] MEDS: FLUTICASONE HFA 220 MCG 12 GM INHALER (FLOVENT) INH SCH ×2 (07:55→20:17)
[2018-06-05] MEDS ORDERED: oxyCODONE 15 MG CR TAB PO SCH (09:00)
[2018-06-05] MEDS: NYSTATIN 100,000 UNITS/GM TOPICAL PWD 15 GM TOP SCH ×2 (09:00→21:17)
[2018-06-05] MEDS: predniSONE 5 MG TAB PO SCH (09:26)
[2018-06-05] MEDS: FERROUS GLUCONATE 324 MG TAB PO SCH ×2 (09:26→21:15)
[2018-06-05] MEDS: CALCIUM/VITAMIN D 500 MG TAB PO SCH ×2 (09:27→21:15)
[2018-06-05] MEDS: lamoTRIgine 25 MG TAB PO SCH (09:27)
[2018-06-05] MEDS: ALLOPURINOL 300 MG TAB PO SCH (09:27)
[2018-06-05] MEDS: oxyCODONE 15 MG CR TAB PO SCH ×2 (09:27→21:16)
[2018-06-05] MEDS: CYANOCOBALAMIN 500 MCG TAB PO SCH (09:27)
[2018-06-05] MEDS: FOLIC ACID 1 MG TAB PO SCH (09:28)
[2018-06-05] MEDS: LACTOBACILLUS ACIDOPHILUS CAP (BACID) PO SCH ×2 (09:28→21:15)
[2018-06-05] MEDS: FUROSEMIDE 20 MG TAB PO SCH (09:28)
[2018-06-05] MEDS: clonazePAM 1 MG TAB PO SCH ×3 (09:28→21:15)
[2018-06-05] MEDS: OMEPRAZOLE 20 MG CAP PO SCH (09:28)
[2018-06-05] MEDS: lamoTRIgine 100MG TAB PO SCH (09:28)
[2018-06-05] MEDS: LIDOCAINE 5% (LIDODERM) PATCH TD SCH (09:28)
[2018-06-05] MEDS: ACETAMINOPHEN 500 MG TAB PO SCH ×3 (09:28→21:16)
--- NOTE | 2018-06-05 13:44 | IPNPDOC ---
Date Seen The patient was seen on 06/05/18. Progress Note HPI: The pt was admitted to [facility] 05/20/18-05/26/18. Patient was in her usual state of health until on the day of admission patient tried to get up from her bed, missed her step, and fell, abutting her left hip on the ground. Denies any loss of consciousness prior to the fall or after the fall. Patient does have a history of accidental overdose on blood pressure medication. Upon presentation, patient had marginally low systolic blood pressure, she was given fluids. Imaging showed left hip fracture. Orthopedics was consulted. As per Orthopedic surgery, S/P closed reduction and percutaneous pinning of the minimally displaced right femoral neck fracture, and left hip cemented hemiarthroplasty. Orthopedics has recommended back bracing for patient's L1 compression fracture. Pt transferred to the care of ARU, Dr Lynch, 05/26/18. Pt was found to be C diff positive 05/27/18 with loose stools. Pt with no BM yesterday or today. Denies abdominal pain. The pt was noted to have some LE edema, Lasix po x 3 doses ordered. Denies any fevers, chills, weakness, fatigue, Headache, Chest Pain, Shortness of breath, cough, palpitations, abdominal pain, N/V or changes in bladder habits. PMHx: COPD, not O2 dependent severe rheumatoid arthritis on chronic prednisone and weekly methotrexate. C. difficile colitis, hypertension, bipolar disorder, chronic back pain, morbid obesity, BMI 36.5 degenerative disc disease, anxiety, GERD, insomnia, gout. PSHX: section. Tonsillectomy. Cholecystectomy. PE: GEN: 63yoF, appears stated age. No acute distress. Alert and oriented x 3. Affect is flat. HEENT: Normocephalic, atraumatic. Sclera are nonicteric. Conjunctiva without injection. No facial asymmetry. Moist mucous membranes. CHEST: Regular rate and rhythm, +S1, +S2 LUNGS: Clear to auscultation bilaterally. No wheezes, rales, or rhonchi. Breathing appears symmetric and easy. ABD: Round, soft, non-tender, non-distended. +Bowel sounds throughout. No rebound or guarding. EXT: tr lower extremity edema appreciated. TEDS in place. SKIN: [place], dry, warm. No rashes. NEURO: No focal deficits appreciated. A&P: The pt was admitted to [facility] 05/20/18-05/26/18. Patient was in her usual state of health until on the day of admission patient tried to get up from her bed, missed her step, and fell, abutting her left hip on the ground. Denies any loss of consciousness prior to the fall or after the fall. Patient does have a history of accidental overdose on blood pressure medication. Upon presentation, patient had marginally low systolic blood pressure, she was given fluids. Imaging showed left hip fracture. Orthopedics was consulted. As per Orthopedic surgery, S/P closed reduction and percutaneous pinning of the minimally displaced right femoral neck fracture, and left hip cemented hemiarthroplasty. Orthopedics has recommended back bracing for patient's L1 compression fracture. Pt transferred to the care of ARUDr Lynch, 05/26/18. 1. S/P Rt femoral neck fracture/S/P Closed reduction and percutaneous pinning of a minimally displaced right femoral neck fracture. Management per orthopedics. DVT prophylaxis. Xarelto as per Orthopedics. Pain control as per ARU. Bowel care as per ARU. PT/OT/ST as per ARUDr Lynch. Disposition as per ARU. 2. L1 compression fracture with retropulsion in the setting of canal stenosis. Appreciate orthopedics input. TLSO when out of bed, monitor for cord compression signs. Notes that she has lower extremity radiculopathy down to the knee, however denies any acute bladder or bowel changes. Mgmt as per orthopedics/ ARU. 3. Episode of hypotension on presentation. Status post normal saline, and resolved. S/P hydrocortisone taper. Continues with prednisone 5 mg daily. BP 110-140 since Tizanidine held. 4. History of rheumatoid arthritis on methotrexate at home as well as chronic prednisone. Chronic pain. Prednisone 5 mg po daily. Methotrexate weekly on Fri. Zanaflex d/cd related to fatigue/decreased BP. 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 5. Hypokalemia. S/P supplement. Resolved. Monitor. 6. Ovarian cyst. Has been relayed to the pt she will likely need further workup following d/c, as this may represent malignancy. Patient is agreeable. 7. Diarrhea/C Diff. positive. History of C. difficile 9/18. No BM documented 06/04, 06/05. Afebrile. WBC 9.5 Pt is eating and drinking. Continue with po Vanco, Plan is for prolonged course. Bacid 2 tab po BID. PPI D/Cd. HOLD Senna/Colace Monitor. 8. History of morbid obesity BMI 36.5. Complicates care. 9. Bipolar disorder/Anxiety/Insomnia. Pt remains on Lamictal/Klonopin/Trazodone/Ambien. 10. COPD. Flovent Albuterol as needed. 11. Acute blood loss anemia. Hgb 9.9. Continue Fe supplement. Monitor. 12. Gout. Allopurinol. 13. GERD. Pepcid. 14. LE edema. U/S BLE 05/29 neg for DVT. TTE 05/30 EF 75-80%, Grade I DD. Lasix 20 mg daily ordered x 3 days 06/03-06/05 then hold (Pt states she has taken diuretic in the past but not daily.). Monitor. VS, I&O, 24H, Fishbone Vital Signs/I&O Vital Signs Date Time Temp Pulse Resp B/P (MAP) Pulse Ox O2 Delivery O2 Flow Rate FiO2 06/05/18 12:37 18 Room Air 06/05/18 05:55 98.4 98 128/72 (90) 96 I&O- Last 24 Hours up to 6 AM 06/05/18 06:00 Intake Total 600 ml Output Total 500 ml Balance 100 ml Laboratory Data 24H LABS Laboratory Tests 2 06/04/18 23:45: Urine Color YELLOW, Urine Appearance HAZY, Urine pH 7.0, Urine Specific [place] 1.010, Urine Protein NEGATIVE, Urine Glucose (UA) NEGATIVE, Urine Ketones NEGATIVE, Urine Blood NEGATIVE, Urine Nitrite NEGATIVE, Urine Bilirubin NEGATIVE, Urine Urobilinogen 0.2, Urine Leukocyte Esterase NEGATIVE, Urine WBC (Auto) 1, Urine RBC (Auto) 0, Urine Hyaline Casts (Auto) 0, Urine Bacteria (Auto) NEGATIVE, Urine Squamous Epithelial Cells 1, Urine Amorphous Sediment SMALLH, Urine Sperm (Auto) Microbiology Microbiology 05/27/18 Clostridium difficile (PCR) - Final, Complete 05/29/18 Urine Culture - Final, Complete Yen Davila Jun 05, 2018 13:44
[2018-06-05 14:00] VITALS: BP 134/84
[2018-06-05] MEDS: RIVAROXABAN 10 MG TAB (XARELTO) PO SCH (17:06)
[2018-06-05 19:45] VITALS: BP 138/82
[2018-06-05] MEDS: traZODone 100 MG TAB PO SCH (21:15)
[2018-06-05] MEDS: zolPIDEM TARTRATE 10MG TAB PO PRN (21:15)
[2018-06-05] MEDS: **NOTE PATIENT COMMENT** MISC XX SCH (21:17)
[2018-06-06] MEDS: VANCOMYCIN ORAL SOL 250MG/5ML ORAL SYRINGE PO SCH ×4 (00:44→17:34)
[2018-06-06] MEDS: oxyCODONE 5MG TAB PO PRN ×5 (02:17→20:22)
[2018-06-06 06:00] VITALS: BP 138/89
[2018-06-06] MEDS: FLUTICASONE HFA 220 MCG 12 GM INHALER (FLOVENT) INH SCH ×2 (07:39→19:52)
[2018-06-06] MEDS: CALCIUM/VITAMIN D 500 MG TAB PO SCH ×2 (08:57→21:42)
[2018-06-06] MEDS: predniSONE 5 MG TAB PO SCH (08:58)
[2018-06-06] MEDS: LACTOBACILLUS ACIDOPHILUS CAP (BACID) PO SCH ×2 (08:58→21:41)
[2018-06-06] MEDS: CYANOCOBALAMIN 500 MCG TAB PO SCH (08:58)
[2018-06-06] MEDS: oxyCODONE 15 MG CR TAB PO SCH ×2 (08:58→21:42)
[2018-06-06] MEDS: lamoTRIgine 100MG TAB PO SCH (08:58)
[2018-06-06] MEDS: OMEPRAZOLE 20 MG CAP PO SCH (08:59)
[2018-06-06] MEDS: lamoTRIgine 25 MG TAB PO SCH (08:59)
[2018-06-06] MEDS: ALLOPURINOL 300 MG TAB PO SCH (08:59)
[2018-06-06] MEDS: clonazePAM 1 MG TAB PO SCH ×3 (08:59→21:42)
[2018-06-06] MEDS: FERROUS GLUCONATE 324 MG TAB PO SCH ×2 (08:59→21:43)
[2018-06-06] MEDS: FUROSEMIDE 20 MG TAB PO SCH (08:59)
[2018-06-06] MEDS: ACETAMINOPHEN 500 MG TAB PO SCH ×3 (08:59→21:43)
[2018-06-06] MEDS: FOLIC ACID 1 MG TAB PO SCH (08:59)
[2018-06-06] MEDS: NYSTATIN 100,000 UNITS/GM TOPICAL PWD 15 GM TOP SCH ×2 (09:00→21:43)
[2018-06-06] MEDS: LIDOCAINE 5% (LIDODERM) PATCH TD SCH (09:00)
--- NOTE | 2018-06-06 12:09 | IPNPDOC ---
PM&R Progress Note DATE OF SERVICE: Jun 05, 2018 [employer] Progress Note Subjective: Patient reports pain is better today, but would like increased frequency of prn oxycodone and agreed to take lower dose. She is feeling more energetic. REVIEW OF SYSTEMS: The following is a completed review of systems and has been reviewed. Review of systems otherwise unremarkable. PAIN: Patient self reports bilateral hip pain and low back pain EYES: no recent vision loss EARS, NOSE, & THROAT: no dysphagia, rhinorrhea, or tinnitus CARDIOVASCULAR: denies chest pain, palpitations PULMONARY: Negative. Denies shortness of breath GASTROINTESTINAL: loose stools-improving GENITOURINARY: denies dysuria MUSCULOSKELETAL: bilateral hip fracture and lumbar compression fracture NEUROLOGICAL: no tremor, no paresthesias HEMATOLOGICAL:bilateral UE ecchymosis SKIN: bilateral hip incisions PSYCHIATRIC: Unremarkable All other review of systems found to be negative. PHYSICAL EXAMINATION: VITAL SIGNS: Please see below. GENERAL: Pleasant and cooperative. No acute distress HEENT: PERRL. Extraocular movements intact. Clear conjunctiva CARDIOVASCULAR: Regular rate and rhythm. No murmurs, rubs, or gallops LUNGS: Clear to auscultation bilaterally. No wheezes. No rhonchi ABDOMEN: Soft, nontender to palpation throughout all quadrants, normoactive bowel sounds NEUROLOGICAL: Alert and oriented times three. Cranial nerves II through XII grossly intact. Sensation grossly intact including 1st web space of bilateral feet Babinski negative bilat EXTREMITIES: 5-\5 strength bilateral upper extremities. 5\5 strength bilateral ankle DF, EHL, plantar flexion, exam limited due to hip pain bilateral LE Edema SKIN: bilat UE ecchymosis, bilat hip incisions c/d/i no induration ASSESSMENT:63-year-old F with past medical history of COPD, RA, obesity who presents status post bilateral hip fracture. PLAN: 1. Rehab: PT/OT, assess for DME, ambulating further with RW and negotiate stairs at Mod-I level- daughter trained in donning of TLSO and patient trained with use of adaptive equipment for toileting 2. Ortho: bilat hip fractures s/p left hip audrey-arthroplasty and right hip pinning on 05-21-18, WBAT and hip precautions, ortho consulted -L1 compression fracture with retropulsion in the setting of canal stenosis- TLSO when out of bed, monitor for cord compression signs-stable 3. Neuro: stable 4. Cardio: grade 1 diastolic CHF, will monitor- medicine consulted, recs appreciated -ordered lasix x 3 days for LE edema-improving 5. Resp: COPD: continue breathing treatments, and incentive spirometry 6. Psych: pmh Bipolar, continue Lamictal 7. RHeum: pmh RA, continue weekly methotrexate and daily prednisone 8. Pain: Increase home regimen OxyContin to 30 mg BI D at home and change 10mg oxycodone q6h to 5mg q4h for breakthrough pain- will trial, continue Tylenol- discontinued Tizanidine for low BPs-will need outpatient pain management f/u 9. DVT ppx: Xarelto 10. GI ppx:will discontinue protonix and famotidine as chronic home use of PPIs and H2 blockers can increase susceptibility to C. diff 11. ID: loose stools on admission with recent hx of C. diff, stool on admission positive for C. diff, recently treated with Vancomycin January 2018, will try po Vancomycin again, but this time a prolonged course, Bacid and contact precautions- loose stools resolving 11. : monitor PVRs, admission UA/Ucx negative, will repeat due to low grade temp 12. Hypernatremia, patient encouraged to drink more fluids-improving, continue to monitor electrolytes-resolved 13. Extremities: continue acewraps and lasix for bilat LE edema-improving 10. Dispo: 06/09/18 to home, progressing towards goals, will train daughter to secure TLSO brace before leaving for work and teach patient to use adaptive equipment for toileting to encourage necessary use of TlSO brace- patient in agreement to use brace at home with assistance until cleared by ortho Allergies Coded Allergies: Contrast Media (Verified Allergy, Severe, 1VP DYE - ANAPHYLAXIS, TONGUE SWELLS, 04/26/18) Shellfish Allergy (Verified Allergy, Severe, ANAPHYLAXIS, TONGUE SWELLS, 04/26/18) Pregabalin (Verified Allergy, Intermediate, rash/swelling, 05/20/18) Vital Signs Vital Signs Date Time Temp Pulse Resp B/P (MAP) Pulse Ox O2 Delivery O2 Flow Rate FiO2 06/06/18 11:43 18 Room Air 06/06/18 06:00 98.0 96 138/89 (105) 92 Microbiology Microbiology 05/27/18 Clostridium difficile (PCR) - Final, Complete 05/29/18 Urine Culture - Final, Complete Current Medications Current Medications Current Medications Acetaminophen (Tylenol Tab) 1,000 mg TID PO Last administered on 06/06/18 08:59; Start 05/26/18 at 21:00 Acetaminophen/ Hydrocodone Bitart (Shevlin, Anexsia 5/325) 1 tab Q4HP PRN PO MILD/MODERATE PAIN (PS 1-7) Last administered on 05/27/18at 10:24; Start 05/26/18 at 16:30; Stop 05/27/18 at 12:42; Status DC Albuterol Sulfate (Proventil, Ventolin Hfa) 2 puff Q6HP PRN INH SHORTNESS OF BREATH; Start 05/26/18 at 16:30 Allopurinol (Zyloprim) 300 mg DAILY PO Last administered on 06/06/18at 08:59; Start 05/27/18 at 09:00 Bisacodyl (Dulcolax Suppository) 10 mg DAILYPRN PRN [place] CONSTIPATION; Start 05/26/18 at 16:15 Calcium/Vitamin D (Oscal D) 1,000 mg BID PO Last administered on 06/06/18 08:57; Start 06/02/18 at 21:00 Clonazepam (KlonoPIN) 1 mg TID PO Last administered on 06/06/18 08:59; Start 05/26/18 at 21:00 Cyanocobalamin (Vitamin B12) 1,000 mcg DAILY PO Last administered on 06/06/18at 08:58; Start 06/03/18 at 09:00 Docusate Sodium (Colace) 100 mg BID PO ; Start 05/26/18 at 21:00; Stop 05/27/18 at 14:44; Status DC Famotidine (Pepcid) 20 mg BIDP PRN PO ABDOMINAL PAIN; Start 05/26/18 at 16:30; Stop 05/28/18 at 20:34; Status DC Ferrous Gluconate (Fergon) 324 mg BID PO Last administered on 06/06/18at 08:59; Start 05/26/18 at 21:00 Fluticasone Propionate (Flovent Hfa 220mcg) 2 puff BID INH ; Start 05/26/18 at 21:00 Folic Acid (Folic Acid) 1 mg DAILY PO Last administered on 06/06/18 08:59; Start 05/27/18 at 09:00 Folic Acid (Folic Acid) 1 mg DAILY PO ; Start 06/03/18 at 09:00; Stop 06/03/18 at 09:00; Status DC Furosemide (Lasix) 20 mg DAILY PO Last administered on 06/06/18 08:59; Start 06/03/18 at 09:00 Lactobacillus Acidophilus (Bacid) 2 ea BID PO Last administered on 06/06/18 08:58; Start 05/27/18 at 09:00 Lamotrigine (LaMICtal) 25 mg DAILY PO Last administered on 06/06/18 08:59; Start 05/27/18 at 09:00 Lamotrigine (LaMICtal) 200 mg DAILY PO Last administered on 06/06/18 08:58; Start 05/27/18 at 09:00 Lidocaine (Lidoderm Patch) 2 patch DAILY TD Last administered on 06/06/18 09:00; Start 05/27/18 at 09:00 Magnesium Hydroxide (Milk Of Magnesia) 30 ml DAILYPRN PRN PO CONSTIPATION; Start 05/26/18 at 16:15 Magnesium Oxide (Mag-Ox) 400 mg BID PO Last administered on 06/01/18 20:39; Start 05/30/18 at 09:00; Stop 06/02/18 at 08:59; Status DC Methotrexate (Folex) 20 mg We@09 PO Last administered on 06/03/18 08:43; Start 05/27/18 at 09:00 Morphine Sulfate (Ms Contin) 15 mg BID PO Last administered on 06/01/18 09:13; Start 05/29/18 at 21:00; Stop 06/01/18 at 12:32; Status DC Non-Formulary Medication ( See Comment Field Below ) REMOVE LIDODERM PATCH DAILY@21 XX Last administered on 06/05/18 21:17; Start 05/26/18 at 21:00 Nystatin (Mycostatin Powder, Nystop) apply to groin abdomi... BID TOP Last administered on 06/06/18 09:00; Start 05/26/18 at 21:00 Omeprazole (PriLOSEC) 20 mg DAILY PO Last administered on 06/06/18 08:59; Start 06/04/18 at 21:40 Ondansetron HCl (Zofran) 4 mg Q6HP PRN PO NAUSEA Last administered on 06/05/18at 07:38; Start 05/26/18 at 16:15 Oxycodone HCl (OxyCONTIN) BID PO ; Start 06/05/18 at 09:00; Stop 06/05/18 at 09:00; Status DC Oxycodone HCl (OxyCONTIN) 10 mg BID PO Last administered on 06/04/18at 20:17; Start 06/03/18 at 21:00; Stop 06/04/18 at 21:33; Status DC Oxycodone HCl (OxyCONTIN) 15 mg BID PO Last administered on 06/04/18at 20:17; Start 06/03/18 at 21:00; Stop 06/04/18 at 21:33; Status DC Oxycodone HCl (OxyCONTIN) 20 mg BID PO Last administered on 06/02/18at 21:22; Start 06/01/18 at 13:00; Stop 06/03/18 at 17:03; Status DC Oxycodone HCl (OxyCONTIN) 25 mg BID PO ; Start 06/03/18 at 21:00; Stop 06/03/18 at 21:00; Status DC Oxycodone HCl (OxyCONTIN) 30 mg BID PO Last administered on 06/06/18at 08:58; Start 06/05/18 at 09:00 Oxycodone HCl (Roxicodone, Oxyir) 5 mg Q4HP PRN PO PAIN 4-7; Start 05/27/18 at 12:45; Stop 05/29/18 at 17:31; Status DC Oxycodone HCl (Roxicodone, Oxyir) 5 mg Q4HP PRN PO SEVERE PAIN (PS 8-10) Last administered on 06/02/18at 12:50; Start 06/01/18 at 12:30; Stop 06/02/18 at 18:58; Status DC Oxycodone HCl (Roxicodone, Oxyir) 5 mg Q4HP PRN PO SEVERE PAIN (PS 8-10) Last administered on 06/06/18at 11:43; Start 06/05/18 at 16:15 Oxycodone HCl (Roxicodone, Oxyir) 10 mg Q4HP PRN PO SEVERE PAIN (PS 8-10) Last administered on 06/01/18at 10:54; Start 05/27/18 at 12:45; Stop 06/01/18 at 12:32; Status DC Oxycodone HCl (Roxicodone, Oxyir) 10 mg Q6HP PRN PO SEVERE PAIN (PS 8-10) Last administered on 06/05/18at 12:37; Start 06/02/18 at 19:00; Stop 06/05/18 at 16:03; Status DC Pantoprazole Sodium (Protonix) 40 mg DAILY PO Last administered on 05/27/18at 08:35; Start 05/27/18 at 09:00; Stop 05/27/18 at 13:52; Status DC Prednisone (Deltasone) 5 mg DAILY PO Last administered on 06/06/18at 08:58; Start 05/27/18 at 09:00 Rivaroxaban (Xarelto) 10 mg DAILY@1800 PO Last administered on 06/05/18at 17:06; Start 05/26/18 at 18:00 Senna (Senokot) 1 tab QHS PO ; Start 05/26/18 at 21:00; Stop 05/27/18 at 14:44; Status DC Tizanidine HCl (Zanaflex) 4 mg Q6HP PRN PO SPASMS Last administered on 06/03/18a t 05:56; Start 05/26/18 at 16:30; Stop 06/03/18 at 11:01; Status DC Trazodone HCl (Desyrel) 200 mg QPM PO Last administered on 06/05/18at 21:15; Start 05/26/18 at 21:00 Vancomycin HCl (First-Vancomycin 50(Firvanq)- 250mg/5ml) 125 mg BID PO ; Start 06/10/18 at 09:00; Stop 06/16/18 at 08:59 Vancomycin HCl (First-Vancomycin 50(Firvanq)- 250mg/5ml) 125 mg DAILY PO ; Start 06/16/18 at 09:00; Stop 06/22/18 at 08:59 Vancomycin HCl (First-Vancomycin 50(Firvanq)- 250mg/5ml) 125 mg Q2D PO ; Start 06/23/18 at 09:00; Stop 07/21/18 at 08:59 Vancomycin HCl (First-Vancomycin 50(Firvanq)- 250mg/5ml) 125 mg Q6H PO Last administered on 06/06/18at 11:44; Start 05/27/18 at 12:00; Stop 06/10/18 at 08:59 Zolpidem Tartrate (Ambien) 10 mg QHSP PRN PO INSOMNIA Last administered on at 21:15; Start 05/26/18 at 16:30 MONTRELL PAN MD Jun 06, 2018 12:09
[2018-06-06 14:00] VITALS: BP 142/90
[2018-06-06] MEDS: RIVAROXABAN 10 MG TAB (XARELTO) PO SCH (17:34)
[2018-06-06 20:00] VITALS: BP 128/84
[2018-06-06] MEDS: **NOTE PATIENT COMMENT** MISC XX SCH (21:00)
[2018-06-06] MEDS: traZODone 100 MG TAB PO SCH (21:41)
[2018-06-06] MEDS: zolPIDEM TARTRATE 10MG TAB PO PRN (21:43)
[2018-06-07] MEDS: VANCOMYCIN ORAL SOL 250MG/5ML ORAL SYRINGE PO SCH ×4 (00:15→17:40)
[2018-06-07] MEDS: oxyCODONE 5MG TAB PO PRN ×5 (01:59→20:13)
[2018-06-07 06:00] VITALS: BP 140/80
[2018-06-07] MEDS: FLUTICASONE HFA 220 MCG 12 GM INHALER (FLOVENT) INH SCH ×2 (08:01→20:44)
[2018-06-07] MEDS: lamoTRIgine 100MG TAB PO SCH (08:37)
[2018-06-07] MEDS: predniSONE 5 MG TAB PO SCH (08:37)
[2018-06-07] MEDS: FUROSEMIDE 20 MG TAB PO SCH (08:37)
[2018-06-07] MEDS: ALLOPURINOL 300 MG TAB PO SCH (08:38)
[2018-06-07] MEDS: FERROUS GLUCONATE 324 MG TAB PO SCH ×2 (08:38→22:16)
[2018-06-07] MEDS: lamoTRIgine 25 MG TAB PO SCH (08:38)
[2018-06-07] MEDS: OMEPRAZOLE 20 MG CAP PO SCH (08:38)
[2018-06-07] MEDS: clonazePAM 1 MG TAB PO SCH ×3 (08:38→22:15)
[2018-06-07] MEDS: LACTOBACILLUS ACIDOPHILUS CAP (BACID) PO SCH ×2 (08:39→22:16)
[2018-06-07] MEDS: CYANOCOBALAMIN 500 MCG TAB PO SCH (08:39)
[2018-06-07] MEDS: CALCIUM/VITAMIN D 500 MG TAB PO SCH ×2 (08:40→22:16)
[2018-06-07] MEDS: ACETAMINOPHEN 500 MG TAB PO SCH ×3 (08:41→22:17)
[2018-06-07] MEDS: LIDOCAINE 5% (LIDODERM) PATCH TD SCH (08:42)
[2018-06-07] MEDS: FOLIC ACID 1 MG TAB PO SCH (08:42)
[2018-06-07] MEDS: oxyCODONE 15 MG CR TAB PO SCH ×2 (08:42→22:15)
[2018-06-07] MEDS: NYSTATIN 100,000 UNITS/GM TOPICAL PWD 15 GM TOP SCH ×2 (08:42→21:00)
[2018-06-07 13:45] VITALS: BP 128/72
[2018-06-07] MEDS: RIVAROXABAN 10 MG TAB (XARELTO) PO SCH (17:40)
[2018-06-07 20:00] VITALS: BP 138/70
[2018-06-07] MEDS: **NOTE PATIENT COMMENT** MISC XX SCH (21:00)
[2018-06-07] MEDS: traZODone 100 MG TAB PO SCH (22:16)
[2018-06-07] MEDS: zolPIDEM TARTRATE 10MG TAB PO PRN (22:16)
[2018-06-08] MEDS: VANCOMYCIN ORAL SOL 250MG/5ML ORAL SYRINGE PO SCH ×4 (00:02→17:13)
[2018-06-08] MEDS: oxyCODONE 5MG TAB PO PRN ×5 (01:13→20:34)
[2018-06-08 06:00] VITALS: BP 142/84
[2018-06-08] MEDS ORDERED: XARE10TA PO (06:26)
[2018-06-08] MEDS: FERROUS GLUCONATE 324 MG TAB PO SCH ×2 (08:58→21:45)
[2018-06-08] MEDS: lamoTRIgine 25 MG TAB PO SCH (08:58)
[2018-06-08] MEDS: ACETAMINOPHEN 500 MG TAB PO SCH ×3 (08:58→21:45)
[2018-06-08] MEDS: CYANOCOBALAMIN 500 MCG TAB PO SCH (08:59)
[2018-06-08] MEDS: clonazePAM 1 MG TAB PO SCH ×3 (08:59→21:45)
[2018-06-08] MEDS: predniSONE 5 MG TAB PO SCH (08:59)
[2018-06-08] MEDS: oxyCODONE 15 MG CR TAB PO SCH ×2 (08:59→21:44)
[2018-06-08] MEDS: ALLOPURINOL 300 MG TAB PO SCH (08:59)
[2018-06-08] MEDS: OMEPRAZOLE 20 MG CAP PO SCH (08:59)
[2018-06-08] MEDS: FUROSEMIDE 20 MG TAB PO SCH (08:59)
[2018-06-08] MEDS: FOLIC ACID 1 MG TAB PO SCH (08:59)
[2018-06-08] MEDS: LACTOBACILLUS ACIDOPHILUS CAP (BACID) PO SCH ×2 (08:59→21:45)
[2018-06-08] MEDS: lamoTRIgine 100MG TAB PO SCH (08:59)
[2018-06-08] MEDS: CALCIUM/VITAMIN D 500 MG TAB PO SCH ×2 (09:00→21:45)
[2018-06-08] MEDS: LIDOCAINE 5% (LIDODERM) PATCH TD SCH (09:00)
[2018-06-08] MEDS: NYSTATIN 100,000 UNITS/GM TOPICAL PWD 15 GM TOP SCH ×2 (09:00→21:00)
--- NOTE | 2018-06-08 12:32 | IPNPDOC ---
Date Seen The patient was seen on 06/08/18. Progress Note HPI: The pt was admitted to [facility] 05/20/18-05/26/18. Patient was in her usual state of health until on the day of admission patient tried to get up from her bed, missed her step, and fell, abutting her left hip on the ground. Denies any loss of consciousness prior to the fall or after the fall. Patient does have a history of accidental overdose on blood pressure medication. Upon presentation, patient had marginally low systolic blood pressure, she was given fluids. Imaging showed left hip fracture. Orthopedics was consulted. As per Orthopedic surgery, S/P closed reduction and percutaneous pinning of the minimally displaced right femoral neck fracture, and left hip cemented hemiarthroplasty. Orthopedics has recommended back bracing for patient's L1 compression fracture. Pt transferred to the care of ARU, Dr Lynch, 05/26/18. Pt was found to be C diff positive 05/27/18 with loose stools. Pt states no further diarrhea. Remains on Vanco. Denies any fevers, chills, weakness, fatigue, Headache, Chest Pain, Shortness of breath, cough, palpitations, abdominal pain, N/V or changes in bladder habits. PMHx: COPD, not O2 dependent severe rheumatoid arthritis on chronic prednisone and weekly methotrexate. C. difficile colitis, hypertension, bipolar disorder, chronic back pain, morbid obesity, BMI 36.5 degenerative disc disease, anxiety, GERD, insomnia, gout. PSHX: section. Tonsillectomy. Cholecystectomy. PE: GEN: 63yoF, appears stated age. No acute distress. Alert and oriented x 3. Affect is flat. HEENT: Normocephalic, atraumatic. Sclera are nonicteric. Conjunctiva without injection. No facial asymmetry. Moist mucous membranes. CHEST: Regular rate and rhythm, +S1, +S2 LUNGS: Clear to auscultation bilaterally. No wheezes, rales, or rhonchi. Breat migdalia appears symmetric and easy. ABD: Round, soft, non-tender, non-distended. +Bowel sounds throughout. No rebound or guarding. EXT: tr lower extremity edema appreciated. TEDS in place. SKIN: [place], dry, warm. No rashes. NEURO: No focal deficits appreciated. A&P: The pt was admitted to [facility] 05/20/18-05/26/18. Patient was in her usual state of health until on the day of admission patient tried to get up from her bed, missed her step, and fell, abutting her left hip on the ground. Denies any loss of consciousness prior to the fall or after the fall. Patient does have a history of accidental overdose on blood pressure medication. Upon presentation, patient had marginally low systolic blood pressure, she was given fluids. Imaging showed left hip fracture. Orthopedics was consulted. As per Orthopedic surgery, S/P closed reduction and percutaneous pinning of the minimally displaced right femoral neck fracture, and left hip cemented hemiarthroplasty. Orthopedics has recommended back bracing for patient's L1 compression fracture. Pt transferred to the care of ARUDr Lynch, 05/26/18. 1. S/P Rt femoral neck fracture/S/P Closed reduction and percutaneous pinning of a minimally displaced right femoral neck fracture. Management per orthopedics. DVT prophylaxis. Xarelto as per Orthopedics. Pain control as per ARU. Bowel care as per ARU. PT/OT/ST as per ARUDr Lynch. Disposition as per ARU. 2. L1 compression fracture with retropulsion in the setting of canal stenosis. Appreciate orthopedics input. TLSO when out of bed, monitor for cord compression signs. Notes that she has lower extremity radiculopathy down to the knee, however denie s any acute bladder or bowel changes. Mgmt as per orthopedics/ ARU. 3. Episode of hypotension on presentation. Status post normal saline, and resolved. S/P hydrocortisone taper. Continues with prednisone 5 mg daily. BP 110-140 since Tizanidine held. 4. History of rheumatoid arthritis on methotrexate at home as well as chronic prednisone. Chronic pain. Prednisone 5 mg po daily. Methotrexate weekly on Fri. Zanaflex d/cd related to fatigue/decreased BP. 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 5. Hypokalemia. S/P supplement. Resolved. Monitor. 6. Ovarian cyst. Has been relayed to the pt she will likely need further workup following d/c, as this may represent malignancy. Patient is agreeable. 7. Diarrhea/C Diff. positive. History of C. difficile 01/27. No BM documented 06/04, 06/05. Afebrile. WBC 9.5 Pt is eating and drinking. Continue with po Vanco, Plan is for prolonged course. Bacid 2 tab po BID. PPI D/Cd. HOLD Senna/Colace Monitor. 8. History of morbid obesity BMI 36.5. Complicates care. 9. Bipolar disorder/Anxiety/Insomnia. Pt remains on Lamictal/Klonopin/Trazodone/Ambien. 10. COPD. Flovent Albuterol as needed. 11. Acute blood loss anemia. Hgb 9.9. Continue Fe supplement. CBC in AM Monitor. 12. Gout. Allopurinol. 13. GERD. Pepcid. 14. DD/LE edema. U/S BLE 05/29 neg for DVT. TTE 05/30 EF 75-80%, Grade I DD. Lasix 20 mg daily. BMP in AM. Monitor. VS, I&O, 24H, Fishbone Vital Signs/I&O Vital Signs Date Time Temp Pulse Resp B/P (MAP) Pulse Ox O2 Delivery O2 Flow Rate FiO2 06/08/18 10:53 16 06/08/18 06:05 98 Room Air 06/08/18 06:00 97.4 91 142/84 (103) I&O- Last 24 Hours up to 6 AM 06/08/18 06:00 Intake Total 1260 ml Balance 1260 ml Laboratory Data Microbiology Microbiology 05/29/18 Urine Culture - Final, Complete Yen Davila Jun 08, 2018 12:32
[2018-06-08 14:00] VITALS: BP 148/70
--- NOTE | 2018-06-08 15:25 | IPNPDOC ---
PM&R Progress Note DATE OF SERVICE: Jun 08, 2018 [employer] [employer] Progress Note Subjective: Patient reports her pain is well controlled, she is ready to go home tomorrow and is happy with the care she received. REVIEW OF SYSTEMS: The following is a completed review of systems and has been reviewed. Review of systems otherwise unremarkable. PAIN: Patient self reports bilateral hip pain and low back pain EYES: no recent vision loss EARS, NOSE, & THROAT: no dysphagia, rhinorrhea, or tinnitus CARDIOVASCULAR: denies chest pain, palpitations PULMONARY: Negative. Denies shortness of breath GASTROINTESTINAL: loose stools-improving GENITOURINARY: denies dysuria MUSCULOSKELETAL: bilateral hip fracture and lumbar compression fracture NEUROLOGICAL: no tremor, no paresthesias HEMATOLOGICAL:bilateral UE ecchymosis SKIN: bilateral hip incisions PSYCHIATRIC: Unremarkable All other review of systems found to be negative. PHYSICAL EXAMINATION: VITAL SIGNS: Please see below. GENERAL: Pleasant and cooperative. No acute distress HEENT: PERRL. Extraocular movements intact. Clear conjunctiva CARDIOVASCULAR: Regular rate and rhythm. No murmurs, rubs, or gallops LUNGS: Clear to auscultation bilaterally. No wheezes. No rhonchi ABDOMEN: Soft, nontender to palpation throughout all quadrants, normoactive bowel sounds NEUROLOGICAL: Alert and oriented times three. Cranial nerves II through XII grossly intact. Sensation grossly intact including 1st web space of bilateral feet Babinski negative bilat EXTREMITIES: 5-\5 strength bilateral upper extremities. 5\5 strength bilateral ankle DF, EHL, plantar flexion, exam limited due to hip pain bilateral LE Edema SKIN: bilat UE ecchymosis, bilat hip incisions c/d/i no induration ASSESSMENT:63-year-old F with past medical history of COPD, RA, obesity who presents status post bilateral hip fracture. PLAN: 1. Rehab: PT/OT, assess for DME, ambulating further with RW and negotiate stairs at Mod-I level- daughter trained in donning of TLSO and patient trained with use of adaptive equipment for toileting 2. Ortho: bilat hip fractures s/p left hip audrey-arthroplasty and right hip pinning on 05-21-18, WBAT and hip precautions, ortho consulted -L1 compression fracture with retropulsion in the setting of canal stenosis- TLSO when out of bed, monitor for cord compression signs-stable 3. Neuro: stable 4. Cardio: grade 1 diastolic CHF, will monitor- medicine consulted, recs appreciated -ordered lasix x 3 days for LE edema-improving 5. Resp: COPD: continue breathing treatments, and incentive spirometry 6. Psych: pmh Bipolar, continue Lamictal 7. RHeum: pmh RA, continue weekly methotrexate and daily prednisone 8. Pain: Increase home regimen OxyContin to 30 mg BI D at home and change 10mg oxycodone q6h to 5mg q4h for breakthrough pain- will trial, continue Tylenol- discontinued Tizanidine for low BPs-will need outpatient pain management f/u 9. DVT ppx: Xarelto 10. GI ppx:will discontinue protonix and famotidine as chronic home use of PPIs and H2 blockers can increase susceptibility to C. diff 11. ID: loose stools on admission with recent hx of C. diff, stool on admission positive for C. diff, recently treated with Vancomycin January 2018, will try po Vancomycin again, but this time a prolonged course, Bacid and contact precautions- loose stools resolved 11. : monitor PVRs, admission UA/Ucx negative, will repeat due to low grade temp-negative Ucx 12. Hypernatremia, patient encouraged to drink more fluids-improving, continue to monitor electrolytes-resolved 13. Extremities: continue acewraps and s/p lasix for bilat LE edema-improving 10. Dispo: 06/09/18 to home, progressing towards goals, daughter has been trained to don TLSO brace before leaving for work and patient able to use adaptive equipment for toileting to encourage necessary use of TlSO brace- patient in agreement to use brace at home with assistance until cleared by ortho Allergies Coded Allergies: Contrast Media (Verified Allergy, Severe, 1VP DYE - ANAPHYLAXIS, TONGUE SWELLS, 04/26/18) Shellfish Allergy (Verified Allergy, Severe, ANAPHYLAXIS, TONGUE SWELLS, 04/26/18) Pregabalin (Verified Allergy, Intermediate, rash/swelling, 05/20/18) Vital Signs Vital Signs Date Time Temp Pulse Resp B/P (MAP) Pulse Ox O2 Delivery O2 Flow Rate FiO2 06/08/18 14:00 97.7 110 20 148/70 (96) 92 06/08/18 06:05 Room Air Microbiology Microbiology 05/29/18 Urine Culture - Final, Complete Current Medications Current Medications Current Medications Acetaminophen (Tylenol Tab) 1,000 mg TID PO Last administered on 06/08/18 08:58; Start 05/26/18 at 21:00 Acetaminophen/ Hydrocodone Bitart (Minto, Anexsia 5/325) 1 tab Q4HP PRN PO MILD/MODERATE PAIN (PS 1-7) Last administered on 05/27/18at 10:24; Start 05/26/18 at 16:30; Stop 05/27/18 at 12:42; Status DC Albuterol Sulfate (Proventil, Ventolin Hfa) 2 puff Q6HP PRN INH SHORTNESS OF BREATH; Start 05/26/18 at 16:30 Allopurinol (Zyloprim) 300 mg DAILY PO Last administered on 06/08/18 08:59; Start 05/27/18 at 09:00 Bisacodyl (Dulcolax Suppository) 10 mg DAILYPRN PRN AK CONSTIPATION; Start 05/26/18 at 16:15 Calcium/Vitamin D (Oscal D) 1,000 mg BID PO Last administered on 06/08/18 09:00; Start 06/02/18 at 21:00 Clonazepam (KlonoPIN) 1 mg TID PO Last administered on 06/08/18 08:59; Start 05/26/18 at 21:00 Cyanocobalamin (Vitamin B12) 1,000 mcg DAILY PO Last administered on 06/08/18 08:59; Start 06/03/18 at 09:00 Docusate Sodium (Colace) 100 mg BID PO ; Start 05/26/18 at 21:00; Stop 05/27/18 at 14:44; Status DC Famotidine (Pepcid) 20 mg BIDP PRN PO ABDOMINAL PAIN; Start 05/26/18 at 16:30; Stop 05/28/18 at 20:34; Status DC Ferrous Gluconate (Fergon) 324 mg BID PO Last administered on 06/08/18 08:58; Start 05/26/18 at 21:00 Fluticasone Propionate (Flovent Hfa 220mcg) 2 puff BID INH ; Start 05/26/18 at 21:00 Folic Acid (Folic Acid) 1 mg DAILY PO Last administered on 06/08/18at 08:59; Start 05/27/18 at 09:00 Folic Acid (Folic Acid) 1 mg DAILY PO ; Start 06/03/18 at 09:00; Stop 06/03/18 at 09:00; Status DC Furosemide (Lasix) 20 mg DAILY PO Last administered on 06/08/18 08:59; Start 06/03/18 at 09:00 Lactobacillus Acidophilus (Bacid) 2 ea BID PO Last administered on 06/08/18 08:59; Start 05/27/18 at 09:00 Lamotrigine (LaMICtal) 25 mg DAILY PO Last administered on 06/08/18 08:58; Start 05/27/18 at 09:00 Lamotrigine (LaMICtal) 200 mg DAILY PO Last administered on 06/08/18 08:59; Start 05/27/18 at 09:00 Lidocaine (Lidoderm Patch) 2 patch DAILY TD Last administered on 06/08/18 09:00; Start 05/27/18 at 09:00 Magnesium Hydroxide (Milk Of Magnesia) 30 ml DAILYPRN PRN PO CONSTIPATION; Start 05/26/18 at 16:15 Magnesium Oxide (Mag-Ox) 400 mg BID PO Last administered on 06/01/18at 20:39; Start 05/30/18 at 09:00; Stop 06/02/18 at 08:59; Status DC Methotrexate (Folex) 20 mg We@09 PO Last administered on 06/03/18at 08:43; Start 05/27/18 at 09:00 Miscellaneous (Unresolved Clarification Entry) SEE LABEL COMMENTS DAILY XX ; Start 06/07/18 at 09:00; Stop 06/08/18 at 10:37; Status DC Morphine Sulfate (Ms Contin) 15 mg BID PO Last administered on 06/01/18at 09:13; Start 05/29/18 at 21:00; Stop 06/01/18 at 12:32; Status DC Non-Formulary Medication ( See Comment Field Below ) REMOVE LIDODERM PATCH DAILY@21 XX Last administered on 06/07/18at 21:00; Start 05/26/18 at 21:00 Nystatin (Mycostatin Powder, Nystop) apply to groin abdomi... BID TOP Last administered on 06/08/18at 09:00; Start 05/26/18 at 21:00 Omeprazole (PriLOSEC) 20 mg DAILY PO Last administered on 06/08/18at 08:59; Start 06/04/18 at 21:40 Ondansetron HCl (Zofran) 4 mg Q6HP PRN PO NAUSEA Last administered on 06/05/18at 07:38; Start 05/26/18 at 16:15 Oxycodone HCl (OxyCONTIN) BID PO ; Start 06/05/18 at 09:00; Stop 06/05/18 at 09:00; Status DC Oxycodone HCl (OxyCONTIN) 10 mg BID PO Last administered on 06/04/18at 20:17; Start 06/03/18 at 21:00; Stop 06/04/18 at 21:33; Status DC Oxycodone HCl (OxyCONTIN) 15 mg BID PO Last administered on 06/04/18at 20:17; Start 06/03/18 at 21:00; Stop 06/04/18 at 21:33; Status DC Oxycodone HCl (OxyCONTIN) 20 mg BID PO Last administered on 06/02/18at 21:22; Start 06/01/18 at 13:00; Stop 06/03/18 at 17:03; Status DC Oxycodone HCl (OxyCONTIN) 25 mg BID PO ; Start 06/03/18 at 21:00; Stop 06/03/18 at 21:00; Status DC Oxycodone HCl (OxyCONTIN) 30 mg BID PO Last administered on 06/08/18at 08:59; Start 06/05/18 at 09:00 Oxycodone HCl (Roxicodone, Oxyir) 5 mg Q4HP PRN PO PAIN 4-7; Start 05/27/18 at 12:45; Stop 05/29/18 at 17:31; Status DC Oxycodone HCl (Roxicodone, Oxyir) 5 mg Q4HP PRN PO SEVERE PAIN (PS 8-10) Last administered on 06/02/18at 12:50; Start 06/01/18 at 12:30; Stop 06/02/18 at 18:58; Status DC Oxycodone HCl (Roxicodone, Oxyir) 5 mg Q4HP PRN PO SEVERE PAIN (PS 8-10) Last administered on 06/08/18at 10:23; Start 06/05/18 at 16:15 Oxycodone HCl (Roxicodone, Oxyir) 10 mg Q4HP PRN PO SEVERE PAIN (PS 8-10) Last administered on 06/01/18at 10:54; Start 05/27/18 at 12:45; Stop 06/01/18 at 12:32; Status DC Oxycodone HCl (Roxicodone, Oxyir) 10 mg Q6HP PRN PO SEVERE PAIN (PS 8-10) Last administered on 06/05/18at 12:37; Start 06/02/18 at 19:00; Stop 06/05/18 at 16:03; Status DC Pantoprazole Sodium (Protonix) 40 mg DAILY PO Last administered on 05/27/18at 08:35; Start 05/27/18 at 09:00; Stop 05/27/18 at 13:52; Status DC Prednisone (Deltasone) 5 mg DAILY PO Last administered on 06/08/18at 08:59; Start 05/27/18 at 09:00 Rivaroxaban (Xarelto) 10 mg DAILY@1800 PO Last administered on 06/07/18at 17:40; Start 05/26/18 at 18:00 Senna (Senokot) 1 tab QHS PO ; Start 05/26/18 at 21:00; Stop 05/27/18 at 14:44; Status DC Tizanidine HCl (Zanaflex) 4 mg Q6HP PRN PO SPASMS Last administered on 06/03/18at 05:56; Start 05/26/18 at 16:30; Stop 06/03/18 at 11:01; Status DC Trazodone HCl (Desyrel) 200 mg QPM PO Last administered on 06/07/18at 22:16; Start 05/26/18 at 21:00 Vancomycin HCl (First-Vancomycin 50(Firvanq)- 250mg/5ml) 125 mg BID PO ; Start 06/10/18 at 09:00; Stop 06/16/18 at 08:59 Vancomycin HCl (First-Vancomycin 50(Firvanq)- 250mg/5ml) 125 mg DAILY PO ; Start 06/16/18 at 09:00; Stop 06/22/18 at 08:59 Vancomycin HCl (First-Vancomycin 50(Firvanq)- 250mg/5ml) 125 mg Q2D PO ; Start 06/23/18 at 09:00; Stop 07/21/18 at 08:59 Vancomycin HCl (First-Vancomycin 50(Firvanq)- 250mg/5ml) 125 mg Q6H PO Last administered on 06/08/18at 12:12; Start 05/27/18 at 12:00; Stop 06/10/18 at 08:59 Zolpidem Tartrate (Ambien) 10 mg QHSP PRN PO INSOMNIA Last administered on 06/07/18at 22:16; Start 05/26/18 at 16:30 MONTRELL PAN MD Jun 08, 2018 15:25
[2018-06-08] MEDS: RIVAROXABAN 10 MG TAB (XARELTO) PO SCH (17:13)
[2018-06-08 20:00] VITALS: BP 132/78
[2018-06-08] MEDS: FLUTICASONE HFA 220 MCG 12 GM INHALER (FLOVENT) INH SCH (20:49)
[2018-06-08] MEDS: **NOTE PATIENT COMMENT** MISC XX SCH (21:00)
[2018-06-08] MEDS: zolPIDEM TARTRATE 10MG TAB PO PRN (21:45)
[2018-06-08] MEDS: traZODone 100 MG TAB PO SCH (21:45)
[2018-06-09] MEDS: VANCOMYCIN ORAL SOL 250MG/5ML ORAL SYRINGE PO SCH ×3 (01:03→12:35)
[2018-06-09] MEDS: oxyCODONE 5MG TAB PO PRN ×3 (01:04→12:35)
[2018-06-09 06:00] VITALS: BP 140/74
[2018-06-09 06:25] LABS: HEMATOCRIT 30.4 % (36.0-47.0); HEMOGLOBIN 9.4 g/dl (12.0-15.5); MEAN CORPUSCULAR HEMOGLOBIN 31.9 pg (27.0-33.0); MEAN CORPUSCULAR HGB CONC 30.9 g/dl (32.0-36.5); MEAN CORPUSCULAR VOLUME 103.1 fl (80.0-96.0); PLATELET COUNT, AUTOMATED 205 10^3/uL (150-450); RED BLOOD COUNT 2.95 10^6/uL (4.00-5.40)
[2018-06-09 06:46] LABS: BLOOD UREA NITROGEN 12 MG/DL (7-18); CALCIUM LEVEL 7.8 MG/DL (8.8-10.2); CARBON DIOXIDE LEVEL 28 MEQ/L (21-32); CHLORIDE LEVEL 111 MEQ/L (98-107); CREATININE FOR GFR 0.67 MG/DL (0.55-1.30); GLOMERULAR FILTRATION RATE > 60.0 (>45); GLUCOSE, FASTING 90 MG/DL (70-100); POTASSIUM SERUM 3.8 MEQ/L (3.5-5.1); SODIUM LEVEL 145 MEQ/L (136-145)
[2018-06-09] MEDS: NYSTATIN 100,000 UNITS/GM TOPICAL PWD 15 GM TOP SCH (09:00)
[2018-06-09] MEDS: FLUTICASONE HFA 220 MCG 12 GM INHALER (FLOVENT) INH SCH (09:00)
[2018-06-09] MEDS ORDERED: OXYCO5TA PO (09:27)
[2018-06-09] MEDS ORDERED: FERR32TA PO (09:27)
[2018-06-09] MEDS ORDERED: OXYC15TA66 PO (09:27)
[2018-06-09] MEDS: LACTOBACILLUS ACIDOPHILUS CAP (BACID) PO SCH (09:49)
[2018-06-09] MEDS: LIDOCAINE 5% (LIDODERM) PATCH TD SCH (09:49)
[2018-06-09] MEDS: ACETAMINOPHEN 500 MG TAB PO SCH (09:49)
[2018-06-09] MEDS: lamoTRIgine 100MG TAB PO SCH (09:50)
[2018-06-09] MEDS: predniSONE 5 MG TAB PO SCH (09:50)
[2018-06-09] MEDS: FOLIC ACID 1 MG TAB PO SCH (09:50)
[2018-06-09] MEDS: oxyCODONE 15 MG CR TAB PO SCH (09:50)
[2018-06-09] MEDS: lamoTRIgine 25 MG TAB PO SCH (09:50)
[2018-06-09] MEDS: FUROSEMIDE 20 MG TAB PO SCH (09:50)
[2018-06-09] MEDS: CALCIUM/VITAMIN D 500 MG TAB PO SCH (09:50)
[2018-06-09] MEDS: OMEPRAZOLE 20 MG CAP PO SCH (09:50)
[2018-06-09] MEDS: clonazePAM 1 MG TAB PO SCH (09:51)
[2018-06-09] MEDS: FERROUS GLUCONATE 324 MG TAB PO SCH (09:51)
[2018-06-09] MEDS: ALLOPURINOL 300 MG TAB PO SCH (09:51)
[2018-06-09] MEDS: CYANOCOBALAMIN 500 MCG TAB PO SCH (09:51)
[2018-06-09] MEDS ORDERED: AMBI10TA PO (13:00)
[2018-06-09] MEDS ORDERED: FIRV50SO PO ×4 (13:00)
[2018-06-10] MEDS ORDERED: VANCOMYCIN ORAL SOL 250MG/5ML ORAL SYRINGE PO SCH (09:00)
[2018-06-16] MEDS ORDERED: VANCOMYCIN ORAL SOL 250MG/5ML ORAL SYRINGE PO SCH (09:00)
[2018-06-23] MEDS ORDERED: VANCOMYCIN ORAL SOL 250MG/5ML ORAL SYRINGE PO SCH (09:00)
== END 2018-06-09 16:30 | disposition home health service (06) | DRG 560 ==
LOC: M PM&R 15:35
PROVIDERS: ADMIT Physical Medicine & Rehabilitation; ATTEND Physical Medicine & Rehabilitation
DX: S72.002D Fracture of unspecified part of neck of left femur, subsequent encounter for closed fracture with routine healing (principal); I50.32 Chronic diastolic (congestive) heart failure; D62 Acute posthemorrhagic anemia; A04.71 Enterocolitis due to Clostridium difficile, recurrent; E87.0 Hyperosmolality and hypernatremia; S72.111D Displaced fracture of greater trochanter of right femur, subsequent encounter for closed fracture with routine healing; M84.48XD Pathological fracture, other site, subsequent encounter for fracture with routine healing; F31.9 Bipolar disorder, unspecified; E66.9 Obesity, unspecified; F41.9 Anxiety disorder, unspecified; G47.00 Insomnia, unspecified; M10.9 Gout, unspecified; J44.9 Chronic obstructive pulmonary disease, unspecified; M48.061 Spinal stenosis, lumbar region without neurogenic claudication; E87.6 Hypokalemia; K21.9 Gastro-esophageal reflux disease without esophagitis; M06.9 Rheumatoid arthritis, unspecified; I11.0 Hypertensive heart disease with heart failure; W18.09XD Striking against other object with subsequent fall, subsequent encounter; Y92.003 Bedroom of unspecified non-institutional (private) residence as the place of occurrence of the external cause; Z79.52 Long term (current) use of systemic steroids; Z79.01 Long term (current) use of anticoagulants; Z79.899 Other long term (current) drug therapy; Z90.49 Acquired absence of other specified parts of digestive tract; Z91.041 Radiographic dye allergy status; Z91.013 Allergy to seafood; Z88.8 Allergy status to other drugs, medicaments and biological substances; Z68.36 Body mass index [BMI] 36.0-36.9, adult

== ENCOUNTER → 2018-06-10 | Outpatient (CLI) | payer MEDICARE, MEDICAID ==
[~2018-06-10] MED LIST changes: +FERR32TA PO; +FIRV50SO PO; +OXYC15TA66 PO; +OXYCO5TA PO
--- NOTE | 2018-06-21 23:44 | ECWPNPC ---
PATIENT NAME: DA THAO : 1955 GENDER: FEMALE VISIT DATE: 06/10/2018 DISCHARGE DATE: 06/10/18 1237 VISIT LOCKED DATE TIME: PHYSICIAN: LIUDMILA HART RESOURCE: LIUDMILA HART REASON FOR APPOINTMENT 1. PER NURSE @ 4 PAV HISTORY OF PRESENT ILLNESS HISTORY OF PRESENT ILLNESS: HERE FOR 3 MONTH F/U OF CHRONIC LOW BACK AND GENERALIZED JOINT PAIN WITH HISTORY OF RHEUMATOID ARTHRITIS.RECENT HOSPITALIZTION FOR FALL AND FRACTURED BOTH HIPS.HAD PARTIAL HIP REPLACEMENT ON ONE AND PINS PLACED IN OTHER.CURRENTLY ON OXYCONTIN 30MG BID AND OYCODONE 5MG Q4H.SHE IS ACCOMPANIED WITH HER PAEDIATRIC THORACIC PHYSICIAN.SHE OVERTOOK HER CHRONIC MEDICATION THAT PRECIPITATED FALL.PAEDIATRIC THORACIC PHYSICIAN WILL NOW LOCK UP MEDICATIONS AND BE IN CHARGE OF IT.RATING PAIN VAS 9/10. PAIN THE PATIENT DESCRIBES THE PAIN... THE PATIENT DESCRIBES THE PAIN... THE PATIENT DESCRIBES THE PAIN... THE PATIENT DESCRIBES THE PAIN... THE PATIENT DESCRIBES THE PAIN... THE PATIENT DESCRIBES THE PAIN... FALL RISK SCREENING: SCREENING :NO FALLS IN THE PAST YEAR CURRENT MEDICATIONS TAKING FOLIC ACID 1 MG TABLET 1 TAB(S) P.O. ONCE A DAY TAKING RISPERDAL 2 MG TABLET 1 TAB(S) P.O. ONCE A DAY TAKING OMEPRAZOLE 40 MG CAPSULE DELAYED RELEASE 1 CAPSULE ORALLY ONCE A DAY TAKING RANITIDINE HCL 150 MG CAPSULE 1 CAP(S) P.O. TWICE DAILY NEEDED TAKING TRAZODONE 100 100MG TABLET 3 ORAL DAILY TAKING KLONOPIN 1 MG TABLET ORALLY THREE TIMES DAILY TAKING CALCIUM 600 600 MG TABLET 1 TAB(S) P.O. TWICE A DAY TAKING METHOTREXATE 2.5 MG TABLET 8 TABS P.O. ONCE A WK. TAKING ALLOPURINOL 100 MG TABLET 1 TABLET ORALLY ONCE A DAY TAKING ENBREL 50 MG/ML SOLUTION PREFILLED SYRINGE 1 ML SUBCUTANEOUS WEEKLY TAKING LAMICTAL 200 MG TABLET 1 TABLET ORALLY ONCE DAILY TAKING NYSTATIN POWDER DIRECTED TAKING SENNA LAXATIVE 8.6 MG TABLET 1 TABLETS AT BEDTIME NEEDED ORALLY ONCE DAILY NEEDED TAKING FOSAMAX 70 MG/75ML SOLUTION 75 ML ORALLY WEEKLY TAKING AMBIEN 10 MG TABLET 1 TABLET AT BEDTIME NEEDED ORALLY ONCE A DAY TAKING PREDNISONE 5 MG TABLET 1 TABLET ORALLY ONCE A DAY TAKING OXYGEN TAKING TRAMADOL HCL 50 MG TABLET 1-2 ORALLY Q4-6H MDD6, NOTES: NOT TAKING UNTIL OXYCODONE IS DONE TAKING METOPROLOL SUCCINATE ER 25 MG TABLET EXTENDED RELEASE 24 HOUR 1 TABLET ORALLY ONCE A DAY TAKING ZANAFLEX 4 MG TABLET 1 TABLET NEEDED ORALLY Q12H BID, NOTES: NOT TAKING UNTIL OXYCODONE IS DONE TAKING OXYCODONE HCL 5 MG CAPSULE 1 CAPSULE NEEDED ORALLY EVERY 4 HRS TAKING OXYCONTIN 15 MG TABLET ER 12 HOUR ABUSE-DETERRENT 2 TABLET ORALLY EVERY 12 HRS TAKING XARELTO 10 MG TABLET 1 TABLET WITH FOOD ORALLY ONCE A DAY, NOTES: UNSURE OF DOSE NOT-TAKING ATENOLOL 25MG TABLET 1 TABLET ORALLY ONCE DAILY, NOTES: DISCONTINUED NOT-TAKING VANCOMYCIN 1 TAB ORAL FOUR TIMES DAILY, NOTES: UNSURE OF DOSE NOT-TAKING BUTRANS 10 MCG/HR PATCH WEEKLY 1 PATCH TO SKIN TRANSDERMAL 1 PATCH Q7 DAYS=MDD, NOTES: STOPPED TAKING NOT-TAKING VITAMIN D-3 2000 UNIT CAPSULE 1 CAPSULE P.O. ONCE A DAY NOT-TAKING ACETAMINOPHEN 325 MG TABLET 1 TABLET NEEDED ORALLY EVERY 6 HRS NOT-TAKING ALBUTEROL SULFATE 1.25 MG/3ML NEBULIZATION SOLUTION 3 ML NEEDED INHALATION EVERY 8 HRS NOT-TAKING TUDORZA PRESSAIR 400 MCG/ACT AEROSOL POWDER BREATH ACTIVATED 1 PUFF INHALATION TWICE A DAY NOT-TAKING VENTOLIN HFA 108 (90 BASE) MCG/ACT AEROSOL SOLUTION 2 PUFFS NEEDED INHALATION EVERY 4 HRS NOT-TAKING BREO ELLIPTA 100-25 MCG/INH AEROSOL POWDER BREATH ACTIVATED 1 PUFF INHALATION ONCE A DAY NOT-TAKING LASIX 40 MG TABLET 1 TABLET ORALLY ONCE A DAY NOT-TAKING POTASSIUM 1 TAB ORAL DAILY, NOTES: UNSURE OF DOSE NOT-TAKING IBUPROFEN 600 MG TABLET 1 TABLET ORALLY THREE TIMES DAILY NEEDED, NOTES: NOT TAKING UNTIL OXYCODONE IS DONE MEDICATION LIST REVIEWED AND RECONCILED WITH THE PATIENT PAST MEDICAL HISTORY RA COPD BIPOLAR DISORDER/DEPRESSION/SUICIDAL IDEATION HTN GERD CHRONIC PAIN TOBACCO USE ANXIETY SLEEP APNEA C. DIFF ALLERGIES IVP DYE: ANAPHYLAXIS SHELLFISH: ANAPHYLAXIS LYRICA: SWELLING SURGICAL HISTORY 07/1981 APPENDECTOMY CHOLECYSTECTOMY TONSILLECTOMY BTL CRYO-2007 PARTIAL HIP REPLACEMENT - LEFT 05/2018 PINS PLACED IN HIP - RIGHT 05/2018 FAMILY HISTORY FATHER: , DIAGNOSED WITH HEART DISEASE MOTHER: , DIAGNOSED WITH OTHER 1 BROTHER(S) , 3 SISTER(S) - HEALTHY. 2 SON(S) , 1 DAUGHTER(S) - HEALTHY. SOCIAL HISTORY GENERAL: TOBACCO USE ARE YOU A:CURRENT SMOKER ARE YOU INTERESTED IN QUITTING?NOT READY TO QUIT COUNSELED THE PATIENT ON SMOKING EFFECTS, EDUCATION [id number] HOW MANY CIGARETTES A DAY DO YOU SMOKE?5 OR LESS PATIENT COUNSELED ON THE DANGERS OF TOBACCO USE AND URGED TO QUIT:06/10/2018 RECREATIONAL DRUG USE DRUG USE?NO CAFFEINE CAFFEINE USE?YES HOW OFTEN AND HOW MUCH? 1-2 CUPS PER DAY LEARNING BARRIERS / SPECIAL NEEDS ORIENTED TO PLAN OF CARE: PATIENT, PAIN MANAGEMENT PATIENT, ORIENTED TO PLAN OF CARE: PATIENT, PAIN MANAGEMENT PATIENT. NEW PATIENT PAIN DIARY TODAY'S VISITNOTES FROM 0-10, WHAT LEVEL IS YOUR PAIN TODAY?0 PAIN CLINIC PFS, CLERGY, PUBLIC HEALTH REFERRALS PFS REFERRAL NEEDED?NO CLERGY REFERRAL NEEDED?NO PUBLIC HEALTH REFERRAL NEEDED?NO WAS THE PROVIDER NOTIFIED OF ANY PERTINENT INFO?YES HAS THE PATIENT BEEN EDUCATED REGARDING HIS/HER PLAN OF CARE?YES HAS THE PATIENT BEEN EDUCATED REGARDING PAIN, THE RISK FOR PAIN, THE IMPORTANCE OF EFFECTIVE PAIN MANAGEMENT, AND THE PAIN ASSESSMENT PROCESS?YES ADVANCE DIRECTIVE ADVANCE DIRECTIVE DISCUSSED WITH PATIENT:YES HCP PAPERWORK GIVEN TO PATIENT AT THIS TIME, DECLINED ASSISTANCE FILLING OUT. 06/10/18 1158 JS REVIEWED WITH PATIENT 02/18/18 1432 JSREVIEWED WITH PATIENT 03/18/18 1450 JSREVIEWED WITH PATIENT 06/10/18 1158 JS. HOSPITALIZATION/MAJOR DIAGNOSTIC PROCEDURE FEVER 10/09/12 UTI 09/29/12 [facility] [place] SUICIDAL IDEATION/DEPRESSION 10/12/12 [facility] [place] SUICIDAL IDEATION 10/17/12 ACUTE CHOLECYSTITIS-JAMES 11/21 [facility]-DEPRESSION/SUICIDAL IDEATION 12/22 C. DIFF 01/2018 C. DIFF/DEHYDRATION 02/2018 BROKEN HIP 05/2018 REVIEW OF SYSTEMS REVIEWED BY: PROVIDER: LIUDMILA WHITESIDE . CONSTITUTIONAL: ANY CHANGE IN YOUR MEDICAL CONDITION? YES, BROKEN HIPS, RECENT ADMISSION TO THE HOSPITAL. PARTIAL HIP REPLACEMENT TO LEFT HIP AND PINS PLACED IN RIGHT HIP. ALSO HAS COMPRESSION FRACTURES TO BACK . CHILLS NO . FEVER NO . INFECTION: DO YOU HAVE NEW INFECTIONS? NO . DO YOU HAVE HISTORY OF MRSA? NO . MUSCULOSKELETAL: ANY NEW PATTERNS OF PAIN OR NUMBNESS? NO . GASTROENTEROLOGY: ANY NEW CHANGE IN BOWEL CONTROL? NO . GENITOURINARY: ANY NEW CHANGE IN BLADDER CONTROL? NO . IS THERE A CHANCE YOU COULD BE ? NO . HEMATOLOGY/LYMPH: DO YOU TAKE ANY BLOOD THINNERS? (FOR EXAMPLE- COUMADIN, PLAVIX, AGGRENOX, PLATEL, PRADAXA, OR XARELTO) YES, XARELTO DUE TO SURGERY . WHEN WAS YOUR LAST DOSE? DATE: 06/09/18 TIME: 1800 . NEUROLOGY: HAVE YOU FALLEN IN THE PAST 12 MONTHS? YES, FELL AT THE BEGINNING OF MAY, ADMITTED TO THE HOSPITAL WITH BROKEN HIPS . ANY NEW EXTREMITY NUMBNESS OR WEAKNESS? NO . CARDIOLOGY: DO YOU HAVE A PACEMAKER OR DEFIBRILLATOR? NO . RESPIRATORY: HAVE YOU BEEN SICK IN THE PAST WEEK? NO . FEVER NO . FLU LIKE SYMPTOMS? NO . COUGH NO . INTEGUMENTARY: DO YOU HAVE ANY RASHES OR OPEN SORES? NO . ALLERGIC/IMMUNO: ARE YOU ALLERGIC TO IV DYE? NO . ANY NEW ALLERGIES? NO . PSYCHIATRIC: DO YOU HAVE THOUGHTS OF HURTING YOURSELF OR SOMEONE ELSE? NO . ARE YOU ABUSED, NEGLECTED, OR IN AN UNSAFE ENVIRONMENT? NO . ENDOCRINOLOGY: ARE YOU DIABETIC? NO . OTHER: DO YOU NEED ANY PRESCRIPTIONS? YES . IF YES, PLEASE LIST: ____TIZANIDINE, TRAMADOL . ANY NEW PROBLEMS WITH YOUR MEDICATIONS? NO . WHEN DID YOU LAST EAT? ____ . WHEN DID YOU LAST DRINK? ____ . WHAT DID YOU LAST DRINK? ____ . NAME OF PERSON DRIVING YOU HOME? ____ . DO YOU HAVE ANY OTHER QUESTIONS OR CONCERNS NO . VITAL SIGNS WT 201 LBS, HT 62 IN, BMI 36.76 INDEX, BP 139/69 MM HG, HR 119 /MIN, RR 18 /MIN, TEMP 98.5 F, OXYGEN SAT % 97%, SAFE IN ENV? (Y/N) YES, NA INITIALS [place] 11:29, REVIEWED BY: EDUARDO. EXAMINATION GENERAL EXAMINATION: GENERAL APPEARANCE:AWAKE,ALERT ,PLEAASANT . PSYCHAFFECT NORMAL . LUNGS:LUNG BRENNAN ARE CLEAR TO AUSCULTATION BILATERALLY. GOOD MOVEMENT OF AIR . HEART:S1, S2 IN A REGULAR RATE AND RHYTHM. NO SIGNIFICANT MURMURS, RUBS OR GALLOPS NOTED . ASSESSMENTS RHEUMATOID ARTHRITIS INVOLVING MULTIPLE SITES, UNSPECIFIED RHEUMATOID FACTOR PRESENCE - M06.9 (PRIMARY) TREATMENT RHEUMATOID ARTHRITIS INVOLVING MULTIPLE SITES, UNSPECIFIED RHEUMATOID FACTOR PRESENCE REFILL OXYCONTIN TABLET ER 12 HOUR ABUSE-DETERRENT, 15 MG, 2 TABLET, ORALLY, Q8H TID MDD3, 30 DAY(S), 90, REFILLS 0 REFILL OXYCODONE HCL CAPSULE, 5 MG, 1 CAPSULE NEEDED, ORALLY, EVERY 4 HRS PRN MDD4, 30 DAY(S), 120, REFILLS 0 NOTES: TAKE OXYCONTIN 15MG 3X DAILYUSE OXYCODONE 5MG EVERY 4HR NEEDED WITH MAX 4 PER DAY, ISTOP REGISTRY REVIEWED AND DEMONSTRATES COMPLLIANCE. BRINGS IN MEDICATIONS WHICH IS APPROPRIATE FOR WHAT WAS DISPENSED. RECENT URINE TOXICOLOGY REVIEWED. NO UNAUTHORIZED MEDICATIONS. NO ILLICIT SUBSTANCES AND PRESCRIBED MEDICATIONS WERE PRESENT. , RISKS AND BENEFITS OF NARCOTIC/OPIOD MEDICATIONS WERE REVIEWED WITH PATIENT - THIS INCLUDES BUT IS NOT LIMITED TO RISK OF DEPENDANCE/DEVELOPMENT OF ADDICTION, MOOD DISTURBANCE AND DEPRESSION, OSTEOPOROSIS, HORMONAL AND LABIDAL CHANGES, RESPIRATORY DEPRESSION AND . PATIENT IS ADVISED NOT TO DRIVE OR DRINK ALCOHOL WHILE ON THESE MEDICATIONS. PROCEDURE CODES FA211 ESTABILISHED PATIENT [facility] CHARGE DISPOSITION & COMMUNICATION FOLLOW UP 6 WEEKS ELECTRONICALLY SIGNED BY STEVO GONCALVES ON 06/21/2018 AT 03:17 PM EST DISCLAIMER : THIS IS A VISIT SUMMARY EXTRACTED FROM THE [employer] CHART. IT IS NOT A COPY OF THE [employer] PROGRESS NOTE. MAMI
== END ==
LOC: M PAIN 11:00
PROVIDERS: ATTEND Nurse Practitioner Family
DX: M06.9 Rheumatoid arthritis, unspecified (principal); J44.9 Chronic obstructive pulmonary disease, unspecified; F31.9 Bipolar disorder, unspecified; I10 Essential (primary) hypertension; K21.9 Gastro-esophageal reflux disease without esophagitis; G89.29 Other chronic pain; F41.9 Anxiety disorder, unspecified; G47.30 Sleep apnea, unspecified; Z90.49 Acquired absence of other specified parts of digestive tract; F17.210 Nicotine dependence, cigarettes, uncomplicated; Z88.8 Allergy status to other drugs, medicaments and biological substances; Z91.013 Allergy to seafood; Z91.041 Radiographic dye allergy status; Z79.52 Long term (current) use of systemic steroids; Z79.01 Long term (current) use of anticoagulants; Z79.891 Long term (current) use of opiate analgesic; Z79.899 Other long term (current) drug therapy

== ENCOUNTER → 2018-07-07 | Outpatient (CLI) | payer MEDICAID, MEDICARE ==
--- NOTE | 2018-07-07 17:31 | REP ---
Clinical: Right adnexal lesion by prior examination . Technique: Transabdominal pelvic ultrasound followed by transvaginal examination for better evaluation of the endometrium and adnexa with color Doppler evaluation of the ovaries. Findings: Bladder is unremarkable and measures 8.3 x 4.0 x 7.2 cm . Anteverted myomatous uterus measures 6.2 x 3.2 x 5.0 cm. The endometrial complex measures 3.9 mm thickness and there is suggestion for 6 x 3 x 5 mm polyp. Posterior submucosal fibroid measures 1.9 x 1.0 x 1.5 cm. Anterior right intramural fibroid measures 1.3 x 0.9 x 0.8 cm. Right ovary measures 5.6 x 4.0 x 5.1 cm and includes 4.0 x 2.4 x 4.0 cm complex cyst. Left ovary measures 2.5 x 2.4 x 2.5 cm and includes 1.7 x 1.0 x 1.1 cm complex cyst. No pelvic fluid. Impression: 1. Heterogeneous myomatous uterus with possible 6 mm endometrial polyp. 2. Bilateral ovarian cysts. Electronically Signed by Cortez Wolfe MD 07/07/2018 05:23 P
== END ==
LOC: M RAD 16:21
PROVIDERS: ATTEND Physician Assistant
DX: N83.201 Unspecified ovarian cyst, right side (principal); D25.0 Submucous leiomyoma of uterus; D25.1 Intramural leiomyoma of uterus; N83.202 Unspecified ovarian cyst, left side

== ENCOUNTER → 2018-07-22 | Outpatient (CLI) | payer MEDICARE, MEDICAID ==
--- NOTE | 2018-08-07 01:44 | ECWPNPC ---
PATIENT NAME: DA THAO : 1955 GENDER: FEMALE VISIT DATE: 07/22/2018 DISCHARGE DATE: 07/22/18 1305 VISIT LOCKED DATE TIME: PHYSICIAN: LIUDMILA HART RESOURCE: LIUDMILA HART REASON FOR APPOINTMENT 1. BACK/HIPS- 6 WEEKS PER LB HISTORY OF PRESENT ILLNESS HISTORY OF PRESENT ILLNESS: HERE FOR F/U OF CHRONIC GENERALIZED JOINT PAIN W HX OF RHEUMATOID ARTHRITIS.SHE LIVES WITH A FAMILY MEMBER WHO CARES FOR HER AND WHO ACCOMPANIES HER TO APPOINTMENT TODAY.DESCRIBES PAIN CONTINUOUS AND SHARP.RATING PAIN VAS 8/10. PAIN THE PATIENT DESCRIBES THE PAIN... FALL RISK SCREENING: SCREENING : NO FALLS IN THE PAST YEAR. CURRENT MEDICATIONS TAKING FOLIC ACID 1 MG TABLET 1 TAB(S) P.O. ONCE A DAY TAKING OMEPRAZOLE 40 MG CAPSULE DELAYED RELEASE 1 CAPSULE ORALLY ONCE A DAY TAKING RANITIDINE HCL 150 MG CAPSULE 1 CAP(S) P.O. TWICE DAILY NEEDED TAKING TRAZODONE 100 100MG TABLET 3 ORAL DAILY TAKING KLONOPIN 1 MG TABLET ORALLY THREE TIMES DAILY TAKING METHOTREXATE 2.5 MG TABLET 8 TABS P.O. ONCE A WK. TAKING ALLOPURINOL 100 MG TABLET 1 TABLET ORALLY ONCE A DAY TAKING ENBREL 50 MG/ML SOLUTION PREFILLED SYRINGE 1 ML SUBCUTANEOUS WEEKLY TAKING LAMICTAL 200 MG TABLET 1 TABLET ORALLY ONCE DAILY TAKING NYSTATIN POWDER DIRECTED TAKING SENNA LAXATIVE 8.6 MG TABLET 1 TABLETS AT BEDTIME NEEDED ORALLY ONCE DAILY NEEDED TAKING FOSAMAX 70 MG/75ML SOLUTION 75 ML ORALLY WEEKLY TAKING AMBIEN 10 MG TABLET 1 TABLET AT BEDTIME NEEDED ORALLY ONCE A DAY TAKING PREDNISONE 5 MG TABLET 1 TABLET ORALLY ONCE A DAY TAKING OXYGEN TAKING TRAMADOL HCL 50 MG TABLET 1-2 ORALLY Q4-6H MDD6, NOTES: NOT TAKING UNTIL OXYCODONE IS DONE TAKING METOPROLOL SUCCINATE ER 25 MG TABLET EXTENDED RELEASE 24 HOUR 1 TABLET ORALLY ONCE A DAY TAKING ZANAFLEX 4 MG TABLET 1 TABLET NEEDED ORALLY Q12H BID, NOTES: NOT TAKING UNTIL OXYCODONE IS DONE TAKING OXYCONTIN 15 MG TABLET ER 12 HOUR ABUSE-DETERRENT 1 CAP ORALLY Q8H TID MDD3 TAKING LATUDA 40 MG TABLET 1 TABLET ORALLY DAILY NOT-TAKING CALCIUM 600 600 MG TABLET 1 TAB(S) P.O. TWICE A DAY NOT-TAKING OXYCODONE HCL 5 MG CAPSULE 1 CAPSULE NEEDED ORALLY EVERY 4 HRS PRN MDD4 NOT-TAKING ATENOLOL 25MG TABLET 1 TABLET ORALLY ONCE DAILY, NOTES: DISCONTINUED NOT-TAKING VANCOMYCIN 1 TAB ORAL FOUR TIMES DAILY, NOTES: UNSURE OF DOSE NOT-TAKING BUTRANS 10 MCG/HR PATCH WEEKLY 1 PATCH TO SKIN TRANSDERMAL 1 PATCH Q7 DAYS=MDD, NOTES: STOPPED TAKING NOT-TAKING VITAMIN D-3 2000 UNIT CAPSULE 1 CAPSULE P.O. ONCE A DAY NOT-TAKING ACETAMINOPHEN 325 MG TABLET 1 TABLET NEEDED ORALLY EVERY 6 HRS NOT-TAKING ALBUTEROL SULFATE 1.25 MG/3ML NEBULIZATION SOLUTION 3 ML NEEDED INHALATION EVERY 8 HRS NOT-TAKING TUDORZA PRESSAIR 400 MCG/ACT AEROSOL POWDER BREATH ACTIVATED 1 PUFF INHALATION TWICE A DAY NOT-TAKING VENTOLIN HFA 108 (90 BASE) MCG/ACT AEROSOL SOLUTION 2 PUFFS NEEDED INHALATION EVERY 4 HRS NOT-TAKING BREO ELLIPTA 100-25 MCG/INH AEROSOL POWDER BREATH ACTIVATED 1 PUFF INHALATION ONCE A DAY NOT-TAKING LASIX 40 MG TABLET 1 TABLET ORALLY ONCE A DAY NOT-TAKING POTASSIUM 1 TAB ORAL DAILY, NOTES: UNSURE OF DOSE NOT-TAKING IBUPROFEN 600 MG TABLET 1 TABLET ORALLY THREE TIMES DAILY NEEDED, NOTES: NOT TAKING UNTIL OXYCODONE IS DONE DISCONTINUED RISPERDAL 2 MG TABLET 1 TAB(S) P.O. ONCE A DAY DISCONTINUED XARELTO 10 MG TABLET 1 TABLET WITH FOOD ORALLY ONCE A DAY, NOTES: UNSURE OF DOSE MEDICATION LIST REVIEWED AND RECONCILED WITH THE PATIENT PAST MEDICAL HISTORY RA COPD BIPOLAR DISORDER/DEPRESSION/SUICIDAL IDEATION HTN GERD CHRONIC PAIN TOBACCO USE ANXIETY SLEEP APNEA C. DIFF ALLERGIES IVP DYE: ANAPHYLAXIS SHELLFISH: ANAPHYLAXIS LYRICA: SWELLING SURGICAL HISTORY 07/1981 APPENDECTOMY CHOLECYSTECTOMY TONSILLECTOMY BTL [facility]-2007 PARTIAL HIP REPLACEMENT - LEFT 05/2018 PINS PLACED IN HIP - RIGHT 05/2018 FAMILY HISTORY FATHER: , DIAGNOSED WITH HEART DISEASE MOTHER: , OTHER 1 BROTHER(S) , 3 SISTER(S) - HEALTHY. 2 SON(S) , 1 DAUGHTER(S) - HEALTHY. SOCIAL HISTORY GENERAL: TOBACCO USE ARE YOU A:CURRENT SMOKER ARE YOU INTERESTED IN QUITTING?NOT READY TO QUIT COUNSELED THE PATIENT ON SMOKING EFFECTS, EDUCATION [id number] HOW MANY CIGARETTES A DAY DO YOU SMOKE?5 OR LESS PATIENT COUNSELED ON THE DANGERS OF TOBACCO USE AND URGED TO QUIT:06/10/2018 RECREATIONAL DRUG USE DRUG USE?NO CAFFEINE CAFFEINE USE?YES HOW OFTEN AND HOW MUCH? 1-2 CUPS PER DAY LEARNING BARRIERS / SPECIAL NEEDS ORIENTED TO PLAN OF CARE: PATIENT, PAIN MANAGEMENT PATIENT, ORIENTED TO PLAN OF CARE: PATIENT, PAIN MANAGEMENT PATIENT. NEW PATIENT PAIN DIARY TODAY'S VISITNOTES FROM 0-10, WHAT LEVEL IS YOUR PAIN TODAY?0 PAIN CLINIC PFS, CLERGY, PUBLIC HEALTH REFERRALS PFS REFERRAL NEEDED?NO CLERGY REFERRAL NEEDED?NO PUBLIC HEALTH REFERRAL NEEDED?NO WAS THE PROVIDER NOTIFIED OF ANY PERTINENT INFO?YES HAS THE PATIENT BEEN EDUCATED REGARDING HIS/HER PLAN OF CARE?YES HAS THE PATIENT BEEN EDUCATED REGARDING PAIN, THE RISK FOR PAIN, THE IMPORTANCE OF EFFECTIVE PAIN MANAGEMENT, AND THE PAIN ASSESSMENT PROCESS?YES ADVANCE DIRECTIVE ADVANCE DIRECTIVE DISCUSSED WITH PATIENT:YES DECLINED REVIEWED WITH PATIENT 02/18/18 1432 JSREVIEWED WITH PATIENT 03/18/18 1450 JSREVIEWED WITH PATIENT 06/10/18 1158 JS. HOSPITALIZATION/MAJOR DIAGNOSTIC PROCEDURE FEVER 10/09/12 UTI 09/29/12 [facility] [place] SUICIDAL IDEATION/DEPRESSION 10/12/12 [facility] SUICIDAL IDEATION 10/17/12 ACUTE CHOLECYSTITIS-JAMES 11/21 [facility]-DEPRESSION/SUICIDAL IDEATION 12/22 C. DIFF 01/2018 C. DIFF/DEHYDRATION 02/2018 BROKEN HIP 05/2018 REVIEW OF SYSTEMS REVIEWED BY: PROVIDER: LIUDMILA WHITESIDE . CONSTITUTIONAL: ANY CHANGE IN YOUR MEDICAL CONDITION? NO . CHILLS NO . FEVER NO . INFECTION: DO YOU HAVE NEW INFECTIONS? NO . DO YOU HAVE HISTORY OF MRSA? NO . MUSCULOSKELETAL: ANY NEW PATTERNS OF PAIN OR NUMBNESS? NO . GASTROENTEROLOGY: ANY NEW CHANGE IN BOWEL CONTROL? NO . GENITOURINARY: ANY NEW CHANGE IN BLADDER CONTROL? NO . IS THERE A CHANCE YOU COULD BE ? NO . HEMATOLOGY/LYMPH: DO YOU TAKE ANY BLOOD THINNERS? (FOR EXAMPLE- COUMADIN, PLAVIX, AGGRENOX, PLATEL, PRADAXA, OR XARELTO) NO . WHEN WAS YOUR LAST DOSE? DATE: TIME: . NEUROLOGY: HAVE YOU FALLEN IN THE PAST 12 MONTHS? YES, FELL LAST WEEK TRIPPED OVER DOG IN THE DARK . ANY NEW EXTREMITY NUMBNESS OR WEAKNESS? YES, RIGHT LEG NUMBNESS . CARDIOLOGY: DO YOU HAVE A PACEMAKER OR DEFIBRILLATOR? NO . RESPIRATORY: HAVE YOU BEEN SICK IN THE PAST WEEK? NO . FEVER NO . FLU LIKE SYMPTOMS? NO . COUGH NO . INTEGUMENTARY: DO YOU HAVE ANY RASHES OR OPEN SORES? NO . ALLERGIC/IMMUNO: ARE YOU ALLERGIC TO IV DYE? YES . ANY NEW ALLERGIES? NO . PSYCHIATRIC: DO YOU HAVE THOUGHTS OF HURTING YOURSELF OR SOMEONE ELSE? NO . ARE YOU ABUSED, NEGLECTED, OR IN AN UNSAFE ENVIRONMENT? NO . ENDOCRINOLOGY: ARE YOU DIABETIC? NO . OTHER: DO YOU NEED ANY PRESCRIPTIONS? NO . IF YES, PLEASE LIST: ____ . ANY NEW PROBLEMS WITH YOUR MEDICATIONS? NO . WHEN DID YOU LAST EAT? ____ . WHEN DID YOU LAST DRINK? ____ . WHAT DID YOU LAST DRINK? ____ . NAME OF PERSON DRIVING YOU HOME? ____ . DO YOU HAVE ANY OTHER QUESTIONS OR CONCERNS NO, PT STATES SHE ACCIDENTALLY CHECKED YES ON PAIN DIARY TO MANY QUESTIONS WHICH WERE REALLY NO AFTER REVIEW . VITAL SIGNS WT 199.2 LBS, HT 62 IN, BMI 36.43 INDEX, BP 145/72 MM HG, HR 82 /MIN, RR 16 /MIN, TEMP 97.2 F, OXYGEN SAT % 96%, NA INITIALS SC 12:05, REVIEWED BY: EM. EXAMINATION GENERAL EXAMINATION: GENERAL APPEARANCE:AWAKE,ALERT ,PLEAASANT . PSYCHAFFECT NORMAL . LUNGS:LUNG BRENNAN ARE CLEAR TO AUSCULTATION BILATERALLY. GOOD MOVEMENT OF AIR . HEART:S1, S2 IN A REGULAR RATE AND RHYTHM. NO SIGNIFICANT MURMURS, RUBS OR GALLOPS NOTED . ASSESSMENTS RHEUMATOID ARTHRITIS INVOLVING MULTIPLE SITES, UNSPECIFIED RHEUMATOID FACTOR PRESENCE - M06.9 (PRIMARY) TREATMENT RHEUMATOID ARTHRITIS INVOLVING MULTIPLE SITES, UNSPECIFIED RHEUMATOID FACTOR PRESENCE REFILL OXYCONTIN TABLET ER 12 HOUR ABUSE-DETERRENT, 15 MG, 1 CAP, ORALLY, Q8H TID MDD3, 30 DAY(S), 90, REFILLS 0 NOTES: ISTOP REGISTRY REVIEWED AND DEMONSTRATES COMPLLIANCE. (REF # [id number] ) BRINGS IN MEDICATIONS WHICH IS APPROPRIATE FOR WHAT WAS DISPENSED. RECENT URINE TOXICOLOGY REVIEWED. NO UNAUTHORIZED MEDICATIONS. NO ILLICIT SUBSTANCES AND PRESCRIBED MEDICATIONS WERE PRESENT. URINE TOX TODAY, RISKS AND BENEFITS OF NARCOTIC/OPIOD MEDICATIONS WERE REVIEWED WITH PATIENT - THIS INCLUDES BUT IS NOT LIMITED TO RISK OF DEPENDANCE/DEVELOPMENT OF ADDICTION, MOOD DISTURBANCE AND DEPRESSION, OSTEOPOROSIS, HORMONAL AND LABIDAL CHANGES, RESPIRATORY DEPRESSION AND . PATIENT IS ADVISED NOT TO DRIVE OR DRINK ALCOHOL WHILE ON THESE MEDICATIONS, PATIENT WAS ADVISED TO START A WALKING PROGRAM TO STRENGTHEN LUMBAR PARASPINAL MUSCLES AND IMPROVE MOBILITY. THEY WERE ADVISED THAT THIS WILL IMPROVE WEIGHT LOSS AND ALSO DEPRESSION/FIBROMYALGIA SYMPTOMS. ADVISED TO WALK 5 MINUTES EVERY OTHER DAY ON A FLAT SURFACE. EMPHASIZED THE IMPORTANCE OF DOING THIS CONSISTANTLY AND NOT SPORATICALLY TO AVOID INJURY. STRONG ADVISED NOT TO DO MORE THAN 10 MINUTES EVERY OTHER DAY FOR THE FIRST 4 WEEKS.. PROCEDURE CODES FA211 ESTABILISHED PATIENT [facility] CHARGE DISPOSITION & COMMUNICATION FOLLOW UP 2 MONTHS ELECTRONICALLY SIGNED BY STEVO GONCALVES ON 08/06/2018 AT 04:17 PM EDT DISCLAIMER : THIS IS A VISIT SUMMARY EXTRACTED FROM THE [employer] CHART. IT IS NOT A COPY OF THE [employer] PROGRESS NOTE. MAMI
== END ==
LOC: M PAIN 11:45
PROVIDERS: ATTEND Nurse Practitioner Family
DX: G89.29 Other chronic pain (principal); M06.9 Rheumatoid arthritis, unspecified; J44.9 Chronic obstructive pulmonary disease, unspecified; F31.9 Bipolar disorder, unspecified; I10 Essential (primary) hypertension; K21.9 Gastro-esophageal reflux disease without esophagitis; F17.210 Nicotine dependence, cigarettes, uncomplicated; F41.9 Anxiety disorder, unspecified; G47.30 Sleep apnea, unspecified; Z79.52 Long term (current) use of systemic steroids; Z79.891 Long term (current) use of opiate analgesic; Z79.899 Other long term (current) drug therapy; Z99.81 Dependence on supplemental oxygen; Z88.8 Allergy status to other drugs, medicaments and biological substances; Z91.041 Radiographic dye allergy status; Z91.013 Allergy to seafood

== ENCOUNTER → 2018-08-06 | Outpatient (REF) | payer MEDICARE, MEDICAID ==
[2018-08-06 16:22] LABS: BASO # 0.1 10^3/uL (0.0-0.2); BASO % 0.7 % (0.0-1.0); EOS # 0.2 10^3/uL (0.0-0.50); EOS % 1.6 % (0.0-3.0); HEMATOCRIT 38.6 % (36.0-47.0); HEMOGLOBIN 12.3 g/dl (12.0-15.5); LYMPH # 1.6 10^3/uL (1.5-4.5); LYMPH % 15.9 % (24.0-44.0); MEAN CORPUSCULAR HEMOGLOBIN 29.9 pg (27.0-33.0); MEAN CORPUSCULAR HGB CONC 31.9 g/dl (32.0-36.5); MEAN CORPUSCULAR VOLUME 93.7 fl (80.0-96.0); MONO # 0.6 10^3/uL (0.0-0.8); NEUTROPHILS # 7.6 10^3/uL (1.8-7.7); NEUTROPHILS % 75.4 % (36.0-66.0); PLATELET COUNT, AUTOMATED 172 10^3/uL (150-450); RED BLOOD COUNT 4.12 10^6/uL (4.00-5.40)
[2018-08-06 17:22] LABS: ERYTHROCYTE SEDIMENTATION RATE 9 mm/hr (0-30)
== END ==
LOC: M LABDRAW1 15:42
PROVIDERS: ATTEND Orthopaedic Surgery
DX: Z96.642 Presence of left artificial hip joint (principal)

== ENCOUNTER → 2018-09-15 | Outpatient (CLI) | payer MEDICARE, MEDICAID ==
[~2018-09-15] MED LIST changes: -ACET50TA PO; -ALEN70TA57 PO; +ALEN70TA74 PO; +HEPA500011 IJ; +LAMO100T80 PO; -LAMO10TA PO; +MAPA500T17 PO; -VANC125C2 PO; +VANC125C3 PO; -[UNRECOGNIZED DRUG - CODE] IJ
== END ==
LOC: M SMT 11:15
PROVIDERS: ATTEND Obstetrics & Gynecology
DX: N83.291 Other ovarian cyst, right side (principal); Z87.42 Personal history of other diseases of the female genital tract

== ENCOUNTER → 2018-12-11 | Outpatient (CLI) | payer MEDICARE, MEDICAID ==
[~2018-12-11] MED LIST changes: -TUDO1AER2 INH; +TUDO1AER3 INH
[2018-12-11 14:11] LABS: BASO # 0.1 10^3/uL (0.0-0.2); BASO % 0.6 % (0.0-1.0); EOS # 0.2 10^3/uL (0.0-0.50); EOS % 1.7 % (0.0-3.0); HEMOGLOBIN 13.7 g/dl (12.0-15.5); LYMPH # 2.7 10^3/uL (1.5-4.5); LYMPH % 20.4 % (24.0-44.0); MEAN CORPUSCULAR HEMOGLOBIN 32.5 pg (27.0-33.0); MEAN CORPUSCULAR HGB CONC 32.6 g/dl (32.0-36.5); MEAN CORPUSCULAR VOLUME 99.8 fl (80.0-96.0); MONO # 0.8 10^3/uL (0.0-0.8); MONO % 6.1 % (0.0-5.0); NEUTROPHILS # 9.2 10^3/uL (1.8-7.7); NEUTROPHILS % 70.4 % (36.0-66.0); PLATELET COUNT, AUTOMATED 184 10^3/uL (150-450); RED BLOOD COUNT 4.21 10^6/uL (4.00-5.40)
[2018-12-11 14:42] LABS: ALBUMIN 3.1 GM/DL (3.2-5.2); ALT/SGPT 16 U/L (12-78); BILIRUBIN,TOTAL 0.4 MG/DL (0.2-1.0); BLOOD UREA NITROGEN 13 MG/DL (7-18); CALCIUM LEVEL 8.6 MG/DL (8.8-10.2); CARBON DIOXIDE LEVEL 37 MEQ/L (21-32); CHLORIDE LEVEL 103 MEQ/L (98-107); CHOLESTEROL LEVEL 158 MG/DL (<200); CHOLESTEROL RISK RATIO 4.157 (<5); CREATININE FOR GFR 0.95 MG/DL (0.55-1.30); GLOMERULAR FILTRATION RATE > 60.0 (>45); GLUCOSE, FASTING 99 MG/DL (70-100); HDL CHOLESTEROL 38 MG/DL (>40); LDL CHOLESTEROL 89 MG/DL (<100); NON-HDL-C 120 MG/DL; SODIUM LEVEL 144 MEQ/L (136-145); TOTAL PROTEIN 6.3 GM/DL (6.4-8.2); TRIGLYCERIDES LEVEL 155 MG/DL (<150)
== END ==
LOC: M LAB 12:10
PROVIDERS: ATTEND Physician Assistant
DX: M32.9 Systemic lupus erythematosus, unspecified (principal); I10 Essential (primary) hypertension; M06.9 Rheumatoid arthritis, unspecified

== ENCOUNTER → 2018-12-22 | Outpatient (CLI) | payer MEDICARE, MEDICAID ==
[~2018-12-22] MED LIST changes: -ENBR50IN2 SC; +ETAN50SY SC; +OMEP40CA97 PO; -TRAZ-163 PO; +TRAZ-257 PO; -TRAZ10TA PO; +TRAZ1TAB12 PO
--- NOTE | 2019-01-08 00:07 | ECWPNPC ---
PATIENT NAME: DA THAO : 1955 GENDER: FEMALE VISIT DATE: 12/22/2018 DISCHARGE DATE: 12/22/18 1423 VISIT LOCKED DATE TIME: PHYSICIAN: LIUDMILA HART RESOURCE: LIUDMILA HART REASON FOR APPOINTMENT 1. BACK/HIPS HISTORY OF PRESENT ILLNESS HISTORY OF PRESENT ILLNESS: HERE FOR F/U OF CHRONIC GENERALIZED JOINT PAIN W HX OF RHEUMATOID ARTHRITIS.DESCRIBES PAIN CONTINUOUS AND SHARP.RATING PAIN VAS 5/10. PAIN THE PATIENT DESCRIBES THE PAIN... THE PATIENT DESCRIBES THE PAIN... FALL RISK SCREENING: SCREENING :NO FALLS REPORTED IN THE LAST YEAR CURRENT MEDICATIONS TAKING FOLIC ACID 1 MG TABLET 1 TAB(S) P.O. ONCE A DAY TAKING OMEPRAZOLE 40 MG CAPSULE DELAYED RELEASE 1 CAPSULE ORALLY ONCE A DAY TAKING RANITIDINE HCL 150 MG CAPSULE 1 CAP(S) P.O. TWICE DAILY NEEDED TAKING TRAZODONE 100 100MG TABLET 3 ORAL DAILY TAKING KLONOPIN 1 MG TABLET ORALLY THREE TIMES DAILY TAKING METHOTREXATE 2.5 MG TABLET 8 TABS P.O. ONCE A WK. TAKING ALLOPURINOL 100 MG TABLET 1 TABLET ORALLY ONCE A DAY TAKING ENBREL 50 MG/ML SOLUTION PREFILLED SYRINGE 1 ML SUBCUTANEOUS WEEKLY TAKING NYSTATIN POWDER DIRECTED TAKING SENNA LAXATIVE 8.6 MG TABLET 1 TABLETS AT BEDTIME NEEDED ORALLY ONCE DAILY NEEDED TAKING FOSAMAX 70 MG/75ML SOLUTION 75 ML ORALLY WEEKLY TAKING AMBIEN 10 MG TABLET 1 TABLET AT BEDTIME NEEDED ORALLY ONCE A DAY TAKING PREDNISONE 5 MG TABLET 1 TABLET ORALLY ONCE A DAY TAKING OXYGEN TAKING METOPROLOL SUCCINATE ER 25 MG TABLET EXTENDED RELEASE 24 HOUR 1 TABLET ORALLY ONCE A DAY TAKING LATUDA 40 MG TABLET 1 TABLET ORALLY DAILY TAKING OXYCONTIN 15 MG TABLET ER 12 HOUR ABUSE-DETERRENT 1 CAP ORALLY Q8H TID MDD3 NOT-TAKING CALCIUM 600 600 MG TABLET 1 TAB(S) P.O. TWICE A DAY NOT-TAKING OXYCODONE HCL 5 MG CAPSULE 1 CAPSULE NEEDED ORALLY EVERY 4 HRS PRN MDD4 NOT-TAKING ATENOLOL 25MG TABLET 1 TABLET ORALLY ONCE DAILY, NOTES: DISCONTINUED NOT-TAKING VANCOMYCIN 1 TAB ORAL FOUR TIMES DAILY, NOTES: UNSURE OF DOSE NOT-TAKING BUTRANS 10 MCG/HR PATCH WEEKLY 1 PATCH TO SKIN TRANSDERMAL 1 PATCH Q7 DAYS=MDD, NOTES: STOPPED TAKING NOT-TAKING VITAMIN D-3 2000 UNIT CAPSULE 1 CAPSULE P.O. ONCE A DAY NOT-TAKING ACETAMINOPHEN 325 MG TABLET 1 TABLET NEEDED ORALLY EVERY 6 HRS NOT-TAKING ALBUTEROL SULFATE 1.25 MG/3ML NEBULIZATION SOLUTION 3 ML NEEDED INHALATION EVERY 8 HRS NOT-TAKING TUDORZA PRESSAIR 400 MCG/ACT AEROSOL POWDER BREATH ACTIVATED 1 PUFF INHALATION TWICE A DAY NOT-TAKING VENTOLIN HFA 108 (90 BASE) MCG/ACT AEROSOL SOLUTION 2 PUFFS NEEDED INHALATION EVERY 4 HRS NOT-TAKING BREO ELLIPTA 100-25 MCG/INH AEROSOL POWDER BREATH ACTIVATED 1 PUFF INHALATION ONCE A DAY NOT-TAKING LASIX 40 MG TABLET 1 TABLET ORALLY ONCE A DAY NOT-TAKING POTASSIUM 1 TAB ORAL DAILY, NOTES: UNSURE OF DOSE NOT-TAKING IBUPROFEN 600 MG TABLET 1 TABLET ORALLY THREE TIMES DAILY NEEDED, NOTES: NOT TAKING UNTIL OXYCODONE IS DONE DISCONTINUED LAMICTAL 200 MG TABLET 1 TABLET ORALLY ONCE DAILY DISCONTINUED TRAMADOL HCL 50 MG TABLET 1-2 ORALLY Q4-6H MDD6, NOTES: NOT TAKING UNTIL OXYCODONE IS DONE DISCONTINUED ZANAFLEX 4 MG TABLET 1 TABLET NEEDED ORALLY Q12H BID, NOTES: NOT TAKING UNTIL OXYCODONE IS DONE MEDICATION LIST REVIEWED AND RECONCILED WITH THE PATIENT PAST MEDICAL HISTORY RA COPD BIPOLAR DISORDER/DEPRESSION/SUICIDAL IDEATION HTN GERD CHRONIC PAIN TOBACCO USE ANXIETY SLEEP APNEA C. DIFF ALLERGIES IVP DYE: ANAPHYLAXIS SHELLFISH: ANAPHYLAXIS LYRICA: SWELLING SURGICAL HISTORY 07/1981 APPENDECTOMY CHOLECYSTECTOMY TONSILLECTOMY BTL [facility]-2007 PARTIAL HIP REPLACEMENT - LEFT 05/2018 PINS PLACED IN HIP - RIGHT 05/2018 FAMILY HISTORY FATHER: , DIAGNOSED WITH HEART DISEASE MOTHER: , OTHER 1 BROTHER(S) , 3 SISTER(S) - HEALTHY. 2 SON(S) , 1 DAUGHTER(S) - HEALTHY. SOCIAL HISTORY GENERAL: TOBACCO USE ARE YOU A:CURRENT SMOKER ARE YOU INTERESTED IN QUITTING?NOT READY TO QUIT COUNSELED THE PATIENT ON SMOKING EFFECTS, EDUCATION [id number]/13/2019 HOW MANY CIGARETTES A DAY DO YOU SMOKE?5 OR LESS PATIENT COUNSELED ON THE DANGERS OF TOBACCO USE AND URGED TO QUIT:06/10/2018 PAIN CLINIC PFS, CLERGY, PUBLIC HEALTH REFERRALS PFS REFERRAL NEEDED?NO CLERGY REFERRAL NEEDED?NO PUBLIC HEALTH REFERRAL NEEDED?NO WAS THE PROVIDER NOTIFIED OF ANY PERTINENT INFO?YES HAS THE PATIENT BEEN EDUCATED REGARDING HIS/HER PLAN OF CARE?YES HAS THE PATIENT BEEN EDUCATED REGARDING PAIN, THE RISK FOR PAIN, THE IMPORTANCE OF EFFECTIVE PAIN MANAGEMENT, AND THE PAIN ASSESSMENT PROCESS?YES CAFFEINE CAFFEINE USE?YES HOW OFTEN AND HOW MUCH? 1-2 CUPS PER DAY ADVANCE DIRECTIVE ADVANCE DIRECTIVE DISCUSSED WITH PATIENT:YES DECLINED NEW PATIENT PAIN DIARY TODAY'S VISIT NOTES, FROM 0-10, WHAT LEVEL IS YOUR PAIN TODAY? 0. RECREATIONAL DRUG USE DRUG USE?NO LEARNING BARRIERS / SPECIAL NEEDS ORIENTED TO PLAN OF CARE: PATIENT, PAIN MANAGEMENT PATIENT, ORIENTED TO PLAN OF CARE: PATIENT, PAIN MANAGEMENT PATIENT. REVIEWED WITH PATIENT 02/18/18 1432 JSREVIEWED WITH PATIENT 03/18/18 1450 JSREVIEWED WITH PATIENT 06/10/18 1158 JS. HOSPITALIZATION/MAJOR DIAGNOSTIC PROCEDURE FEVER 10/09/12 UTI 09/29/12 [facility] SUIC[place]AL [place]ATION/DEPRESSION 10/12/12 [facility] SUICIDAL IDEATION 10/17/12 ACUTE CHOLECYSTITIS-JAMES 11/21 [facility]-DEPRESSION/SUICIDAL IDEATION 12/22 C. DIFF 01/2018 C. DIFF/DEHYDRATION 02/2018 BROKEN HIP 05/2018 REVIEW OF SYSTEMS REVIEWED BY: PROVIDER: LIUDMILA WHITESIDE . CONSTITUTIONAL: ANY CHANGE IN YOUR MEDICAL CONDITION? NO . CHILLS NO . FEVER NO . INFECTION: DO YOU HAVE NEW INFECTIONS? NO . DO YOU HAVE HISTORY OF MRSA? NO . MUSCULOSKELETAL: ANY NEW PATTERNS OF PAIN OR NUMBNESS? YES, LEFT HAND DIGIT #5 HAND AND RADIATING UP HAND . GASTROENTEROLOGY: ANY NEW CHANGE IN BOWEL CONTROL? NO . GENITOURINARY: ANY NEW CHANGE IN BLADDER CONTROL? NO . IS THERE A CHANCE YOU COULD BE ? NO . HEMATOLOGY/LYMPH: DO YOU TAKE ANY BLOOD THINNERS? (FOR EXAMPLE- COUMADIN, PLAVIX, AGGRENOX, PLATEL, PRADAXA, OR XARELTO) NO . WHEN WAS YOUR LAST DOSE? DATE: TIME: . NEUROLOGY: HAVE YOU FALLEN IN THE PAST 12 MONTHS? YES, PRIOR TO LAST VISIT . ANY NEW EXTREMITY NUMBNESS OR WEAKNESS? NO . CARDIOLOGY: DO YOU HAVE A PACEMAKER OR DEFIBRILLATOR? NO . RESPIRATORY: HAVE YOU BEEN SICK IN THE PAST WEEK? NO . FEVER NO . FLU LIKE SYMPTOMS? NO . COUGH NO . INTEGUMENTARY: DO YOU HAVE ANY RASHES OR OPEN SORES? NO . ALLERGIC/IMMUNO: ARE YOU ALLERGIC TO IV DYE? YES . ANY NEW ALLERGIES? NO . PSYCHIATRIC: DO YOU HAVE THOUGHTS OF HURTING YOURSELF OR SOMEONE ELSE? NO . ARE YOU ABUSED, NEGLECTED, OR IN AN UNSAFE ENVIRONMENT? NO . ENDOCRINOLOGY: ARE YOU DIABETIC? NO . OTHER: DO YOU NEED ANY PRESCRIPTIONS? NO . IF YES, PLEASE LIST: ____ . ANY NEW PROBLEMS WITH YOUR MEDICATIONS? NO . WHEN DID YOU LAST EAT? ____ . WHEN DID YOU LAST DRINK? ____ . WHAT DID YOU LAST DRINK? ____ . NAME OF PERSON DRIVING YOU HOME? ____ . DO YOU HAVE ANY OTHER QUESTIONS OR CONCERNS NO . VITAL SIGNS WT 201.2 LBS, HT 62 IN, BMI 36.80 INDEX, BP 124/60 MM HG, HR 81 /MIN, RR 16 /MIN, TEMP 97.2 F, OXYGEN SAT % 96%, NA INITIALS AW 1400, REVIEWED BY: ISHAAN. EXAMINATION GENERAL EXAMINATION: GENERALAWAKE,ALERT ,PLEAASANT . PSYCHAFFECT NORMAL . LUNGS:LUNG BRENNAN ARE CLEAR TO AUSCULTATION BILATERALLY. GOOD MOVEMENT OF AIR . HEART:S1, S2 IN A REGULAR RATE AND RHYTHM. NO SIGNIFICANT MURMURS, RUBS OR GALLOPS NOTED . ASSESSMENTS RHEUMATOID ARTHRITIS INVOLVING MULTIPLE SITES, UNSPECIFIED RHEUMATOID FACTOR PRESENCE - M06.9 (PRIMARY) TREATMENT RHEUMATOID ARTHRITIS INVOLVING MULTIPLE SITES, UNSPECIFIED RHEUMATOID FACTOR PRESENCE REFILL OXYCONTIN TABLET ER 12 HOUR ABUSE-DETERRENT, 15 MG, 1 CAP, ORALLY, Q8H TID MDD3, 30 DAY(S), 90, REFILLS 0 NOTES: ISTOP REGISTRY REVIEWED AND DEMONSTRATES COMPLLIANCE. (REF # ) BRINGS IN MEDICATIONS WHICH IS APPROPRIATE FOR WHAT WAS DISPENSED. RECENT URINE TOXICOLOGY REVIEWED. NO UNAUTHORIZED MEDICATIONS. NO ILLICIT SUBSTANCES AND PRESCRIBED MEDICATIONS WERE PRESENT. , RISKS AND BENEFITS OF NARCOTIC/OPIOD MEDICATIONS WERE REVIEWED WITH PATIENT - THIS INCLUDES BUT IS NOT LIMITED TO RISK OF DEPENDANCE/DEVELOPMENT OF ADDICTION, MOOD DISTURBANCE AND DEPRESSION, OSTEOPOROSIS, HORMONAL AND LABIDAL CHANGES, RESPIRATORY DEPRESSION AND . PATIENT IS ADVISED NOT TO DRIVE OR DRINK ALCOHOL WHILE ON THESE MEDICATIONS. PROCEDURE CODES FA211 ESTABILISHED PATIENT [facility] CHARGE DISPOSITION & COMMUNICATION FOLLOW UP 3 MONTHS (REASON: MED MGMNT) ELECTRONICALLY SIGNED BY STEVO GONCALVES ON 01/07/2019 AT 08:51 AM EDT DISCLAIMER : THIS IS A VISIT SUMMARY EXTRACTED FROM THE [employer] CHART. IT IS NOT A COPY OF THE [employer] PROGRESS NOTE. MAMI
== END ==
LOC: M PAIN 13:45
PROVIDERS: ATTEND Nurse Practitioner Family
DX: M06.9 Rheumatoid arthritis, unspecified (principal); Z79.891 Long term (current) use of opiate analgesic; Z79.899 Other long term (current) drug therapy; F17.210 Nicotine dependence, cigarettes, uncomplicated; Z91.040 Latex allergy status; Z91.013 Allergy to seafood; Z88.8 Allergy status to other drugs, medicaments and biological substances

== ENCOUNTER → 2019-03-24 | Outpatient (CLI) | payer MEDICARE, OTHER ==
[~2019-03-24] MED LIST changes: +TRAZ-163 PO; -TRAZ-257 PO; +TRAZ10TA PO; -TRAZ1TAB12 PO
--- NOTE | 2019-04-13 08:19 | ECWPNPC ---
PATIENT NAME: DA THAO : 1955 GENDER: FEMALE VISIT DATE: 03/24/2019 DISCHARGE DATE: 03/24/19 1453 VISIT LOCKED DATE TIME: PHYSICIAN: LIUDMILA HART RESOURCE: LIUDMILA HART REASON FOR APPOINTMENT 1. BACK/HIPS HISTORY OF PRESENT ILLNESS HISTORY OF PRESENT ILLNESS: HERE FOR F/U OF CHRONIC LOW BACK PAIN AND GENERALIZED JOINT PAIN WITH A HISTORY OF RHEUMATOID ARTHRITIS.HAVING AN INCREASE IN PAIN LATELY.CURRENTLY USING XTAMPZA 13.5MG BID.DISCUSSED MEDICATION OPTIONS.PAPERHANGER AND PAINTER HAS CALLED TODAY WHO IS TELLING ME THAT SHE SEEMS TO BE IN MORE PAIN OVER THE PAST 2 MONTHS.RATING PAIN VAS 4-6/10 VAS. PAIN THE PATIENT DESCRIBES THE PAIN... FALL RISK SCREENING: SCREENING :NO FALLS REPORTED IN THE LAST YEAR CURRENT MEDICATIONS TAKING FOLIC ACID 1 MG TABLET 1 TAB(S) P.O. ONCE A DAY TAKING OMEPRAZOLE 40 MG CAPSULE DELAYED RELEASE 1 CAPSULE ORALLY ONCE A DAY TAKING RANITIDINE HCL 150 MG CAPSULE 1 CAP(S) P.O. TWICE DAILY NEEDED TAKING TRAZODONE 100 100MG TABLET 3 ORAL DAILY TAKING KLONOPIN 1 MG TABLET ORALLY THREE TIMES DAILY TAKING METHOTREXATE 2.5 MG TABLET 8 TABS P.O. ONCE A WK. TAKING ALLOPURINOL 100 MG TABLET 1 TABLET ORALLY ONCE A DAY TAKING ENBREL 50 MG/ML SOLUTION PREFILLED SYRINGE 1 ML SUBCUTANEOUS WEEKLY TAKING NYSTATIN POWDER DIRECTED TAKING SENNA LAXATIVE 8.6 MG TABLET 1 TABLETS AT BEDTIME NEEDED ORALLY ONCE DAILY NEEDED TAKING FOSAMAX 70 MG/75ML SOLUTION 75 ML ORALLY WEEKLY TAKING AMBIEN 10 MG TABLET 1 TABLET AT BEDTIME NEEDED ORALLY ONCE A DAY TAKING PREDNISONE 5 MG TABLET 1 TABLET ORALLY ONCE A DAY TAKING METOPROLOL SUCCINATE ER 25 MG TABLET EXTENDED RELEASE 24 HOUR 1 TABLET ORALLY ONCE A DAY TAKING LATUDA 40 MG TABLET 1 TABLET ORALLY DAILY TAKING XTAMPZA ER 13.5 MG CAPSULE ER 12 HOUR ABUSE-DETERRENT 1 CAPSULE WITH FOOD ORALLY EVERY 12 HRS MDD2 NOT-TAKING OXYCONTIN 15 MG TABLET ER 12 HOUR ABUSE-DETERRENT 1 CAP ORALLY Q8H TID MDD3 NOT-TAKING CALCIUM 600 600 MG TABLET 1 TAB(S) P.O. TWICE A DAY NOT-TAKING OXYCODONE HCL 5 MG CAPSULE 1 CAPSULE NEEDED ORALLY EVERY 4 HRS PRN MDD4 NOT-TAKING ATENOLOL 25MG TABLET 1 TABLET ORALLY ONCE DAILY, NOTES: DISCONTINUED NOT-TAKING VANCOMYCIN 1 TAB ORAL FOUR TIMES DAILY, NOTES: UNSURE OF DOSE NOT-TAKING BUTRANS 10 MCG/HR PATCH WEEKLY 1 PATCH TO SKIN TRANSDERMAL 1 PATCH Q7 DAYS=MDD, NOTES: STOPPED TAKING NOT-TAKING VITAMIN D-3 2000 UNIT CAPSULE 1 CAPSULE P.O. ONCE A DAY NOT-TAKING ACETAMINOPHEN 325 MG TABLET 1 TABLET NEEDED ORALLY EVERY 6 HRS NOT-TAKING ALBUTEROL SULFATE 1.25 MG/3ML NEBULIZATION SOLUTION 3 ML NEEDED INHALATION EVERY 8 HRS NOT-TAKING TUDORZA PRESSAIR 400 MCG/ACT AEROSOL POWDER BREATH ACTIVATED 1 PUFF INHALATION TWICE A DAY NOT-TAKING VENTOLIN HFA 108 (90 BASE) MCG/ACT AEROSOL SOLUTION 2 PUFFS NEEDED INHALATION EVERY 4 HRS NOT-TAKING BREO ELLIPTA 100-25 MCG/INH AEROSOL POWDER BREATH ACTIVATED 1 PUFF INHALATION ONCE A DAY NOT-TAKING LASIX 40 MG TABLET 1 TABLET ORALLY ONCE A DAY NOT-TAKING POTASSIUM 1 TAB ORAL DAILY, NOTES: UNSURE OF DOSE NOT-TAKING IBUPROFEN 600 MG TABLET 1 TABLET ORALLY THREE TIMES DAILY NEEDED, NOTES: NOT TAKING UNTIL OXYCODONE IS DONE DISCONTINUED OXYGEN MEDICATION LIST REVIEWED AND RECONCILED WITH THE PATIENT PAST MEDICAL HISTORY RA COPD BIPOLAR DISORDER/DEPRESSION/SUICIDAL IDEATION HTN GERD CHRONIC PAIN TOBACCO USE ANXIETY SLEEP APNEA C. DIFF ALLERGIES IVP DYE: ANAPHYLAXIS SHELLFISH: ANAPHYLAXIS LYRICA: SWELLING SURGICAL HISTORY 07/1981 APPENDECTOMY CHOLECYSTECTOMY TONSILLECTOMY BTL CRYO-2007 PARTIAL HIP REPLACEMENT - LEFT 05/2018 PINS PLACED IN HIP - RIGHT 05/2018 FAMILY HISTORY FATHER: , DIAGNOSED WITH UNSPECIFIED HEART DISEASE MOTHER: , OTHER SPECIFIED CONDITIONS INFLUENCING HEALTH STATUS 1 BROTHER(S) , 3 SISTER(S) - HEALTHY. 2 SON(S) , 1 DAUGHTER(S) - HEALTHY. SOCIAL HISTORY GENERAL: TOBACCO USE ARE YOU A:CURRENT SMOKER ARE YOU INTERESTED IN QUITTING?NOT READY TO QUIT COUNSELED THE PATIENT ON SMOKING EFFECTS, EDUCATION [id number]/13/2019 HOW MANY CIGARETTES A DAY DO YOU SMOKE?5 OR LESS PATIENT COUNSELED ON THE DANGERS OF TOBACCO USE AND URGED TO QUIT:06/10/2018 PAIN CLINIC PFS, CLERGY, PUBLIC HEALTH REFERRALS PFS REFERRAL NEEDED?NO CLERGY REFERRAL NEEDED?NO PUBLIC HEALTH REFERRAL NEEDED?NO WAS THE PROVIDER NOTIFIED OF ANY PERTINENT INFO?YES HAS THE PATIENT BEEN EDUCATED REGARDING HIS/HER PLAN OF CARE?YES HAS THE PATIENT BEEN EDUCATED REGARDING PAIN, THE RISK FOR PAIN, THE IMPORTANCE OF EFFECTIVE PAIN MANAGEMENT, AND THE PAIN ASSESSMENT PROCESS?YES CAFFEINE CAFFEINE USE?YES HOW OFTEN AND HOW MUCH? 1-2 CUPS PER DAY ADVANCE DIRECTIVE ADVANCE DIRECTIVE DISCUSSED WITH PATIENT:YES DECLINED NEW PATIENT PAIN DIARY TODAY'S VISIT NOTES, FROM 0-10, WHAT LEVEL IS YOUR PAIN TODAY? 0. RECREATIONAL DRUG USE DRUG USE?NO LEARNING BARRIERS / SPECIAL NEEDS ORIENTED TO PLAN OF CARE: PATIENT, PAIN MANAGEMENT PATIENT, ORIENTED TO PLAN OF CARE: PATIENT, PAIN MANAGEMENT PATIENT. REVIEWED WITH PATIENT 02/18/18 1432 JSREVIEWED WITH PATIENT 03/18/18 1450 JSREVIEWED WITH PATIENT 06/10/18 1158 JS. HOSPITALIZATION/MAJOR DIAGNOSTIC PROCEDURE FEVER 10/09/12 UTI 09/29/12 [facility] [place] SUICIDAL IDEATION/DEPRESSION 10/12/12 [facility] [place] SUICIDAL IDEATION 10/17/12 ACUTE CHOLECYSTITIS-JAMES 11/21 [facility]-DEPRESSION/SUICIDAL IDEATION 12/22 C. DIFF 01/2018 C. DIFF/DEHYDRATION 02/2018 BROKEN HIP 05/2018 REVIEW OF SYSTEMS REVIEWED BY: PROVIDER: LIUDMILA WHITESIDE . CONSTITUTIONAL: ANY CHANGE IN YOUR MEDICAL CONDITION? NO . CHILLS NO . FEVER NO . INFECTION: DO YOU HAVE NEW INFECTIONS? NO . DO YOU HAVE HISTORY OF MRSA? NO . MUSCULOSKELETAL: ANY NEW PATTERNS OF PAIN OR NUMBNESS? YES, BILAT HAND NUMBNESS, PT ATTRIBUTES TO COLD WEATHER . GASTROENTEROLOGY: ANY NEW CHANGE IN BOWEL CONTROL? NO . GENITOURINARY: ANY NEW CHANGE IN BLADDER CONTROL? NO . IS THERE A CHANCE YOU COULD BE ? NO . HEMATOLOGY/LYMPH: DO YOU TAKE ANY BLOOD THINNERS? (FOR EXAMPLE- COUMADIN, PLAVIX, AGGRENOX, PLATEL, PRADAXA, OR XARELTO) NO . WHEN WAS YOUR LAST DOSE? DATE: TIME: . NEUROLOGY: HAVE YOU FALLEN IN THE PAST 12 MONTHS? YES, PT FELL 5 DAYS AGO FROM LOSS OF BALANCE, BRUISED LEFT KNEE PT DENIES SEEKING TX . ANY NEW EXTREMITY NUMBNESS OR WEAKNESS? NO . CARDIOLOGY: DO YOU HAVE A PACEMAKER OR DEFIBRILLATOR? NO . RESPIRATORY: HAVE YOU BEEN SICK IN THE PAST WEEK? NO . FEVER NO . FLU LIKE SYMPTOMS? NO . COUGH NO . INTEGUMENTARY: DO YOU HAVE ANY RASHES OR OPEN SORES? NO . ALLERGIC/IMMUNO: ARE YOU ALLERGIC TO IV DYE? YES . ANY NEW ALLERGIES? NO . PSYCHIATRIC: DO YOU HAVE THOUGHTS OF HURTING YOURSELF OR SOMEONE ELSE? NO . ARE YOU ABUSED, NEGLECTED, OR IN AN UNSAFE ENVIRONMENT? NO . ENDOCRINOLOGY: ARE YOU DIABETIC? NO . OTHER: DO YOU NEED ANY PRESCRIPTIONS? NO . IF YES, PLEASE LIST: ____ . ANY NEW PROBLEMS WITH YOUR MEDICATIONS? NO . WHEN DID YOU LAST EAT? ____ . WHEN DID YOU LAST DRINK? ____ . WHAT DID YOU LAST DRINK? ____ . NAME OF PERSON DRIVING YOU HOME? ____ . DO YOU HAVE ANY OTHER QUESTIONS OR CONCERNS HANDS GO NUMB MAYBE TO COLD WEATHER . VITAL SIGNS WT 201.4 LBS, HT 62 IN, BMI 36.83 INDEX, BP 132/62 MM HG, HR 95 /MIN, RR 16 /MIN, TEMP 97.0 F, OXYGEN SAT % 95%, NA INITIALS AW 1403, REVIEWED BY: ISHAAN. EXAMINATION GENERAL EXAMINATION: GENERALAWAKE,ALERT ,PLEAASANT . PSYCHAFFECT NORMAL . LUNGS:LUNG BRENNAN ARE CLEAR TO AUSCULTATION BILATERALLY. GOOD MOVEMENT OF AIR . HEART:S1, S2 IN A REGULAR RATE AND RHYTHM. NO SIGNIFICANT MURMURS, RUBS OR GALLOPS NOTED . ASSESSMENTS RHEUMATOID ARTHRITIS INVOLVING MULTIPLE SITES, UNSPECIFIED RHEUMATOID FACTOR PRESENCE - M06.9 (PRIMARY) TREATMENT RHEUMATOID ARTHRITIS INVOLVING MULTIPLE SITES, UNSPECIFIED RHEUMATOID FACTOR PRESENCE INCREASE XTAMPZA ER CAPSULE ER 12 HOUR ABUSE-DETERRENT, 18 MG, 1 CAPSULE WITH FOOD, ORALLY, EVERY 12 HRS MDD2, 30 DAYS, 60, REFILLS 0 NOTES: URINE TOX AT NEXT VISIT, ISTOP REGISTRY REVIEWED AND DEMONSTRATES COMPLLIANCE. RECENT URINE TOXICOLOGY REVIEWED. NO UNAUTHORIZED MEDICATIONS. NO ILLICIT SUBSTANCES AND PRESCRIBED MEDICATIONS WERE PRESENT. , RISKS OF NARCOTIC/OPIOD MEDICATIONS INCLUDES BUT IS NOT LIMITED TO RISK OF DEPENDANCE/DEVELOPMENT OF ADDICTION, MOOD DISTURBANCE AND DEPRESSION, OSTEOPOROSIS, HORMONAL AND LABIDAL CHANGES, RESPIRATORY DEPRESSION AND . PATIENT IS ADVISED NOT TO DRIVE OR DRINK ALCOHOL WHILE ON THESE MEDICATIONS, REVIEWED WITH PATIENT THE POTENTIAL RISK OF INCREASED SEDATION, RESPIRATORY SUPPRESSION AND WITH THE COMBINATION OF BENZODIAZAPINE AND OPIOD MEDICATIONS. PATIENT STATES HE UNDERSTANDS THIS RISK AND WISHES TO CONTINUE WITH THERAPY. PROCEDURE CODES FA211 ESTABILISHED PATIENT [facility] CHARGE DISPOSITION & COMMUNICATION FOLLOW UP 2 MONTHS ELECTRONICALLY SIGNED BY STEVO GONCALVES ON 04/12/2019 AT 08:43 AM EST DISCLAIMER : THIS IS A VISIT SUMMARY EXTRACTED FROM THE [employer] CHART. IT IS NOT A COPY OF THE [employer] PROGRESS NOTE. MAMI
== END ==
LOC: M PAIN 13:45
PROVIDERS: ATTEND Nurse Practitioner Family
DX: M06.9 Rheumatoid arthritis, unspecified (principal); M54.5 Low back pain; G89.29 Other chronic pain; J44.9 Chronic obstructive pulmonary disease, unspecified; Z86.59 Personal history of other mental and behavioral disorders; I10 Essential (primary) hypertension; K21.9 Gastro-esophageal reflux disease without esophagitis; G47.30 Sleep apnea, unspecified; Z86.19 Personal history of other infectious and parasitic diseases; F17.210 Nicotine dependence, cigarettes, uncomplicated; Z88.8 Allergy status to other drugs, medicaments and biological substances; Z91.013 Allergy to seafood; Z91.041 Radiographic dye allergy status; Z79.891 Long term (current) use of opiate analgesic; Z79.899 Other long term (current) drug therapy